=== PATIENT | female | born 1980 | race Caucasian/White ===

== ENCOUNTER 2019-11-21 20:10 | Emergency (ER) | payer OTHER ==
--- OUTSIDE RECORDS SUMMARY | 2019-11-21 20:12 | XMS REPORT | Summary of Care ---
:1980 Author Organization [facility] Address [address] [place] [address] Care Team Providers Name Role Phone Corwin Bang Primary Care Provider Reason for Visit Reason Comments New Evaluation L knee pain (Routine) Status Reason Specialty Diagnoses / Referred By Referred To Procedures Contact Contact Authorized Orthopedic Diagnoses Primary osteoarthritis of left knee [place], Surgery Procedures CONSULT/REFERRAL ORTHOPAEDIC SURGERY Leydi George, BANANA ROOM CUTTER [address] [facility] [address] [place] [address] Encounter Details Date Type Department Care Team Description 06/17/2019 Office Visit [facility] Paulie Manzo, Primary osteoarthritis Orthopaedic Surgery- MD of left knee (Primary [place] [address] [facility] Dx) [address] [facility], [address] [place] [address] [phone] Allergies Active Allergy Reactions Severity Noted Date Comments Moxifloxacin Hcl Nausea and/or High 07/09/2012 Vomiting, Rash Benadryl Allergy Nausea and/or High 07/09/2012 Decongestant Vomiting, Rash Sumatriptan Succinate Nausea and/or High 07/09/2012 Vomiting, Rash Butorphanol Tartrate Other - See comments 07/09/2012 Very sleepy, and does not act like herself documented as of this encounter (statuses as of 06/18/2019) Medications Medication Sig Dispensed Refills Start Date End Date Status ATENOLOL ORAL Take by mouth. 0 Active LISINOPRIL ORAL Take by mouth. 0 Active albuterol (PROAIR HFA) Inhale 2 Puffs 1 Inhaler 1 03/28/2018 Active 90 mcg/actuation every 6 (six) inhalerIndications: hours as needed Cough, Wheezes, Hx of for Wheezing or extrinsic asthma Shortness of Breath (cough). 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 documented as of this encounter Last Filed Vital Signs Vital Sign Reading Time Taken Comments Blood Pressure - - Pulse - - Temperature 36.3 C (97.4 F) 06/17/2019 3:22 PM CDT Respiratory Rate - - Oxygen Saturation - - Inhaled Oxygen Concentration - - Weight 95.7 kg (211 lb) 06/17/2019 3:22 PM CDT Height - - Body Mass Index 39.87 07/24/2012 9:35 AM CDT documented in this encounter Progress Paramjit Feng MD - 06/17/2019 3:20 PM CDT Orthopedic Clinic Knee Note 06/17/19 Chief Complaint: Encounter Diagnosis Name Primary? Primary osteoarthritis of left knee Yes HPI: Maria Del Carmen Rodriguez is a 39 year old female who presents with 5 year history of left knee pain presenting in the medial and lateral area of the knee. An effusion is present. Activities of daily living affected include: Getting up and down steps, getting in and out of a car, putting on shoes andsox , and rising from a chair. The patient also experiences night pain. Start up pain is present. Currently no walker or cane required. The patient is a community ambulator. The patient has had thefollowing treatments for this problem plateau ORIF, HWR, activity modifications, NSAIDs. Past Medical History: Diagnosis Date Anxiety Hypertension Migraines Tachycardia PCOS Past Surgical History: Procedure Laterality Date APPENDECTOMY ARTHROSCOPIC MENISCAL REPAIR 07/24/2012 Surgeon: Philip Lopes MD; Location: [facility] CHOLECYSTECTOMY KNEE ARTHROSCOPY 07/24/2012 Surgeon: Philip Lopes MD; Location: [facility] MENISCECTOMY 07/24/2012 Surgeon: Philip Lopes MD; Location: [facility] OTHER cyst removed right ovary TUBAL LIGATION Allergies Allergen Reactions Avelox [Moxifloxacin Hcl] Nausea and/or Vomiting and Rash Benadryl Allergy Decongestant Nausea and/or Vomiting and Rash Imitrex [Sumatriptan Succinate] Nausea and/or Vomiting and Rash Stadol [Butorphanol Tartrate] Other - See comments Very sleepy, and does not act like herself Patient's Medications START taking these medications No medications on file CONTINUE taking these medications which have NOT CHANGED ALBUTEROL (PROAIR HFA) 90 MCG/ACTUATION INHALER Inhale 2 Puffs every 6 (six ) hours as needed forWheezing or Shortness of Breath (cough). ATENOLOL ORAL Take by mouth. ESCITALOPRAM OXALATE 20 MG TABLET LISINOPRIL ORAL Take by mouth. MIRTAZAPINE 7.5 MG TABLET REXULTI 4 MG TAB START taking Modified Medications as Prescribed No medications on file STOP taking these medications No medications on file Social History Socioeconomic History Marital status: Single Spouse name: Not on file Number of children: Not on file Years of education: Not on file Highest education level: Not on file Occupational History Not on file Social Needs Financial resource strain: Not on file Food insecurity: Worry: Not on file Inability: Not on file Transportation needs: Medical: Not on file Non-medical: Not on file Tobacco Use Smoking status: Never Smoker Substance and Sexual Activity Alcohol use: No Drug use: No Sexual activity: Not on file Lifestyle Physical activity: Days per week: Not on file Minutes per session: Not on file Stress: Not on file Relationships Social connections: Talks on phone: Not on file Gets together: Not on file Attends advent service: Not on file Active member of club or organization: Not on file Attends meetings of clubs or organizations: Not on file Relationship status: Not on file Intimate partner violence: Fear of current or ex partner: Not on file Emotionally abused: Not on file Physically abused: Not on file Forced sexual activity: Not on file Other Topics Concern Not on file Social History Narrative Not on file No family history on file. Infection: None Transfusion: None REVIEW OF SYSTEMS: Constitutional: negative Eyes: negative Ears: negative Nose/Sinuses: negative Mouth/Throat: negative Cardiovascular: negative Respiratory: negative Gastrointestinal: negative Genitourinary: negative Musculoskeletal: See HPI Integumentary: negative Neuro: negative Psych: negative Endocrine: PCOS Hem/Lymph: negative PE 06/17/19 1522 Weight: 95.7 kg (211 lb) ,Body mass index is 39.87 kg/m. General: Well nourished, well developed, in no acute distress Gait: left side antalgia Skin: No rashes or wounds Left LE Hip: Stinchfield: negative, 5/ Knee: ROM: Flexion 5, Extension 85, Lag 5 Stability: [id number] Joint Line Tenderness: L>M Patella tracking/stability: crepitus Extensor Strength: 5 Pes insertion tenderness: negative Gerdy's Tubercle tenderness: negative Effusion: Mild Vascular: Dorsalis pedis: 2/4, Posterior Tibial 2/4, Hair present XRAY: Left knee 3v: remodeling of the tibial plateau with significant joint space narrowing and osteophyteformation. No visits with results within 1 Month(s) from this visit. Latest known visit with results is: Orders Only on 07/11/2012 Component Date Value MRI LOWJOINT WO CONTRAST 07/11/2012 Value:*.*.*.*.*.*.*.*.*.*.*.*.*.*FINAL*.*.*.*.*.*.*.*.*.*.*.*.* .*.* History: 32-year-old woman with left knee pain and concern for lateral meniscal tear versus lateral patellar/femoral chondral injury. MRI OF THE LEFT KNEE-3 Lizeth unit. Comparison to plain films dated 07-09-2012. The lateral meniscus has a discoid configuration. The free edge (central) shows a mildly displaced tear, best seen on the sagittal images. A small adjacent bone bruise involves the medial aspect of the tibial condyle anteriorly. The medial meniscus is intact. The collateral ligaments and the cruciate ligaments are intact. The patellar ligament and quadriceps tendon appear intact. No patellar chondromalacia. No significant joint effusion. Impression: Discoid lateral meniscus with a small tear along the free edge. HGB A1C (%) Date Value 09/28/2004 5.0 ALBUMIN (G/DL) Date Value 04/14/2005 2.1 (L) ASSESSMENT: left knee post-traumatic arthritis. H/o tibial plateau fracture. PLAN: - Discussed continued symptomatic management vs TKA. She has attempted multiple conservative optionswithout success and would like to proceed with surgery. -Plan for Left TKA -Non operative measures as well as operative intervention offerred and explained. At this time the patient desires to pursue surgical care. Indications , operative risks, potential outcomes and benefitsdiscussed and reviewed in detail. Operative risks discussed included but were not limited to infection, continued pain, increasing pain, no improvement, scarring, stiffness, loss of motion, need for lengthy rehabilitation in the postoperative phases, worsening of the condition, need for revision and/or further surgical care, fracture of bone, loosening of prosthesis or implants either in the short-term or long-term , compromise to life and/or limb, bleeding, blood clots, compartment syndrome issues, transfusion risks, allograft risks, potential injury to associated structures which may include nerve, vessel, muscle, tendon, ligament, and/or bone or cartilage which may result in loss of muscle strength, changes or losses in sensation, and/or limb dysfunction or deformity, less prevalent complications, unforeseen circumstances. Both written and verbal consent were obtained. All questions were answered and thoroughly reviewed. Pre-operative evaluation/clearance to be performed by primary care physician/medical physician , anesthesia team, prior to operative intervention for evaluation of medical preparedness to undergo anesthesia and operative stress. Instructions for this/ these evaluations were given to the patient and appropriate family/companions in attendance. - Activity as tolerated until surgery - Preop labs, CXR, EKG and bootcamp ordered - Follow up on DOSElectronically signed by Paramjit Leon MD at 2:37 PM CDTdocumented in this encounter Plan of Treatment Date Type Specialty Care Team Description 07/27/2019 Office Visit Orthopedic Surgery Eileen Goodman, BANANA ROOM CUTTER [address] [place] [address] [phone] Name Type Priority Associated Diagnoses Order Schedule XR CHEST 1 VW IMAGING Routine Primary osteoarthritis Expected: of left knee 06/17/2019, Expires: 06/17/2020 EKG-12 LEAD ROUTINE HEART STATION Routine Primary osteoarthritis Expected: of left knee 06/17/2019, Expires: 06/17/2020 URINALYSIS LAB Routine Primary osteoarthritis Expected: of left knee 06/17/2019, Expires: 06/17/2020 CBC WITH DIFF LAB Routine Primary osteoarthritis Expected: of left knee 06/17/2019, Expires: 06/17/2020 COMP. METABOLIC PANEL LAB Routine Primary osteoarthritis Expected: ([id number]) of left knee 06/17/2019, Expires: 06/17/2020 PROTHROMBIN TIME / INR LAB Routine Primary osteoarthritis Ordered: of left knee 06/17/2019 GLYCOSYLATED LAB Routine Primary osteoarthritis Ordered: HEMOGLOBIN (A1C) of left knee 06/17/2019 HEPATIC FUNCTION PANEL LAB Routine Primary osteoarthritis Ordered: ([id number]) of left knee 06/17/2019 (ALB,T.PRO,BILI T,BU/BC,ALT,AST,ALK PHOS) Health Maintenance Due Date Last Done Comments DTaP,Tdap,and Td Vaccines ( - 1997 Tdap) PAP SMEAR 09/28/2007 09/28/2004 MAMMOGRAM 2018 INFLUENZA VACCINE 07/25/2019 PNEUMOCOCCAL 0-64 YEARS COMBINED Aged Out No longer eligible based on SERIES patient's age to complete this topic documented as of this encounter Implants Implanted Type Area Bellperson Device Shelf Model / Identifier Expiration Serial / Lot Date Fast-Fix Ab, [employer] Curved Ultra #[id number] - [id number] FAST-FIX Left : [employer] 05/23/2015 [id number] / Implanted: Qty: 1 on 07/24/2012 by Philip Lopes MD at [facility] [place] [facility] Knee [id number] / [id number] Fast Fix 360 Curved Left: 05/23/2015 / Implanted: Qty: 1 on 07/24/2012 by Philip Lopes MD at [facility] Knee [id number] / [id number] documented as of this encounter Results Not on filedocumented in this encounter Visit Diagnoses Diagnosis Primary osteoarthritis of left knee - Primary Primary localized osteoarthrosis, lower leg documented in this encounter Insurance Payer Benefit Plan / Subscriber ID Effective Dates Phone Address Type Group [facility] xxxxxxxxx 2018-Present Medicaid COMM PLAN - PLUS MANAGED MEDICAID (Home) [id number], ([place]) [place] [address] documented as of this encounter
--- OUTSIDE RECORDS SUMMARY | 2019-11-21 20:13 | XMS REPORT | Summary of Care ---
:1980 Author Organization [facility] - [facility] Address [address] [place] [address] Care Team Providers Name Role Phone Merritt Corwin Primary Care Provider Reason for Visit Reason Comments Results Pre-Op Test Results Encounter Details Date Type Department Care Team Description 07/08/2019 Telephone [facility] Orthopaedic Paulie Manzo, Results (Pre -Op Test Surgery- [facility] Results) [facility] [address] [phone] Allergies Active Allergy Reactions Severity Noted Date Comments Moxifloxacin Hcl Nausea and/or High 07/09/2012 Vomiting, Rash Benadryl Allergy Nausea and/or High 07/09/2012 Decongestant Vomiting, Rash Sumatriptan Succinate Nausea and/or High 07/09/2012 Vomiting, Rash Butorphanol Tartrate Other - See comments 07/09/2012 Very sleepy, and does not act like herself documented as of this encounter (statuses as of 07/08/2019) Medications Medication Sig Dispensed Refills Start Date [...] as of this encounter (statuses as of 07/08/2019) Active Problems Problem Noted Date Hypertension 02/06/2018 Tachycardia 02/06/2018 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 documented as of this encounter Last Filed Vital Signs Not on filedocumented in this encounter Plan of Treatment Date Type Specialty Care Team Description 07/14/2019 Ancillary Visit Physical Therapy Maurice Noriega MD [address] [facility] [address] [place] [address] [phone] Preop, Bárbara Vl-Tka 07/27/2019 Office Visit Orthopedic Surgery Eileen Villanueva, SKYLAR [address] [place] [address] [phone] 07/27/2019 Hospital Encounter Surgery Paulie Manzo MD [address] [place] [address] [phone] 07/27/2019 Surgery Surgery Paulie Manzo TOTAL KNEE MD [facility] ARTHROPLASTY [address] [place] [address] [phone] 09/01/2019 Office Visit Orthopedic Surgery Paulie Manzo MD [address] [place] [address] [phone] Health Maintenance Due Date Last Done Comments DTaP,Tdap,and Td Vaccines (1 - 1997 Tdap) PAP SMEAR 09/28/2007 09/28/2004 MAMMOGRAM 2018 INFLUENZA VACCINE (#1) 2019 PNEUMOCOCCAL 0-64 YEARS COMBINED Aged Out No longer eligible based on SERIES patient's age to complete this topic documented as of this encounter Implants Implanted Type Area Drain Layer Device Shelf Model / Identifier Expiration Serial / Lot Date Fast-Fix Ab, [employer] Curved Ultra #[id number] - [id number] FAST-FIX Left : [employer] 05/23/2015 [id number] / Implanted: Qty: 1 on 07/24/2012 by Philip Lopes MD at [facility] [place] [facility] Knee [id number] / [id number] Fast Fix 360 Curved Left: 05/23/2015 / Implanted: Qty: 1 on 07/24/2012 by Philip Lopes MD at [facility] AT [facility] Knee [id number] / [id number] documented as of this encounter Results Not on filedocumented in this encounter Insurance Payer Benefit Plan / Subscriber ID Effective Dates Phone Address Type Group [facility] xxxxxxxxx 2018-Present Medicaid COMM PLAN - PLUS MANAGED MEDICAID documented as of this encounter
--- OUTSIDE RECORDS SUMMARY | 2019-11-21 20:13 | XMS REPORT | Summary of Care ---
:1980 Author Organization [facility] Address [address] [place] [address] Care Team Providers Name Role Phone Merritt Corwin Primary Care Provider Reason for Visit Reason Comments Notification question about crutches and knee brace Encounter Details Date Type Department Care Team Description 06/18/2019 Telephone [facility] Orthopaedic Paulie Manzo, Notification (question Surgery- Jenny Dai MD about crutches and knee [place] [address] [facility] brace ) [address] [facility] [address] [place] [phone] Allergies Active Allergy Reactions Severity Noted Date [...] 07/27/2019 Office Visit Orthopedic Surgery Eileen Goodman, INSURANCE LOSS ADJUSTER [address] [place] [address] [phone] Health Maintenance Due Date Last Done Comments DTaP,Tdap,and Td Vaccines ( - 1997 Tdap) PAP SMEAR 09/28/2007 09/28/2004 MAMMOGRAM 2018 INFLUENZA VACCINE 07/25/2019 PNEUMOCOCCAL 0-64 YEARS COMBINED Aged Out No longer eligible based on SERIES patient's age to complete this topic documented as of this encounter Implants Implanted Type Area Candy Dipper Device Shelf Model / Identifier Expiration Serial / Lot Date Fast-Fix Ab, [employer] Curved Ultra #[id number] - [id number] FAST-FIX Left : [employer] 05/23/2015 [id number] / Implanted: Qty: 1 on 07/24/2012 by Philip Lopes MD at [facility] Knee [id number] / [id number] Fast Fix 360 Curved Left: 05/23/2015 / Implanted: Qty: 1 on 07/24/2012 by Philip Lopes MD at [facility] Knee [id number] / [id number] documented as of this encounter Results Not on filedocumented in this encounter Insurance Payer Benefit Plan / Subscriber ID Effective Dates Phone Address Type Group [facility] xxxxxxxxx 2018-Present Medicaid COMM PLAN - PLUS MANAGED MEDICAID documented as of this encounter
--- OUTSIDE RECORDS SUMMARY | 2019-11-21 20:13 | XMS REPORT | Summary of Care ---
:1980 Author Organization [facility] Address [address] [place] [address] Care Team Providers Name Role Phone Merritt Corwin Primary Care Provider Reason for Visit Reason Comments Appointment sched surgery Encounter Details Date Type Department Care Team Description 06/18/2019 Telephone [facility] Orthopaedic Paulie Manzo, Appointment (sched Surgery- [facility] surgery ) [place] [address] [facility] [address] [place] [address] [address] [place] [phone] Allergies Active Allergy Reactions Severity Noted Date Comments Moxifloxacin Hcl Nausea and/or High 07/09/2012 Vomiting, Rash Benadryl Allergy Nausea and/or High 07/09/2012 Decongestant Vomiting, Rash Sumatriptan Succinate Nausea and/or High 07/09/2012 Vomiting, Rash Butorphanol Tartrate Other - See comments 07/09/2012 Very sleepy, and does not act like herself documented as of this encounter (statuses as of 06/22/2019) Medications Medication Sig Dispensed Refills Start Date [...] as of this encounter (statuses as of 06/22/2019) Active Problems Problem Noted Date Hypertension 02/06/2018 Tachycardia 02/06/2018 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 Tear of lateral cartilage or meniscus of knee, current 07/23/2012 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 documented as of this encounter (statuses as of 06/22/2019) Social History Tobacco Use Types Packs/Day Years [...] Description 07/27/2019 Office Visit Orthopedic Surgery Eileen Goodman FNP [address] [place] [address] [phone] 09/01/2019 Office Visit Orthopedic Surgery Paulie Manzo MD [address] [place] [address] [phone] Health Maintenance Due Date Last Done Comments DTaP,Tdap,and Td Vaccines (1 - 1997 Tdap) PAP SMEAR 09/28/2007 09/28/2004 MAMMOGRAM 2018 INFLUENZA VACCINE 07/25/2019 PNEUMOCOCCAL 0-64 YEARS COMBINED Aged Out No longer eligible based on SERIES patient's age to complete this topic documented as of this encounter Implants Implanted Type Area Stockroom Helper Device Shelf Model / Identifier Expiration Serial / Lot Date Fast-Fix Ab, [employer] Curved Ultra #[id number] - [id number] FAST-FIX Left : [employer] 05/23/2015 [id number] / Implanted: Qty: 1 on 07/24/2012 by Philip Lopes MD at [facility] Knee [id number] / [id number] Fast Fix 360 Curved Left: 05/23/2015 / Implanted: Qty: 1 on 07/24/2012 by Philip Lopes MD at [facility] Knee [id number] / [id number] documented as of this encounter Results Not on filedocumented in this encounter Insurance Payer Benefit Plan / Subscriber ID Effective Dates Phone Address Type Group [facility] xxxxxxxxx 2018-Present Medicaid COMM PLAN - PLUS MANAGED MEDICAID documented as of this encounter
--- OUTSIDE RECORDS SUMMARY | 2019-11-21 20:13 | XMS REPORT | Summary of Care ---
:1980 Author Organization [facility] - [facility] Address [address] [place] [address] Care Team Providers Name Role Phone Corwin Bang Primary Care Provider Reason for Visit Reason Comments New Evaluation L knee pain (Routine) Status Reason Specialty Diagnoses / Referred By Referred To Procedures Contact Contact Authorized Orthopedic Diagnoses Primary osteoarthritis of left knee [place], Surgery Procedures CONSULT/REFERRAL ORTHOPAEDIC SURGERY Leydi George, MANAGER NON PROFIT [address] [facility] [address] [place] [address] Encounter Details Date Type Department Care Team Description 06/17/2019 Office Visit [facility] Paulie Manzo, Primary osteoarthritis Orthopaedic Surgery- MD of left knee (Primary [place] 26[address] [facility] Dx) [address] [facility], [address] [place] [address] [phone] Allergies Active Allergy Reactions Severity Noted Date [...] REPAIR 07/24/2012 Surgeon: Philip Lopes MD; Location: [facility] CHOLECYSTECTOMY KNEE ARTHROSCOPY 07/24/2012 Surgeon: Philip Lopes MD; Location: [facility] OR [facility] MENISCECTOMY 07/24/2012 Surgeon: Philip Lopes MD; Location: [facility] OR [facility] OTHER cyst removed right ovary TUBAL LIGATION [...] file Gets together: Not on file Attends church service: Not on file Active member of [...] Flexion 5, Extension 85, Lag 5 Stability: [id number] Joint Line Tenderness: L>M Patella tracking/stability: crepitus [...] 07/27/2019 Office Visit Orthopedic Surgery Eileen Goodman, MANAGER NON PROFIT [address] [place] [address] [phone] Name Type Priority Associated Diagnoses Order Schedule [...] METABOLIC PANEL LAB Routine Primary osteoarthritis Expected: ([id number]) of left knee 06/17/2019, Expires: 06/17/2020 PROTHROMBIN TIME / INR LAB Routine Primary osteoarthritis Ordered: of left knee 06/17/2019 GLYCOSYLATED LAB Routine Primary osteoarthritis Ordered: HEMOGLOBIN (A1C) of left knee 06/17/2019 HEPATIC FUNCTION PANEL LAB Routine Primary osteoarthritis Ordered: ([id number]) of left knee 06/17/2019 (ALB,T.PRO,BILI T,BU/BC,ALT,AST,ALK PHOS) Health Maintenance Due Date Last Done Comments DTaP,Tdap,and Td Vaccines ( - 1997 Tdap) PAP SMEAR 09/28/2007 09/28/2004 MAMMOGRAM 2018 INFLUENZA VACCINE 07/25/2019 PNEUMOCOCCAL 0-64 YEARS COMBINED Aged Out No longer eligible based on SERIES patient's age to complete this topic documented as of this encounter Implants Implanted Type Area Rivet Sticker Device Shelf Model / Identifier Expiration Serial / Lot Date Fast-Fix Ab, [employer] Curved Ultra #[id number] - [id number] FAST-FIX Left : [employer] 05/23/2015 [id number] / Implanted: Qty: 1 on 07/24/2012 by Philip Lopes MD at [facility] [place] [facility] Knee [id number] / [id number] Fast Fix 360 Curved Left: 05/23/2015 / Implanted: Qty: 1 on 07/24/2012 by Philip Lopes MD at [facility] Knee [id number] / [id number] documented as of this encounter Results Not on filedocumented in this encounter Visit Diagnoses Diagnosis Primary osteoarthritis of left knee - Primary Primary localized osteoarthrosis, lower leg documented in this encounter Insurance Payer Benefit Plan / Subscriber ID Effective Dates Phone Address Type Group [facility] xxxxxxxxx 2018-Present Medicaid COMM PLAN - PLUS MANAGED MEDICAID (Home) [address], ([place]) [place] [address] documented as of this encounter
--- OUTSIDE RECORDS SUMMARY | 2019-11-21 20:13 | XMS REPORT | Summary of Care ---
:1980 Author Organization [address] [address] Care Team Providers Name Role Phone VidyaCorwin chavira Primary Care Provider Reason for Visit Reason Comments Pre-Visit Planning Schedule Pre-Op Total Joint Class Encounter Details Date Type Department Care Team Description 06/22/2019 Telephone [facility] Missy Gordon RN Pre-Visit Planning Orthopaedic Surgery- [address] [place] [address] (Schedule Pre-Op [facility] [address] Total Joint Class) [address] [place] [address] [phone] Allergies Active Allergy Reactions Severity Noted Date [...] Visit Orthopedic Surgery Eileen Goodman FNP [address] [place] [address] [phone] 09/01/2019 Office Visit Orthopedic Surgery Paulie Manzo MD [address] [place] [address] [phone] Health Maintenance Due Date Last Done Comments DTaP,Tdap,and Td Vaccines (1 - 1997 Tdap) PAP SMEAR 09/28/2007 09/28/2004 MAMMOGRAM 2018 INFLUENZA VACCINE 07/25/2019 PNEUMOCOCCAL 0-64 YEARS COMBINED Aged Out No longer eligible based on SERIES patient's age to complete this topic documented as of this encounter Implants Implanted Type Area Crane Man Device Shelf Model / Identifier Expiration Serial / Lot Date Fast-Fix Ab, [employer] Curved Ultra #[id number] - [id number] FAST-FIX Left : [employer] 05/23/2015 [id number] / Implanted: Qty: 1 on 07/24/2012 by Philip Lopes MD at [facility] Knee [id number] / [id number] Fast Fix 360 Curved Left: 05/23/2015 / Implanted: Qty: 1 on 07/24/2012 by Philip Lopes MD at [facility] Knee [id number] / [id number] documented as of this encounter Results Not on filedocumented in this encounter Insurance Payer Benefit Plan / Subscriber ID Effective Dates Phone Address Type Group [facility] STAR xxxxxxxxx 2018-Present Medicaid COMM PLAN - PLUS MANAGED MEDICAID documented as of this encounter
--- OUTSIDE RECORDS SUMMARY | 2019-11-21 20:13 | XMS REPORT | Summary of Care ---
:1980 Author Organization [facility] Address [address] [place] [address] Care Team Providers Name Role Phone Corwin Bang Primary Care Provider Encounter Details Date Type Department Care Team Description 07/12/2019 Letter (Out) [facility]opaedic Paulie Manzo MD Surgery- [facility] 2660 [facility] 2[address] [facility] [address] [place] [address] [place] [phone] Allergies Active Allergy Reactions Severity Noted Date Comments Moxifloxacin Hcl Nausea and/or High 07/09/2012 Vomiting, Rash Benadryl Allergy Nausea and/or High 07/09/2012 Decongestant Vomiting, Rash Sumatriptan Succinate Nausea and/or High 07/09/2012 Vomiting, Rash Butorphanol Tartrate Other - See comments 07/09/2012 Very sleepy, and does not act like herself documented as of this encounter (statuses as of 07/12/2019) Medications Medication Sig Dispensed Refills Start Date [...] as of this encounter (statuses as of 07/12/2019) Active Problems Problem Noted Date Hypertension 02/06/2018 Tachycardia 02/06/2018 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 Tear of lateral cartilage or meniscus of knee, current 07/23/2012 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 [place] [phone] 07/27/2019 Surgery Surgery Paulie Manzo, TOTAL KNEE MD ARTHROPLASTY [address] [place] [address] [phone] 09/01/2019 Office Visit Orthopedic Surgery Paulie Manzo MD [address] [place] [address] [phone] Health Maintenance Due Date Last Done Comments DTaP,Tdap,and Td Vaccines (1 - 1997 Tdap) PAP SMEAR 09/28/2007 09/28/2004 MAMMOGRAM 2018 INFLUENZA VACCINE (#1) 2019 PNEUMOCOCCAL 0-64 YEARS COMBINED Aged Out No longer eligible based on SERIES patient's age to complete this topic documented as of this encounter Implants Implanted Type Area Medical Billing Instructor Device Shelf Model / Identifier Expiration Serial / Lot Date Fast-Fix Ab, [employer] Curved Ultra #[id number] - [id number] FAST-FIX Left : [employer] 05/23/2015 [id number] / Implanted: Qty: 1 on 07/24/2012 by Philip Lopes MD at [facility] [place] [facility] Knee [id number] / [id number] Fast Fix 360 Curved Left: 05/23/2015 / Implanted: Qty: 1 on 07/24/2012 by Philip Lopes MD at [facility] Knee [id number] / [id number] documented as of this encounter Results Not on filedocumented in this encounter Insurance Payer Benefit Plan / Subscriber ID Effective Dates Phone Address Type Group [facility] ST[facility] xxxxxxxxx 2018-Present Medicaid COMM PLAN - PLUS MANAGED MEDICAID documented as of this encounter
--- OUTSIDE RECORDS SUMMARY | 2019-11-21 20:13 | XMS REPORT | Summary of Care ---
:1980 Author Organization [facility] - Health Address [address] [place] [address] Care Team Providers Name Role Phone Corwin Bang Primary Care Provider Encounter Details Date Type Department Care Team Description 07/09/2019 Orders Only [facility] Doctor Unassigned, No [address] [facility] Name [place], [place] [phone] [place] [address] Allergies Active Allergy Reactions Severity Noted Date Comments Moxifloxacin Hcl Nausea and/or High 07/09/2012 Vomiting, Rash Benadryl Allergy Nausea and/or High 07/09/2012 Decongestant Vomiting, Rash Sumatriptan Succinate Nausea and/or High 07/09/2012 Vomiting, Rash Butorphanol Tartrate Other - See comments 07/09/2012 Very sleepy, and does not act like herself documented as of this encounter (statuses as of 07/09/2019) Medications Medication Sig Dispensed Refills Start Date [...] as of this encounter (statuses as of 07/09/2019) Active Problems Problem Noted Date Hypertension 02/06/2018 Tachycardia 02/06/2018 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 07/27/2019 Surgery Surgery Paulie Manzo TOTAL KNEE MD [place] ARTHROPLASTY [address] [place] [address] [phone] 09/01/2019 Office Visit Orthopedic Surgery Paulie Manzo MD [address] [place] [address] [phone] Health Maintenance Due Date Last Done Comments DTaP,Tdap,and Td Vaccines (1 - 1997 Tdap) PAP SMEAR 09/28/2007 09/28/2004 MAMMOGRAM 2018 INFLUENZA VACCINE (#1) 2019 PNEUMOCOCCAL 0-64 YEARS COMBINED Aged Out No longer eligible based on SERIES patient's age to complete this topic documented as of this encounter Implants Implanted Type Area Tool Or Die Drawing Checker Device Shelf Model / Identifier Expiration Serial / Lot Date Fast-Fix Ab, [employer] Curved Ultra #[id number] - [id number] FAST-FIX Left : [employer] 05/23/2015 [id number] / Implanted: Qty: 1 on 07/24/2012 by Philip Lopes MD at [facility] Knee [id number] / [id number] Fast Fix 360 Curved Left: 05/23/2015 / Implanted: Qty: 1 on 07/24/2012 by Philip Lopes MD at [facility] Knee [id number] / [id number] documented as of this encounter Procedures Procedure Name Priority Date/Time Associated Diagnosis Comments EXTERNAL PROVIDER Routine 07/09/2019 12:01 AM CDT RECORDS documented in this encounter Results Not on filedocumented in this encounter Insurance Payer Benefit Plan / Subscriber ID Effective Dates Phone Address Type Group [facility] STAR xxxxxxxxx 2018-Present Medicaid COMM PLAN - PLUS MANAGED MEDICAID documented as of this encounter
--- OUTSIDE RECORDS SUMMARY | 2019-11-21 20:13 | XMS REPORT | Summary of Care ---
:1980 Author Organization [facility] - Health Address [address] [place] [address] Care Team Providers Name Role Phone Corwin Bang Primary Care Provider Encounter Details Date Type Department Care Team Description 06/17/2019 Orders Only [facility] Doctor Unassigned, No [address] [facility] Name [place] [address] [place] [address] Allergies Active Allergy Reactions Severity Noted Date [...] Visit Orthopedic Surgery Eileen Goodman FNP [address] [place] [address] [phone] 09/01/2019 Office Visit Orthopedic Surgery Paulie Manzo MD [address] [place] [address] [phone] Health Maintenance Due Date Last Done Comments DTaP,Tdap,and Td Vaccines ( - 1997 Tdap) PAP SMEAR 09/28/2007 09/28/2004 MAMMOGRAM 2018 INFLUENZA VACCINE 07/25/2019 PNEUMOCOCCAL 0-64 YEARS COMBINED Aged Out No longer eligible based on SERIES patient's age to complete this topic documented as of this encounter Implants Implanted Type Area Independent Distributor Device Shelf Model / Identifier Expiration Serial / Lot Date Fast-Fix Ab, [employer] Curved Ultra #[id number] - [id number] FAST-FIX Left : [employer] 05/23/2015 [id number] / Implanted: Qty: 1 on 07/24/2012 by Philip Lopes MD at [facility] [place] [facility] Knee [id number] / [id number] Fast Fix 360 Curved Left: 05/23/2015 / Implanted: Qty: 1 on 07/24/2012 by Philip Lopes MD at [facility] [place] [facility] Knee [id number] / [id number] documented as of this encounter Procedures Procedure Name Priority Date/Time Associated Diagnosis Comments DISCLOSURE AND CONSENT, Routine 06/17/2019 12:01 AM MEDICAL AND SURGICAL CDT PROCEDURES documented in this encounter Results Not on filedocumented in this encounter Insurance Payer Benefit Plan / Subscriber ID Effective Dates Phone Address Type Group [facility] xxxxxxxxx 2018-Present Medicaid COMM PLAN - PLUS MANAGED MEDICAID documented as of this encounter
--- OUTSIDE RECORDS SUMMARY | 2019-11-21 20:14 | XMS REPORT | Summary of Care ---
:1980 Author Organization [facility] Address [address] [place] [id number] Care Team Providers Name Role Phone Corwin Bang Primary Care Provider Reason for Visit Auth/Cert Status Reason Specialty Diagnoses / Procedures Referred By Contact Referred To Contact Surgery Diagnoses osteoarthritis left knee Vl Preop Procedures SD TOTAL KNEE ARTHROPLASTY TOTAL KNEE ARTHROPLASTY [address] [place] [id number] Encounter Details Date Type Department Care Team Description 07/27/2019 Anesthesia [facility] Derrek Rahman MD [address] [place] [id number] [place] [address] Allergies Active Allergy Reactions Severity Noted Date Comments Moxifloxacin Hcl Nausea and/or High 07/09/2012 Vomiting, Rash Benadryl Allergy Nausea and/or High 07/09/2012 Decongestant Vomiting, Rash Propoxyphene Nausea and/or 07/19/2019 N-Acetaminophen Vomiting, Rash Sumatriptan Succinate Nausea and/or High 07/09/2012 Vomiting, Rash Butorphanol Tartrate Other - See comments 07/09/2012 Very sleepy, and does not act like herself Benzonatate Rash 07/19/2019 Topiramate Other - See comments 07/19/2019 Severe headaches documented as of this encounter (statuses as of 07/27/2019) Medications Medication Sig Dispensed Refills Start Date End Date Status ATENOLOL ORAL Take by mouth. 0 Suspended LISINOPRIL ORAL Take by mouth. 0 Suspended albuterol (PROAIR Inhale 2 Puffs 1 Inhaler 1 03/28/2018 Suspended HFA) 90 every 6 (six) mcg/actuation hours as needed inhalerIndications: for Wheezing or Cough, Wheezes, Hx Shortness of of extrinsic asthma Breath (cough). REXULTI 4 mg Tab 0 05/12/2019 Suspended escitalopram oxalate 0 05/12/2019 Suspended 20 mg tablet mirtazapine 7.5 mg 0 05/12/2019 Suspended tablet budesonide-formotero Inhale 2 Puffs 2 0 Suspended l (SYMBICORT) (two) times 160-4.5 daily. mcg/actuation inhaler ibuprofen 800 mg Take 800 mg by 0 Suspended tablet mouth every 6 (six) hours as needed. tramadol HCl Take by mouth. 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 documented as of this encounter Last Filed Vital Signs Not on filedocumented in this encounter Plan of Treatment Date Type Specialty Care Team Description 08/25/2019 Office Visit Orthopedic Surgery Eileen Goodman FNP [address] [place], [place] [id number] 09/01/2019 Office Visit Orthopedic Surgery Paulie Manzo MD [address] [place], [place] [address] Name Type Priority Associated Diagnoses Date/Time Nerve Block ANESTHESIA PROCEDURE Routine 07/27/2019 9:29 AM CDT Intubation ANESTHESIA PROCEDURE Routine 07/27/2019 10:18 AM CDT Health Maintenance Due Date Last Done Comments DTaP,Tdap,and Td Vaccines ( - 1997 Tdap) PAP SMEAR 09/28/2007 09/28/2004 MAMMOGRAM 2018 INFLUENZA VACCINE (#1) 2019 PNEUMOCOCCAL 0-64 YEARS COMBINED Aged Out No longer eligible based on SERIES patient's age to complete this topic documented as of this encounter Implants Implanted Type Area Returns Processor Device Shelf Model / Identifier Expiration Serial / Date Lot Cement, Deanna Bone #[id number] - S0 CEMENT Left: Deanna 08/23/2021 [id number] / Implanted: Qty: 1 on 07/27/2019 by Paulie Manzo MD at [facility] Knee 0 / [id number] Fast-Fix Ab, [employer] Curved Ultra #[id number] - [id number] FAST-FIX AB Left: [employer]hew 05/23/2015 [id number] / Implanted: Qty: 1 on 07/24/2012 by Philip Lopes MD at [facility] AT [facility] [id number] / [id number] Patella, Deanna Triathlon Asymmetric X3 Patell #5551-G-299 - S0 PATELLA Left : Orange 04/28/2024 [id number] / Implanted: Qty: 1 on 07/27/2019 by Paulie Manzo MD at [facility] SPECIALTY [facility] AT [facility] Knee 0 / [id number] Stem, Deanna Tri Cemented [id number] #[id number] - S0 Stem Left: Deanna 11/04/2023 [id number]-[id number] / Implanted: Qty: 1 on 07/27/2019 by Paulie Manzo MD at [facility] AT [facility] Knee 0 / [id number] Fast Fix 360 Curved Left: 05/23/2015 / Implanted: Qty: 1 on 07/24/2012 by Philip Lopes MD at [facility] SPECIAL[facility] AT [facility] [id number] / [id number] Baseplate, Deanna Tri Ts Size 4 #[id number] - S0 Left: Orange 2023 [id number] / Implanted: Qty: 1 on 07/27/2019 by Paulie Manzo MD at [facility] AT [facility] Knee 0 / [id number] Cruciate Retaining Femoral Left: Orange 02/22/2024 [id number] / Implanted: Qty: 1 on 07/27/2019 by Paulie Manzo MD at [facility] AT [facility] Knee 0 / [id number] Tibial Bearing Insert-Cs Left: Orange 04/27/2024 [id number]-[id number] / Implanted: Qty: 1 on 07/27/2019 by Paulie Manzo MD at [facility] AT [facility] 0 / [id number] documented as of this encounter Procedures Procedure Name Priority Date/Time Associated Diagnosis Comments INTUBATION Routine 07/27/2019 10:18 AM CDT Procedure Note - Cassandra Willard LEATHER CRAFTSMAN - 07/27/2019 10:18 AM CDT Intubation Date/Time: 07/27/2019 9:40 AM Urgency: elective Airway not difficult General Information and Staff Patient location during procedure: OR Performed: resident/LEATHER CRAFTSMAN Indications and Patient Condition Indications for airway management: anesthesia and airway protection Spontaneous Ventilation: absent Sedation level: deep Preoxygenated: yes Patient position: sniffing MILS maintained throughout Mask difficulty assessment: 1 - vent by mask No planned trial extubation Final Airway Details Final airway type: endotracheal airway Successful airway: ETT Cuffed: yes Successful intubation technique: direct laryngoscopy Facilitating devices/methods: intubating stylet Endotracheal tube insertion site: oral Blade: Winters Blade size: #2 ETT size (mm): 7.0 Cormack-Lehane Classification: grade I - full view of glottis Placement verified by: chest auscultation, capnometry and palpation of cuff Measured from: lips ETT to lips (cm): 20 Number of attempts at approach: 1 Number of other approaches attempted: 0 Additional Comments Easy to mask, easy, atraumatic intubation, lips and teeth as preop, tube secured, all PPP. Poor dentition preop, risks discussed and accepted, unchanged after intubation. NERVE BLOCK Routine 07/27/2019 9:29 AM CDT Procedure Note - Ronny Dee MD - 07/27/2019 9:29 AM CDT Nerve Block Procedure: Other Peripheral Nerve Laterality: Left Surgical Anesthesia: no Start Time: 07/27/2019 8:35 AM End Time: 07/27/2019 8:50 AM Post Op Pain Management requested by surgeon per surgical: Progress Note Resident/LEATHER CRAFTSMAN: Thi Barbosa, MDPerformed by: resident/LEATHER CRAFTSMAN Preanesthetic timeout completed prior to procedure: patient identified,IV checked, site marked, risks and benefits discussed, surgical consent, monitors and equipment checked, pre-op evaluation, timeout performed Patient position: supine. Sterile Prep/Drape: Yes Monitoring: continuous pulse ox, blood pressure and ECG Injection Technique: single-shot Needle Type: Other Needle Gauge: 22 G Needle Length: 4.0 Number of Attempts: 2 Technique: Ultrasound guided, Negative aspiration and Intermittent aspiration during injection Sensory Effect: Adequate Events: Patient tolerated procedure well, Negative Aspiration, No symptoms of intraneural or IV injection and Local anesthetic solution visualized around nerve Medications Given: Regional: Bupiv 0.25% 60 mL EPI 1:200K Sedation: Midazolam 2 mg Fentanyl 75 mcg Additional Notes:Adductor canal block documented in this encounter Results Not on filedocumented in this encounter Administered Medications Medication Order MAR Action Action Date Dose Rate Site acetaminophen ADULT (OFIRMEV) Given 07/27/2019 10:18 AM CDT 1,000 mg injection Administer over 15 Minutes, ONCE INTRA PROCEDURE, Starting Fri07/27/19 at 1012, Until Fri07/27/19 at 1258, Routine, Intra-op bupivacaine (preserv free) (SENSORCAINE MPF) Given 07/27/2019 8:48 AM CDT 30 mL 0.25 % (2.5 mg/mL) injection ONCE INTRA PROCEDURE, Starting Fri07/27/19 at 0845, Until Fri07/27/19 at 1258, Routine, Intra-op Given 07/27/2019 8:45 AM CDT 30 mL ceFAZolin (ANCEF) injection Given 07/27/2019 11:48 AM CDT 1 g ONCE INTRA PROCEDURE, Starting Fri07/27/19 at 1017, Until Fri07/27/19 at 1258, MAL, Intra-op Given 07/27/2019 10:17 AM CDT 1 g dexamethasone (DECADRON PHOSPHATE) injection Given 07/27/2019 10:07 AM CDT 8 mg ONCE INTRA PROCEDURE, Starting Fri07/27/19 at 1007, Until Fri07/27/19 at 1258, Routine, Intra-op ePHEDrine 25 mg/5 mL (5 mg/mL) syringe Given 07/27/2019 10:29 AM CDT 5 mg ONCE INTRA PROCEDURE, Starting Fri07/27/19 at 0955, Until Fri07/27/19 at 1258, Routine, Intra-op Given 07/27/2019 10:20 AM CDT 5 mg Given 07/27/2019 9:55 AM CDT 5 mg FENTanyl PF (SUBLIMAZE (PF)) injection Given 07/27/2019 11:44 AM CDT 25 mcg ONCE INTRA PROCEDURE, Starting Fri07/27/19 at 0938, Until Fri07/27/19 at 1258, Routine, Intra-op Given 07/27/2019 10:58 AM CDT 25 mcg Given 07/27/2019 10:50 AM CDT 25 mcg HYDROmorphOne (DILAUDID) injection Given 07/27/2019 12:49 PM CDT 0.2 mg ONCE INTRA PROCEDURE, Starting Fri07/27/19 at 1158, Until Fri07/27/19 at 1258, Routine, Intra-op Given 07/27/2019 12:45 PM CDT 0.2 mg Given 07/27/2019 12:40 PM CDT 0.2 mg lactated ringers IV infusion New Bag 07/27/2019 11:55 AM CDT CONTINUOUS PRN, Starting Fri07/27/19 at 0933, Until Fri07/27/19 at 1258, Routine, Intra-op New Bag 07/27/2019 9:37 AM CDT New Bag 07/27/2019 9:33 AM CDT 100 mL/hr lidocaine 1% (XYLOCAINE) 100 mg/10 mL (1 %) Given 07/27/2019 9:38 AM CDT 10 mL injection ONCE INTRA PROCEDURE, Starting 07/27/19 at 0938, Until 07/27/19 at 1258, Routine, Intra-op midazolam (VERSED) injection Given 07/27/2019 9:36 AM CDT 1 mg ONCE INTRA PROCEDURE, Starting 07/27/19 at 0840, Until 07/27/19 at 1258, Routine, Intra-op Given 07/27/2019 9:30 AM CDT 1 mg Given 07/27/2019 8:40 AM CDT 2 mg ondansetron (ZOFRAN (PF)) injection Given 07/27/2019 11:33 AM CDT 4 mg ONCE INTRA PROCEDURE, Starting 07/27/19 at 1133, Until Tu07/27/19 at 1258, Routine, Intra-op propofol injection Given 07/27/2019 12:30 PM CDT 20 mg ONCE INTRA PROCEDURE, Starting 07/27/19 at 0938, Until Tu07/27/19 at 1258, Routine, Intra-op Given 07/27/2019 12:26 PM CDT 20 mg Given 07/27/2019 12:20 PM CDT 20 mg rocuronium (ZEMURON) injection Given 07/27/2019 9:41 AM CDT 50 mg ONCE INTRA PROCEDURE, Starting 07/27/19 at 0941, Until Tu07/27/19 at 1258, Routine, Intra-op sugammadex (BRIDION) injection Given 07/27/2019 12:30 PM CDT 190.6 mg ONCE INTRA PROCEDURE, Starting 07/27/19 at 1230, Until 07/27/19 at 1258, Routine, Intra-op tranexamic acid (CYKLOKAPRON) 1,000 mg New Bag 07/27/2019 11:45 AM CDT 1, 000 mg in NaCl 0.9% (NS) 20 mL piggyback CONTINUOUS PRN, Starting 07/27/19 at 1145, Until Tu07/27/19 at 1258, 20 mL, Intra-op New Bag 07/27/2019 10:15 AM CDT 1,000 mg vancomycin (VANCOCIN) injection Given 07/27/2019 9:52 AM CDT 1 g ONCE INTRA PROCEDURE, Starting Tue 3/19 at 0952, Until Fri07/27/19 at 1258, MAL, Intra-op documented in this encounter Insurance Payer Benefit Plan / Subscriber ID Effective Dates Phone Address Type Group [facility] xxxxxxxxx 2018-Present Medicaid COMM PLAN - PLUS MANAGED MEDICAID (Home) [id number], ([place]) [place] [address] documented as of this encounter
--- OUTSIDE RECORDS SUMMARY | 2019-11-21 20:14 | XMS REPORT | Summary of Care ---
:1980 Author Organization [facility] - Health Address [address] [place] [address] Care Team Providers Name Role Phone Corwin Bang Primary Care Provider Encounter Details Date Type Department Care Team Description 02/23/2019 Orders Only [facility] Doctor Unassigned, No [address] [facility] [place] [address] [address] [place] [id number] Allergies Active Allergy Reactions Severity Noted Date [...] Shortness of of extrinsic asthma Breath (cough). documented as of this encounter (statuses as [...] Visit Orthopedic Surgery Eileen Goodman FNP [address] [place] [address] [phone] 09/01/2019 Office Visit Orthopedic Surgery Paulie Manzo MD [address] [place] [address] [phone] Health Maintenance Due Date Last Done Comments DTaP,Tdap,and Td Vaccines (1 - 1997 Tdap) PAP SMEAR 09/28/2007 09/28/2004 MAMMOGRAM 2018 INFLUENZA VACCINE (#1) 2019 PNEUMOCOCCAL 0-64 YEARS COMBINED Aged Out No longer eligible based on SERIES patient's age to complete this topic documented as of this encounter Implants Implanted Type Area Job Training Specialist Device Shelf Model / Identifier Expiration Serial / Lot Date Fast-Fix Ab, [employer] Curved Ultra #[id number] - [id number] FAST-FIX Left : [employer]hew 05/23/2015 [id number] / Implanted: Qty: 1 on 07/24/2012 by Philip Lopes MD at [facility] Knee [id number] / [id number] Fast Fix 360 Curved Left: 05/23/2015 / Implanted: Qty: 1 on 07/24/2012 by Philip Lopes MD at [facility] SPECIALTY [facility] [place] [facility] Knee [id number] / [id number] documented as of this encounter Procedures Procedure Name Priority Date/Time Associated Diagnosis Comments EXTERNAL PROVIDER Routine 02/23/2019 12:01 AM CDT RECORDS documented in this encounter Results Not on filedocumented in this encounter Insurance Payer Benefit Plan / Subscriber ID Effective Dates Phone Address Type Group [facility] xxxxxxxxx 2018-Present Medicaid COMM PLAN - PLUS MANAGED MEDICAID documented as of this encounter
--- OUTSIDE RECORDS SUMMARY | 2019-11-21 20:14 | XMS REPORT | Summary of Care ---
:1980 Author Organization [facility] - Health Address [address] [place] [address] Care Team Providers Name Role Phone Corwin Bang Primary Care Provider Encounter Details Date Type Department Care Team Description 07/27/2019 Orders Only [facility] Doctor Unassigned, No 301 [facility] [place] [address] [address] [place] [id number] Allergies Active Allergy Reactions Severity Noted Date [...] mirtazapine 7.5 mg 0 05/12/2019 Active tablet budesonide-formoterol Inhale 2 Puffs 2 0 Active (SYMBICORT) 160-4.5 (two) times daily. mcg/actuation inhaler ibuprofen 800 mg Take 800 mg by 0 Active tablet mouth every 6 (six) hours as needed. tramadol HCl (TRAMADOL Take by mouth. 0 Active ORAL) documented as of this encounter (statuses as of 07/27/2019) Active Problems Problem Noted Date Obesity (BMI 30-39.9) 07/26/2019 Hypertension 02/06/2018 Tachycardia [...] Description 08/25/2019 Office Visit Orthopedic Surgery Eileen Goodman, [place] [address] [place] [address] [phone] 09/01/2019 Office Visit Orthopedic Surgery Paulie Manzo MD [address] [place], [place] [address] Health Maintenance Due Date Last Done Comments DTaP,Tdap,and Td Vaccines (1 - 1997 Tdap) PAP SMEAR 09/28/2007 09/28/2004 MAMMOGRAM 2018 INFLUENZA VACCINE (#1) 2019 PNEUMOCOCCAL 0-64 YEARS COMBINED Aged Out No longer eligible based on SERIES patient's age to complete this topic documented as of this encounter Implants Implanted Type Area Marble And Granite Polisher Device Shelf Model / Identifier Expiration Serial / Lot Date Fast-Fix Ab, [employer] Curved Ultra #[id number] - [id number] FAST-FIX Left : [employer]hew 05/23/2015 [id number] / Implanted: Qty: 1 on 07/24/2012 by Philip Lopes MD at [facility] SPECIALTY [facility] Knee [id number] / [id number] Fast Fix 360 Curved Left: 05/23/2015 / Implanted: Qty: 1 on 07/24/2012 by Philip Lopes MD at [facility] Knee [id number] / [id number] documented as of this encounter Procedures Procedure Name Priority Date/Time Associated Diagnosis Comments ASSIGNMENT OF BENEFITS Routine 07/27/2019 6:10 AM CDT documented in this encounter Results Not on filedocumented in this encounter Insurance Payer Benefit Plan / Subscriber ID Effective Dates Phone Address Type Group [facility] xxxxxxxxx 2018-Present Medicaid COMM PLAN - PLUS MANAGED MEDICAID documented as of this encounter
--- OUTSIDE RECORDS SUMMARY | 2019-11-21 20:14 | XMS REPORT | Summary of Care ---
:1980 Author Organization [facility] Address [address] [place] [address] Care Team Providers Name Role Phone Corwin Bang Primary Care Provider Reason for Referral (Routine) Status Reason Specialty Diagnoses / Referred By Referred To Procedures Contact Contact New Request Location Physical Diagnoses Status post total knee replacement, unspecified laterality Ciro Manzo Procedures CONSULT/REFERRAL PHYSICAL THERAPY Alyssa Chadwick MD [address] [place] [address] Other (Routine) Status Reason Specialty Diagnoses / Referred By Referred To Procedures Contact Contact New Request Orthopedic Diagnoses Primary osteoarthritis of left knee Status post total knee replacement, unspecified laterality Alyssa Manzo Michael Surgery Procedures Discharge Follow-up: Specialty Provider ALYSSA MANZO; Other - See Comment ( 6 weeks) MD Netta Chadwick MD [address] [place] [address] Phone: Fax: Radiology Services (STAT) Status Reason Specialty Diagnoses / Referred By Referred To Procedures Contact Contact New Request Diagnostic Diagnoses Primary osteoarthritis of left knee Alyssa Manzo Radiology Procedures X-ray knee less than 3 views left X-ray knee less than 3 views left MD Netta [address] [place] [address] Radiology Services (STAT) Status Reason Specialty Diagnoses / Referred By Referred To Procedures Contact Contact New Request Diagnostic Diagnoses Primary osteoarthritis of left knee Alyssa Manzo Radiology Procedures X-ray knee less than 3 views left X-ray knee less than 3 views left MD Netta [address] [place] [address] Reason for Visit Auth/Cert Status Reason Specialty Diagnoses / Procedures Referred By Contact Referred To Contact Surgery Diagnoses osteoarthritis left knee Vl Preop Procedures SD TOTAL KNEE ARTHROPLASTY TOTAL KNEE ARTHROPLASTY [address] [place] [phone] Encounter Details Date Type Department Care Team Description 07/27/2019 - Hospital Encounter [facility] Jenny ManzoAlyssa Obesity ( BMI 07/29/2019 [facility] MD Netta 30-39.9) Medicine/Surgery [address] [place] [phone] Allergies Active Allergy Reactions Severity Noted [...] as of this encounter (statuses as of 07/29/2019) Medications Medication Sig Dispensed Refills Start Date End Date Status ATENOLOL ORAL Take by mouth. 0 Active LISINOPRIL ORAL Take by mouth. 0 Active albuterol (PROAIR Inhale 2 Puffs 1 Inhaler 1 03/28/2018 Active HFA) 90 every 6 (six) mcg/actuation hours as needed inhalerIndications: for Wheezing or Cough, Wheezes, Hx Shortness of of extrinsic asthma Breath (cough). REXULTI 4 mg Tab 0 05/12/2019 Active escitalopram oxalate 0 05/12/2019 Active 20 mg tablet mirtazapine 7.5 mg 0 05/12/2019 Active tablet budesonide-formotero Inhale 2 Puffs 0 Active l (SYMBICORT) 2 (two) times 160-4.5 daily. mcg/actuation inhaler traMADol 50 mg Take 1 tablet 40 tablet 0 07/29/2019 Active tabletIndications: by mouth every Primary 6 (six) hours osteoarthritis of as needed for left knee, Status Pain (scale post total knee 4-6). replacement, unspecified laterality HYDROcodone-acetamin Take 1 tablet 40 tablet 0 07/29/2019 Active ophen (NORCO) 10-325 by mouth every mg 4 (four) hours tabletIndications: as needed for Primary Pain (scale osteoarthritis of 7-10). left knee, Status post total knee replacement, unspecified laterality aspirin 325 mg Take 1 tablet 56 tablet 0 07/29/2019 Active tabletIndications: by mouth 2 Primary (two) times osteoarthritis of daily. left knee, Status post total knee replacement, unspecified laterality ibuprofen 800 mg Take 800 mg by 0 Discontinued tablet mouth every 6 9 (six) hours as needed. tramadol HCl Take by mouth. 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 documented as of this encounter (statuses as of 07/29/2019) Social History Tobacco Use Types Packs/Day Years [...] Sign Reading Time Taken Comments Blood Pressure 125/68 07/29/2019 7:07 AM CDT Pulse 70 07/29/2019 7:25 AM CDT Temperature 36.6 C (97.8 F) 07/29/2019 7:07 AM CDT Respiratory Rate 18 07/29/2019 7:25 AM CDT Oxygen Saturation 95% 07/29/2019 7:25 AM CDT Inhaled Oxygen Concentration - - Weight 101 kg (222 lb 9.6 oz) 07/29/2019 3:49 AM CDT bed scale Height 154.9 cm (5' 1") 07/27/2019 7:25 AM CDT Body Mass Index 42.06 07/27/2019 7:25 AM CDT documented in this encounter Discharge Summaries Kelsie Oliva, PT - 07/29/2019 2:03 PM CDTPhysical Therapy Progress Note: Recommendations: -Primary Discharge Plan:Home with caregiver,needs OP PT prescription, states wants to go to [facility] in [facility] Equipment recommendations:no additional equipment needed, already owns RW PAIN: -Pain Description: constant -Pain Location: left leg -Pain rating before treatment: 6, After treatment: 6 -Pain Management: reports taking pain meds PRECAUTIONS: Weight Bearing Precaution:50% PWB LLE General Precautions:General and Fall,, IV(saline locked), B SCDs donned and running when not performing therapy Bracing/Cast present or required: N/A S: Patient agreeable to working with PT. States awaiting stair practice then is ready to go home. O: Patient met Up in chair. Patient seen for the following: Transfers: - -sit-stand: Modified independent using Rolling Walker -Stand to sit: Modified independent using Rolling Walker - Static/dynamic standing balance: Fair/ Fair- Gait: - Assisted patient with ambulation as follows: 40 feet using Rolling Walker and Modified independent - Patient presenting with Step-to gait pattern - Stairs: CGA up and down 3 steps using right side rail with Therapeutic exercise: - Patient with comprehensive HEP with detailed instructions (visual/verbal demonstration) on how tocorrectly perform all exercise reps and patient responsibility for outcome After session, patient Up in chair and call vee provided. A: Patient tolerated session fair. Patient continues to demonstrate forefoot intial contact with LLEdespite cueing, instructed on achilles stretching with sheet and attempting to take smaller step andfoot more weight toward heel, slight improvement however unable to reach full foot flat position. 1 - - supine-sit: Modified independent. MET - Sit to supine: Modified independent MET 2 - -sit-stand: Modified independent using Rolling Walker MET -Stand to sit: Modified independent using Rolling Walker MET 3 - Modified independent with ambulation, Feet: 150 using least assistive device. NOT MET 4 - SBA/Setup up/down 3 stairs using right side rail.NOT MET 5 - Demonstrate or verbalize understanding of home exercise program in order to continue with their rehab on their own. MET P: Discharge from acute PT services as patient is discharging from hospital today per MD. Total Timed Tx Codes in Minutes: 23 Min Total Treatment Time in Minutes: 23 Min Kelsie Fox PT, DPT License Number: [id number] [facility] Office: [phone] documented in this encounter Discharge Instructions AttachmentsThe following attachments cannot be sent through Care Everywhere.Aspirin, ASA oral tablets (Mauritian)Acetaminophen; Hydrocodone tablets or capsules (Mauritian)Tramadol tablets (Mauritian)Total Knee Replacement, Discharge Instructions for (Mauritian)documented in this encounter Progress Notes Virgen Martinez OT - 07/29/2019 2:58 PM CDTOCCUPATIONAL THERAPY NOTE: Discharge Recommendations: Primary Discharge Plan: Home with family to assist with needs Equipment Recommendations: Tub chair S: Patient declines functional mobility and ADL due to scheduled discharge and fatigue after workingwith PT "I just finished working with PT. I took 3 steps up." Patient's states he plans topurchase tub chair for home and add grab bar near toilet for support with toilet transfers. PAIN Pre-treatment: 0/10 pain at LLE. Post-treatment: 0/10 pain at LLE. O: Patient found reclining in bedside chair. Spouse present. Patient seen this date for the following: ADL Training Patient educated about the following: Fall prevention. Handout issued, No. Patient educated on equipment recommendations and compensatory techniques with LB dressing Patient left reclining in bedside chair with call vee in reach. Spouse present. A: Goals not met due to patient declining continued therapy at this time. Fatigue limiting factor. Patient and her verbalize understanding of safety/fall prevention techniques with ADL. Both patient and her spouse without further questions regarding ADL at this time. P: Discharge from OT. Virgen Juan, MS, OTR, CHT License #[id number] Total Timed Treatment Codes: 8 Min Total Treatment Time: 8 Min Martina Garcia LBSW - 07/29/2019 11:34 AM CDTCare Management Discharge Disposition Note (DCDN) 5-2-1 Interventions: Clear discharge plan 5-2-1 Providers: Cigarette Making Machine Catcher/Header Boss -2-1 Patient Capacity Improvements: Discharge Plan for ongoing care and services: Other Discharge location(s): Outpatient PT with [facility] Patient choice completed for referred services: Discussed with patient/patients family involved in decision making: Yes Patient or family caregiver understands, and agrees with discharge plan. Community resources/referrals made or provided to patient: Resources/Referrals: Transportation: Private Vehicle Nursing informed of discharge plan: Additional Information: JONAH arranged outpatient PT with [facility] [phone] at pt's request. CM/OJNAH Name & Contact number: MINI Parks Ph. [phone] The following information has been provided to the facility noted above: reason for the patient discharge or transfer; patients physical and psychosocial status; summary of care, treatment, servicesprovided to patient; and the patient progress toward goals. Martina Garcia LBSW - 07/29/2019 11:20 AM CDTSocial Work Note: 07/29/2019 11:20 AM JONAH contacted [facility] at patient's request for outpatient PT. [phone] (f). JONAH faxed clinicals. Waiting on RX from MD to fax as well. MINI Parks Social Work Care Management [facility] [phone] (office) [phone] (fax) Kelsie Dickson, PT - 07/29/2019 11:17 AM CDTPhysical Therapy Progress Note: Recommendations: -Primary Discharge Plan:Home with caregiver,needs OP PT prescription, states wants to go to [facility] in [facility] Equipment recommendations:no additional equipment needed, already owns RW PAIN: -Pain Description: constant -Pain Location: left leg -Pain rating before treatment: 7, After treatment: 8 -Pain Management: Pain Meds given this am, requesting additional medication at the end of session, Rn notified of patient request PRECAUTIONS: Weight Bearing Precaution:50% PWB LLE General Precautions:General and Fall,, IV(saline locked), Hemovac to suction (discontinued by resident during session),B SCDs donned and running when not performing therapy Bracing/Cast present or required: N/A S: Patient agreeable to working with PT. States did not sleep well overnight due to interruptions from staff. O: Patient met Semi reclined in bed. Patient seen for the following: Bed mobility: - Bridging: Modified independent - supine-sit: Modified independent Transfers: - -sit-stand: Modified independent using Rolling Walker -Stand to sit: Modified independent using Rolling Walker - Static/dynamic standing balance: Fair/Fair- - Verbal cueing provided for correct hand placement and correct use of AD Gait: - Assisted patient with ambulation as follows: 60 feet using Rolling Walker and SBA/Setup - Patient presenting with Step-to gait pattern -cued to flatten L foot during intitial contacts vs only on forefoot, able to improve however unable to reach full foot flat position Therapeutic exercise: Therapeutic exercise:instructed patient in the following: LLE X 10 reps, 5 sec hold isometricsankle pumps, quad sets, glut sets, adductor sets, heel slides and SLR(using sheet to assist), hip abduction/adduction, short arc quads(min assist from PT), LAQ, seated january L knee supine AAROM 15-52 degrees After session, patient Up in chair and call vee provided. Rn notified of patient status and participation with PT at the end of session. A: Patient tolerated session well. Patient progressing toward goals #3, #5. Patient met goals 1 and 2. Requires rest breaks between exercises due to pain and fatigue per patient report. Is able to independently perform hip abduct/ adduct this session which is an improvement. Continues to have left quad weakness and swelling post op. P: PT will educate and perform stair management training in preparation for discharge home. Total Timed Tx Codes in Minutes: 54 Min Total Treatment Time in Minutes: 54 Min Kelsie Fox PT, DPT License Number: [id number] [facility] Office: [phone] Kelsie hutchins PT - 07/28/2019 1:02 PM CDTPhysical Therapy Progress Note: Recommendations: -Primary Discharge Plan: Home with caregiver, needs OP PT prescription, states wants to go to a PT clinic in [facility] Equipment recommendations: no additional equipment needed, already owns RW PAIN: -Pain Description: constant and throbbing -Pain Location: left leg -Pain rating before treatment: 9, After treatment: 9 -Pain Management: Pain Meds given prior to session PRECAUTIONS: Weight Bearing Precaution: 50% PWB LLE General Precautions: General and Fall Dickinson catheter, IV (saline locked) , Hemovac to suction, B SCDs donned and running when not performing therapy Bracing/Cast present or required: N/A S: Patient agreeable to working with PT. Reports just got back in bed from having to use the bathroom, RN CGA with RW O: Patient met Semi reclined in bed. Patient seen for the following: Bed mobility: - able to reposition self in bed using bedrails Transfers: - NT due to patient declining due to pain and fatigue Gait: - NT due to patient declining due to pain and fatigue Therapeutic exercise: Therapeutic exercise: instructed patient in the following: LLE X 7 reps, 5 sec hold isometrics ankle pumps, quad sets, glut sets, adductor sets, heel slides (using sheet to assist), hip abduction/adduction (min assist from PT to offload heel), short arc quads (min assist from PT) L knee supine AAROM 17-51 degrees After session, patient Semi reclined in bed and call vee provided. Rn notified of patient status and participation with PT at the end of session. Patient provided with preferred teaching of verbal information on importance of mobility and OOBTC; encouraged patient to be up in chair for meals with Rn supervision/assist as needed and RW, patient acknowledges. Shows readiness to learn. Verbal instruction teaching provided. Individual is able to read and verbalizes understanding of teaching provided. A:. Patient tolerated session fair and progressing toward goals Slowly. Barrier to goals at this time is fatigue and pain. Patient continues to benefit from acute care PT services to address the following: Decline in bed mobility, Decline in gait, Decline in transfers, Difficulty with stairs, Decreased strength, Decreased endurance, Decreased balance, ROM deficits, Weight bearing restrictions and Pain. P: PT will progress ROM and standing endurance/gait training as able to prepare for discharge home. Total Timed Tx Codes in Minutes: 26 Min Total Treatment Time in Minutes: 26 Min Kelsie Fox PT, DPT License Number: [id number] [facility] Office: [phone] Martina Garcia LB - 07/28/2019 10:38 AM CDTCare Management Social Functional Assessment Patient Name: Maria Del Carmen Rodriguez Age: [age] year old Sex: female Patient's Previous Admission Date at [facility]: 04/13/2005 Current diagnosis and co-morbidities: osteoarthritis left knee Readmission Questions: Was patient discharged from any acute care hospital within the last 30 days: No Social Functional Assessment: Primary language spoken/preferred: Mauritian Mental Status: Alert & Oriented to Person,Place & Time Information given by: Self Patient's support system: Spouse Name and number of support system: Murtaza Colon [phone] Primary Calibration Engineer: Self MPOA: No Living Arrangement: Home Address of living arrangement : [address] [place] [address] Persons living in home: Self;Same as support system Barriers to returning home: None Baseline functional status- ambulation: Independent Functional status-baseline personal care: Independent Baseline functional status- driving: Dependent Baseline functional status- grocery shopping: Independent Functional status-baseline housekeeping: Independent Functional status-baseline meal prep: Independent Current functional status same as prior: Yes Do you have a PCP?: Yes Name of PCP: [facility] Agency: No Provider Services: No DME Company: No Equipment: Walker;Cane;Crutches Hemodialysis: No Community resources utilized: SSA/SSI/Medicaid Funding Resources: Medicaid HMO Prescription coverage plan: Medicaid unlimited slots Pharmacy where meds are filled: Other Other pharmacy: [facility] [employer] Anticipated services prior to disharge: Continue Medical Eval Expected mode of discharge transportation: Same as support system Additional Recommendations for DC: Pt is requesting PT at [facility] for PT. Pt will have 16/06 care at home. Additional info required for discharge planning: Pending medical evaluation; Pending P/T O/T recommendation Recommended discharge plan: Home SFA Complete: Social Functional Assessment complete: Yes Alcohol Use Screening (AUDIT-C) How often do you have a drink containing alcohol?: Monthly or less SCORE: 1 How many drinks containing alcohol do you have on a typical day when you are drinking?: 1 or 2 drinks How often do you have six or more drinks on one occasion?: Never Total Score (AUDIT-C): 1 Role of Care Management explained. MINI Parks Social Work Care Management [facility] [phone] (office) [phone] (fax) Kelsie Dickson PT - 07/27/2019 4:18 PM CDT07/27/2019 4:18 PM Physical Therapy Note Patient consult received, chart reviewed in anticipation of evaluation. Patient is unavailable at this time due to c/o high levels of pain, Rn in the room. PT explained components of evaluation and patient refuses at this time however is agreeable to "first thing in the am". PT to follow and will perform evaluation at a later date/time as scheduled allows. Kelsie Fox, PT, DPT License Number: [id number] [facility] Office: [phone] Total Timed Treatment Codes: 0 Total Treatment Time: 0 Ronny Hammer MD - 07/27/2019 9:30 AM CDTAcute Pain Services Pre/Post-op Block Request 07/27/2019, 9:31 AM After discussion with Dr. Manzo on 07/27/2019, a request has been made to evaluate for regional anesthesia for post-operative pain. Consent obtained after discussion of the risks/benefits/alternatives of block with all parties involved. The patient agrees to proceed with block. This note serves as documentation of that request. Please see EPIC for additional block details. Ronny Dee MD, 9:31 AM documented in this encounter Plan of Treatment Date Type Specialty Care Team Description 08/25/2019 Office Visit Orthopedic Surgery BeverlymarlenEileen suazo, SAMPLE BODY BUILDER [address] [place], [place] [address] 09/01/2019 Office Visit Orthopedic Surgery Alyssa Manzo MD [address] [place], [place] [address] Name Type Priority Associated Diagnoses Date/Time AFB CULTURE LAB STAT 07/27/2019 11:12 AM CDT TISSUE LAB STAT 07/27/2019 11:12 AM CDT CULTURE(AEROBIC/ANAEROBIC) FUNGUS (ROUTINE) CULTURE LAB STAT 07/27/2019 11:12 AM CDT Health Maintenance Due Date Last Done Comments DTaP,Tdap,and Td Vaccines (1 - 1997 Tdap) PAP SMEAR 09/28/2007 09/28/2004 MAMMOGRAM 2018 INFLUENZA VACCINE (#1) 2019 PNEUMOCOCCAL 0-64 YEARS COMBINED Aged Out No longer eligible based on SERIES patient's age to complete this topic documented as of this encounter Implants Implanted Type Area Hand Ironer Device Shelf Model / Identifier Expiration Serial / Date Lot Cement, Edanna Bone #6191-1-001 - S0 CEMENT Left: Deanna 08/23/2021 [id number] / Implanted: Qty: 1 on 07/27/2019 by Alyssa Manzo MD at [facility] Knee 0 / [id number] Fast-Fix Ab, [employer] Curved Ultra #[id number] - [id number] FAST-FIX AB Left: Norie[employer] Nephew 05/23/2015 [id number] / Implanted: Qty: 1 on 07/24/2012 by Philip Lopes MD at [facility] Knee [id number] / [id number] Patella, Lorimor Triathlon Asymmetric X3 Patell #[id number]-G-299 - S0 PATELLA Left : Deanna 04/28/2024 [id number] / Implanted: Qty: 1 on 07/27/2019 by Alyssa Manzo MD at [facility] Knee 0 / [id number] Stem, Lorimor Tri Cemented [id number] #[id number] - S0 Stem Left: Deanna 11/04/2023 [id number] / Implanted: Qty: 1 on 07/27/2019 by Alyssa Manzo MD at [facility] 0 / [id number] Fast Fix 360 Curved Left: 05/23/2015 / Implanted: Qty: 1 on 07/24/2012 by Philip Lopes MD at [facility] [id number] / [id number] Baseplate, Deanna Tri Ts Size 4 #[id number] - S0 Left: Deanna 2023 [id number] / Implanted: Qty: 1 on 07/27/2019 by Alyssa Manzo MD at [facility] Knee 0 / [id number] Cruciate Retaining Femoral Left: Lorimor 02/22/2024 [id number] / Implanted: Qty: 1 on 07/27/2019 by Alyssa Manzo MD at [facility] AT [facility] 0 / [id number] Tibial Bearing Insert-Cs Left: Deanna 04/27/2024 [id number] / Implanted: Qty: 1 on 07/27/2019 by Alyssa Manzo MD at [facility] Knee 0 / [id number] documented as of this encounter Procedures Procedure Name Priority Date/Time Associated Diagnosis Comments CBC WITH Routine 07/28/2019 6:28 Results for DIFFERENTIAL AM CDT this procedure are in the results section. CBC WITH DIFF Routine 07/28/2019 6:28 Results for AM CDT this procedure are in the results section. XR KNEE <3 VW LEFT STAT 07/27/2019 2:10 Primary Results for PM CDT osteoarthritis of this procedure left knee are in the results section. SURGICAL PATHOLOGY STAT 07/27/2019 10:46 Results for EXAM AM CDT this procedure are in the results section. TOTAL KNEE Level 5 07/27/2019 9:03 osteoarthritis left ARTHROPLASTY (greater than 5 AM CDT knee days) Special Needs Per email notes case is posted as an outpt and will be admitted as a 23 hour observation after surgery.Good morning, we received a call from Stephanie with [facility] stating case qualifies for Outpatient/ 23 hrs OBS & it can be approved. The request was submitted as Inpatient surgery. If you would like to keep it as Inpatient then it will go for medical review & they will need more information on why it will need to be Inpatient. Stephanie can be reached at . Please advise if surgery can be done as 23 hr Obs?We do not have a 23 hour observation as a selection. I spoke with Stephanie Rey and she states to post it as outpt and the Patient will be admitted after procedure as 23 hour observation. AD TYPE AND SCREEN Routine 07/27/2019 7:32 AM CDT documented in this encounter Results CBC WITH DIFFERENTIAL (07/28/2019 6:28 AM CDT) WBC 12.03 (H) 4.30 - 11.10 [facility] 10*3/L [facility] RBC 3.33 (L) 3.93 - 5.25 [facility] 10*6/L [facility] HGB 11.0 (L) 11.6 - 15.0 [facility] g/dL [facility] HCT 33.1 (L) 35.7 - 45.2 % [facility] MCV 99.4 (H) 80.6 - 95.5 fL [facility] MCH 33.0 (H) 25.9 - 32.8 pg [facility] MCHC 33.2 31.6 - 35.1 [facility] g/dL [facility] RDW-SD 45.5 39.0 - 49.9 fL [facility] R[facility]-CV 12.8 12.0 - 15.5 % [facility] PLT 263 166 - 358 [facility] 10*3/L [facility] MPV 10.2 9.5 - 12.9 fL [facility] NRBC/100 WBC 0.0 0.0 - 10.0 /100 [facility] WBCs [facility] NRBC x10^3 <0.01 10*3/L [facility] GRAN MAT (NEUT) % 74.8 % [facility] IMM GRAN % 0.20 % [facility] LYMPH % 13.8 % [facility] MONO % 10.9 % [facility] EOS % 0.1 % [facility] BASO % 0.2 % [facility] GRAN MAT x10^3(ANC) 9.00 (H) 1.88 - 7.09 [facility] 10*3/uL [facility] IMM GRAN x10^3 0.03 0.00 - 0.06 [facility] 10*3/uL [facility] LYMPH x10^3 1.66 1.32 - 3.29 [facility] 10*3/uL [facility] MONO x10^3 1.31 (H) 0.33 - 0.92 [facility] 10*3/uL [facility] EOS x10^3 <0.03 (L) 0.03 - 0.39 [facility] 10*3/uL [facility] BASO x10^3 <0.03 0.01 - 0.07 [facility] 10*3/uL [facility] Specimen Blood - ARM, RIGHT Performing Organization Address City/State/Zipcode Phone Number [facility] CLIA: [id number], [address] [place] [address] [facility] X-ray knee less than 3 views left (07/27/2019 2:10 PM CDT) Specimen Impressions Performed At PACS/VR/DOSE Total knee arthroplasty without acute hardware complications. Expected postsurgical changes. Lisa Larson MD., have reviewed this study and agree with the above report. Narrative Performed At * * * * * * * * ORIGINAL REPORT * * * * * * * * [facility]/VR/DOSE Exam: XR KNEE <3 VW LEFT HISTORY: L TKA Maintain knee immobilizer/brace/splint/cast COMPARISON: 06/11/2019 FINDINGS: Radiographs of the left knee demonstrate total knee arthroplasty with anatomic alignment of hardware. No acute hardware complication is identified. Posttraumatic remodeling of the proximal tibia is likely related to remote fracture/trauma. Surgical drain, moderate joint effusion and soft tissue gas are noted. Procedure Note [facility], Radiant Results Inft User - 07/27/2019 5:43 PM CDT * * * * * * * * ORIGINAL REPORT * * * * * * * * Exam: XR KNEE <3 VW LEFT HISTORY: L TKA Maintain knee immobilizer/brace/splint/cast COMPARISON: 06/11/2019 FINDINGS: Radiographs of the left knee demonstrate total knee arthroplasty with anatomic alignment of hardware. No acute hardware complication is identified. Posttraumatic remodeling of the proximal tibia is likely related to remote fracture/trauma. Surgical drain, moderate joint effusion and soft tissue gas are noted. IMPRESSION Total knee arthroplasty without acute hardware complications. Expected postsurgical changes. Lv Larson MD., have reviewed this study and agree with the above report. Performing Organization Address City/State/Zipcode Phone Number [facility]//[facility] SURGICAL PATHOLOGY EXAM (07/27/2019 10:46 AM CDT) Case Report Surgical Pathology Case: [id number] [facility] Authorizing Provider:Alyssa Manzo MD Collected: 07/27/2019 1046 SERVICES Ordering Location: [facility] Received: 07/27/2019 1055 Center Pathologist: Any Couch MD Intraop: Any Couch MD Specimens: A) - KNEE, LEFT, Left Knee frozen rule out infection B) - KNEE, LEFT, left knee Final Diagnosis [facility] Electronically A. KNEE, LEFT, ARTHROPLASTY: SERVICES signed by Khoa, - BENIGN FIBROADIPOSE TISSUE WITH FOCAL FAT NECROSIS Any Randall MD - NO ACUTE INFLAMMATION (0-1 NEUTROPHILS/HPF IN 10 HPF) on 2018 at 10:23 AM B. KNEE, LEFT, ARTHROPLASTY: - BENIGN FIBROADIPOSE TISSUE AND SCANT BENIGN SKELETAL MUSCLE - NO ACUTE INFLAMMATION (0-1 NEUTROPHILS/HPF IN 10 HPF) I have personally reviewed all specimens/slides and agree with all statements made by residents, fellows or pathologist assistants whose name(s) may appear on this report. Clinical Information osteoarthritis left [facility] knee SERVICES Gross Description Specimen A is received fresh for intraoperative consultation labeled with the patient s name, [facility] number left knee, left knee frozen rule out infection and consists of multiple gil-yellow, lobula [facility] vale, ragged fragments of soft tissue (5.7 x 4.5 x 1.5 cm in aggregate), which is representatively submitted for frozen section. The frozen section remnants are submitted in A1-A4 and additional represe SERVICES-[facility] ntative sections of the specimen is submitted in A5-A6 . [facility] PETE Shin ([facility]) Specimen B is received in formalin labelled with the patient s name, number left knee and consists of multiple gil-yellow, lobulated, ragged fragments of soft tissue (4.6 x 4 x 1.3 cm in aggr egate). The specimen is serially sectioned and representatively submitted in B1-B2. PETE Shni ([facility]) Intraoperative A1, KNEE, LEFT: [facility] Consultation - NO ACUTE INFLAMMATION (0 NEUTROPHILS/HPF IN 10 HPF) [facility] A2, KNEE, LEFT: - NO ACUTE INFLAMMATION (0 NEUTROPHILS/HPF IN 10 HPF) A3, KNEE, LEFT: - NO ACUTE INFLAMMATION (0 NEUTROPHILS/HPF IN 10 HPF) A4, KNEE, LEFT: - NO ACUTE INFLAMMATION (0 NEUTROPHILS/HPF IN 10 HPF) Results reported to Dr Manzo on 07/27/2019 at 11:20 AM. Confirmation of read- back of results and patient identification was performed. Any Couch MD 07/27/2019 11:28 AM Embedded Images [facility] SERVICES Specimen Tissue - KNEE, LEFT Tissue specimen (specimen) - KNEE, LEFT Performing Organization Address City/State/Zipcode Phone Number [facility] SERVICES CLIA: [id number], [address] [place], [place] [id number] [phone] [facility] CLIA: [id number], [address] [place] [address] SERVICES-[facility] Type and Screen - ONCE Routine (07/27/2019 7:32 AM CDT) ABO & RH O Negative LAB Comment: Performed at [facility] Laboratory Services - [facility] Blood Bank [address] [place] [address] Toll Free: [phone] CLIA No. [id number] IAT Negative LAB Comment: Performed at [facility] Laboratory Services - [facility] Blood [facility] [address] [place] [address] Toll Free: [phone] CLIA No. [id number] Specimen VENOUS Performing Organization Address City/State/Zipcode Phone Number [facility] documented in this encounter Visit Diagnoses Diagnosis Primary osteoarthritis of left knee - Primary Primary localized osteoarthrosis, lower leg Status post total knee replacement, unspecified laterality documented in this encounter Administered Medications Medication Order MAR Action Action Date Dose Rate Site ARIPiprazole (ABILIFY) tablet 5 mg Given 07/28/2019 9:22 AM CDT 5 mg 5 mg, Oral, DAILY, First dose on Fri07/28/19 at 0900, Until Discontinued aspirin E.C. (ECOTRIN) tablet 325 mg Given 07/29/2019 8:11 AM CDT 325 mg 325 mg, Oral, BID, First dose on Fri07/27/19 at 2000, Until Discontinued, Routine Given 07/28/2019 8:34 PM CDT 325 mg Given 07/28/2019 9:22 AM CDT 325 mg atenolol (TENORMIN) tablet 25 mg Given 07/29/2019 8:11 AM CDT 25 mg 25 mg, Oral, DAILY, First dose on Fri07/28/19 at 0900, Until Discontinued Given 07/28/2019 9:22 AM CDT 25 mg budesonide-formoterol (SYMBICORT) 160-4.5 Given 07/29/2019 7:24 AM CDT 2 Puffs mcg/actuation inhaler 2 Puff 2 Puff, Inhalation, BID, First dose on Fri07/27/19 at 2000, Until Discontinued, Routine Given 07/28/2019 7:37 PM CDT 2 Puffs Given 07/28/2019 8:21 AM CDT 2 Puffs docusate (COLACE) capsule 100 mg Given 07/29/2019 8:11 AM CDT 100 mg 100 mg, Oral, Q12H, First dose on Fri07/27/19 at 2000, Until Discontinued, Routine Given 07/28/2019 9:22 AM CDT 100 mg escitalopram oxalate (LEXAPRO) tablet 20 mg Given 07/29/2019 8:11 AM CDT 20 mg 20 mg, Oral, DAILY, First dose on Fri07/28/19 at 0900, Until Discontinued, Routine Given 07/28/2019 9:22 AM CDT 20 mg HYDROcodone-acetaminophen (NORCO) 10-325 Given 07/28/2019 9:22 AM CDT 1 tablet mg tablet 1 tablet 1 tablet, Oral, Q4HPRN, Starting Fri07/27/19 at 1032, Until Discontinued, Routine, Pain (scale 4-6) Given 07/28/2019 1:46 AM CDT 1 tablet Given 07/27/2019 5:40 PM CDT 1 tablet lisinopril (PRINIVIL,ZESTRIL) tablet 2.5 mg Given 07/29/2019 8:14 AM CDT 2.5 mg 2.5 mg, Oral, DAILY, First dose on Fri07/28/19 at 0900, Until Discontinued Given 07/28/2019 9:22 AM CDT 2.5 mg traMADol (ULTRAM) tablet 50 mg Given 07/29/2019 12:13 PM CDT 50 mg 50 mg, Oral, Q6H, First dose on Fri07/27/19 at 1200, Until Discontinued, Routine Given 07/29/2019 6:11 AM CDT 50 mg Given 07/28/2019 5:18 PM CDT 50 mg Medication Order MAR Action Action Date Dose Rate Site ceFAZolin (ANCEF) 1 g in NaCl 0.9% Given 07/28/2019 12:06 PM CDT 1 g (NS) 50 mL MINI-BAG 1 g, IV Piggyback, Q8H ABX, 3 doses, First dose on Fri07/27/19 at 1900, Last dose on Fri07/28/19 at 1100, 50 mL, Reason for Anti-Infective: Surgical Prophylaxis, Surgical Prophylaxis: Orthopaedic, Duration of therapy: within 24 hours of surgery Given 07/28/2019 3:46 AM CDT 1 g Given 07/27/2019 8:28 PM CDT 1 g FENTanyl PF (SUBLIMAZE (PF)) injection 25 Given 07/27/2019 1:57 PM CDT 25 mcg mcg 25 mcg, Slow IV Push, Q5MIN PRN, 4 doses, Starting Fri07/27/19 at 1257, Until Fri07/27/19 at 1545, Routine, Pain (scale 7-10), PACU Given 07/27/2019 1:10 PM CDT 25 mcg Given 07/27/2019 1:03 PM CDT 25 mcg lactated ringers IV infusion New Bag 07/27/2019 7:46 AM CDT 1,000 mL 20 mL /hr 1,000 mL at 20 mL/hr, 1,000 mL, IV Infusion, ONCE, 1 dose, Fri07/27/19 at 0645, Routine, DSU Pre-op lactated ringers IV infusion New Bag 07/28/2019 3:48 AM CDT 1,000 mL 75 mL /hr 1,000 mL at 75 mL/hr, 1,000 mL, IV Infusion, CONTINUOUS, Starting Fri07/27/19 at 1300, Until Fri07/28/19 at 1638, Routine, PACU New Bag 07/27/2019 3:14 PM CDT 1,000 mL 75 mL/hr ondansetron (ZOFRAN (PF)) injection 4 mg Given 07/27/2019 1:21 PM CDT 4 mg 4 mg, Slow IV Push, PRN, 1 dose, Starting Fri07/27/19 at 1257, Until Fri07/27/19 at 1321, Routine, Nausea and Vomiting (N/V), PACU vancomycin 1 g in NS 200 mL RTU IV Given 07/27/2019 6:45 AM CDT 1,000 mg Piggyback 1,000 mg 1,000 mg, IV Piggyback, ONCE, 1 dose, Fri07/27/19 at 0645, DSU Pre-op, Reason for Anti-Infective: Surgical Prophylaxis, Surgical Prophylaxis: Orthopaedic, Duration of therapy: within 24 hours of surgery documented in this encounter Insurance Payer Benefit Plan / Subscriber ID Effective Dates Phone Address Type Group [facility] xxxxxxxxx 2018-Present Medicaid COMM PLAN - PLUS MANAGED MEDICAID documented as of this encounter
--- OUTSIDE RECORDS SUMMARY | 2019-11-21 20:14 | XMS REPORT | Summary of Care ---
:1980 Author Organization [facility] Address [address] [place] [address] Care Team Providers Name Role Phone Corwin Bang Primary Care Provider Reason for Visit Reason Comments LAB WORK Encounter Details Date Type Department Care Team Description 07/24/2019 Roll Winder Visit [facility] Unknown, Attending Primary osteoarthritis PHLEBOTOMY/LAB Vls-Lab of left knee [address] [facility] [address] [place] [address] Allergies Active Allergy Reactions Severity Noted Date [...] as of this encounter (statuses as of 07/24/2019) Medications Medication Sig Dispensed Refills Start Date [...] as of this encounter (statuses as of 07/24/2019) Active Problems Problem Noted Date Hypertension 02/06/2018 Tachycardia 02/06/2018 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 Tear of lateral cartilage or meniscus of knee, current 07/23/2012 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 documented as of this encounter (statuses as of 07/24/2019) Social History Tobacco Use Types Packs/Day Years [...] Date Type Specialty Care Team Description 07/27/2019 Hospital Encounter Surgery Paulie Manzo MD [address] [place] [address] [phone] 07/27/2019 Anesthesia Event Surgery Derrek Rahman MD [address] [place] [phone] 07/27/2019 Surgery Surgery Paulie Manzo, TOTAL KNEE MD ARTHROPLASTY [address] [place] [address] [phone] 08/25/2019 Office Visit Orthopedic Surgery Eileen Goodman, SKYLAR [address] [place] [address] [phone] 09/01/2019 Office Visit Orthopedic Surgery Paulie Manzo MD [address] [place] [address] [phone] Health Maintenance Due Date Last Done Comments DTaP,Tdap,and Td Vaccines (1 - 1997 Tdap) PAP SMEAR 09/28/2007 09/28/2004 MAMMOGRAM 2018 INFLUENZA VACCINE (#1) 2019 PNEUMOCOCCAL 0-64 YEARS COMBINED Aged Out No longer eligible based on SERIES patient's age to complete this topic documented as of this encounter Implants Implanted Type Area Hydroelectric Operator Device Shelf Model / Identifier Expiration Serial / Lot Date Fast-Fix Ab, [employer] Curved Ultra #[id number] - [id number] FAST-FIX Left : [employer] 05/23/2015 [id number] / Implanted: Qty: 1 on 07/24/2012 by Philip Lopes MD at [facility] Knee [id number] / [id number] Fast Fix 360 Curved Left: 05/23/2015 / Implanted: Qty: 1 on 07/24/2012 by Philip Lopes MD at [facility] Knee [id number] / [id number] documented as of this encounter Results Not on filedocumented in this encounter Visit Diagnoses Diagnosis Primary osteoarthritis of left knee Primary localized osteoarthrosis, lower leg documented in this encounter Insurance Payer Benefit Plan / Subscriber ID Effective Dates Phone Address Type Group [facility] xxxxxxxxx 2018-Present Medicaid COMM PLAN - PLUS MANAGED MEDICAID (Home) [address], ([place]) [place] [address] documented as of this encounter
--- OUTSIDE RECORDS SUMMARY | 2019-11-21 20:15 | XMS REPORT | Continuity of Care Document ---
:1980 Author Organization [facility] Address [address] [place] [phone] Phone Unavailable Care Team Providers Name Role Phone OTHER, ENTER NAME IN NOTES Primary Care Physician Unavailable Insurance Providers Guarantor Maria Del Carmen Hicks Address [address] [place] [address] Email [email or web address] Policy Number [id number] Subscriber's Name Maria Del Carmen Rodriguez Relationship Self / Same As Patient Group Number NA Group Name NA Advance Directives Directive Response Recorded Date/Time Advance Directive on File No 08/12/19 2:56pm Chief Complaint and Reason for Visit Chief Complaint Dizziness Reason for Visit Orthostatic lightheadedness Asymptomatic bacteriuria Dehydration Problems Medical Problem Onset Date Status Allergic reaction to bee sting Unknown Acute Asymptomatic bacteriuria Unknown Acute Dehydration Unknown Acute Orthostatic lightheadedness Unknown Acute Past Problems Medical Problem Onset Date Status Acute viral syndrome Unknown Acute Chest pain Unknown Acute Cough Unknown Acute Headache Unknown Acute Lower extremity pain Unknown Acute Migraine Unknown Acute Migraine headache Unknown Acute Upper respiratory infection Unknown Acute Medications Current Home Medications Medication Dose Units Route Directions Days Qty Instructions Start Date Atenolol (Tenormin 1 Tab ORAL Twice A Day 30 Tablet 50 Mg*) 50 Mg Tab Lisinopril 1 Tab ORAL Daily 30 Tablet (Zestril *) 10 Mg Tab Pantoprazole 1 Tab ORAL Daily 30 Tablet Sodium * (Pantoprazole Sodium Ec 40 Mg *) 40 Mg Tab Past Home Medications Medication Directions Ordered Status Duloxetine * (Cymbalta 30 Mg *) 30 Mg Cap, Once Daily At Bedtime Discontinued 60 Mg Oral Rampart Carbonate (Rampart Carbonate 300 Twice A Day Discontinued Mg *) 300 Mg Cap, 1 Cap Oral Lurasidone * (Latuda 40 Mg*) 40 Mg Tab, 1 Once Daily At Bedtime Discontinued Tab Oral Zolpidem Tartrate (Ambien *) 10 Mg Tab, 10 At Bedtime As Needed Discontinued Mg Oral Social History Social History Problem Response Recorded Date/Time Onset Date Status Hx Alcohol Use No 05/09/2017 2:04pm Not Applicable Not Applicable Hx Physical Abuse No 08/12/2019 2:56pm Not Applicable Not Applicable Smoking Status Start Date Stop Date Never smoker Hospital Discharge Instructions No hospital discharge instruction information available. Plan of Care Discharge Date 08/12/19 5:54pm Instructions/Education Provided Asymptomatic Bacteriuria Hypotension Dehydration, Adult Forms Provided Portal Welcome Letter Prescriptions See Medication Section Referrals OTHER,ENTER NAME IN NOTES Functional Status No functional status information available. Allergies, Adverse Reactions, Alerts Allergen Type Severity Reaction Status Last Updated Benzonatate ([id number]) Allergy Unknown Active 12/09/16 Butorphanol ([id number]) Allergy Unknown Active 12/09/16 Diphenhydramine ([id number]) Allergy Unknown Active 12/09/16 Sumatriptan ([id number]) Allergy Unknown Active 12/09/16 Moxifloxacin ([id number]) Allergy Unknown Active 12/09/16 Immunizations No immunization information available. Vital Signs Acute Vital Signs Vital Response Date/Time Blood Pressure 123/80 mm Hg 08/12/2019 5:42pm Pulse Pulse Rate (adult) 88 beats per minute (60 - 100) 08/12/2019 5:42pm Respiratory Rate 18 breaths per minute (10 - 24) 08/12/2019 5:42pm Temperature Source Oral 08/12/2019 2:56pm Height 5 ft 1 in 08/12/2019 2:56pm Weight 210 lb 08/12/2019 2:56pm Body Mass Index 39.7 kg/m^2 08/12/2019 2:56pm Results Laboratory Results Test Name Result Units Flags Reference Collection Result Comments Date/Time Date/Time White Blood Count 7.4 K/ul 4.0-11.5 08/12/2019 08/12/2019 3:23pm 3:35pm Red Blood Count 3.82 M/ul 3.80-5.20 08/12/2019 08/12/2019 3:23pm 3:35pm Hemoglobin 12.2 g/dL 10.5-15.7 08/12/2019 08/12/2019 3:23pm 3:35pm Hematocrit 37.7 % 34.0-50.0 08/12/2019 08/12/2019 3:23pm 3:35pm Mean Corpuscular 98.7 fl 86-100 08/12/2019 08/12/2019 Volume 3:23pm 3:35pm Mean Corpuscular 31.9 pg 26.2-33.4 08/12/2019 08/12/2019 Hemoglobin 3:23pm 3:35pm Mean Corpuscular 32.4 g/dL 30-34 08/12/2019 08/12/2019 Hemoglobin Concent 3:23pm 3:35pm Red Cell 12.7 % 12.0-15.5 08/12/2019 08/12/2019 Distribution Width 3:23pm 3:35pm Platelet Count 445 K/uL 165-450 08/12/2019 08/12/2019 3:23pm 3:35pm Mean Platelet 9.5 fL 9.4-12.6 08/12/2019 08/12/2019 Volume 3:23pm 3:35pm Neutrophils (%) 61.4 % 44.4-80.1 08/12/2019 08/12/2019 (Auto) 3:23pm 3:35pm Immature 0.1 % 0.0-0.4 08/12/2019 08/12/2019 Granulocyte % 3:23pm 3:35pm (Auto) Lymphocytes (%) 23.0 % 10.0-50.0 08/12/2019 08/12/2019 (Auto) 3:23pm 3:35pm Monocytes (%) 11.4 % 3.6-12.0 08/12/2019 08/12/2019 (Auto) 3:23pm 3:35pm Eosinophils (%) 3.4 % 0.0-5.4 08/12/2019 08/12/2019 (Auto) 3:23pm 3:35pm Basophils (%) 0.7 % 0.1-1.2 08/12/2019 08/12/2019 (Auto) 3:23pm 3:35pm Neutrophils # 4.57 K/uL 1.56-6.13 08/12/2019 08/12/2019 (Auto) 3:23pm 3:35pm Absolute Immature 0.0 K/uL 0.0-0.03 08/12/2019 08/12/2019 Granulocyte (auto 3:23pm 3:35pm Lymphocytes # 1.7 K/uL 1.18-3.74 08/12/2019 08/12/2019 (Auto) 3:23pm 3:35pm Monocytes # (Auto) 0.85 K/uL 0.24-0.86 08/12/2019 08/12/2019 3:23pm 3:35pm Eosinophils # 0.25 K/uL 0.04-0.36 08/12/2019 08/12/2019 (Auto) 3:23pm 3:35pm Basophils # (Auto) 0.05 K/uL 0.01-0.08 08/12/2019 08/12/2019 3:23pm 3:35pm Nucleated Red 0 /100 0-0.2 08/12/2019 08/12/2019 Blood Cells % WBC 3:23pm 3:35pm Nucleated Red 0 K/uL 0 08/12/2019 08/12/2019 Blood Cells # 3:23pm 3:35pm Urine Color LIGHT 08/12/2019 08/12/2019 YELLOW 3:23pm 3:51pm Urine Appearance SL CLOUDY A CLEAR 08/12/2019 08/12/2019 3:23pm 3:51pm Urine Glucose (UA) NEGATIVE NEGATIVE 08/12/2019 08/12/2019 3:23pm 3:51pm Urine Bilirubin NEGATIVE NEGATIVE 08/12/2019 08/12/2019 3:23pm 3:51pm Urine Ketones NEGATIVE NEGATIVE 08/12/2019 08/12/2019 3:23pm 3:51pm Urine Specific 1.016 1.003-1.03 08/12/2019 08/12/2019 [place] 0 3:23pm 3:51pm Urine Blood NEGATIVE NEGATIVE 08/12/2019 08/12/2019 3:23pm 3:51pm Urine pH 8.000 5-9 08/12/2019 08/12/2019 3:23pm 3:51pm Urine Protein TRACE NEGATIVE 08/12/2019 08/12/2019 3:23pm 3:51pm Urine Urobilinogen 2.0-3.0 mg/dL H 0.2-1.0 08/12/2019 08/12/2019 3:23pm 3:51pm Urine Nitrate NEGATIVE NEGATIVE 08/12/2019 08/12/2019 3:23pm 3:51pm Urine Leukocyte NEGATIVE NEGATIVE 08/12/2019 08/12/2019 Esterase 3:23pm 3:51pm Urine RBC 15-19 /hpf H 0-5 08/12/2019 08/12/2019 3:23pm 3:51pm Urine WBC 1-5 /hpf 0-5 08/12/2019 08/12/2019 3:23pm 3:51pm Urine Epithelial 1-5 /hpf 0-5 08/12/2019 08/12/2019 Cells 3:23pm 3:51pm Urine Bacteria MODERATE /hpf H None 08/12/2019 08/12/2019 (2+) Detect 3:23pm 3:51pm Urine Casts 6-10 /lpf H None 08/12/2019 08/12/2019 Detect 3:23pm 3:51pm Urine Culture YES 08/12/2019 08/12/2019 Reflexed 3:23pm 3:51pm Random Glucose 130 mg/dL H 74-106 08/12/2019 08/12/2019 3:56pm 4:17pm Blood Urea 8 mg/dL 6-08/12/2019 08/12/2019 Nitrogen 3:56pm 4:17pm Serum Osmolality 283 280-300 08/12/2019 08/12/2019 3:56pm 4:17pm Creatinine 0.7 mg/dL 0.50-0.90 08/12/2019 08/12/2019 3:56pm 4:17pm Glomerular > 60.00 08/12/2019 08/12/2019 GFR RESULTS ARE REPORTED IN mL/min/1.73m2. Filtration Rate 3:56pm 4:17pm Calc Normal GFR: >60mL/min Moderately decreased GFR: 30-59 mL/min Severely decreased GFR: 15-29 mL/min Kidney Failure (or Dialysis): <15 mL/min The calculated eGFR is not valid for patients younger than 18 years or older than 75 years. BUN/Creatinine 11.4 L 12-20 08/12/2019 08/12/2019 Ratio 3:56pm 4:17pm Sodium Level 142 mmol/L 135-145 08/12/2019 08/12/2019 3:56pm 4:17pm Potassium Level 3.4 mmol/L L 3.5-5.2 08/12/2019 08/12/2019 3:56pm 4:17pm Chloride Level 105 mmol/L 98-108 08/12/2019 08/12/2019 3:56pm 4:17pm Carbon Dioxide 25 mmol/L 21-32 08/12/2019 08/12/2019 Level 3:56pm 4:17pm Anion Gap 15.4 mEq/L 12-20 08/12/2019 08/12/2019 3:56pm 4:17pm Calcium Level 9.4 mg/dL 8.6-10.0 08/12/2019 08/12/2019 3:56pm 4:17pm Magnesium Level 2.1 mg/dL 1.6-2.6 08/12/2019 08/12/2019 3:56pm 4:17pm Total Protein 7.6 g/dL 6.6-8.7 08/12/2019 08/12/2019 3:56pm 4:17pm Albumin 4.2 g/dL 3.5-5.2 08/12/2019 08/12/2019 3:56pm 4:17pm Globulin 3.4 gm/dL 08/12/2019 08/12/2019 3:56pm 4:17pm Albumin/Globulin 1.2 >1.0 08/12/2019 08/12/2019 Ratio 3:56pm 4:17pm Total Bilirubin 0.3 mg/dL 0.0-1.2 08/12/2019 08/12/2019 3:56pm 4:17pm Aspartate Amino 21 U/L 15-32 08/12/2019 08/12/2019 Transf (AST/SGOT) 3:56pm 4:17pm Alanine 20 U/L 0-33 08/12/2019 08/12/2019 Aminotransferase 3:56pm 4:17pm (ALT/SGPT) Total Alkaline 101 U/L 35-105 08/12/2019 08/12/2019 Phosphatase 3:56pm 4:17pm Urine HCG, NEGATIVE NEG 08/12/2019 08/12/2019 Qualitative 3:23pm 3:48pm If a negative result is obtained but is suspected, a new specimen should be collected after 48-72 hours and tested. If waiting 48 hrs is not medically advisable, the test result should be confirmed with at quantitative hCG assay. Troponin I < 0.30 ng/mL 0.0-0.5 08/12/2019 08/12/2019 Published clinical studies have shown elevations of cTnI in 3:56pm 4:26pm patients with myocardial injury, as seen in unstable angina pectoris, cardiac contusions, and heart transplants. Elevations have also been seen in patients with rhabdomyolysis and polymyositis. Elevated troponin levels point to myocardial injury, but are not necessarily indicative of an ischemic mechanism. The term CO should be used when there is evidence of cardiac damage, as detected by marker proteins in a clinical setting consistent with myocardial ischemia. If the clinical circumstance suggests that an ischemic mechanism is unlikely, other causes of cardiac injury should be considered. For diagnostic purposes, the results should always be assessed in conjunction with the patient's medical history, clinical examination and other findings. Procedures Procedure Status Date Provider(s) X-ray of chest, two views Completed 08/12/19 CATHY DANIEL MD Encounters Encounter Location Arrival/Admit Date Discharge/Depart Date Attending Provider Registered [place] 08/12/19 2:47pm [facility]ly [facility], [facility] CATHY Garcia MD Medical C[facility] Recent Diagnosis
--- OUTSIDE RECORDS SUMMARY | 2019-11-21 20:15 | XMS REPORT | Continuity of Care Document ---
:1980 Author Organization [facility] Address [address] [place] [address] Allergies, Adverse Reactions, Alerts Allergen Type Severity Reaction Last Updated Verified Status Benzonatate ([id number]) Allergy Unknown December 09, No Active 2017 Butorphanol ([id number]) Allergy Unknown December 09, No Active 2017 Diphenhydramine Allergy Unknown December 09, No Active ([id number]) 2017 Sumatriptan ([id number]) Allergy Unknown December 09, No Active 2017 Moxifloxacin ([id number]) Allergy Unknown December 09, No Active 2017 Medications Medication Status Dose Units Route Sig Qty Days Start End Instructions Date Date Atenolol Active 1 ORAL Twice A 30 Day Lisinopril Active 1 ORAL Daily 30 Pantoprazole Active 1 ORAL Daily 30 Sodium * Duloxetine * Discontinued 60 ORAL Once Bree Daily At , Bedtime 2017 [place] Discontinued 1 ORAL Twice A 60 Bree Carbonate Day 2017 Lurasidone * Discontinued 1 ORAL Once 30 Bree Daily At 20th, Bedtime 2017 Zolpidem Discontinued 10 ORAL At Bree Tartrate Bedtime , As 2018 Needed Problems Active Problems Medical Problem Onset Date Status Allergic reaction to bee sting Active Arthritis of left shoulder region Active Tendonitis of shoulder, left Active Inactive/Resolved Problems Medical Problem Onset Date Status Acute viral syndrome Resolved Asymptomatic bacteriuria Resolved Chest pain Resolved Cough Resolved Dehydration Resolved Headache Resolved Lower extremity pain Resolved Migraine Resolved Migraine headache Resolved Orthostatic lightheadedness Resolved Upper respiratory infection Resolved Procedures Procedure Date Performed Status EMERGENCY DEPT VISIT August 12, 2019 completed HYDRATION IV INFUSION INIT August 12, 2019 completed X-RAY EXAM CHEST 2 VIEWS August 12, 2019 completed COMPLETE CBC W/AUTO DIFF WBC August 12, 2019 completed ASSAY OF MAGNESIUM August 12, 2019 completed URINALYSIS AUTO W/SCOPE August 12, 2019 completed ROUTINE VENIPUNCTURE August 12, 2019 completed ASSAY OF TROPONIN QUANT August 12, 2019 completed URINE BACTERIA CULTURE August 12, 2019 completed URINE TEST August 12, 2019 completed ELECTROCARDIOGRAM TRACING August 12, 2019 completed COMPREHEN METABOLIC PANEL August 12, 2019 completed COMPREHEN METABOLIC PANEL August 12, 2019 completed X-ray of chest, two views August 12, 2019 completed Computed tomography angiography of chest for pulmonary September 04, 2019 completed embolism X-ray of left shoulder, three views September 04, 2019 completed Relevant Diagnostic Tests and/or Laboratory Data Laboratory Results Test Date/Time Result Interpretation Reference Result Comment Performing Range Site White Blood August 6.1 4.0-11.5 [facility] [address] [facility] Count 2018 1:06pm [facility] [address] Red Blood Count August 3.87 3.80-5.20 [facility] [address] [facility] 2018 1:06pm [place] [address] Hemoglobin August 12.5 10.5-15.7 [facility] [address] [facility] 2018 1:06pm [facility] [address] Hematocrit August 38.7 34.0-50.0 [facility] [address] [facility] 2018 1:06pm [place] [address] Mean August 100.0 86-100 [facility] [address] [facility] Corpuscular 2018 Volume 1:06pm [facility] [address] Mean August 32.3 26.2-33.4 [facility] [address] [facility] Corpuscular 2018 Hemoglobin 1:06pm [place] [address] Mean August 32.3 30-34 [facility] [address] [facility] Corpuscular 2018 Hemoglobin 1:06pm [facility] [address] Concent Red Cell August 12.8 12.0-15.5 [facility] [address] [facility] Distribution 2018 Width 1:06pm [place] [address] Platelet Count August 357 165-450 [facility] [address] [facility] 2018 1:06pm [place] [address] Mean Platelet August 9.5 9.4-12.6 [facility] [address] [facility] Volume 2018 1:06pm [place] [address] Neutrophils (%) August 57.6 44.4-80.1 [facility] [address] [facility] (Auto) 2018 1:06pm [place] [address] Immature August 0.2 0.0-0.4 [facility] [address] [facility] Granulocyte % 2018 (Auto) 1:06pm [place] [address] Lymphocytes (%) August 27.9 10.0-50.0 [facility] [address] [facility] (Auto) 2018 1:06pm [place] [address] Monocytes (%) August 11.0 3.6-12.0 [facility] [address] [facility] (Auto) 2018 1:06pm [place] [address] Eosinophils (%) August 2.3 0.0-5.4 [facility] [address] [facility] (Auto) 2018 1:06pm [place] [address] Basophils (%) October 1.0 0.1-1.2 [facility] [address] [facility] (Auto) 2018 1:06pm [place] [address] Neutrophils # October 3.51 1.56-6.13 [facility] [address] [facility] (Auto) 2018 1:06pm [facility] [address] Absolute October 0.0 0.0-0.03 [facility] [address] [facility] Immature 2018 Granulocyte 1:06pm [facility] [address] (auto Lymphocytes # October 1.7 1.18-3.74 [facility] [address] [facility] (Auto) 2018 1:06pm [place] [address] Monocytes # August 0.67 0.24-0.86 [facility] [address] [facility] (Auto) 2018 1:06pm [place] [address] Eosinophils # October 0.14 0.04-0.36 [facility] [address] [facility] (Auto) 2018 1:06pm [facility] [address] Basophils # August 0.06 0.01-0.08 [facility] [address] [facility] (Auto) 2018 1:06pm [facility] [address] Nucleated Red October 0 0-0.2 [facility] [address] [facility] Blood Cells % 2018 1:06pm [facility] [address] Nucleated Red October 0 0 [facility] [address] [facility] Blood Cells # 2018 1:06pm [facility] [address] Urine Color Zora LIGHT [facility] [address] [facility] 2018 YELLOW 3:23pm [facility] [address] Urine Zora SL CLOUDY CLEAR [facility] [address] [facility] Appearance 2018 3:23pm [facility] [address] Urine Glucose Zora NEGATIVE NEGATIVE [facility] [address] [facility] (UA) 2018 3:23pm [facility] [address] Urine Bilirubin Zora NEGATIVE NEGATIVE [facility], 104 2018 3:23pm [facility] [address] Urine Ketones Zora NEGATIVE NEGATIVE [facility], 104 2018 3:23pm [facility] [address] Urine Specific Zora 1.016 1.003-1.03 [facility], [address] [place] 2018 0 3:23pm [facility] [address] Urine Blood Zora NEGATIVE NEGATIVE [facility], 104 2018 3:23pm [facility] [address] Urine pH Zora 8.000 5-9 [facility], 104 2018 3:23pm [facility] [address] Urine Protein Zora TRACE NEGATIVE [facility], 104 2018 3:23pm [facility] [address] Urine Zora 2.0-3.0 0.2-1.0 [facility], 104 Urobilinogen 2018 3:23pm [facility] [address] Urine Nitrate Zora NEGATIVE NEGATIVE [facility], 104 2018 3:23pm [facility] [address] Urine Leukocyte Zora NEGATIVE NEGATIVE [facility], 104 Esterase 2018 3:23pm [facility] [address] Urine RBC July 15-19 0-5 [facility], 104 2018 3:23pm [facility] [address] Urine WBC July 1-5 0-5 [facility], 104 2018 3:23pm [facility] [address] Urine Zora 1-5 0-5 [facility], 104 2018 Cells 3:23[facility] [address] Urine Bacteria July MODERATE None [facility], 104 2018 (2+) Detect 3:23[facility] [address] Urine Casts July 6-10 None [facility], 104 2018 Detect 3:23[facility] [address] Urine Culture July YES [facility], 104 Reflexed 2018 3:23pm [facility] [address] Random Glucose August 120 74-106 [facility], 104 2018 1:06pm [facility] [address] Blood Urea August 10 6-20 [facility], 104 2018 1:06pm [place] [id number] Serum August 282 280-300 [facility], 104 Osmolality 2018 1:06pm [facility] [address] Creatinine October 0.7 0.50-0.90 [facility], [facility] 2018 1:06pm [facility] [address] Glomerular October > 60.00 GFR RESULTS ARE [facility], [facility] Filtration Rate 2018 REPORTED IN Calc 1:06pm mL/min/1.73m2.N [facility] [address] ormal GFR: >60mL/minModera tely decreased GFR: 30-59 mL/minSeverely decreased GFR: 15-29 mL/minKidney Failure (or Dialysis): <15 mL/minThe calculated eGFR is not valid for patients younger than 18 years or older than 75 years. BUN/Creatinine August 14.3 11-12 [facility], 104 Ratio 2018 1:06pm [facility] [address] Sodium Level August 141 135-145 [facility], 2018 1:06pm [facility] [address] Potassium Level August 3.6 3.5-5.2 [facility], [facility] 2018 1:06pm [facility] [address] Chloride Level August 103 98-108 [facility], 2018 1:06pm [facility] [address] Carbon Dioxide August 26 21-32 [facility], [facility] Level 2018 1:06pm [facility] [address] Anion Gap August 15.6 11-12 [facility], 2018 1:06pm [facility] [address] Calcium Level August 9.5 8.6-10.0 [facility], [facility] 2018 1:06pm [facility] [address] Magnesium Level July 2.1 1.6-2.6 [facility], [facility] 2018 3:56pm [facility] [address] Total Protein August 7.7 6.6-8.7 [facility], [facility] 2018 1:06pm [facility] [address] Albumin August 4.4 3.5-5.2 [facility], [facility] 2018 1:06pm [facility] [address] Globulin October 3.3 [facility], [facility] 2018 1:06pm [facility] [address] Albumin/Globuli October 1.3 >1.0 [facility], [facility] n Ratio 2018 1:06pm [facility] [address] Total Bilirubin August 0.4 0.0-1.2 [facility], 104 2018 1:06pm [place] [id number] Aspartate Amino August 42 15-32 [facility], 104 Transf 2018 (AST/SGOT) 1:06pm [place] [id number] Alanine August 50 0-33 [facility], 7TH Aminotransferas 2018 e (ALT/SGPT) 1:06pm [place] [id number] Total Alkaline August 101 35-105 [facility], Phosphatase 2018 1:06pm [place] [id number] Urine HCG, July NEGATIVE NEG If a negative [facility], [facility] Qualitative 2018 result is 3:23pm obtained but [place] [id number] is suspected, a new specimen should be collected after 48-72 hours and tested. If waiting 48 hrs is not medically advisable, the test result should be confirmed with at quantitative hCG assay. Troponin I July < 0.30 0.0-0.5 Published [facility], 2018 clinical 3:56pm studies have [place] [address] shown elevations of cTnI in patients with myocardial injury, as seen in unstable angina pectoris, cardiac contusions, and heart transplants. Elevations have also been seen in patients with rhabdomyolysis and polymyositis.El evated troponin levels point to myocardial injury, but are not necessarily indicative of an ischemic mechanism. The term DC should be used when there is evidence of cardiac damage, as detected by marker proteins in a clinical setting consistent with myocardial ischemia. If the clinical circumstance suggests that an ischemic mechanism is unlikely, other causes of cardiac injury should be considered.For diagnostic purposes, the results should always be assessed in conjunction with the patient's medical history, clinical examination and other findings. Diagnostic Imaging Reports Report Dictated Date/Time Dictated By Status August 12, 2019 4:57pm MICHELA VARGAS MD completed Patient: MARIA DEL CARMEN RODRIGUEZ MR#: [id number] : [address] CATHY DANIEL MD Pt Status: REG Pt Location: [facility] Date/Time: 08/12/19 1505 Primary Care Physician: LUCIE OTHER Technologist(s): CHERELLE ELENA Procedure(s): [id number] RAD/CHEST 2 VIEWS Signed EXAM: CHEST 2 VIEWS DATE: 08/12/2019 3:12 PM INDICATION: Cough, chills COMPARISON: Chest x-ray, 05/09/2017 FINDINGS: Lines and tubes: None Heart size normal. No focal pulmonary opacity, pleural effusion or pneumothorax. Upper abdomen unremarkable. Surgical clips are seen in the right upper quadrant. No acute bony abnormality. IMPRESSION: No evidence for acute disease. Signed by: Dr. Michela Vargas M.D. 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 F.A.A.C Measurements Intervals [place] Rate: 97 P: 34 PA: 137 QRS: 28 QRSD: 89 T: 7 QT: 361 QTc: 459 Interpretive Statements Sinus rhythm Probable left atrial enlargement Electronically Signed On 08-14-2019 20:58:25 CDT by Mami Dick M.D. F.A.A.C Transcribed By: [email or web address] SIGNED <electronically signed by MAMI DICK MD> 57 [phone] MAMI DICK MD Health Concerns No known health concerns documented Advance Directives Advance Directive Response Recorded Date/Time Advance Directive on File No September 04, 2019 12:04pm Chief Complaint and Reason for Visit Chief Complaint General Complaint Reason for Visit [id number] Encounters Encounter Location(s) Arrival/Admit Date Discharge/Depart Date Provider(s) Registered [place] September 04, 2019 Sahara SKELTON Emergency Room [facility] 12:00pm DO Ctr Departed [place] August 12, August 12, 2019 MARÍA, Emergency Room [facility] 2018 2:47pm 5:54pm CATHY Sheriff MD Assessments No Assessments Information Available Functional Status No Functional Status information available Goals No Goals Information Available Immunizations No Immunization Information Available Mental Status No Mental Status Information Available Medical Equipment No Medical Equipment Information available Insurance Providers Guarantor Maria Del Carmen Rodriguez Address [address] [facility] [address] Contact Info. Home Phone: Payer Policy Id Coverage Id Subscriber's Subscriber Id Effective Expiration Name Date Date Ora [id number] Maria Del Carmen Rodriguez [id number] [facility] Plan of Treatment MELOXICAM 7.5MG 1 TAB. DAILY FOLLOW UP WITH PCP IN 2 DAYS Future Tests Future scheduled test information is unavailable Pending Tests Pending diagnostic test information is unavailable Future Visits Future appointment information is unavailable Referrals to Other Providers Reason for Referral Start Provider Provider Contact Provider Address Referral Date Information OTHER, ENTER NAME IN NOTES Future Procedures Future procedure information is unavailable Future Medications Future medication information is unavailable Patient Instructions Shoulder Pain, Dcot-rd-Kbws Arthritis, Cqua-qu-Vvgk Tendinitis, Vqla-ga-Mvyn Social History Smoking Status Status Date of Observation Never smoked tobacco (finding) September 04, 2019 12:04pm Observation Status Observation Response Date of Response Hx Alcohol Use No May 09, 2017 2:04pm Hx Physical Abuse No September 04, 2019 12:04pm Assigned Sex Female Vital Signs Vital Reading Result Collection Date/Time
--- NOTE | 2019-11-21 21:41 | ER ---
Nurse's Notes [facility] Name: Maria Del Carmen Rodriguez Age: 39 yrs Sex: Female : 1980 Arrival Date: 11/21/2019 Time: 20:12 Bed 14 [facility] MD: Diagnosis: Acute bronchitis Presentation: 11/21 20:26 Presenting complaint: Patient states: she is having sore throat, SOB, cough, headache, bb runny nose for 2 days. Transition of care: patient was not received from another setting of care. Onset of symptoms was November 19, 2019. Risk Assessment: Do you want to hurt yourself or someone else? Patient reports no desire to harm self or others. Initial Sepsis Screen: Does the patient meet any 2 criteria? No. Patient's initial sepsis screen is negative. Does the patient have a suspected source of infection? No. Patient's initial sepsis screen is negative. Care prior to arrival: None. 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 - Social history:: Smoking status: Patient/guardian denies using tobacco. - Ebola Screening: : No symptoms or risks identified at this time. Screenin:33 Abuse screen: Denies threats or abuse. Nutritional screening: No deficits noted. ea Tuberculosis screening: No symptoms or risk factors identified. Fall Risk None identified. Assessment: 21:32 General: Appears in no apparent distress. Behavior is calm, cooperative, appropriate ea for age. Pain: Complains of pain in sore throat. Neuro: Level of Consciousness is awake, alert, obeys commands, Oriented to person, place, time, situation. Cardiovascular: Patient's skin is warm and dry. Respiratory: Airway is patent Respiratory effort is even, unlabored, Respiratory pattern is regular, symmetrical. EENT: Throat is reddened. Derm: Skin is pink, warm \T\ dry. 22:12 Reassessment: Patient and/or family updated on plan of care and expected duration. Pain ea level reassessed. Patient is alert, oriented x 3, equal unlabored respirations, skin warm/dry/pink. Discharge instruction given to patient, verbalized the understanding of instruction. Pt left ED ambulatory accompanied by family. Vital Signs: 20:29 BP 116 / 93; Pulse 107; Resp 16 S; Temp 98.2(O); Pulse Ox 97% on R/A; Weight 90.72 kg bb (R); Height 5 ft. 1 in. (154.94 cm) (R); Pain 10/10; 21:33 BP 118 / 80; Pulse 90; Resp 18; Temp 98.5; Pulse Ox 100% on R/A; ea 22:00 BP 116 / 76; Pulse 88; Resp 18; Pulse Ox 100% on R/A; ea 20:29 Body Mass Index 37.79 (90.72 kg, 154.94 cm) bb ED Course: 20:12 Patient arrived in ED. ds1 20:27 Triage completed. bb 20:28 [facility] snw 20:28 Ji Lynn MD is Attending Physician. snw 20:29 Arm band placed on Patient placed in an exam room, on a stretcher, on pulse oximetry. bb 21:28 Faina Vaz, COLBY is Primary Nurse. ea 21:33 Patient has correct armband on for positive identification. Placed in gown. Bed in low ea position. Call light in reach. Side rails up X 1. 22:13 No provider procedures requiring assistance completed. Patient did not have IV access ea during this emergency room visit. Administered Medications: 21:55 Drug: Zithromax 500 mg Route: PO; ea 22:14 Follow up: Response: No adverse reaction ea 21:56 Drug: Decadron 8 mg Route: PO; ea 22:14 Follow up: Response: No adverse reaction ea Outcome: 21:40 Discharge ordered by MD. thomas 22:13 Discharged to home ambulatory, with family. syed 22:13 Condition: stable 22:13 Discharge instructions given to patient, Instructed on discharge instructions, follow up and referral plans. medication usage, Demonstrated understanding of instructions, follow-up care, medications, Prescriptions given X 3. 22:15 Patient left the ED. ea Signatures: Deena Dominguez, MANAGER CREDIT RISK-C MANAGER CREDIT RISK-Csnw [place] ds1 Awilda Jain, RN RN bb Faina Vaz RN RN syed
--- NOTE | 2019-11-21 21:42 | EDPHYS ---
Physician Documentation [facility] Name: Maria Del Carmen Rodriguez Age: 39 yrs Sex: Female : 1980 Arrival Date: 11/21/2019 Time: 20:12 Bed 14 Private MD: YOAV Physician Ji Lynn HPI: 11/21 20:59 This 39 yrs old Female presents to ER via Ambulatory with complaints of Sore snw Throat, Shortness Of Breath. 20:59 The patient presents with sore throat. The patient describes throat pain as snw intermittent, scratchy, suffocating. Onset: The symptoms/episode began/occurred suddenly, 3 day(s) ago, and became persistent. Modifying factors: The symptoms are alleviated by nothing, the symptoms are aggravated by spasms in throat. Associated signs and symptoms: Pertinent positives: cough, flu-like symptoms, malaise, rhinorrhea, Sore throat. The patient has experienced a previous episode, last year. It is unknown whether or not the patient has recently seen a physician. 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 - Social history:: Smoking status: Patient/guardian denies using tobacco. - Ebola Screening: : No symptoms or risks identified at this time. ROS: 20:54 Eyes: Negative for injury, pain, redness, and discharge. snw 20:54 Neck: Negative for injury, pain, and swelling, Cardiovascular: Negative for chest pain, palpitations, and edema. 20:54 Abdomen/GI: Negative for abdominal pain, nausea, vomiting, diarrhea, and constipation, Back: Negative for injury and pain, : Negative for injury, bleeding, discharge, and swelling, MS/Extremity: Negative for injury and deformity, Skin: Negative for injury, rash, and discoloration, Neuro: Negative for headache, weakness, numbness, tingling, and seizure, Psych: Negative for depression, anxiety, suicide ideation, homicidal ideation, and hallucinations. 20:54 Constitutional: Positive for body aches, malaise, poor PO intake. 20:54 ENT: Positive for sore throat. 20:54 Respiratory: Positive for cough, with clear sputum, sometimes throat spasms and pt feels short of breath and chokes. Exam: 20:51 Constitutional: This is a well developed, well nourished patient who is awake, alert, snw and in no acute distress. Head/Face: Normocephalic, atraumatic. hirsuit Eyes: Pupils equal round and reactive to light, extra-ocular motions intact. Lids and lashes normal. Conjunctiva and sclera are non-icteric and not injected. Cornea within normal limits. Periorbital areas with no swelling, redness, or edema. 20:51 Neck: Trachea midline, no thyromegaly or masses palpated, and no cervical lymphadenopathy. Supple, full range of motion without nuchal rigidity, or vertebral point tenderness. No Meningismus. Chest/axilla: Normal chest wall appearance and motion. Nontender with no deformity. No lesions are appreciated. Cardiovascular: Regular rate and rhythm with a normal S1 and S2. No gallops, murmurs, or rubs. Normal PMI, no JVD. No pulse deficits. Respiratory: Lungs have equal breath sounds bilaterally, clear to auscultation and percussion. No rales, rhonchi or wheezes noted. No increased work of breathing, no retractions or nasal flaring. Abdomen/GI: Soft, non-tender, with normal bowel sounds. No distension or tympany. No guarding or rebound. No evidence of tenderness throughout. Back: No spinal tenderness. No costovertebral tenderness. Full range of motion. Skin: Warm, dry with normal turgor. Normal color with no rashes, no lesions, and no evidence of cellulitis. MS/ Extremity: Pulses equal, no cyanosis. Neurovascular intact. Full, normal range of motion. Neuro: Awake and alert, GCS 15, oriented to person, place, time, and situation. Cranial nerves II-XII grossly intact. Motor strength 5/5 in all extremities. Sensory grossly intact. Cerebellar exam normal. Normal gait. Psych: Awake, alert, with orientation to person, place and time. Behavior, mood, and affect are within normal limits. 20:51 ENT: TM's: fluid levels, Nose: is normal, Mouth: is normal, Posterior pharynx: erythema, that is mild, Voice: is normal. Vital Signs: 20:29 BP 116 / 93; Pulse 107; Resp 16 S; Temp 98.2(O); Pulse Ox 97% on R/A; Weight 90.72 kg bb (R); Height 5 ft. 1 in. (154.94 cm) (R); Pain 10/10; 21:33 BP 118 / 80; Pulse 90; Resp 18; Temp 98.5; Pulse Ox 100% on R/A; ea 22:00 BP 116 / 76; Pulse 88; Resp 18; Pulse Ox 100% on R/A; ea 20:29 Body Mass Index 37.79 (90.72 kg, 154.94 cm) bb MDM: 20:30 Patient medically screened. [facility] 21:42 Data reviewed: vital signs, nurses notes. Data interpreted: Pulse oximetry: on room air snw is 100 %. Interpretation: normal. Counseling: I had a detailed discussion with the patient and/or guardian regarding: the historical points, exam findings, and any diagnostic results supporting the discharge/admit diagnosis, lab results, the need for outpatient follow up, to return to the emergency department if symptoms worsen or persist or if there are any questions or concerns that arise at home. Special discussion: I have referred the patient to see his PCP for further evaluation of high blood pressure. Based on the history and exam findings, there is no indication for further emergent testing or inpatient evaluation. I discussed with the patient/guardian the need to see the primary care provider for further evaluation of the symptoms. 11/21 20:43 Order name: Flu; Complete Time: 21:16 snw 11/21 20:43 Order name: Strep; Complete Time: 21:41 snw 11/21 21:41 Order name: Throat Culture EDMS Administered Medications: 21:55 Drug: Zithromax 500 mg Route: PO; ea 22:14 Follow up: Response: No adverse reaction ea 21:56 Drug: Decadron 8 mg Route: PO; ea 22:14 Follow up: Response: No adverse reaction ea Disposition: 11/21/19 21:40 Discharged to Home. Impression: Acute bronchitis. - Condition is Stable. - Discharge Instructions: Acute Bronchitis, Adult, Fever, Adult, Cough, Adult, Rehydration, Adult. - Prescriptions for Zithromax Z- Mejia 250 mg Oral Tablet - take 1 tablet by ORAL route as directed for 5 days Day 1 - take two (2) tablets one time. Day 2, 3, 4 , 5 take one (1) tablet once daily.; 6 tablet. Prednisone 20 mg Oral Tablet - take 2 tablet by ORAL route once daily for 5 days; 10 tablet. Albuterol Sulfate 90 mcg/actuation - inhale 1-2 puff by INHALATION route every 4-6 hours; 1 Inhaler. - Work release form, Medication Reconciliation Form, Thank You Letter, Antibiotic Education, Prescription Opioid Use form. - Follow up: Emergency Department; When: As needed; Reason: Worsening of condition. Follow up: Private Physician; When: 2 - 3 days; Reason: Recheck today's complaints, Continuance of care, Re-evaluation by your physician. Addendum: 11/29/2019 07:21 Co-signature as Attending Physician, Ji Lynn MD I agree with the assessment and c nunez plan of care. Signatures: Dispatcher [employer] Ji Montague MD MD cha Therrien, Shelly, GEOLOGY ASSOCIATE-C GEOLOGY ASSOCIATE-Csnw Awilda Jain RN RN Faina Rose RN RN ea Corrections: (The following items were deleted from the chart) 11/21 22:15 21:40 11/21/2019 21:40 Discharged to Home. Impression: Acute bronchitis. Condition is ea Stable. Forms are Medication Reconciliation Form, Thank You Letter, Antibiotic Education, Prescription Opioid Use. Follow up: Emergency Department; When: As needed; Reason: Worsening of condition. Follow up: Private Physician; When: 2 - 3 days; Reason: Recheck today's complaints, Continuance of care, Re-evaluation by your physician. snw
[2019-11-21] MEDS ORDERED: dexAMETHasone 4 MG TAB ONE (21:55)
[2019-11-21] MEDS ORDERED: AZITHROMYCIN 250 MG TAB ONE (21:55)
[2019-11-21 23:21] VITALS: TEMP 98.5; O2SAT 100
[2019-11-21 23:22] VITALS: BP 116/76
== END 2019-11-21 22:15 | disposition home or self-care (01) ==
LOC: ER 20:10
DX: J20.9 Acute bronchitis, unspecified (principal); I10 Essential (primary) hypertension; J45.909 Unspecified asthma, uncomplicated; Z88.5 Allergy status to narcotic agent; Z88.8 Allergy status to other drugs, medicaments and biological substances
CPT/HCPCS: 87070; 87081; 87804 ×2; 99283; J8540

== ENCOUNTER 2020-05-12 17:57 | Emergency (ER) | payer OTHER ==
[2020-05-12 19:51] LABS: Urine Blood NEGATIVE (NEG); Urine Glucose NEGATIVE (NEG); Urine Protein NEGATIVE (NEG); Urine Specific Gravity 1.025 (1.005-1.030)
[2020-05-12 19:54] LABS: Absolute Lymphocytes (CBC) 1.4 K/uL (0.7-4.9); Basophils % 0.8 % (0-1.3); Hematocrit 39.4 % (36.0-45.0); Lymphocytes % 11.9 % (15.3-44.8); MPV 8.4 fL (7.6-11.3); RBC Red Blood Cell Count 4.02 M/uL (3.86-4.86)
[2020-05-12] MEDS ORDERED: NA CHLORIDE 0.9% 1,000 ML ONE (20:05)
[2020-05-12] MEDS ORDERED: MORPHINE 4 MG/ML SYR ONE (20:05)
[2020-05-12] MEDS ORDERED: ONDANSETRON 4 MG/2 ML VIAL ONE (20:05)
[2020-05-12 20:15] LABS: Albumin 3.8 g/dL (3.4-5.0); Bilirubin Direct 0.2 mg/dL (0-0.2); Bilirubin Total 0.6 mg/dL (0.2-1.0); Potassium 3.5 mmol/L (3.5-5.1)
--- NOTE | 2020-05-12 20:18 | RAD REPORT ---
EXAM DESCRIPTION: CTAbdomen Pelvis W Contrast - 05/12/2020 8:13 pm CLINICAL HISTORY: Abdominal pain. r/o bowel obstruction;Abd pain COMPARISON: Abdomen Pelvis W Contrast dated 05/22/2017 TECHNIQUE: Biphasic CT imaging of the abdomen and pelvis was performed with 100 ml non-ionic IV cont rast. All CT scans are performed using dose optimization technique as appropriate and may include automated exposure control or mA/KV adjustment according to patient size. FINDINGS: The lung bases are clear.Cholecystectomy clips. The liver, spleen, pancreas, adrenal glands and kidneys are within normal limits. No bowel obstruction, free air, free fluid or abscess. Appendectomy. No evidence of significant lym phadenopathy. No suspicious bony findings. IMPRESSION: No acute intra-abdominal or pelvic finding.
[2020-05-12 20:24] LABS: Urine Bacteria 20-50 /HPF (<20); Urine Culture Reflex Order REFLEXED; Urine Mucus 3+ /HPF (NONE SEEN); Urine RBC <5 /HPF (NONE SEEN)
--- NOTE | 2020-05-12 20:45 | ER ---
Nurse's Notes [facility] Name: Maria Del Carmen Rodriguez Age: 40 yrs Sex: Female : 1980 Arrival Date: 05/12/2020 Time: 18:02 Bed 17 Private MD: Diagnosis: Gastritis, unspecified, without bleeding;Vomiting Presentation: 05/12 18:08 Chief complaint: Patient states: Mid abdominal pain for 3 days. N/V and [place] began today. ll1 No fever. Coronavirus screen: Proceed with normal triage. Patient denies a cough. Patient denies shortness of breath or difficulty breathing. Patient denies measured and/or subjective temperature greater than 100.4F prior to today's visit. Patient denies travel on a cruise ship or to a country the [facility] currently lists as an affected area. Patient denies contact with known and/or suspected case of COVID-19. Ebola Screen: Patient denies travel to an Ebola-affected area in the 21 days before illness onset. Initial Sepsis Screen: Does the patient meet any 2 criteria? No. Patient's initial sepsis screen is negative. Risk Assessment: Do you want to hurt yourself or someone else? Patient reports no desire to harm self or others. Onset of symptoms was May 09, 2020. 18:08 Method Of Arrival: Ambulatory ll1 18:08 Acuity: JUS 3 ll1 Historical: - Allergies: 18:10 Avelox; ll1 18:10 darvocet; ll1 18:10 Imitrex; ll1 18:10 Stadol; ll1 18:10 Tessalon Perles; ll1 18:10 Trazodone; ll1 18:10 adult benadryl; ll1 - PMHx: 18:10 Tachycardia; Hypertension; Asthma; ll1 - PSHx: 18:10 Cholecystectomy; Tubal ligation; ovarian cyst; Appendectomy; L knee replacement; repair ll1 of tibia; - Immunization history:: Flu vaccine is not up to date. - Social history:: Smoking status: Patient denies any tobacco usage or history of. Patient uses alcohol, but reports only rare drinking. Patient/guardian denies using street drugs, tobacco products. Screenin:28 Abuse screen: Denies threats or abuse. Nutritional screening: No deficits noted. Tuberculosis screening: No symptoms or risk factors identified. Fall Risk None identified. Assessment: 19:15 General: Appears uncomfortable, Behavior is calm, cooperative. Pain: Complains of pain ah in right lower quadrant and left lower quadrant. Neuro: Level of Consciousness is awake, alert, Oriented to person, place, time, situation. Cardiovascular: Capillary refill < 3 seconds Patient's skin is warm and dry. Respiratory: Airway is patent is compromised Respiratory effort is even, unlabored. GI: Bowel sounds present X 4 quads. Reports nausea, vomiting. Derm: Skin is intact, is healthy with good turgor. 20:15 Reassessment: Patient and/or family updated on plan of care and expected duration. Pain ah level reassessed. awaiting on results. 21:15 Reassessment: MD talking with pt. Discharge instructions given and educated on ah prescriptions. pt voiced understanding. Vital Signs: 18:08 BP 117 / 70; Pulse 86; Resp 18; Temp 98.3; Pulse Ox 95% ; Pain 8/10; ll1 ED Course: 18:02 Patient arrived in ED. bp1 18:09 Triage completed. ll1 18:10 Arm band placed on. ll1 19:04 Yg Avendano MD is Attending Physician. tw4 19:10 Urine collected: clean catch specimen, clear, dmitriy colored. Patient maintains SpO2 jp3 saturation greater than 95% on room air. 19:25 Placed in gown. Bed in low position. Call light in reach. Side rails up X 1. Verbal jp3 reassurance given. Pulse ox on. NIBP on. 19:47 Initial lab(s) drawn, by me, sent to lab. Inserted saline lock: 20 gauge in right jp3 wrist, using aseptic technique. Blood collected. 19:52 Bree Zapata, RN is Primary Nurse. ah 20:14 CT Abd/Pelvis - IV Contrast Only In Process Unspecified. EDMS 21:21 No provider procedures requiring assistance completed. IV discontinued, intact, ah bleeding controlled, No redness/swelling at site. Pressure dressing applied. Administered Medications: 20:15 Drug: Zofran (Ondansetron) 4 mg Route: IVP; Site: right wrist; 21:09 Follow up: Response: No adverse reaction 20:15 Drug: NS 0.9% 1000 ml Route: IV; Rate: 1 bolus; Site: right wrist; ah 20:15 Drug: morphine 4 mg Route: IVP; Site: right wrist; 21:09 Follow up: Response: No adverse reaction 21:09 Drug: GI Cocktail without - (Maalox Suspension 30 ml, Lidocaine Liquid 2 % 15 ah ml) Route: PO; 21:30 Follow up: Response: No adverse reaction Point of Care Testing: Urine : 19:10 hCG Reading: Negative; Control Reading: Positive; jp3 Outcome: 20:45 Discharge ordered by . jonah 21:20 Discharged to home ambulatory. 21:20 Condition: stable 21:20 Discharge instructions given to patient, Instructed on discharge instructions, follow up and referral plans. Demonstrated understanding of instructions, follow-up care, medications, Prescriptions given X 2. 21:22 Patient left the ED. Signatures: Dispatcher [employer] Yg Orosco MD MD tw4 Shawn Mauricio jp3 Bree Zapata, RN Rocco Poe RN RN 1 [facility]
--- NOTE | 2020-05-12 20:45 | EDPHYS ---
Physician Documentation [facility] Name: Maria Del Carmen Rodriguez Age: 40 yrs Sex: Female : 1980 Arrival Date: 05/12/2020 Time: 18:02 Bed 17 Private MD: ED Physician Yg Avendano HPI: 05/12 20:41 This 40 yrs old Female presents to ER via Ambulatory with complaints of tw4 Abdominal Pain, Vomiting, Headache. 20:41 The patient presents to the emergency department with nausea, vomiting. Onset: The tw4 symptoms/episode began/occurred 3 day(s) ago. Possible causes: unknown. The symptoms are aggravated by nothing. The symptoms are alleviated by nothing. Associated signs and symptoms: Pertinent positives: abdominal pain. Severity of symptoms: At their worst the symptoms were moderate. The patient has not experienced similar symptoms in the past. Historical: - Allergies: 18:10 Avelox; ll1 18:10 darvocet; ll1 18:10 Imitrex; ll1 18:10 Stadol; ll1 18:10 Tessalon Perles; ll1 18:10 Trazodone; ll1 18:10 adult benadryl; ll1 - PMHx: 18:10 Tachycardia; Hypertension; Asthma; ll1 - PSHx: 18:10 Cholecystectomy; Tubal ligation; ovarian cyst; Appendectomy; L knee replacement; repair ll1 of tibia; - Immunization history:: Flu vaccine is not up to date. - Social history:: Smoking status: Patient denies any tobacco usage or history of. Patient uses alcohol, but reports only rare drinking. Patient/guardian denies using street drugs, tobacco products. ROS: 20:41 Constitutional: Negative for fever, chills, and weight loss, Eyes: Negative for injury, tw4 pain, redness, and discharge, Cardiovascular: Negative for chest pain, palpitations, and edema, Respiratory: Negative for shortness of breath, cough, wheezing, and pleuritic chest pain, Back: Negative for injury and pain, MS/Extremity: Negative for injury and deformity, Skin: Negative for injury, rash, and discoloration, Neuro: Negative for headache, weakness, numbness, tingling, and seizure. 20:41 Abdomen/GI: Positive for abdominal pain, nausea and vomiting, nausea, vomiting, and diarrhea, nausea, vomiting, abdominal cramps, Negative for anorexia, dysphagia, hematemesis, black/tarry stool, rectal pain, rectal bleeding. Exam: 20:41 Constitutional: This is a well developed, well nourished patient who is awake, alert, tw4 and in no acute distress. Head/Face: Normocephalic, atraumatic. Chest/axilla: Normal chest wall appearance and motion. Nontender with no deformity. No lesions are appreciated. Cardiovascular: Regular rate and rhythm with a normal S1 and S2. No gallops, murmurs, or rubs. Normal PMI, no JVD. No pulse deficits. Respiratory: Lungs have equal breath sounds bilaterally, clear to auscultation and percussion. No rales, rhonchi or wheezes noted. No increased work of breathing, no retractions or nasal flaring. 20:41 Back: No spinal tenderness. No costovertebral tenderness. Full range of motion. MS/ Extremity: Pulses equal, no cyanosis. Neurovascular intact. Full, normal range of motion. Neuro: Awake and alert, GCS 15, oriented to person, place, time, and situation. Cranial nerves II-XII grossly intact. Motor strength 5/5 in all extremities. Sensory grossly intact. Cerebellar exam normal. Normal gait. 20:41 Abdomen/GI: Inspection: abdomen appears normal, Bowel sounds: diminished, Palpation: moderate abdominal tenderness, in the epigastric area. Vital Signs: 18:08 BP 117 / 70; Pulse 86; Resp 18; Temp 98.3; Pulse Ox 95% ; Pain 8/10; ll1 MDM: 19:28 Patient medically screened. tw4 20:41 Differential diagnosis: Nonspecific abd pain, gastritis. Data reviewed: vital signs, tw4 nurses notes. Data reviewed: lab test result(s), CBC, electrolytes, hepatic panel, urinalysis, bacteruria, pyuria, radiologic studies, CT scan. Data interpreted: Pulse oximetry: Interpretation: normal. Test interpretation: by ED physician or midlevel provider: not applicable. Counseling: I had a detailed discussion with the patient and/or guardian regarding: the historical points, exam findings, and any diagnostic results supporting the discharge/admit diagnosis. Medication response: morphine markedly relieved the patient's pain. Symptoms have improved. Response to treatment: and as a result, I will discharge patient. Special discussion: Based on the patient's Hx, exam, and Dx evaluation, there is no indication for emergent surgery or inpatient Tx. It is understood by the patient/guardian that if the Sx's persist or worsen they need to return immediately for re-evaluation. I discussed with the patient/guardian in detail that at this point there is no indication for admission to the hospital. It is understood, however, that if the symptoms persist or worsen the patient needs to return immediately for re-evaluation. 05/12 19:20 Order name: Basic Metabolic Panel; Complete Time: 20:40 [facility] 05/12 20:41 Interpretation: Normal except: GFR 75. [facility] 05/12 19:20 Order name: CBC with Diff; Complete Time: 20:40 [facility] 05/12 20:40 Interpretation: Normal except: WBC 11.9; DAYO% 78.1; LYM% 11.9; NEUT A 9.3. [facility] 05/12 19:20 Order name: Hepatic Function; Complete Time: 20:40 [facility] 05/12 20:40 Interpretation: Normal except: GLOB 4.2; A/G 0.9. [facility] 05/12 19:20 Order name: Lipase; Complete Time: 20:40 [facility] 05/12 20:40 Interpretation: Within normal limits: LIP 73. [facility] 05/12 19:24 Order name: Urine Dipstick--Ancillary (enter results) [facility] 05/12 19:24 Order name: Urine --Ancillary (enter results); Complete Time: 20:40 [facility] 05/12 20:40 Interpretation: Within normal limits. [facility] 05/12 19:28 Order name: Urine Microscopic Only; Complete Time: 20:40 [facility] 05/12 20:40 Interpretation: Normal except: UBACT 20-50; SQEPI 5-10; MUCUS 3+; UWBC 5-10. [facility] 05/12 19:37 Order name: CT Abd/Pelvis - IV Contrast Only; Complete Time: 20:36 [facility] 05/12 20:36 Interpretation: No acute disease. [facility] 05/12 20:10 Order name: CREATININE WHOLE BLOOD [facility] 05/12 20:25 Order name: Urine Culture [facility] 05/12 19:20 Order name: IV Saline Lock; Complete Time: 19:47 [facility] 05/12 19:20 Order name: Labs collected and sent; Complete Time: 19:47 tw4 Administered Medications: 20:15 Drug: Zofran (Ondansetron) 4 mg Route: IVP; Site: right wrist; 21:09 Follow up: Response: No adverse reaction 20:15 Drug: NS 0.9% 1000 ml Route: IV; Rate: 1 bolus; Site: right wrist; 20:15 Drug: morphine 4 mg Route: IVP; Site: right wrist; 21:09 Follow up: Response: No adverse reaction 21:09 Drug: GI Cocktail without - (Maalox Suspension 30 ml, Lidocaine Liquid 2 % 15 ah ml) Route: PO; 21:30 Follow up: Response: No adverse reaction Point of Care Testing: Urine : 19:10 hCG Reading: Negative; Control Reading: Positive; jp3 Disposition: 05/12/20 20:45 Discharged to Home. Impression: Gastritis, unspecified, without bleeding, Vomiting. - Condition is Stable. - Discharge Instructions: Gastritis, Adult, Nausea and Vomiting, Adult, Eela-ad-Ikpe. - Prescriptions for Protonix 40 mg Oral Tablet - take 1 tablet by ORAL route once daily; 30 tablet. Zofran 4 mg Oral Tablet - take 1 tablet by ORAL route every 12 hours As needed; 6 tablet. - Medication Reconciliation Form, Thank You Letter, Antibiotic Education, Prescription Opioid Use form. - Follow up: Private Physician; When: Upon discharge from the Emergency Department; Reason: Recheck today's complaints, Continuance of care, Re-evaluation by your physician. - Problem is new. - Symptoms have improved. Signatures: Dispatcher [employer] Yg Orosco MD MD tw4 Bree Zapata, RN RN Rocco Jerez RN RN ll1 Corrections: (The following items were deleted from the chart) 21:22 20:45 05/12/2020 20:45 Discharged to Home. Impression: Gastritis, unspecified, without ah bleeding; Vomiting. Condition is Stable. Forms are Medication Reconciliation Form, Thank You Letter, Antibiotic Education, Prescription Opioid Use. Follow up: Private Physician; When: Upon discharge from the Emergency Department; Reason: Recheck today's complaints, Continuance of care, Re-evaluation by your physician. Problem is new. Symptoms have improved. tw4
[2020-05-12] MEDS ORDERED: LIDOCAINE VISCOUS 2% SOLN 15 ML UDC ONE (21:12)
[2020-05-12] MEDS ORDERED: MAGNE/ALUM HYDROXD 30 ML UCUP ONE (21:12)
[2020-05-12 21:35] VITALS: BP 117/70; TEMP 98.3; O2SAT 95
== END 2020-05-12 21:22 | disposition home or self-care (01) ==
LOC: ER 17:57
DX: K29.70 Gastritis, unspecified, without bleeding (principal); I10 Essential (primary) hypertension; Z88.5 Allergy status to narcotic agent; Z88.6 Allergy status to analgesic agent; Z88.8 Allergy status to other drugs, medicaments and biological substances
CPT/HCPCS: 87088; 85025; 87086; 80048; 36415; 81025; 82565; 80076; 83690; 74177; 96375; 96374; 99284; Q9967; J7030; J2405; 81003; 81015

== ENCOUNTER 2020-08-12 21:59 | Emergency (ER) | payer OTHER ==
[2020-08-12 22:38] LABS: Protime INR 0.99
[2020-08-12 22:58] LABS: ALT/SGPT 23 U/L (12-78); AST/SGOT 18 U/L (15-37); Albumin 3.9 g/dL (3.4-5.0); Alkaline Phosphatase 98 U/L (45-117); BUN Blood Urea Nitrogen 14 mg/dL (7-18); Bicarbonate 21 mmol/L (21-32); Bilirubin Direct 0.1 mg/dL (0-0.2); Bilirubin Total 0.4 mg/dL (0.2-1.0); Glucose Level 88 mg/dL (74-106); Magnesium 2.3 mg/dL (1.8-2.4); NT PRO-BNP 238 pg/mL (<125); Potassium 3.8 mmol/L (3.5-5.1); Protein, Total 8.2 g/dL (6.4-8.2); Sodium Level 138 mmol/L (136-145); Troponin (Emerg Dept Use Only) < 0.02 ng/mL (0.0-0.045)
[2020-08-12] MEDS ORDERED: NA CHLORIDE 0.9% 500 ML ONE (23:14)
[2020-08-12] MEDS ORDERED: KETOROLAC 30 MG/ML INJ ONE (23:14)
[2020-08-12 23:18] LABS: Absolute Lymphocytes (CBC) 2.4 K/uL (0.7-4.9); Basophils % 1.1 % (0-1.3); Hematocrit 34.9 % (36.0-45.0); Lymphocytes % 33.6 % (15.3-44.8); MPV 9.2 fL (7.6-11.3)
--- NOTE | 2020-08-13 01:46 | EDPHYS ---
Physician Documentation [facility] Name: Maria Del Carmen Rodriguez Age: 40 yrs Sex: Female : 1980 Arrival Date: 08/12/2020 Time: 22:08 Bed 3 Private MD: ED Physician Henry Sánchez HPI: 08/12 22:45 This 40 yrs old Female presents to ER via Wheelchair with complaints of Chest cp Pain. 22:45 The patient or guardian reports chest pain that is located primarily in the substernal cp area. 22:45 Onset: 4 hour(s) ago. The pain radiates to back. cp 22:45 Associated signs and symptoms: Pertinent positives: dizziness, lower extremity pain, cp lower extremity swelling, shortness of breath, Pertinent negatives: abdominal pain, cough, diaphoresis, syncope. 22:45 The chest pain is described as sharp. Duration: The patient or guardian reports a cp single episode, that is still ongoing, and unchanged. Severity of pain: in the emergency department the pain is unchanged. 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 - Social history:: Smoking status: Patient denies any tobacco usage or history of. ROS: 22:50 Constitutional: Negative for body aches, chills, fever, poor PO intake. cp 22:50 Eyes: Negative for injury, pain, redness, and discharge. cp 22:50 ENT: Negative for ear pain, sore throat, difficulty swallowing, difficulty handling secretions. 22:50 Cardiovascular: Positive for chest pain, Negative for edema, palpitations. 22:50 Respiratory: Positive for shortness of breath, Negative for cough, wheezing. 22:50 Abdomen/GI: Negative for abdominal pain, nausea, vomiting, and diarrhea. 22:50 Skin: Negative for cellulitis, rash. 22:50 Neuro: Negative for altered mental status, headache, syncope, weakness. 22:50 All other systems are negative. Exam: 22:30 ECG was reviewed by the Attending Physician. cp 22:55 Constitutional: The patient appears in no acute distress, alert, awake, cp non-diaphoretic, non-toxic, well developed, well nourished. 22:55 Head/Face: Normocephalic, atraumatic. cp 22:55 Eyes: Periorbital structures: appear normal, Conjunctiva: normal, no exudate, no injection, Sclera: no appreciated abnormality, Lids and lashes: appear normal, bilaterally. 22:55 ENT: External ear(s): are unremarkable, Nose: is normal, Posterior pharynx: Airway: no evidence of obstruction, patent. 22:55 Chest/axilla: Inspection: normal, Palpation: crepitus, is not appreciated, tenderness, that is mild, of the mid-sternal area, that partially reproduces the patient's complaints. 22:55 Cardiovascular: Rate: normal, Rhythm: regular, Heart sounds: murmur, not appreciated, Edema: is not appreciated, JVD: is not appreciated. 22:55 Respiratory: the patient does not display signs of respiratory distress, Respirations: normal, no use of accessory muscles, no retractions, labored breathing, is not present, Breath sounds: are clear throughout, no decreased breath sounds, no stridor, no wheezing. 22:55 Abdomen/GI: Inspection: abdomen appears normal, Bowel sounds: active, all quadrants, Palpation: abdomen is soft and non-tender, in all quadrants. 22:55 Back: pain, that is mild, ROM is normal. 22:55 Neuro: Orientation: to person, place \T\ time. Mentation: is normal, Motor: moves all fours, strength is normal, Sensation: is normal. Vital Signs: 22:14 BP 105 / 69; Pulse 70; Resp 16 S; Temp 97.9(TE); Pulse Ox 99% on R/A; Weight 98.43 kg ca1 (R); Height 5 ft. 1 in. (154.94 cm) (R); Pain 7/10; 23:06 Pulse 64; Resp 18; Pulse Ox 100% on R/A; mg2 08/13 00:23 Pulse 63; Resp 18; Pulse Ox 100% on R/A; mg2 01:32 Pulse 71; Resp 19; Pulse Ox 99% ; ea 01:47 BP 101 / 43; ea 01:51 BP 107 / 67; Pulse 74; Resp 18; Pulse Ox 97% on R/A; ea 08/12 22:14 Body Mass Index 41.00 (98.43 kg, 154.94 cm) ca1 MDM: 08/12 22:42 Patient medically screened. cp 23:00 Differential diagnosis: abnormal EKG, acute myocardial infarction, costochondritis, cp pleurisy, pneumonia, pneumothorax, pulmonary embolus. 08/13 01:44 Data reviewed: vital signs, nurses notes, lab test result(s), EKG, radiologic studies, cp CT scan, plain films, ultrasound. Test interpretation: by ED physician or midlevel provider: ECG, chest xray negative for infiltrates. Counseling: I had a detailed discussion with the patient and/or guardian regarding: the historical points, exam findings, and any diagnostic results supporting the discharge/admit diagnosis, lab results, radiology results, the need for outpatient follow up, a family practitioner, to return to the emergency department if symptoms worsen or persist or if there are any questions or concerns that arise at home. Response to treatment: the patient's symptoms have markedly improved after treatment, VSS. Pain improved with meds. Special discussion: Based on the patient's history, exam, and Dx evaluation, there is no indication for emergent intervention or inpatient Tx. It is understood by the patient/guardian that if the Sx's persist or worsen they need to return immediately for re-evaluation. 08/12 22:11 Order name: Basic Metabolic Panel; Complete Time: 23:30 08/12 22:11 Order name: CBC with Diff; Complete Time: 23:30 08/12 22:11 Order name: LFT's; Complete Time: 23:30 08/12 22:11 Order name: Magnesium; Complete Time: 23:30 08/12 22:11 Order name: NT PRO-BNP; Complete Time: 23:30 08/12 22:11 Order name: PT-INR; Complete Time: 23:30 08/12 22:11 Order name: Troponin (emerg Dept Use Only); Complete Time: 23:31 08/12 22:11 Order name: XRAY Chest (1 view) 08/12 22:11 Order name: EKG; Complete Time: 22:11 08/12 22:50 Order name: US Extremity Venous Unilateral Ltd cp 08/12 22:50 Order name: D-Dimer; Complete Time: 23:30 cp 08/12 23:31 Order name: CT Chest For PE Angio cp 08/12 22:11 Order name: Cardiac monitoring; Complete Time: 22:20 08/12 22:11 Order name: EKG - Nurse/Tech; Complete Time: 22:20 ea 08/12 22:11 Order name: IV Saline Lock; Complete Time: 22:21 08/12 22:11 Order name: Labs collected and sent; Complete Time: 22:21 08/12 22:11 Order name: O2 Per Protocol; Complete Time: 22:21 08/12 22:11 Order name: O2 Sat Monitoring; Complete Time: 22:21 ea EC/19 22:30 Rate is 66 beats/min. Rhythm is regular. VT interval is normal. QRS interval is normal. cp QT interval is normal. T waves are Inverted in lead aVR. Interpreted by me. Reviewed by me. Administered Medications: 23:05 Drug: NS 0.9% 500 ml Route: IV; Rate: bolus; Site: left upper arm; mg2 08/13 00:49 Follow up: Response: No adverse reaction; IV Status: Completed infusion; IV Intake: mg2 500ml 08/12 23:06 Drug: TORadol - Ketorolac 15 mg Route: IVP; Site: left upper arm; mg2 08/13 00:49 Follow up: Response: No adverse reaction; Pain is decreased mg2 Disposition: 05:09 Co-signature as Attending Physician, Henry Sánchez MD. [email or web address] Disposition: 08/13/20 01:45 Discharged to Home. Impression: Other chest pain. - Condition is Stable. - Discharge Instructions: Nonspecific Chest Pain, Aspirin and Your Heart. - Prescriptions for Prednisone 20 mg Oral Tablet - take 2 tablet by ORAL route once daily for 5 days; 10 tablet. - Medication Reconciliation Form, Thank You Letter, Antibiotic Education, Prescription Opioid Use form. - Follow up: Private Physician; When: 1 - 2 days; Reason: Recheck today's complaints. - Problem is new. - Symptoms have improved. Signatures: Dispatcher [employer] EDMS Ji Garcia PA PA Faina Vaz RN RN ea Gardose, Michele, RN RN mg2 Acob, Cheryl, RN RN ca1 Holmes, Maurice, MD MD [email or web address] Corrections: (The following items were deleted from the chart) 01:05 08/12 22:50 Urine Test ordered. [facility] 08/13 01:53 01:45 08/13/2020 01:45 Discharged to Home. Impression: Other chest pain. Condition is ea Stable. Forms are Medication Reconciliation Form, Thank You Letter, Antibiotic Education, Prescription Opioid Use. Follow up: Private Physician; When: 1 - 2 days; Reason: Recheck today's complaints. Problem is new. Symptoms have improved. 08/14 00:28 08/12 22:45 Associated signs and symptoms: Pertinent positives: lower extremity pain, cp lower extremity swelling, Pertinent negatives: abdominal pain, diaphoresis, dizziness, shortness of breath, syncope, cp
--- NOTE | 2020-08-13 01:46 | ER ---
Nurse's Notes [facility] Name: Maria Del Carmen Rodriguez Age: 40 yrs Sex: Female : 1980 Arrival Date: 08/12/2020 Time: 22:08 Bed 3 Private MD: Diagnosis: Other chest pain Presentation: 08/12 22:14 Chief complaint: Patient states: Mid-sternal chest pain <3.5 hrs ago. Dizziness and SOB ca1 with CP. Denies hx of CP. Denies injury to chest. Coronavirus screen: Client denies travel out of the [place] in the last 14 days. At this time, the client does not indicate any symptoms associated with coronavirus-19. Ebola Screen: Patient negative for fever greater than or equal to 101.5 degrees Fahrenheit, and additional compatible Ebola Virus Disease symptoms Patient denies exposure to infectious person. Patient denies travel to an Ebola-affected area in the 21 days before illness onset. No symptoms or risks identified at this time. Initial Sepsis Screen: Does the patient meet any 2 criteria? No. Patient's initial sepsis screen is negative. Does the patient have a suspected source of infection? No. Patient's initial sepsis screen is negative. Risk Assessment: Do you want to hurt yourself or someone else? Patient reports no desire to harm self or others. Onset of symptoms was August 12, 2020. 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 - Social history:: Smoking status: Patient denies any tobacco usage or history of. Screenin:47 Abuse screen: Denies threats or abuse. Nutritional screening: No deficits noted. ea Tuberculosis screening: No symptoms or risk factors identified. Fall Risk None identified. Assessment: 22:46 General: Appears in no apparent distress. Behavior is calm, cooperative, appropriate ea for age. Pain: Complains of pain in chest Pain does not radiate. Pain currently is 10 out of 10 on a pain scale. Pain began suddenly. Neuro: Level of Consciousness is awake, alert, obeys commands, Oriented to person, place, time. Cardiovascular: Patient's skin is warm and dry. Respiratory: Airway is patent Respiratory effort is even, unlabored, Respiratory pattern is regular, symmetrical. Derm: Skin is pink, warm \T\ dry. 23:17 Reassessment: Patient and/or family updated on plan of care and expected duration. Pain ea level reassessed. Patient is alert, oriented x 3, equal unlabored respirations, skin warm/dry/pink. 08/13 00:24 Reassessment: Patient appears in no apparent distress at this time. Patient and/or mg2 family updated on plan of care and expected duration. Pain level reassessed. Patient is alert, oriented x 3, equal unlabored respirations, skin warm/dry/pink. 01:05 Reassessment: Pt in CT. ea 01:32 Reassessment: Patient and/or family updated on plan of care and expected duration. Pain ea level reassessed. Patient is alert, oriented x 3, equal unlabored respirations, skin warm/dry/pink. 01:52 Reassessment: Patient and/or family updated on plan of care and expected duration. Pain ea level reassessed. Patient is alert, oriented x 3, equal unlabored respirations, skin warm/dry/pink. Discharge instruction given to patient, verbalized the understanding of instruction. Pt left ED ambulatory tolerating well. Vital Signs: 08/12 22:14 BP 105 / 69; Pulse 70; Resp 16 S; Temp 97.9(TE); Pulse Ox 99% on R/A; Weight 98.43 kg ca1 (R); Height 5 ft. 1 in. (154.94 cm) (R); Pain 7/10; 23:06 Pulse 64; Resp 18; Pulse Ox 100% on R/A; mg2 08/13 00:23 Pulse 63; Resp 18; Pulse Ox 100% on R/A; mg2 01:32 Pulse 71; Resp 19; Pulse Ox 99% ; ea 01:47 BP 101 / 43; ea 01:51 BP 107 / 67; Pulse 74; Resp 18; Pulse Ox 97% on R/A; ea 08/12 22:14 Body Mass Index 41.00 (98.43 kg, 154.94 cm) ca1 ED Course: 08/12 22:08 Patient arrived in ED. am2 22:12 Semaj Castillo, RN is Primary Nurse. mg2 22:16 Triage completed. ca1 22:17 Arm band placed on right wrist. EKG completed in triage. Results shown to MD. ca1 22:41 Ji Garcia PA is PHCP. cp 22:41 Henry Sánchez MD is Attending Physician. cp 22:47 Patient has correct armband on for positive identification. Placed in gown. Bed in low ea position. 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 Pulse ox on. NIBP on. 22:47 Patient maintains SpO2 saturation greater than 95% on room air. ea 23:03 XRAY Chest (1 view) In Process Unspecified. EDMS 23:06 No provider procedures requiring assistance completed. Inserted saline lock: 20 gauge mg2 in left upper arm, using aseptic technique. Blood collected. 23:41 US Extremity Venous Unilateral Ltd In Process Unspecified. EDMS 23:48 Ultrasound completed. Patient tolerated well. Notified SUGAR GRINDER/PA page. sg3 08/13 01:14 CT Chest For PE Angio In Process Unspecified. EDMS 01:52 IV discontinued, intact, bleeding controlled, No redness/swelling at site. Pressure ea dressing applied. Administered Medications: 08/12 23:05 Drug: NS 0.9% 500 ml Route: IV; Rate: bolus; Site: left upper arm; mg2 08/13 00:49 Follow up: Response: No adverse reaction; IV Status: Completed infusion; IV Intake: mg2 500ml 08/12 23:06 Drug: TORadol - Ketorolac 15 mg Route: IVP; Site: left upper arm; mg2 08/13 00:49 Follow up: Response: No adverse reaction; Pain is decreased mg2 Intake: 00:49 IV: 500ml; Total: 500ml. mg2 Outcome: 01:45 Discharge ordered by MD. cp 01:51 Condition: stable ea 01:51 Discharge instructions given to patient, Instructed on discharge instructions, follow up and referral plans. medication usage, Demonstrated understanding of instructions, follow-up care, medications, Prescriptions given X 1. 01:52 Discharged to home ambulatory. ea 01:53 Patient left the ED. ea Signatures: Dispatcher [employer] EDMS Ji Garcia PA PA cp Moreno, Amanda am2 Faina Vaz, RN RN Brenda Lane3 Semaj Castillo RN RN mg2 Stephanie Jimenez RN RN ca1 Corrections: (The following items were deleted from the chart) 01:48 01:47 BP 91 / 43; syed lynch
[2020-08-13 02:36] VITALS: TEMP 97.9
[2020-08-13 02:44] VITALS: BP 107/67; O2SAT 97
--- NOTE | 2020-08-13 08:17 | RAD REPORT ---
EXAM DESCRIPTION: US - Extremity Venous Uni Ltd - 08/12/2020 11:40 pm CLINICAL HISTORY: PAIN, left leg COMPARISON: None. TECHNIQUE: Real-time sonographic evaluation of the left lower extremity deep venous system was perfo rmed. FINDINGS: Normal compressibility, flow augmentation, phasic flow and spontaneous flow are identified in the left lower extremity common femoral, superficial femoral, popliteal and posterior tibial vein s. No intraluminal filling defects seen. IMPRESSION: No DVT in the left lower extremity.
--- NOTE | 2020-08-13 09:03 | RAD REPORT ---
EXAM DESCRIPTION: RAD - Chest Single View - 08/12/2020 11:03 pm CLINICAL HISTORY: CHEST PAIN COMPARISON: None TECHNIQUE: AP portable chest image was obtained 08/12/2020 11:03 pm . FINDINGS: Lungs are clear. Heart size is upper normal. No vascular engorgement. No measurable pleura l effusion and no pneumothorax. No acute bony abnormality seen. No acute aortic findings suspected. IMPRESSION: No acute cardiopulmonary process.
--- NOTE | 2020-08-13 11:02 | RAD REPORT ---
EXAM DESCRIPTION: CT - Chest For Pe Angio - 08/13/2020 4:53 am CLINICAL HISTORY: 40 years Female CHEST PAIN TECHNIQUE: Contiguous axial images obtained through the chest were obtained from the thoracic inlet to the level of the upper abdomen during the pulmonary arterial phase of intravenous contrast adminis tration. Coronal and sagittal reformatted and multiplanar MIP images provided. This CT exam was performed according to our departmental dose-optimization program, which includes on e or more of the following dose reduction techniques: automated exposure control, adjustment of the m A and/or kV according to patient size, and/or use of iterative reconstruction technique. COMPARISON: No prior exams provided for comparison. FINDINGS: There is no visualized pulmonary embolus. There are several images degraded by patient mot ion. The thoracic aorta is normal without aneurysm or dissection. Borderline cardiomegaly without pericard ial effusion. Mild atelectasis and air trapping. The central airways are patent. No focal airspace consolidation, p leural effusion, or pneumothorax. No lymphadenopathy in the chest. There are no visualized acute osseous or upper abdominal abnormalities. IMPRESSION: No pulmonary embolus. No acute cardiopulmonary findings. Electronically signed by: Crystal Coker MD 08/13/2020 1:27 AM CDT Due to temporary technical issues with the PACS/Fluency reporting system, reports are being signed by the in house radiologist without review as a courtesy to ensure prompt reporting. The interpreting r adiologist is fully responsible for the content of the report.
== END 2020-08-13 01:53 | disposition home or self-care (01) ==
LOC: ER 21:59
DX: R07.89 Other chest pain (principal); I10 Essential (primary) hypertension; Z88.5 Allergy status to narcotic agent; Z88.6 Allergy status to analgesic agent; Z88.8 Allergy status to other drugs, medicaments and biological substances
CPT/HCPCS: 96361; 93005; 85025; 80048; 36415; 83735; 85610; 85379; 80076; 84484; 83880; 71275; 71045; 93971; 96374; 99285; Q9967; J7040

== ENCOUNTER 2020-08-27 11:47 | Emergency (ER) | payer OTHER ==
[2020-08-27] MEDS ORDERED: ONDANSETRON 4 MG (ODT) TAB ONE (12:35)
[2020-08-27] MEDS ORDERED: MECLIZINE HCL 12.5 MG TAB ONE (12:35)
[2020-08-27 12:59] LABS: Absolute Lymphocytes (CBC) 1.7 K/uL (0.7-4.9); Basophils % 1.1 % (0-1.3); Hematocrit 34.9 % (36.0-45.0); Lymphocytes % 26.8 % (15.3-44.8); MPV 8.5 fL (7.6-11.3)
[2020-08-27 13:02] LABS: Protime INR 1.03
--- NOTE | 2020-08-27 13:16 | RAD REPORT ---
EXAM DESCRIPTION: RAD - Chest Single View - 08/27/2020 1:02 pm CLINICAL HISTORY: dizziness, chest pain Chest pain. COMPARISON: Chest Single View dated 08/12/2020 FINDINGS: Portable technique limits examination quality. The lungs are grossly clear. The heart is normal in size. No displaced fractures. IMPRESSION: No acute intrathoracic process suspected.
[2020-08-27 13:17] LABS: ALT/SGPT 21 U/L (12-78); AST/SGOT 14 U/L (15-37); Albumin 3.5 g/dL (3.4-5.0); Alkaline Phosphatase 86 U/L (45-117); BUN Blood Urea Nitrogen 18 mg/dL (7-18); Bicarbonate 24 mmol/L (21-32); Bilirubin Direct < 0.1 mg/dL (0-0.2); Bilirubin Total 0.3 mg/dL (0.2-1.0); Glucose Level 124 mg/dL (74-106); Magnesium 2.1 mg/dL (1.8-2.4); NT PRO-BNP 276 pg/mL (<125); Potassium 3.4 mmol/L (3.5-5.1); Protein, Total 7.2 g/dL (6.4-8.2); Sodium Level 137 mmol/L (136-145); Troponin (Emerg Dept Use Only) < 0.02 ng/mL (0.0-0.045)
--- NOTE | 2020-08-27 13:22 | RAD REPORT ---
EXAM DESCRIPTION: CT - Head Brain Wo Cont - 08/27/2020 1:17 pm CLINICAL HISTORY: DIZZINESS Headache, drowsiness, dizziness COMPARISON: No comparisons TECHNIQUE: All CT scans are performed using dose optimization technique as appropriate and may inclu de automated exposure control or mA/KV adjustment according to patient size. FINDINGS: No intracranial hemorrhage, hydrocephalus or extra-axial fluid collection.No areas of brai n edema or evidence of midline shift. The paranasal sinuses and mastoids are essentially clear. The calvarium is intact. IMPRESSION: No acute intracranial abnormality.
[2020-08-27] MEDS ORDERED: NA CHLORIDE 0.9% 1,000 ML ONE (14:09)
--- NOTE | 2020-08-27 14:32 | RAD REPORT ---
EXAM DESCRIPTION: CT - Chest For Pe Angio - 08/27/2020 2:14 pm CLINICAL HISTORY: Chest pain. weakness, elevated d-dimer COMPARISON: Chest For Pe Angio dated 08/13/2020 TECHNIQUE: CT angiogram of the pulmonary arteries was performed with MIP. All CT scans are performed using dose optimization technique as appropriate and may include automated exposure control or mA/KV adjustment according to patient size. FINDINGS: No evidence of pulmonary thromboembolism. No acute aortic finding demonstrated. No significant pulmonary infiltrate. No significant pericardial or pleural fluid. No concerning bony finding. IMPRESSION: No evidence of pulmonary thromboembolism.
[2020-08-27 14:59] LABS: Urine Blood TRACE (NEG); Urine Glucose NEGATIVE (NEG); Urine Protein NEGATIVE (NEG); Urine pH 5.5 (5.0-7.0)
--- NOTE | 2020-08-27 15:44 | ER ---
Nurse's Notes [facility] Name: Maria Del Carmen Rodriguez Age: 40 yrs Sex: Female : 1980 Arrival Date: 08/27/2020 Time: 11:49 Bed 15 Private MD: Bc Courtney Diagnosis: Vertigo;Urinary tract infection, site not specified Presentation: 08/27 12:03 Chief complaint: Patient states: "I took my medicine about 2 and a half hours ago and jd3 about 1 hour ago, I started to get dizzy and just feeling generalized weakness with nausea and stomach pain.". Coronavirus screen: At this time, the client does not indicate any symptoms associated with coronavirus-19. Ebola Screen: Patient negative for fever greater than or equal to 101.5 degrees Fahrenheit, and additional compatible Ebola Virus Disease symptoms. Initial Sepsis Screen: Does the patient meet any 2 criteria? No. Patient's initial sepsis screen is negative. Does the patient have a suspected source of infection? No. Patient's initial sepsis screen is negative. Risk Assessment: Do you want to hurt yourself or someone else? Patient reports no desire to harm self or others. Onset of symptoms was August 27, 2020. 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 - Social history:: Smoking status: Patient denies any tobacco usage or history of. Screenin:11 Abuse screen: Denies threats or abuse. Denies injuries from another. Nutritional ca1 screening: No deficits noted. Tuberculosis screening: No symptoms or risk factors identified. Fall Risk IV access (20 points). Assessment: 12:11 General: Appears in no apparent distress. comfortable, Behavior is calm, cooperative, ca1 appropriate for age. General: Reports fatigue for 0-12 hours. Pain: Complains of pain in abdomen. Neuro: Level of Consciousness is awake, alert, obeys commands, Oriented to person, place, time, situation. 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 Cardiovascular: Heart tones S1 S2 present Capillary refill < 3 seconds Patient's skin is warm and dry. Respiratory: Airway is patent Respiratory effort is even, unlabored, Respiratory pattern is regular, symmetrical, Breath sounds are clear bilaterally. GI: Abdomen is round non-distended, Bowel sounds present X 4 quads. Reports nausea. : No signs and/or symptoms were reported regarding the genitourinary system. EENT: No signs and/or symptoms were reported regarding the EENT system. Derm: Skin is intact, is healthy with good turgor, Skin is pink, warm \\T\\ dry. Musculoskeletal: Circulation, motion, and sensation intact. Capillary refill < 3 seconds. 13:00 Reassessment: Patient appears in no apparent distress at this time. Patient and/or ca1 family updated on plan of care and expected duration. Pain level reassessed. Patient is alert, oriented x 3, equal unlabored respirations, skin warm/dry/pink. 13:02 Reassessment: Pt in Radiology. ca1 14:00 Reassessment: Pt in CT at this time. ca1 15:18 Reassessment: Patient appears in no apparent distress at this time. Patient and/or ca1 family updated on plan of care and expected duration. Pain level reassessed. Patient is alert, oriented x 3, equal unlabored respirations, skin warm/dry/pink. 15:30 Reassessment: Pt and pt's significant other requesting to speak to CN. To bedside to aa5 speak to pt and significant other. Pt c/o about primary nurse being dismissive of her concerns and states that IV fluids were not administered. Pt states "I was here on a few days ago with my daughter and she was not like that so I don't know what is going on". Offered to start IV fluids at this time and pt states "I would rather just go home now". Also assured pt that her concerns about primary nurse will be addressed. Pt agrees to POC to d/c home now by me. . 15:50 Reassessment: Patient is alert, oriented x 3, equal unlabored respirations, skin aa5 warm/dry/pink. Vital Signs: 12:05 BP 108 / 61; Pulse 64; Resp 17 S; Temp 98.2(O); Pulse Ox 98% on R/A; Weight 95.25 kg jd3 (R); Height 5 ft. 1 in. (154.94 cm) (R); Pain 3/10; 13:00 BP 93 / 61; Pulse 63; Resp 20 S; Pulse Ox 96% on R/A; ca1 14:13 BP 96 / 52; Pulse 63; Resp 18; Pulse Ox 98% on R/A; mh5 15:18 BP 94 / 61; Pulse 61; Resp 16 S; Pulse Ox 100% on R/A; ca1 15:30 BP 108 / 67; Pulse 66; Resp 16 S; Pulse Ox 99% on R/A; aa5 12:05 Body Mass Index 39.68 (95.25 kg, 154.94 cm) j ED Course: 11:49 Patient arrived in ED. ag5 11:49 Bc Courtney MD is Private Physician. 5 11:50 Serge Mcmanus PA is PSYCHIATRICP. [facility] 11:50 Ji Lynn MD is Attending Physician. [facility] 12:02 Stephanie Jimenez, RN is Primary Nurse. ca1 12:05 Triage completed. jd3 12:06 Arm band placed on. jd3 12:11 Patient has correct armband on for positive identification. Bed in low position. Call ca1 light in reach. Side rails up X2. monitoring manager on. Pulse ox on. NIBP on. Warm blanket given. 12:32 No provider procedures requiring assistance completed. Inserted saline lock: 22 gauge ca1 in right wrist, using aseptic technique. 13:02 XRAY Chest (1 view) In Process Unspecified. EDMS 13:17 CT Head Brain wo Cont In Process Unspecified. EDMS 14:15 Chest For PE Angio CT In Process Unspecified. EDMS 14:47 Urine collected: clean catch specimen, cloudy. 5 15:43 Bc Courtney MD is Referral Physician. [facility] 15:50 IV discontinued, intact, bleeding controlled, No redness/swelling at site. Pressure aa5 dressing applied. Administered Medications: 12:21 Drug: Zofran (Ondansetron) 4 mg Route: PO; ca1 13:10 Follow up: Response: No adverse reaction; Nausea is decreased ca1 12:32 Drug: Meclizine 50 mg Route: PO; ca1 13:10 Follow up: Response: No adverse reaction ca1 13:40 Drug: NS 0.9% 1000 ml Route: IV; Rate: 1 bolus; Site: right wrist; ca1 Outcome: 15:44 Discharge ordered by MD. [facility] 15:50 Discharged to home via wheelchair, with significant other. aa5 15:50 Condition: stable 15:50 Discharge instructions given to patient, Instructed on discharge instructions, follow up and referral plans. medication usage, Demonstrated understanding of instructions, follow-up care, medications, Prescriptions given X 2. 15:53 Patient left the ED. ca1 Signatures: Dispatcher [employer] EDCA Serge Mcmanus PA PA jmm Calderon, Audri, RN RN [email or web address] Lyric Gamez [facility] Silas Edmond RN RN jStephanie Cosby RN RN ca1 Justin, Bindu ag5 Corrections: (The following items were deleted from the chart) 14:00 13:30 Reassessment: Patient appears in no apparent distress at this time. Patient ca1 and/or family updated on plan of care and expected duration. Pain level reassessed. Patient is alert, oriented x 3, equal unlabored respirations, skin warm/dry/pink. ca1 14:21 14:06 In radiology for Head Angio+CT.RAD.CHERELLE. EDCA EDMS
--- NOTE | 2020-08-27 15:44 | EDPHYS ---
Physician Documentation [facility] Name: Maria Del Carmen Rodriguez Age: 40 yrs Sex: Female : 1980 Arrival Date: 08/27/2020 Time: 11:49 Bed 15 Private MD: Bc Courtney ED Physician Ji Lynn HPI: 08/27 12:11 This 40 yrs old Female presents to ER via Wheelchair with complaints of jmm Weakness, Dizziness, Nausea. 12:11 The patient presents with a history of heart racing. jmm 12:11 The patient presents with sense of spinning. jmm 12:11 Onset: The symptoms/episode began/occurred acutely, this morning. Onset: The jmm symptoms/episode began/occurred at 11:00. Modifying factors: The symptoms are alleviated by holding head still, the symptoms are aggravated by. Associated signs and symptoms: Pertinent positives: weakness, nausea, palpitations. This is a 40 year old female with a history of hyptertension, asthma that presents to the ED with complaints of dizziness which developed acutely today approx 1 hour after taking her daily medications. Patient describes the dizziness as a sense of movement. Patient states yesterday she had an argument with her daughter and then developed palpitations. Patient denies shortness of breath. . 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 - Social history:: Smoking status: Patient denies any tobacco usage or history of. ROS: 12:11 Cardiovascular: Positive for palpitations. jmm 12:11 Respiratory: 12:11 Neuro: Positive for dizziness, weakness. 12:11 All other systems are negative. Exam: 12:11 Constitutional: This is a well developed, well nourished patient who is awake, alert, jmm and in no acute distress. Head/Face: atraumatic. Eyes: EOMI, no conjunctival erythema appreciated ENT: Moist Mucus Membranes Neck: Trachea midline, Supple Chest/axilla: Normal chest wall appearance and motion. 12:11 Abdomen/GI: Non distended, soft Back: Normal ROM Skin: General appearance color normal MS/ Extremity: Moves all extremities, no obvious deformities appreciated, no edema noted to the lower extremities Neuro: Awake and alert, normal gait Psych: Behavior is normal, Mood is normal, Patient is cooperative and pleasant 12:11 Cardiovascular: Rate: normal, Rhythm: regular, Pulses: no pulse deficits are appreciated. 12:11 Respiratory: the patient does not display signs of respiratory distress, Respirations: normal, Breath sounds: are clear throughout. 12:11 Neuro: Orientation: is normal, Mentation: is normal, Memory: is normal, Cerebellar function: normal finger to nose testing, heel to sage testing is normal, Motor: is normal. 12:11 Psych: Behavior/mood is pleasant, cooperative. 12:21 ECG was reviewed by the Attending Physician. [facility] Vital Signs: 12:05 BP 108 / 61; Pulse 64; Resp 17 S; Temp 98.2(O); Pulse Ox 98% on R/A; Weight 95.25 kg jd3 (R); Height 5 ft. 1 in. (154.94 cm) (R); Pain 3/10; 13:00 BP 93 / 61; Pulse 63; Resp 20 S; Pulse Ox 96% on R/A; ca1 14:13 BP 96 / 52; Pulse 63; Resp 18; Pulse Ox 98% on R/A; mh5 15:18 BP 94 / 61; Pulse 61; Resp 16 S; Pulse Ox 100% on R/A; ca1 15:30 BP 108 / 67; Pulse 66; Resp 16 S; Pulse Ox 99% on R/A; aa5 12:05 Body Mass Index 39.68 (95.25 kg, 154.94 cm) jd3 MDM: 12:11 Patient medically screened. silvio 15:38 Data reviewed: vital signs, nurses notes. Counseling: I had a detailed discussion with jmm the patient and/or guardian regarding: the historical points, exam findings, and any diagnostic results supporting the discharge/admit diagnosis, lab results, radiology results, the need for outpatient follow up, to return to the emergency department if symptoms worsen or persist or if there are any questions or concerns that arise at home. ED course: Patient states her symptoms have improved after meclizine. Patient has a history of vertigo. Patient is advised to follow up with pcp for reevaluation. Patient is otherwise given strict return precautions. Patient understood and agrees with the plan of care. . 08/27 12:19 Order name: Basic Metabolic Panel; Complete Time: 13:21 [facility] 08/27 12:19 Order name: CBC with Diff; Complete Time: 13:13 [facility] 08/27 12:19 Order name: LFT's; Complete Time: 13:21 [facility] 08/27 12:19 Order name: Magnesium; Complete Time: 13:21 [facility] 08/27 12:19 Order name: NT PRO-BNP; Complete Time: 13:21 [facility] 08/27 12:19 Order name: Troponin (emerg Dept Use Only); Complete Time: 13:21 [facility] 08/27 12:19 Order name: XRAY Chest (1 view); Complete Time: 13:21 [facility] 08/27 12:19 Order name: CT Head Brain wo Cont; Complete Time: 13:30 [facility] 08/27 12:22 Order name: D-Dimer; Complete Time: 13:13 [facility] 08/27 12:59 Order name: Protime (+INR); Complete Time: 13:13 [facility] 08/27 14:53 Order name: Urine Dipstick--Ancillary (enter results); Complete Time: 15:05 08/27 14:53 Order name: Urine --Ancillary (enter results); Complete Time: 15:05 08/27 12:19 Order name: EKG; Complete Time: 12:20 [facility] 08/27 12:19 Order name: Cardiac monitoring; Complete Time: 12:20 [facility] 08/27 12:19 Order name: EKG - Nurse/Tech; Complete Time: 12:20 [facility] 08/27 12:19 Order name: IV Saline Lock; Complete Time: 12:32 [facility] 08/27 12:19 Order name: Labs collected and sent; Complete Time: 14:53 [facility] 08/27 12:19 Order name: O2 Per Protocol; Complete Time: 12:20 [facility] 08/27 12:19 Order name: O2 Sat Monitoring; Complete Time: 12:20 [facility] 08/27 12:19 Order name: Urine Dipstick-Ancillary (obtain specimen); Complete Time: 14:41 jmm 08/27 13:22 Order name: Chest For PE Angio CT; Complete Time: 14:33 jmm EC:21 Rate is 63 beats/min. Rhythm is regular. QRS [place] is Normal. MT interval is normal. QRS jmm interval is normal. QT interval is normal. No Q waves. T waves are Normal. No ST changes noted. Reviewed by me. Administered Medications: 12:21 Drug: Zofran (Ondansetron) 4 mg Route: PO; ca1 13:10 Follow up: Response: No adverse reaction; Nausea is decreased ca1 12:32 Drug: Meclizine 50 mg Route: PO; ca1 13:10 Follow up: Response: No adverse reaction ca1 13:40 Drug: NS 0.9% 1000 ml Route: IV; Rate: 1 bolus; Site: right wrist; ca1 Disposition: 08/28 07:14 Co-signature as Attending Physician, Ji Lynn MD I agree with the assessment and silvio plan of care. Disposition: 08/27/20 15:44 Discharged to Home. Impression: Vertigo, Urinary tract infection, site not specified. - Condition is Stable. - Discharge Instructions: Benign Positional Vertigo, Urinary Tract Infection, Adult, Vertigo, Isreal Maneuver Self-Care. - Prescriptions for Cephalexin 500 mg Oral Capsule - take 1 capsule by ORAL route every 12 hours for 10 days; 20 capsule. Meclizine 25 mg Oral Tablet - take 1 tablet by ORAL route every 8 hours As needed; 30 tablet. - Medication Reconciliation Form, Thank You Letter, Antibiotic Education, Prescription Opioid Use form. - Follow up: Bc Courtney MD; When: 2 - 3 days; Reason: Recheck today's complaints, Continuance of care, Re-evaluation by your physician. Signatures: Dispatcher [employer] Ji Montague MD MD cha Mickail, Joel, PA PA jmm Davies, Jonathon, RN RN jd3 Stephanie Jimenez RN RN ca1 Corrections: (The following items were deleted from the chart) 10/04 12:58 12:20 PROTIME (+INR)+COAG.LAB.BRZ ordered. EDMS EDMS 14:21 13:22 Head Angio+CT.RAD.BRZ ordered. EDMS EDMS 15:53 15:44 08/27/2020 15:44 Discharged to Home. Impression: Vertigo; Urinary tract ca1 infection, site not specified. Condition is Stable. Forms are Medication Reconciliation Form, Thank You Letter, Antibiotic Education, Prescription Opioid Use. Follow up: Bc Courtney; When: 2 - 3 days; Reason: Recheck today's complaints, Continuance of care, Re-evaluation by your physician. jose
[2020-08-27 16:06] VITALS: TEMP 98.2
[2020-08-27 16:10] VITALS: BP 94/61; O2SAT 100
== END 2020-08-27 15:53 | disposition home or self-care (01) ==
LOC: ER 11:47
DX: N39.0 Urinary tract infection, site not specified (principal); I10 Essential (primary) hypertension; J45.909 Unspecified asthma, uncomplicated; Z88.5 Allergy status to narcotic agent; Z88.6 Allergy status to analgesic agent; Z88.8 Allergy status to other drugs, medicaments and biological substances
CPT/HCPCS: 93005; 85025; 80048; 36415; 83735; 81025; 85610; 85379; 80076; 81003; 84484; 83880; 70450; 71275; 71045; 99284; Q9967; J7030

== ENCOUNTER 2020-09-27 16:30 | Emergency (ER) | payer OTHER ==
[2020-09-27 17:31] LABS: Urine Bacteria <20 /HPF (<20); Urine Culture Reflex Order REFLEXED; Urine RBC <5 /HPF (NONE SEEN)
--- NOTE | 2020-09-27 17:54 | ER ---
Nurse's Notes [facility] Name: Maria Del Carmen Rodriguez Age: 40 yrs Sex: Female : 1980 Arrival Date: 09/27/2020 Time: 16:31 Bed 6 Private MD: Bc Courtney Diagnosis: Urinary tract infection, site not specified Presentation: 09/27 16:33 Chief complaint: Patient states: "I feel like i might have a bad UTI.". Coronavirus jd3 screen: At this time, the client does not indicate any symptoms associated with coronavirus-19. Ebola Screen: Patient negative for fever greater than or equal to 101.5 degrees Fahrenheit, and additional compatible Ebola Virus Disease symptoms. Initial Sepsis Screen: Does the patient meet any 2 criteria? No. Patient's initial sepsis screen is negative. Does the patient have a suspected source of infection? No. Patient's initial sepsis screen is negative. Risk Assessment: Do you want to hurt yourself or someone else? Patient reports no desire to harm self or others. Onset of symptoms was September 24, 2020. 16:33 Method Of Arrival: Ambulatory jd3 16:33 Acuity: JUS 4 jd3 MEDICAL PRACTITIONERS: 16:35 LMP N/A - Irregular menses jd3 Historical: - Allergies: 16:35 darvocet; jd3 16:35 adult benadryl; jd3 16:35 Avelox; jd3 16:35 Imitrex; jd3 16:35 Stadol; jd3 16:35 Tessalon Perles; jd3 16:35 Trazodone; jd3 - Home Meds: 16:35 atenolol 50 mg Oral tab 1 tab 2 times per day [Active]; lisinopril 10 mg Oral tab 1 tab jd3 once daily [Active]; - PMHx: 16:35 Asthma; Hypertension; Tachycardia; jd3 - PSHx: 16:35 Cholecystectomy; Tubal ligation; Appendectomy; repair of tibia; L knee replacement; jd3 ovarian cyst; - Immunization history:: Adult Immunizations up to date. - Social history:: Smoking status: Patient denies any tobacco usage or history of. Screenin:52 Abuse screen: Denies threats or abuse. Nutritional screening: No deficits noted. tw2 Tuberculosis screening: No symptoms or risk factors identified. Fall Risk None identified. Assessment: 16:55 General: Appears comfortable, Behavior is calm, cooperative. Pain: Denies pain. Neuro: aa5 Level of Consciousness is awake, alert, obeys commands, Oriented to person, place, time, situation. Cardiovascular: Patient's skin is warm and dry. Respiratory: Airway is patent Respiratory effort is even, unlabored, Respiratory pattern is regular, symmetrical. 16:55 GI: Abdomen is round non-distended, Abd is soft and non tender X 4 quads. : Reports aa5 pain in suprapubic area that is described as pressure and it's episodic. Reports urgency, Denies burning with urination. EENT: No signs and/or symptoms were reported regarding the EENT system. Derm: Skin is pink, warm \\T\\ dry. Musculoskeletal: Range of motion: intact in all extremities. 18:00 Reassessment: Patient is alert, oriented x 3, equal unlabored respirations, skin aa5 warm/dry/pink. Vital Signs: 16:35 BP 107 / 61; Pulse 75; Resp 16 S; Temp 97.2(TE); Pulse Ox 99% on R/A; Weight 90.72 kg jd3 (R); Height 5 ft. 1 in. (154.94 cm) (R); Pain 8/10; 17:40 BP 110 / 78; Pulse 80; Resp 18 S; Pulse Ox 99% on R/A; aa5 16:35 Body Mass Index 37.79 (90.72 kg, 154.94 cm) jd3 ED Course: 16:31 Patient arrived in ED. ag5 16:31 Bc Courtney MD is Private Physician. ag5 16:31 [facility] kb 16:31 Don Blum MD is Attending Physician. kb 16:34 Triage completed. jd3 16:36 Arm band placed on. jd3 16:42 Bed in low position. Call light in reach. Adult w/ patient. Pulse ox on. NIBP on. tw2 16:45 Kesha Barlow, COLBY is Primary Nurse. aa5 16:52 Urine Microscopic Only Sent. tw2 18:00 No provider procedures requiring assistance completed. Patient did not have IV access aa5 during this emergency room visit. Administered Medications: 18:00 Drug: Macrobid 100 mg Route: PO; aa5 18:00 Follow up: Response: Medication administered at discharge. aa5 Outcome: 17:54 Discharge ordered by . rey 18:00 Discharged to home ambulatory, with significant other. aa5 18:00 Condition: stable aa5 18:00 Discharge instructions given to patient, Instructed on discharge instructions, follow up and referral plans. medication usage, Demonstrated understanding of instructions, follow-up care, medications, Prescriptions given X 1. 18:06 Patient left the ED. aa5 Addendum: 10/02/2020 17:49 Addendum: Culture Results: Positive urine culture. No further action required. Bacteria i w sensitive to prescribed antibiotic. Signatures: Tiffanie Davis, SOLE SKIVER-C SOLE SKIVER-Ckb Astrid Farr, RN RN iw Kesha Barlow RN RN aa5 Jennifer Baca RN RN tw2 Silas Edmond RN RN jd3 Bindu Anderson 5 Corrections: (The following items were deleted from the chart) 09/27 16:37 16:35 Pulse 75bpm; Resp 16bpm; Spontaneous; Pulse Ox 99% RA; Temp 97.2F Temporal; 90.72 jd3 kg Reported; Height 5 ft. 1 in. Reported; BMI: 37.7; Pain 8/10; jd3
--- NOTE | 2020-09-27 17:54 | EDPHYS ---
Physician Documentation [facility] Name: Maria Del Carmen Rodriguez Age: 40 yrs Sex: Female : 1980 Arrival Date: 09/27/2020 Time: 16:31 Bed 6 Private MD: Bc Courtney ED Physician Don Blum HPI: 09/27 18:04 This 40 yrs old Female presents to ER via Ambulatory with complaints of kb Urinary Problem. 18:04 The patient presents with urinary symptoms, dysuria, frequency. Onset: The kb symptoms/episode began/occurred 3 day(s) ago. Modifying factors: The symptoms are alleviated by nothing, the symptoms are aggravated by urinating. Associated signs and symptoms: Pertinent positives: dysuria, urinary frequency. Severity of symptoms: At their worst the symptoms were moderate, in the emergency department the symptoms are unchanged. The patient has not experienced similar symptoms in the past. The patient has not recently seen a physician. 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 - Social history:: Smoking status: Patient denies any tobacco usage or history of. ROS: 18:02 Constitutional: Negative for fever, chills, and weight loss, Cardiovascular: Negative kb for chest pain, palpitations, and edema, Respiratory: Negative for shortness of breath, cough, wheezing, and pleuritic chest pain, Abdomen/GI: Negative for abdominal pain, nausea, vomiting, diarrhea, and constipation, Back: Negative for injury and pain, MS/Extremity: Negative for injury and deformity, Skin: Negative for injury, rash, and discoloration, Neuro: Negative for headache, weakness, numbness, tingling, and seizure. 18:02 : Positive for urinary symptoms, urinary frequency, small amounts, burning with urination. Exam: 18:02 Constitutional: This is a well developed, well nourished patient who is awake, alert, kb and in no acute distress. Head/Face: Normocephalic, atraumatic. Chest/axilla: Normal chest wall appearance and motion. Nontender with no deformity. No lesions are appreciated. Cardiovascular: Regular rate and rhythm with a normal S1 and S2. No gallops, murmurs, or rubs. Normal PMI, no JVD. No pulse deficits. Respiratory: Lungs have equal breath sounds bilaterally, clear to auscultation and percussion. No rales, rhonchi or wheezes noted. No increased work of breathing, no retractions or nasal flaring. Abdomen/GI: Soft, non-tender, with normal bowel sounds. No distension or tympany. No guarding or rebound. No evidence of tenderness throughout. Skin: Warm, dry with normal turgor. Normal color with no rashes, no lesions, and no evidence of cellulitis. MS/ Extremity: Pulses equal, no cyanosis. Neurovascular intact. Full, normal range of motion. Neuro: Awake and alert, GCS 15, oriented to person, place, time, and situation. Cranial nerves II-XII grossly intact. Motor strength 5/5 in all extremities. Sensory grossly intact. Cerebellar exam normal. Normal gait. Vital Signs: 16:35 BP 107 / 61; Pulse 75; Resp 16 S; Temp 97.2(TE); Pulse Ox 99% on R/A; Weight 90.72 kg jd3 (R); Height 5 ft. 1 in. (154.94 cm) (R); Pain 8/10; 17:40 BP 110 / 78; Pulse 80; Resp 18 S; Pulse Ox 99% on R/A; aa5 16:35 Body Mass Index 37.79 (90.72 kg, 154.94 cm) jd3 MDM: 16:42 Patient medically screened. kb 18:03 Data reviewed: vital signs, nurses notes. Data interpreted: Pulse oximetry: on room air kb is 99 %. Interpretation: normal. Counseling: I had a detailed discussion with the patient and/or guardian regarding: the historical points, exam findings, and any diagnostic results supporting the discharge/admit diagnosis, lab results, the need for outpatient follow up, a family practitioner, a urologist, to return to the emergency department if symptoms worsen or persist or if there are any questions or concerns that arise at home. 09/27 16:37 Order name: Urine Microscopic Only; Complete Time: 17:53 kb 09/27 17:12 Order name: Urine Dipstick--Ancillary (enter results) 09/27 16:37 Order name: Urine Test (obtain specimen); Complete Time: 16:50 kb 09/27 17:12 Order name: Urine --Ancillary (enter results) 09/27 17:32 Order name: Urine Culture [facility] 09/27 16:37 Order name: Urine Dipstick-Ancillary (obtain specimen); Complete Time: 16:50 kb Administered Medications: 18:00 Drug: Macrobid 100 mg Route: PO; aa5 18:00 Follow up: Response: Medication administered at discharge. aa5 Disposition: 18:16 Co-signature as Attending Physician, Don Blum MD. rn Disposition: 09/27/20 17:54 Discharged to Home. Impression: Urinary tract infection, site not specified. - Condition is Stable. - Discharge Instructions: Urinary Tract Infection, Adult, [id number]. - Prescriptions for Macrobid 100 mg Oral Capsule - take 1 capsule by ORAL route every 12 hours for 10 days; 20 capsule. - Medication Reconciliation Form, Thank You Letter, Antibiotic Education, Prescription Opioid Use form. - Follow up: Emergency Department; When: As needed; Reason: Worsening of condition. Follow up: Private Physician; When: 2 - 3 days; Reason: Recheck today's complaints, Continuance of care, Re-evaluation by your physician. Signatures: Dispatcher [employer] EDWA Tiffanie Davis, CHEMICAL ENGINEERING PROFESSOR-C CHEMICAL ENGINEERING PROFESSOR-Don Hampton MD MD rn Calderon, Audri RN RN aa5 Silas Edmond RN RN jd3 Corrections: (The following items were deleted from the chart) 18:06 17:54 09/27/2020 17:54 Discharged to Home. Impression: Urinary tract infection, site aa5 not specified. Condition is Stable. Forms are Medication Reconciliation Form, Thank You Letter, Antibiotic Education, Prescription Opioid Use. Follow up: Emergency Department; When: As needed; Reason: Worsening of condition. Follow up: Private Physician; When: 2 - 3 days; Reason: Recheck today's complaints, Continuance of care, Re-evaluation by your physician. kb
[2020-09-27] MEDS ORDERED: NITROFURAN MACRO 100 MG CAP PO ONE (18:12)
[2020-09-27 19:12] LABS: Urine Blood TRACE (NEG); Urine Glucose NEGATIVE (NEG); Urine Protein 1+ (NEG); Urine Specific Gravity >1.030 (1.005-1.030)
[2020-09-27 19:25] VITALS: BP 107/61; TEMP 97.2; O2SAT 99
== END 2020-09-27 18:06 | disposition home or self-care (01) ==
LOC: ER 16:30
DX: N39.0 Urinary tract infection, site not specified (principal); I10 Essential (primary) hypertension; Z88.5 Allergy status to narcotic agent; Z88.8 Allergy status to other drugs, medicaments and biological substances
CPT/HCPCS: 81003; 81015; 81025; 87077; 87086; 87088; 87186; 99284

== ENCOUNTER 2020-10-02 17:29 | Emergency (ER) | payer OTHER ==
[2020-10-02 18:58] LABS: Basophils % 0.9 % (0-1.3); Hematocrit 38.3 % (36.0-45.0); Lymphocytes % 23.3 % (15.3-44.8); MPV 8.6 fL (7.6-11.3); RBC Red Blood Cell Count 3.91 M/uL (3.86-4.86)
[2020-10-02] MEDS ORDERED: NA CHLORIDE 0.9% 500 ML ONE (19:02)
[2020-10-02 19:09] LABS: Protime INR 1.07
[2020-10-02 19:10] LABS: ALT/SGPT 18 U/L (12-78); AST/SGOT 12 U/L (15-37); Albumin 3.8 g/dL (3.4-5.0); Alkaline Phosphatase 85 U/L (45-117); BUN Blood Urea Nitrogen 14 mg/dL (7-18); Bicarbonate 26 mmol/L (21-32); Bilirubin Direct 0.1 mg/dL (0-0.2); Bilirubin Total 0.6 mg/dL (0.2-1.0); Glucose Level 88 mg/dL (74-106); Magnesium 2.3 mg/dL (1.8-2.4); Potassium 3.3 mmol/L (3.5-5.1); Protein, Total 7.9 g/dL (6.4-8.2); Sodium Level 140 mmol/L (136-145); Troponin (Emerg Dept Use Only) < 0.02 ng/mL (0.0-0.045)
[2020-10-02 19:32] LABS: Urine Blood 3+ (NEG); Urine Glucose NEGATIVE (NEG); Urine Protein 1+ (NEG); Urine Specific Gravity 1.025 (1.005-1.030)
--- NOTE | 2020-10-02 19:42 | RAD REPORT ---
EXAM DESCRIPTION: RAD - Chest Single View - 10/02/2020 6:57 pm CLINICAL HISTORY: PALPITATIONS COMPARISON: CT chest August 27, portable chest August 27 TECHNIQUE: AP portable chest image was obtained 10/02/2020 6:57 pm . FINDINGS: Lungs are clear. Heart and vasculature are normal. No measurable pleural effusion and no p neumothorax. No acute bony abnormality seen. No acute aortic findings suspected. IMPRESSION: No acute cardiopulmonary process. No significant change comparison.
[2020-10-02] MEDS ORDERED: POTASSIUM 25 MEQ EFFERV TAB ONE (20:21)
--- NOTE | 2020-10-02 21:05 | RAD REPORT ---
EXAM DESCRIPTION: CT - Head Brain Wo Cont - 10/02/2020 8:55 pm CLINICAL HISTORY: DIZZINESS COMPARISON: Head Brain Wo Cont dated 08/27/2020 TECHNIQUE: Axial 5 mm thick images of the head were obtained without IV contrast. All CT scans are performed using dose optimization technique as appropriate and may include automated exposure control or mA/KV adjustment according to patient size. FINDINGS: No intracranial hemorrhage, mass, edema or shift of mid-line structures. No acute infarcti on changes seen. No abnormal extra-axial fluid collections. Ventricles are normal. Mastoid air cells and visualized portions of the paranasal sinuses are clear. No acute bony findings. IMPRESSION: Negative non-contrast CT head examination. No significant change from comparison.
--- NOTE | 2020-10-02 21:23 | ER ---
Nurse's Notes [facility] Name: Maria Del Carmen Rodriguez Age: 40 yrs Sex: Female : 1980 Arrival Date: 10/02/2020 Time: 17:30 Bed 5 Private MD: Diagnosis: Palpitations;Dizziness and giddiness;Other chest pain Presentation: 10/02 17:38 Chief complaint: Patient states: Was in the shower, I felt dizzy and my heart felt ca1 pounding really fast. I felt like I almost fainted. I am having chest pains. It happened an hour or an hour and half ago. Coronavirus screen: Client denies travel out of the [place] in the last 14 days. At this time, the client does not indicate any symptoms associated with coronavirus-19. Ebola Screen: Patient negative for fever greater than or equal to 101.5 degrees Fahrenheit, and additional compatible Ebola Virus Disease symptoms Patient denies exposure to infectious person. Patient denies travel to an Ebola-affected area in the 21 days before illness onset. No symptoms or risks identified at this time. Initial Sepsis Screen: Does the patient meet any 2 criteria? No. Patient's initial sepsis screen is negative. Does the patient have a suspected source of infection? No. Patient's initial sepsis screen is negative. Risk Assessment: Do you want to hurt yourself or someone else? Patient reports no desire to harm self or others. Onset of symptoms was October 02, 2020. 17:38 Method Of Arrival: Wheelchair ca1 17:38 Acuity: JUS 2 ca1 Triage Assessment: 17:40 General: Appears distressed, uncomfortable, Behavior is cooperative, appropriate for bp age, anxious. Pain: Complains of pain in chest. EENT: No deficits noted. Neuro: Reports dizziness. Cardiovascular: Reports chest pain. Respiratory: No deficits noted. GI: No signs and/or symptoms were reported involving the gastrointestinal system. : No signs and/or symptoms were reported regarding the genitourinary system. Derm: No deficits noted. Musculoskeletal: No deficits noted. 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 - Social history:: Smoking status: Patient denies any tobacco usage or history of. Screenin:10 Abuse screen: Denies threats or abuse. Denies injuries from another. Nutritional mg2 screening: No deficits noted. Tuberculosis screening: No symptoms or risk factors identified. Fall Risk IV access (20 points). Assessment: 17:40 General: SEE TRIAGE NOTE. bp 19:10 Reassessment: Patient appears in no apparent distress at this time. Patient and/or mg2 family updated on plan of care and expected duration. Pain level reassessed. Patient is alert, oriented x 3, equal unlabored respirations, skin warm/dry/pink. patient complained of dizziness while standing up and supine. 19:39 Pain: Denies pain. Pain does not radiate. mg2 20:52 Reassessment: patient sent to CT scan via stretcher. mg2 21:29 Reassessment: Patient and/or family updated on plan of care and expected duration. Pain ea level reassessed. Patient is alert, oriented x 3, equal unlabored respirations, skin warm/dry/pink. Discharge instruction given to patient, verbalized the understanding of instruction. Pt left ED ambulatory tolerating well. Vital Signs: 17:38 BP 112 / 81; Pulse 73; Resp 16 S; Temp 97.5(TE); Pulse Ox 100% on R/A; Weight 100.24 kg ca1 (R); Height 5 ft. 1 in. (154.94 cm) (R); Pain 9/10; 18:30 BP 117 / 74; Pulse 86; Resp 18; Pulse Ox 100% ; bp 19:08 BP 117 / 74 Supine; Pulse 70; Resp 18; Pulse Ox 100% on R/A; mg2 19:09 BP 112 / 69 Sitting; Pulse 64; Resp 18; Pulse Ox 100% on R/A; mg2 19:10 BP 112 / 79 Standing; Pulse 66; Resp 18; Pulse Ox 100% on R/A; mg2 20:30 BP 110 / 71; Pulse 74; Resp 18; Pulse Ox 100% on R/A; mg2 21:15 BP 107 / 69; Pulse 70; Resp 18; Temp 97.8; Pulse Ox 98% ; ea 17:38 Body Mass Index 41.76 (100.24 kg, 154.94 cm) ca1 19:08 feels dizzy mg2 19:10 feels dizzy mg2 ED Course: 17:30 Patient arrived in ED. as 17:40 Triage completed. ca1 17:41 Arm band placed on right wrist. ca1 17:43 Maurice Parker, COLBY is Primary Nurse. bp 17:53 Ji Garcia PA is PHCP. cp 17:53 Placido Zarate MD is Attending Physician. cp 18:44 Initial lab(s) drawn, by me, sent to lab. Inserted saline lock: 22 gauge in right iw forearm, using aseptic technique. Blood collected. 18:56 XRAY Chest (1 view) In Process Unspecified. EDMS 19:10 Patient has correct armband on for positive identification. Bed in low position. Call bp light in reach. Side rails up X2. air and water tester on. Pulse ox on. NIBP on. 19:39 No provider procedures requiring assistance completed. Patient maintains SpO2 mg2 saturation greater than 95% on room air. 20:55 CT Head Brain wo Cont In Process Unspecified. EDMS 21:28 IV discontinued, intact, bleeding controlled, No redness/swelling at site. Pressure ea dressing applied. Administered Medications: 18:52 Drug: NS 0.9% 500 ml Route: IV; Rate: bolus; Site: right forearm; iw 20:01 Follow up: Response: No adverse reaction; IV Status: Completed infusion; IV Intake: mg2 500ml 20:12 Drug: Potassium Effervescent Tablet 50 mEq Route: PO; mg2 20:50 Follow up: Response: No adverse reaction ea Intake: 20:01 IV: 500ml; Total: 500ml. mg2 Outcome: 21:22 Discharge ordered by . cp 21:30 Discharged to home ambulatory, with family. ea 21:30 Condition: stable 21:30 Discharge instructions given to patient, family, Instructed on discharge instructions, follow up and referral plans. medication usage, Demonstrated understanding of instructions, follow-up care, medications, Prescriptions given X 1. 21:31 Patient left the ED. syed Signatures: Dispatcher [employer] Chiquita Moser Irene, RN RN Ji Suarez, Faina Powers cp, RN RN Maurice Cummings RN COLBY bp Semaj Castillo RN RN mg2 Stephanie Jimenez RN RN ca1 Corrections: (The following items were deleted from the chart) 20:52 19:39 Pain: Pain began mg2 mg2 21:31 21:31 BP 107 / 69; Pulse 70bpm; Resp 18bpm; Pulse Ox 98%; Temp 97.8F; ea syed
--- NOTE | 2020-10-02 21:23 | EDPHYS ---
Physician Documentation [facility] Name: Maria Del Carmen Rodriguez Age: 40 yrs Sex: Female : 1980 Arrival Date: 10/02/2020 Time: 17:30 Bed 5 Private MD: ED Physician Placido Zarate HPI: 10/02 18:05 This 40 yrs old Female presents to ER via Wheelchair with complaints of cp Dizziness, Palpitations, Chest Pain. 18:05 The patient presents with feeling faint, lightheadedness. Onset: The symptoms/episode cp began/occurred today. 18:05 Context: occurred at home, occurred while the patient was taking shower. just prior to cp the episode the patient experienced chest pain, lightheadedness, palpitations. 18:05 Associated signs and symptoms: Pertinent positives: near-syncope, Pertinent negatives: cp abdominal pain, confusion, focal weakness, numbness, vomiting. Severity of symptoms: in the emergency department the symptoms have improved moderately. Patient's baseline: Neuro: alert and fully oriented, Motor: no deficits, Ambulation: walks without assistance, Speech: normal. 18:05 Patient reports she has been wearing holter monitor for past week and has upcoming appt cp with garment inspector for interpretation. 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 - Social history:: Smoking status: Patient denies any tobacco usage or history of. ROS: 18:10 Constitutional: Negative for body aches, chills, fever, poor PO intake. cp 18:10 Eyes: Negative for injury, pain, redness, and discharge. cp 18:10 ENT: Negative for drainage from ear(s), ear pain, sore throat, difficulty swallowing, difficulty handling secretions. 18:10 Cardiovascular: Positive for chest pain, palpitations, Negative for edema. 18:10 Respiratory: Negative for cough, shortness of breath, wheezing. 18:10 Abdomen/GI: Negative for abdominal pain, nausea, vomiting, and diarrhea. 18:10 Neuro: Positive for dizziness, near syncope, weakness, Negative for altered mental status, headache, loss of consciousness, syncope. 18:10 All other systems are negative. Exam: 17:55 ECG was reviewed by the Attending Physician. cp 18:15 Constitutional: The patient appears in no acute distress, alert, awake, cp non-diaphoretic, non-toxic, well developed, well nourished. 18:15 Head/Face: Normocephalic, atraumatic. cp 18:15 Eyes: Periorbital structures: appear normal, Pupils: equal, round, and reactive to cp light and accomodation, Extraocular movements: intact throughout, Conjunctiva: normal, no exudate, no injection, Sclera: no appreciated abnormality, Lids and lashes: appear normal, bilaterally. 18:15 ENT: External ear(s): are unremarkable, Nose: is normal, Mouth: Lips: moist, Oral mucosa: moist, Posterior pharynx: Airway: no evidence of obstruction, patent. 18:15 Neck: ROM/movement: is normal, is supple, without pain, no range of motions limitations. 18:15 Chest/axilla: Inspection: normal, Palpation: is normal, no crepitus, no tenderness. 18:15 Cardiovascular: Rate: normal, Rhythm: regular, Edema: is not appreciated, JVD: is not appreciated. 18:15 Respiratory: the patient does not display signs of respiratory distress, Respirations: cp normal, no use of accessory muscles, no retractions, labored breathing, is not present, Breath sounds: are clear throughout, no decreased breath sounds, no stridor, no wheezing. 18:15 Abdomen/GI: Inspection: abdomen appears normal, Bowel sounds: active, all quadrants, Palpation: abdomen is soft and non-tender, in all quadrants, rebound tenderness, is not appreciated, voluntary guarding, is not appreciated, involuntary guarding, is not appreciated. 18:15 Back: pain, is absent, ROM is normal. 18:15 Neuro: Orientation: to person, place \T\ time. Mentation: is normal, Cerebellar function: is grossly normal, Motor: moves all fours, strength is normal, Sensation: is normal. Vital Signs: 17:38 BP 112 / 81; Pulse 73; Resp 16 S; Temp 97.5(TE); Pulse Ox 100% on R/A; Weight 100.24 kg ca1 (R); Height 5 ft. 1 in. (154.94 cm) (R); Pain 9/10; 18:30 BP 117 / 74; Pulse 86; Resp 18; Pulse Ox 100% ; bp 19:08 BP 117 / 74 Supine; Pulse 70; Resp 18; Pulse Ox 100% on R/A; mg2 19:09 BP 112 / 69 Sitting; Pulse 64; Resp 18; Pulse Ox 100% on R/A; mg2 19:10 BP 112 / 79 Standing; Pulse 66; Resp 18; Pulse Ox 100% on R/A; mg2 20:30 BP 110 / 71; Pulse 74; Resp 18; Pulse Ox 100% on R/A; mg2 21:15 BP 107 / 69; Pulse 70; Resp 18; Temp 97.8; Pulse Ox 98% ; ea 17:38 Body Mass Index 41.76 (100.24 kg, 154.94 cm) ca1 19:08 feels dizzy mg2 19:10 feels dizzy mg2 MDM: 17:59 Patient medically screened. cp 21:20 Data reviewed: vital signs, nurses notes, lab test result(s), EKG, radiologic studies, cp CT scan, plain films. 21:20 Differential diagnosis: cardiac arrhythmia, generalized weakness, hypovolemia, cp idiopathic dizziness. Test interpretation: by ED physician or midlevel provider: ECG. Counseling: I had a detailed discussion with the patient and/or guardian regarding: the historical points, exam findings, and any diagnostic results supporting the discharge/admit diagnosis, lab results, radiology results, the need for outpatient follow up, a garment inspector, to return to the emergency department if symptoms worsen or persist or if there are any questions or concerns that arise at home. Response to treatment: the patient's symptoms have markedly improved after treatment. 21:20 ED course: VSS. Patient reports symptoms improved. Will discharge to home for continued cp monitoring. 10/02 18:00 Order name: Basic Metabolic Panel; Complete Time: 19:58 cp 10/02 18:00 Order name: CBC with Diff; Complete Time: 19:58 cp 10/02 18:00 Order name: LFT's; Complete Time: 19:58 cp 10/02 18:00 Order name: Magnesium; Complete Time: 19:58 cp 10/02 18:00 Order name: PT-INR; Complete Time: 19:58 cp 10/02 18:00 Order name: Troponin (emerg Dept Use Only); Complete Time: 19:58 cp 10/02 18:00 Order name: XRAY Chest (1 view); Complete Time: 19:58 cp 10/02 18:00 Order name: D-Dimer; Complete Time: 19:58 cp 10/02 19:22 Order name: Urine Dipstick--Ancillary (enter results); Complete Time: 19:58 ds4 10/02 19:22 Order name: Urine --Ancillary (enter results); Complete Time: 19:58 ds4 10/02 20:16 Order name: CT Head Brain wo Cont; Complete Time: 21:09 cp 10/02 20:28 Order name: Glucose, Ancillary Testing; Complete Time: 21:09 EDMS 10/02 18:00 Order name: Orthostatics; Complete Time: 19:09 cp 10/02 18:00 Order name: Urine Dipstick-Ancillary (obtain specimen); Complete Time: 19:13 cp 10/02 18:00 Order name: Urine Test (obtain specimen); Complete Time: 19:13 cp 10/02 18:00 Order name: EKG; Complete Time: 18:01 cp 10/02 18:00 Order name: Cardiac monitoring; Complete Time: 19:09 cp 10/02 18:00 Order name: EKG - Nurse/Tech; Complete Time: 19:09 cp 10/02 18:00 Order name: IV Saline Lock; Complete Time: 18:52 cp 10/02 18:00 Order name: Labs collected and sent; Complete Time: 18:52 cp 10/02 18:00 Order name: O2 Per Protocol; Complete Time: 18:52 cp 10/02 18:00 Order name: O2 Sat Monitoring; Complete Time: 18:52 cp EC:55 Rate is 67 beats/min. Rhythm is regular. FL interval is normal. QRS interval is normal. cp QT interval is normal. T waves are Inverted in lead aVR. Interpreted by me. Reviewed by me. Administered Medications: 18:52 Drug: NS 0.9% 500 ml Route: IV; Rate: bolus; Site: right forearm; iw 20:01 Follow up: Response: No adverse reaction; IV Status: Completed infusion; IV Intake: mg2 500ml 20:12 Drug: Potassium Effervescent Tablet 50 mEq Route: PO; mg2 20:50 Follow up: Response: No adverse reaction ea Disposition: 10/03 06:52 Co-signature as Attending Physician, Placido Zarate MD I agree with the assessment and kdr plan of care. Disposition: 10/02/20 21:22 Discharged to Home. Impression: Palpitations, Dizziness and giddiness, Other chest pain. - Condition is Stable. - Discharge Instructions: Nonspecific Chest Pain, Dizziness, Palpitations, Aspirin and Your Heart, Hypokalemia. - Prescriptions for Meclizine 25 mg Oral Tablet - take 1 tablet by ORAL route every 8 hours As needed; 30 tablet. - Medication Reconciliation Form, Thank You Letter, Antibiotic Education, Prescription Opioid Use form. - Follow up: Private Physician; When: 1 - 2 days; Reason: Recheck today's complaints. - Problem is new. - Symptoms have improved. Signatures: Dispatcher [employer] EDMS Placido Zarate MD MD [facility] Astrid Farr RN RN iw Ji Garcia PA PA cp Faina Vaz RN RN ea [place], Michele, RN RN mg2 Stephanie Jimenez RN COLBY ca1 Corrections: (The following items were deleted from the chart) 10/02 21:31 21:22 10/02/2020 21:22 Discharged to Home. Impression: Palpitations; Dizziness and ea giddiness; Other chest pain. Condition is Stable. Forms are Medication Reconciliation Form, Thank You Letter, Antibiotic Education, Prescription Opioid Use. Follow up: Private Physician; When: 1 - 2 days; Reason: Recheck today's complaints. Problem is new. Symptoms have improved. cp
[2020-10-03 06:23] VITALS: BP 107/69; TEMP 97.8; O2SAT 98
--- NOTE | 2020-10-03 12:06 | EKG ---
Test Date: 2020-10-02 Test Time: 17:45:35 Painter Interior Finish: ABDIRIZAK MEASUREMENT RESULTS: Intervals: Rate: 67 MD: 136 QRSD: 82 QT: 420 QTc: 443 [place]: P: 46 MD: 136 QRS: 64 T: 33 INTERPRETIVE STATEMENTS: Normal sinus rhythm ST abnormality, possible digitalis effect Abnormal ECG Compared to ECG 08/27/2020 12:21:55 ST (T wave) deviation now present Electronically Signed On 10-03-20 12:03:17 DENTAL THERAPIST by Mikael May
== END 2020-10-02 21:31 | disposition home or self-care (01) ==
LOC: ER 17:29
DX: R07.89 Other chest pain (principal); R00.2 Palpitations; I10 Essential (primary) hypertension; J45.909 Unspecified asthma, uncomplicated; Z88.5 Allergy status to narcotic agent; Z88.6 Allergy status to analgesic agent; Z88.8 Allergy status to other drugs, medicaments and biological substances
CPT/HCPCS: 93005; 85025; 80048; 36415; 83735; 81025; 85610; 82947; 85379; 80076; 81003; 84484; 70450; 71045; 96360; 99285; J7040

== ENCOUNTER 2020-11-09 19:45 | Emergency (ER) | payer OTHER ==
[2020-11-09] MEDS ORDERED: ASPIRIN 81 MG CHEWABLE TABLET ONE (23:21)
[2020-11-09] MEDS ORDERED: ENOXAPARIN 100 MG/ML SYR SQ ONE (23:22)
[2020-11-09] MEDS ORDERED: NA CHLORIDE 0.9% 1,000 ML ONE (23:22)
[2020-11-09] MEDS ORDERED: FAMOTIDINE 20 MG/2 ML VIAL IV ONE (23:22)
[2020-11-10 00:45] LABS: ALT/SGPT 16 U/L (12-78); AST/SGOT 8 U/L (15-37); Albumin 3.5 g/dL (3.4-5.0); Alkaline Phosphatase 98 U/L (45-117); BUN Blood Urea Nitrogen 14 mg/dL (7-18); Bicarbonate 28 mmol/L (21-32); Bilirubin Direct < 0.1 mg/dL (0-0.2); Bilirubin Total 0.3 mg/dL (0.2-1.0); Glucose Level 101 mg/dL (74-106); Lipase 134 U/L (73-393); Magnesium 2.5 mg/dL (1.8-2.4); NT PRO-BNP 81 pg/mL (<125); Potassium 3.7 mmol/L (3.5-5.1); Protein, Total 7.4 g/dL (6.4-8.2); Sodium Level 141 mmol/L (136-145)
[2020-11-10 00:46] LABS: Absolute Lymphocytes (CBC) 2.9 K/uL (0.7-4.9); Basophils % 1.2 % (0-1.3); Hematocrit 37.3 % (36.0-45.0); Lymphocytes % 39.2 % (15.3-44.8); MPV 8.9 fL (7.6-11.3)
[2020-11-10 00:48] LABS: Protime INR 0.96
--- NOTE | 2020-11-10 02:32 | ER ---
Nurse's Notes [facility] Name: Maria Del Carmen Rodriguez Age: 40 yrs Sex: Female : 1980 Arrival Date: 11/09/2020 Time: 19:51 Bed 8 Private MD: Diagnosis: Dyspnea;Chest pain on breathing Presentation: 11/09 20:12 Chief complaint: Patient states: "I had a telemedicine visit with my doctor yesterday aj1 morning because I've been dealing with a cough and chest pain. He diagnosed me bronchitis, and sinusitis but today my chest is hurting worse" Reports that the pain is worse when she takes a deep breath. Coronavirus screen: Client denies travel out of the [place] in the last 14 days. Client presents with at least one sign or symptom that may indicate coronavirus-19. Standard/surgical mask placed on the client. Ebola Screen: Patient denies travel to an Ebola-affected area in the 21 days before illness onset. Initial Sepsis Screen: Does the patient meet any 2 criteria?. Initial Sepsis Screen: Does the patient meet any 2 criteria? No. Patient's initial sepsis screen is negative. Does the patient have a suspected source of infection? Yes: Productive cough/pneumonia. Risk Assessment: Do you want to hurt yourself or someone else? Patient reports no desire to harm self or others. Onset of symptoms was October 2020. 20:12 Method Of Arrival: Ambulatory aj1 20:12 Acuity: JUS 3 aj1 22:29 Note Patient states that her pain has gotten a little worse. EKG performed and shown to aj1 Dr. Lynn. Triage Assessment: 20:15 General: Appears in no apparent distress. comfortable, Behavior is calm, cooperative, aj1 appropriate for age. Pain: Complains of pain in chest. EENT: Reports nasal congestion nasal discharge. Neuro: Level of Consciousness is awake, alert, obeys commands. Cardiovascular: Patient's skin is warm and dry. Respiratory: Reports shortness of breath on exertion cough that is dry, hacking, persistent Airway is patent Respiratory effort is even, unlabored, Respiratory pattern is regular, symmetrical, Onset: The symptoms/episode began/occurred 2 days ago, the patient has mild shortness of breath. 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 - Social history:: Smoking status: Patient denies any tobacco usage or history of. - Family history:: not pertinent. Screenin:27 Abuse screen: Denies threats or abuse. Nutritional screening: No deficits noted. ea Tuberculosis screening: No symptoms or risk factors identified. Fall Risk IV access (20 points). Assessment: 22:39 Reassessment: pt complaining of chestpain, a EKG has been done, request to sg see patient, pt has been moved to ER bed 8. 23:50 General: Appears in no apparent distress. Behavior is appropriate for age. Pain: ea Complains of pain in chest. Neuro: Level of Consciousness is awake, alert, obeys commands, Oriented to person, place, time, situation. Cardiovascular: Patient's skin is warm and dry. Respiratory: Airway is patent Respiratory effort is even, unlabored, Respiratory pattern is regular, symmetrical. Respiratory: Breath sounds are clear bilaterally. Derm: Skin is pink, warm \\T\\ dry. 11/10 01:00 Reassessment: Patient and/or family updated on plan of care and expected duration. Pain ea level reassessed. Patient is alert, oriented x 3, equal unlabored respirations, skin warm/dry/pink. 03:03 Reassessment: Patient and/or family updated on plan of care and expected duration. Pain ea level reassessed. Patient is alert, oriented x 3, equal unlabored respirations, skin warm/dry/pink. Discharge instruction given to patient, verbalized the understanding of instruction. Pt left ED ambulatory tolerating well. Pt accompanied by significant other. Vital Signs: 11/09 20:12 BP 127 / 60; Pulse 72; Resp 18; Temp 98.2; Pulse Ox 100% on R/A; Weight 99.79 kg (R); aj1 Height 5 ft. 1 in. (154.94 cm) (R); Pain 7/10; 22:29 BP 114 / 66; Pulse 66; Resp 16; Pulse Ox 99% on R/A; aj1 11/10 01:38 BP 110 / 45; Pulse 86; Resp 18; Pulse Ox 98% ; ea 02:45 BP 112 / 68; Pulse 80; Resp 18; Temp 98.0; Pulse Ox 99% ; ea 11/09 20:12 Body Mass Index 41.57 (99.79 kg, 154.94 cm) aj1 ED Course: 11/09 19:51 Patient arrived in ED. am2 20:14 Triage completed. aj1 20:15 Arm band placed on Patient placed in waiting room, Patient notified of wait time. aj1 22:40 Ji Lynn MD is Attending Physician. silvio 23:03 Faina Vaz RN is Primary Nurse. ea 23:28 Patient has correct armband on for positive identification. Bed in low position. Call ea light in reach. Side rails up X2. 23:30 Inserted saline lock: 20 gauge in right forearm, using aseptic technique. Blood rv collected. 11/10 02:31 Mikael May MD is Referral Physician. silvio 03:01 No provider procedures requiring assistance completed. IV discontinued, intact, ea bleeding controlled, No redness/swelling at site. Pressure dressing applied. Administered Medications: 11/09 23:34 Drug: Pepcid 20 mg Route: IVP; Site: right antecubital; ea 11/10 01:38 Follow up: Response: No adverse reaction ea 11/09 23:34 Drug: NS 0.9% 1000 ml Route: IV; Rate: 1 bolus; Site: right forearm; ea 11/10 01:30 Follow up: Response: No adverse reaction; IV Status: Completed infusion; IV Intake: ea 1000ml 11/09 23:35 Drug: Aspirin Chewable Tablet 324 mg Route: PO; ea 11/10 01:39 Follow up: Response: No adverse reaction ea 02:32 Drug: Lovenox 100 mg Route: Sub-Q; Site: right lower abdomen; ea 03:05 Follow up: Response: No adverse reaction ea Intake: 01:30 IV: 1000ml; Total: 1000ml. ea Outcome: 02:31 Discharge ordered by . silvio 03:02 Discharged to home ambulatory, with family. syed 03:02 Condition: stable 03:02 Discharge instructions given to patient. 03:23 Patient left the ED. rv Addendum: 11/13/2020 16:12 Addendum: COVID-19 Result: Negative result given to RN to notify pt. Notified pt of i w negative COVID 19 swab results. Pt advised that even with a negative test result they should remain in isolation until symptom free for 3 days without medication. Pt also advised to return to the ED for worsening symptoms. Signatures: Stephanie Calvillo RN RN [email or web address] Daniel Oakley RN Ji Hutton MD MD cha Williams, Irene RN Pili Holloway Elena RN Ceferino Knapp ea, RN RN rv
--- NOTE | 2020-11-10 02:32 | EDPHYS ---
Physician Documentation [facility] Name: Maria Del Carmen Rodriguez Age: 40 yrs Sex: Female : 1980 Arrival Date: 11/09/2020 Time: 19:51 Bed 8 Private MD: YOAV Physician Ji Lynn HPI: 11/09 22:57 This 40 yrs old Female presents to ER via Ambulatory with complaints of silvio Shortness Of Breath. 22:57 The patient has shortness of breath at rest, with light activity. Onset: The silvio symptoms/episode began/occurred 1 day(s) ago. Duration: The symptoms are continuous, and are steadily getting worse. The patient's shortness of breath is aggravated by coughing, light activity. Associated signs and symptoms: Pertinent positives: non-productive cough. Severity of symptoms: At their worst the symptoms were mild moderate yesterday. The patient has not experienced similar symptoms in the past. 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 - Social history:: Smoking status: Patient denies any tobacco usage or history of. - Family history:: not pertinent. ROS: 22:57 Constitutional: Negative for fever, chills, and weight loss, Eyes: Negative for injury, silvio pain, redness, and discharge, ENT: Negative for injury, pain, and discharge, Neck: Negative for injury, pain, and swelling, Abdomen/GI: Negative for abdominal pain, nausea, vomiting, diarrhea, and constipation, Back: Negative for injury and pain, : Negative for injury, bleeding, discharge, and swelling, MS/Extremity: Negative for injury and deformity, Skin: Negative for injury, rash, and discoloration, Neuro: Negative for headache, weakness, numbness, tingling, and seizure, Psych: Negative for depression, anxiety, suicide ideation, homicidal ideation, and hallucinations, Allergy/Immunology: Negative for hives, rash, and allergies, Endocrine: Negative for neck swelling, polydipsia, polyuria, polyphagia, and marked weight changes, Hematologic/Lymphatic: Negative for swollen nodes, abnormal bleeding, and unusual bruising. 22:57 Cardiovascular: Positive for chest pain. 22:57 Respiratory: Positive for cough, shortness of breath, at rest. 22:57 MS/extremity: Negative for decreased range of motion, pain, swelling, tenderness. Exam: 22:57 Constitutional: This is a well developed, well nourished patient who is awake, alert, silvio and in no acute distress. Head/Face: Normocephalic, atraumatic. Eyes: Pupils equal round and reactive to light, extra-ocular motions intact. Lids and lashes normal. Conjunctiva and sclera are non-icteric and not injected. Cornea within normal limits. Periorbital areas with no swelling, redness, or edema. ENT: Nares patent. No nasal discharge, no septal abnormalities noted. Tympanic membranes are normal and external auditory canals are clear. Oropharynx with no redness, swelling, or masses, exudates, or evidence of obstruction, uvula midline. Mucous membranes moist. Neck: Trachea midline, no thyromegaly or masses palpated, and no cervical lymphadenopathy. Supple, full range of motion without nuchal rigidity, or vertebral point tenderness. No Meningismus. Chest/axilla: Normal chest wall appearance and motion. Nontender with no deformity. No lesions are appreciated. Cardiovascular: Regular rate and rhythm with a normal S1 and S2. No gallops, murmurs, or rubs. Normal PMI, no JVD. No pulse deficits. Respiratory: Lungs have equal breath sounds bilaterally, clear to auscultation and percussion. No rales, rhonchi or wheezes noted. No increased work of breathing, no retractions or nasal flaring. Abdomen/GI: Soft, non-tender, with normal bowel sounds. No distension or tympany. No guarding or rebound. No evidence of tenderness throughout. Back: No spinal tenderness. No costovertebral tenderness. Full range of motion. Skin: Warm, dry with normal turgor. Normal color with no rashes, no lesions, and no evidence of cellulitis. MS/ Extremity: Pulses equal, no cyanosis. Neurovascular intact. Full, normal range of motion. Neuro: Awake and alert, GCS 15, oriented to person, place, time, and situation. Cranial nerves II-XII grossly intact. Motor strength 5/5 in all extremities. Sensory grossly intact. Cerebellar exam normal. Normal gait. Psych: Awake, alert, with orientation to person, place and time. Behavior, mood, and affect are within normal limits. 22:57 Musculoskeletal/extremity: DVT Exam: No signs of deep vein thrombosis. no pain, no swelling, no tenderness, negative Homans' sign noted on exam, no appreciated bluish discoloration, no erythema, no increased warmth. 11/10 00:43 ECG was reviewed by the Attending Physician. [facility] Vital Signs: 11/09 20:12 BP 127 / 60; Pulse 72; Resp 18; Temp 98.2; Pulse Ox 100% on R/A; Weight 99.79 kg (R); 1 Height 5 ft. 1 in. (154.94 cm) (R); Pain 7/10; 22:29 BP 114 / 66; Pulse 66; Resp 16; Pulse Ox 99% on R/A; aj1 11/10 01:38 BP 110 / 45; Pulse 86; Resp 18; Pulse Ox 98% ; ea 02:45 BP 112 / 68; Pulse 80; Resp 18; Temp 98.0; Pulse Ox 99% ; ea 11/09 20:12 Body Mass Index 41.57 (99.79 kg, 154.94 cm) [facility] MDM: 11/09 22:40 Patient medically screened. silvio 23:07 Differential diagnosis: Anxiety Reaction asthma, CHF exacerbation, Myocardial silvio Infarction pulmonary edema, Pulmonary Embolism reactive airway disease, Unstable Angina. Antibiotic administration: Not indicated. The patient's Wells Deep Vein Thrombosis Score was calculated as follows: Total Score: 0-2 Pts- Low Risk. The patient's pulmonary embolism risk score was calculated as follows: Total Score: 0-2 points. This patient was found to be at low risk for a pulmonary embolism by using the Well's assessment criteria. Immunization status:. Data reviewed: vital signs, nurses notes, lab test result(s), EKG, radiologic studies, CT scan, plain films. Data interpreted: personnel monitor: rate is 66 beats/min, rhythm is regular, Pulse oximetry: on room air is 99 %. Test interpretation: by ED physician or midlevel provider: ECG, plain radiologic studies. 11/09 22:57 Order name: Basic Metabolic Panel [facility] 11/09 22:57 Order name: CBC with Diff [facility] 11/09 22:57 Order name: LFT's [facility] 11/09 22:57 Order name: Magnesium [facility] 11/09 22:57 Order name: NT PRO-BNP [facility] 11/09 22:57 Order name: Troponin (emerg Dept Use Only) [facility] 11/09 22:57 Order name: COVID-19 [facility] 11/09 22:57 Order name: Lipase [facility] 11/10 00:46 Order name: Basic Metabolic Panel; Complete Time: 00:56 EDMS 11/10 00:46 Order name: Liver (Hepatic) Function; Complete Time: 00:56 EDMS 11/10 00:46 Order name: NT PRO-BNP; Complete Time: 00:56 EDMS 11/10 00:46 Order name: Magnesium; Complete Time: 00:56 EDMS 11/09 22:57 Order name: XRAY Chest (1 view) [facility] 11/09 22:57 Order name: EKG; Complete Time: 12:16 [facility] 11/09 22:57 Order name: Cardiac monitoring; Complete Time: 23:34 [facility] 11/09 22:57 Order name: EKG - Nurse/Tech; Complete Time: 23:34 [facility] 11/09 22:57 Order name: IV Saline Lock; Complete Time: 23:03 [facility] 11/09 22:57 Order name: Labs collected and sent; Complete Time: 23:35 [facility] 11/09 22:57 Order name: CT Chest For PE Angio [facility] 11/10 00:46 Order name: Lipase; Complete Time: 00:56 EDMS 11/10 00:46 Order name: CBC with Automated Diff; Complete Time: 00:56 EDMS 11/10 00:48 Order name: Protime (+INR); Complete Time: 00:56 EDMS 11/10 02:45 Order name: Urine --Ancillary (enter results) tt3 11/10 02:45 Order name: Urine Dipstick--Ancillary (enter results) tt3 11/09 22:57 Order name: O2 Per Protocol; Complete Time: 23:34 [facility] 11/09 22:57 Order name: O2 Sat Monitoring; Complete Time: 23:35 [facility] 11/09 22:57 Order name: Urine Dipstick-Ancillary (obtain specimen); Complete Time: 02:52 [facility] 11/09 22:57 Order name: Urine Test (obtain specimen); Complete Time: 02:52 [facility] EC/18 00:43 Rate is 66 beats/min. Rhythm is regular. QRS [place] is Normal. [place] interval is normal. QRS silvio interval is normal. QT interval is normal. No Q waves. T waves are Normal. No ST changes noted. Clinical impression: Abnormal EKG without significant change and No evidence of ischemia. Interpreted by me. Reviewed by me. Administered Medications: 11/09 23:34 Drug: Pepcid 20 mg Route: IVP; Site: right antecubital; ea 11/10 01:38 Follow up: Response: No adverse reaction 11/09 23:34 Drug: NS 0.9% 1000 ml Route: IV; Rate: 1 bolus; Site: right forearm; ea 11/10 01:30 Follow up: Response: No adverse reaction; IV Status: Completed infusion; IV Intake: ea 1000ml 11/09 23:35 Drug: Aspirin Chewable Tablet 324 mg Route: PO; ea 11/10 01:39 Follow up: Response: No adverse reaction 02:32 Drug: Lovenox 100 mg Route: Sub-Q; Site: right lower abdomen; ea 03:05 Follow up: Response: No adverse reaction ea Disposition: 11/10/20 02:31 Discharged to Home. Impression: Dyspnea, Chest pain on breathing. - Condition is Stable. - Discharge Instructions: Nonspecific Chest Pain, Chest Wall Pain, Shortness of Breath, Shortness of Breath, [id number], Chest Wall Pain, [id number]-[id number], Nonspecific Chest Pain, [id number], Aspirin and Your Heart. - Prescriptions for Ibuprofen 600 mg Oral Tablet - take 1 tablet by ORAL route every 8 hours As needed take with food; 21 tablet. - Medication Reconciliation Form, Thank You Letter, Antibiotic Education, Prescription Opioid Use form. - Follow up: Private Physician; When: 2 - 3 days; Reason: Recheck today's complaints, Continuance of care, Re-evaluation by your physician. Follow up: Mikael May; When: 2 - 3 days; Reason: Recheck today's complaints, Continuance of care, Re-evaluation by your physician. - Problem is new. - Symptoms have improved. Signatures: Dispatcher [employer] EDStephanie Mascorro RN RN aj1 Ji Lynn MD MD cha Antunez, Elena RN RN Ceferino Membreno RN RN rv Corrections: (The following items were deleted from the chart) 03:23 02:31 11/10/2020 02:31 Discharged to Home. Impression: Dyspnea; Chest pain on rv breathing. Condition is Stable. Discharge Instructions: Nonspecific Chest Pain, Chest Wall Pain, Shortness of Breath, Shortness of Breath, [id number]-[id number], Chest Wall Pain, Ggiw-[id number], Nonspecific Chest Pain, Cvzx-[id number]-[id number], Aspirin and Your Heart. Prescriptions for Ibuprofen 600 mg Oral Tablet - take 1 tablet by ORAL route every 8 hours As needed take with food; 21 tablet. and Forms are Medication Reconciliation Form, Thank You Letter, Antibiotic Education, Prescription Opioid Use. Follow up: Private Physician; When: 2 - 3 days; Reason: Recheck today's complaints, Continuance of care, Re-evaluation by your physician. Follow up: Mikael May; When: 2 - 3 days; Reason: Recheck today's complaints, Continuance of care, Re-evaluation by your physician. Problem is new. Symptoms have improved. silvio
--- NOTE | 2020-11-10 08:46 | RAD REPORT ---
EXAM DESCRIPTION: RAD - Chest Single View - 11/10/2020 7:30 am CLINICAL HISTORY: CHEST PAIN COMPARISON: October 02 TECHNIQUE: AP portable chest image was obtained 11/10/2020 7:30 am . FINDINGS: Lung volumes are low accentuating interstitial pattern. When adjusting for the more shallo w inspiration and increased amount of overlying soft tissue, lung parenchyma not clearly different fr om comparison. Heart and vasculature are normal. No measurable pleural effusion and no pneumothorax. No acute bony abnormality seen. No acute aortic findings suspected. IMPRESSION: No acute cardiopulmonary process. No significant change from comparison study.
[2020-11-10 12:20] LABS: Urine Blood NEGATIVE (NEG); Urine Glucose NEGATIVE (NEG); Urine Protein NEGATIVE (NEG); Urine Specific Gravity 1.015 (1.005-1.030)
--- NOTE | 2020-11-11 14:01 | EKG ---
Test Date: 2020-11-09 Test Time: 22:33:28 [employer] Processing Plant Operator: SANDRITA MEASUREMENT RESULTS: Intervals: Rate: 66 SC: 128 QRSD: 84 QT: 420 QTc: 440 [place]: P: 39 SC: 128 QRS: 49 T: 38 INTERPRETIVE STATEMENTS: Normal sinus rhythm Normal ECG Compared to ECG 10/02/2020 17:45:35 ST (T wave) deviation no longer present Electronically Signed On 11-11-20 13:58:46 [employer] SALESPERSON by Mikael May
--- NOTE | 2020-11-12 16:34 | RAD REPORT ---
EXAM DESCRIPTION: CT - Chest For Pe Angio - 11/10/2020 6:40 am CLINICAL HISTORY: CHEST PAIN, DYSPNEA TECHNIQUE: Contiguous axial images obtained through the chest during angiographic phase following th e uneventful administration of IV contrast. Sagittal and coronal reformatted images were provided. [place] P reformatted images were provided. This exam was performed according to our departmental dose-optimization program, which includes autom ated exposure control, adjustment of the mA and/or kV according to patient size and/or use of iterati ve reconstruction technique. COMPARISON: 08/27/2020 FINDINGS: Diagnostic quality: There is good opacification of the pulmonary arterial tree. Motion art ifact degrades image quality and limits evaluation of segmental and subsegmental vessels. Lungs: No focal consolidation. Airways are patent. Pleura: No effusion. No pneumothorax. Heart and pericardium: The heart is normal in size. No pericardial effusion. Mediastinum and becca: No pathologically enlarged lymph nodes. Lower neck and chest wall: Unremarkable Vessels: No pulmonary arterial filling defects. No thoracic aortic aneurysm. Upper abdomen: The liver is enlarged. Prior cholecystectomy. Bones: Mild multilevel spondylosis. No acute fracture. IMPRESSION: 1. Motion artifact degrades image quality and limits evaluation of segmental and subse gmental vessels. No central pulmonary embolic disease. 2. No focal infiltrate. 3. Other findings as above. Electronically signed by: Keara Mitchell MD 11/10/2020 2:22 AM MANAGER PROGRAMMING Due to temporary technical issues with the PACS/Fluency reporting system, reports are being signed by the in house radiologists without review as a courtesy to insure prompt reporting. The interpreting radiologist is fully responsible for the content of the report.
[2020-11-13 10:46] VITALS: BP 112/68; TEMP 98; O2SAT 99
== END 2020-11-10 03:23 | disposition home or self-care (01) ==
LOC: ER 19:45
DX: R07.1 Chest pain on breathing (principal); Z20.828 Contact with and (suspected) exposure to other viral communicable diseases; I10 Essential (primary) hypertension; J45.909 Unspecified asthma, uncomplicated; Z88.5 Allergy status to narcotic agent; Z88.6 Allergy status to analgesic agent; Z88.8 Allergy status to other drugs, medicaments and biological substances
CPT/HCPCS: 96361; 93005; 85025; 80048; 36415; 83735; 81025; 85610; 80076; 81003; 84484; 83690; 83880; 71275; 71045; 96372; 96374; 99284; U0002; Q9967; J1650; J7030

== ENCOUNTER 2020-11-16 14:35 | Emergency (ER) | payer OTHER ==
--- NOTE | 2020-11-16 18:33 | RAD REPORT ---
EXAM DESCRIPTION: RAD - Knee Left 3 View - 11/16/2020 6:19 pm CLINICAL HISTORY: PAIN COMPARISON: No comparisons FINDINGS: Left total knee arthroplasty is noted. No evidence of hardware loosening or infection. No fracture seen. Small joint effusion evident.
--- NOTE | 2020-11-16 18:33 | RAD REPORT ---
EXAM DESCRIPTION: RAD - Femur Left - 11/16/2020 6:20 pm CLINICAL HISTORY: PAIN COMPARISON: No comparisons FINDINGS: Left total knee arthroplasty is noted. No hardware loosening or infection is seen. Small j oint effusion is present. No acute fracture evident.
--- NOTE | 2020-11-16 18:34 | RAD REPORT ---
EXAM DESCRIPTION: RAD - Tib Fib Left - 11/16/2020 6:20 pm CLINICAL HISTORY: PAIN COMPARISON: No comparisons FINDINGS: Left total knee arthroplasty is present. No evidence of hardware loosening or infection. N o acute fracture or dislocation seen.
--- NOTE | 2020-11-16 18:54 | ER ---
Nurse's Notes [facility] Name: Maria Del Carmen Rodriguez Age: 40 yrs Sex: Female : 1980 Arrival Date: 11/16/2020 Time: 14:36 Bed 17 Private MD: Diagnosis: Fall due to bumping against object;Pain in left knee;Internal derangement of knee-left, hx of knee replacement Presentation: 11/16 15:06 Chief complaint: Patient states: Slipped on greae 1 hour [employer]. Left knee buckled under ll1 her. Knee replacement last year same knee. Coronavirus screen: Client denies travel out of the [place] in the last 14 days. At this time, the client does not indicate any symptoms associated with coronavirus-19. Ebola Screen: Patient denies travel to an Ebola-affected area in the 21 days before illness onset. Initial Sepsis Screen: Does the patient meet any 2 criteria? No. Patient's initial sepsis screen is negative. Does the patient have a suspected source of infection? Yes: Bone or joint infection. Risk Assessment: Do you want to hurt yourself or someone else? Patient reports no desire to harm self or others. Onset of symptoms was November 16, 2020. 15:06 Method Of Arrival: Wheelchair ll1 15:06 Acuity: JUS 3 ll1 Triage Assessment: 15:06 General: Appears uncomfortable, Behavior is calm, cooperative, appropriate for age. ll1 Pain: Complains of pain in L knee Quality of pain is described as aching, Aggravated by increased activity. Neuro: No deficits noted. Cardiovascular: No deficits noted. Respiratory: No deficits noted. Musculoskeletal: Circulation, motion, and sensation intact. Capillary refill < 3 seconds, Reports pain in L knee. Injury Description: Bruise. Historical: - Allergies: 15:08 adult benadryl; ll1 15:08 Avelox; ll1 15:08 darvocet; ll1 15:08 Hydrocodone-Acetaminophen; ll1 15:08 Imitrex; ll1 15:08 Stadol; ll1 15:08 Tessalon Perles; ll1 15:08 Trazodone; ll1 - PMHx: 15:08 Asthma; Hypertension; Tachycardia; Migraines; ll1 - PSHx: 15:08 KNEE REPLACEMENT; TIBIA FX REPAIR; Appendectomy; Cholecystectomy; Tubal ligation; ll1 - Immunization history:: Flu vaccine is not up to date. - Social history:: Smoking status: Patient denies any tobacco usage or history of. Screenin:31 Abuse screen: Denies threats or abuse. Denies injuries from another. Nutritional ph screening: No deficits noted. Tuberculosis screening: No symptoms or risk factors identified. Fall Risk None identified. Assessment: 18:00 General: Appears in no apparent distress. uncomfortable, well groomed, Behavior is ph calm, cooperative, appropriate for age. Pain: Complains of pain in left knee. Neuro: Level of Consciousness is awake, alert, obeys commands, Oriented to person, place, time, situation. Cardiovascular: Capillary refill < 3 seconds in bilateral fingers Patient's skin is warm and dry. Respiratory: Airway is patent Respiratory effort is even, unlabored. Derm: Skin is intact, is healthy with good turgor, Skin is pink, warm \T\ dry. Vital Signs: 15:06 BP 111 / 66; Pulse 77; Resp 17; Temp 98.4(O); Pulse Ox 98% ; Weight 102.06 kg; Height 5 ll1 ft. 1 in. (154.94 cm); Pain 10/10; 19:33 BP 118 / 78; Pulse 71; Resp 18; Temp 98.0; Pulse Ox 99% on R/A; ph 15:06 Body Mass Index 42.51 (102.06 kg, 154.94 cm) ll1 ED Course: 14:36 Patient arrived in ED. as 15:07 Triage completed. ll1 15:09 Arm band placed on. ll1 17:39 Ji Lynn MD is Attending Physician. silvio 18:00 Patient has correct armband on for positive identification. Bed in low position. Call ph light in reach. Side rails up X 1. Pulse ox on. NIBP on. 18:11 Yuki Amador RN is Primary Nurse. ph 18:20 Knee Left 3 View XRAY In Process Unspecified. EDMS 18:20 Femur Left XRAY In Process Unspecified. EDMS 18:20 Tib Fib Left XRAY In Process Unspecified. EDMS 18:54 Daniel Varner MD is Referral Physician. silvio 19:32 No provider procedures requiring assistance completed. Patient did not have IV access ph during this emergency room visit. Knee immobilizer applied on left knee. Administered Medications: 19:00 Drug: traMADol 50 mg Route: PO; ph 19:34 Follow up: Response: No adverse reaction; Medication administered at discharge. ph Outcome: 18:54 Discharge ordered by . [facility] 19:33 Discharged to home via wheelchair, with crutches, with significant other. ph 19:33 Condition: good 19:33 Discharge instructions given to patient, Instructed on discharge instructions, follow up and referral plans. medication usage, Demonstrated understanding of instructions, follow-up care, medications, Prescriptions given X 2. 19:34 Patient left the ED. ph Signatures: Dispatcher [employer] EDMS Ji Lynn MD MD cha Martinez, Amelia as Hall, Patricia, RN RN Rocco Whelan RN RN ll1
--- NOTE | 2020-11-16 18:54 | EDPHYS ---
Physician Documentation [facility] Name: Maria Del Carmen Rodriguez Age: 40 yrs Sex: Female : 1980 Arrival Date: 11/16/2020 Time: 14:36 Bed 17 Private MD: ED Physician Ji Lynn HPI: 11/16 17:47 This 40 yrs old Female presents to ER via Wheelchair with complaints of Fall silvio Injury. 17:47 Details of fall: The patient fell from an upright position, while standing. Onset: The silvio symptoms/episode began/occurred this morning. Associated injuries: The patient sustained left knee, decreased range of motion. Severity of symptoms: At their worst the symptoms were moderate, in the emergency department the symptoms are unchanged. The patient has not experienced similar symptoms in the past. Historical: - Allergies: 15:08 adult benadryl; ll1 15:08 Avelox; ll1 15:08 darvocet; ll1 15:08 Hydrocodone-Acetaminophen; ll1 15:08 Imitrex; ll1 15:08 Stadol; ll1 15:08 Tessalon Perles; ll1 15:08 Trazodone; ll1 - PMHx: 15:08 Asthma; Hypertension; Tachycardia; Migraines; ll1 - PSHx: 15:08 KNEE REPLACEMENT; TIBIA FX REPAIR; Appendectomy; Cholecystectomy; Tubal ligation; ll1 - Immunization history:: Flu vaccine is not up to date. - Social history:: Smoking status: Patient denies any tobacco usage or history of. ROS: 17:48 Constitutional: Negative for fever, chills, and weight loss, Eyes: Negative for injury, silvio pain, redness, and discharge, ENT: Negative for injury, pain, and discharge, Neck: Negative for injury, pain, and swelling, Cardiovascular: Negative for chest pain, palpitations, and edema, Respiratory: Negative for shortness of breath, cough, wheezing, and pleuritic chest pain, Abdomen/GI: Negative for abdominal pain, nausea, vomiting, diarrhea, and constipation, Back: Negative for injury and pain, : Negative for injury, bleeding, discharge, and swelling, Skin: Negative for injury, rash, and discoloration, Neuro: Negative for headache, weakness, numbness, tingling, and seizure, Psych: Negative for depression, anxiety, suicide ideation, homicidal ideation, and hallucinations, Allergy/Immunology: Negative for hives, rash, and allergies, Endocrine: Negative for neck swelling, polydipsia, polyuria, polyphagia, and marked weight changes, Hematologic/Lymphatic: Negative for swollen nodes, abnormal bleeding, and unusual bruising. 17:48 MS/extremity: Positive for decreased range of motion, pain, swelling, tenderness, of the left knee. Exam: 17:48 Constitutional: This is a well developed, well nourished patient who is awake, alert, silvio and in no acute distress. Head/Face: Normocephalic, atraumatic. Eyes: Pupils equal round and reactive to light, extra-ocular motions intact. Lids and lashes normal. Conjunctiva and sclera are non-icteric and not injected. Cornea within normal limits. Periorbital areas with no swelling, redness, or edema. ENT: Nares patent. No nasal discharge, no septal abnormalities noted. Tympanic membranes are normal and external auditory canals are clear. Oropharynx with no redness, swelling, or masses, exudates, or evidence of obstruction, uvula midline. Mucous membranes moist. Neck: Trachea midline, no thyromegaly or masses palpated, and no cervical lymphadenopathy. Supple, full range of motion without nuchal rigidity, or vertebral point tenderness. No Meningismus. Chest/axilla: Normal chest wall appearance and motion. Nontender with no deformity. No lesions are appreciated. Cardiovascular: Regular rate and rhythm with a normal S1 and S2. No gallops, murmurs, or rubs. Normal PMI, no JVD. No pulse deficits. Respiratory: Lungs have equal breath sounds bilaterally, clear to auscultation and percussion. No rales, rhonchi or wheezes noted. No increased work of breathing, no retractions or nasal flaring. Abdomen/GI: Soft, non-tender, with normal bowel sounds. No distension or tympany. No guarding or rebound. No evidence of tenderness throughout. Back: No spinal tenderness. No costovertebral tenderness. Full range of motion. Neuro: Awake and alert, GCS 15, oriented to person, place, time, and situation. Cranial nerves II-XII grossly intact. Motor strength 5/5 in all extremities. Sensory grossly intact. Cerebellar exam normal. Normal gait. Psych: Awake, alert, with orientation to person, place and time. Behavior, mood, and affect are within normal limits. 17:48 Musculoskeletal/extremity: ROM: limited active range of motion, limited passive range of motion, Circulation is intact in all extremities. Sensation intact. Compartment Syndrome exam of affected extremity: is normal. DVT Exam: negative Homans' sign noted on exam, no appreciated bluish discoloration, no erythema, no increased warmth, pain, swelling, tenderness. Vital Signs: 15:06 BP 111 / 66; Pulse 77; Resp 17; Temp 98.4(O); Pulse Ox 98% ; Weight 102.06 kg; Height 5 ll1 ft. 1 in. (154.94 cm); Pain 10/10; 19:33 BP 118 / 78; Pulse 71; Resp 18; Temp 98.0; Pulse Ox 99% on R/A; ph 15:06 Body Mass Index 42.51 (102.06 kg, 154.94 cm) ll1 MDM: 17:39 Patient medically screened. [facility] 17:50 Differential diagnosis: closed fracture, contusion. Differential diagnosis: contusion, silvio fracture, sprain, strain. Data reviewed: vital signs, nurses notes, radiologic studies. Data interpreted: awake overnight monitor: rate is 77 beats/min, rhythm is regular, Pulse oximetry: on room air is 98 %. Test interpretation: by ED physician or midlevel provider: plain radiologic studies. Counseling: I had a detailed discussion with the patient and/or guardian regarding: the historical points, exam findings, and any diagnostic results supporting the discharge/admit diagnosis, lab results, radiology results, the need for outpatient follow up, for definitive care, a orthopedic surgeon. 11/16 17:47 Order name: Knee Left 3 View XRAY [facility] 11/16 17:47 Order name: Femur Left XRAY [facility] 11/16 17:47 Order name: Tib Fib Left XRAY [facility] 11/16 17:54 Order name: Knee Immobilizer; Complete Time: 19:34 [facility] 11/16 17:54 Order name: Ice pack; Complete Time: 19:34 [facility] 11/16 17:54 Order name: Crutches; Complete Time: 19:34 [facility] Administered Medications: 19:00 Drug: traMADol 50 mg Route: PO; ph 19:34 Follow up: Response: No adverse reaction; Medication administered at discharge. ph Disposition: 11/16/20 18:54 Discharged to Home. Impression: Fall due to bumping against object, Pain in left knee, Internal derangement of knee - left, hx of knee replacement. - Condition is Stable. - Discharge Instructions: Joint Pain, How to Use a Knee Brace, Musculoskeletal Pain, Knee Pain, Cryotherapy, Izrj-nb-[id number], Fall Prevention in the Home, Fzjl-rx-Xrle, Cryotherapy, Knee Pain, Wocm-ti-Logf, Joint Pain, Qmnc-gs-Nopj. - Prescriptions for Ibuprofen 600 mg Oral Tablet - take 1 tablet by ORAL route every 8 hours As needed take with food; 21 tablet. Tramadol 50 mg Oral Tablet - take 2 tablet by ORAL route every 8 hours as needed; 24 tablet. - Medication Reconciliation Form, Thank You Letter, Antibiotic Education, Prescription Opioid Use form. - Follow up: Private Physician; When: 2 - 3 days; Reason: Recheck today's complaints, Continuance of care, Re-evaluation by your physician. Follow up: Daniel Varner; When: 2 - 3 days; Reason: Recheck today's complaints, Re-evaluation by your physician. - Problem is new. - Symptoms have improved. Signatures: Dispatcher [employer] EDMS Ji Lynn MD MD cha Hall, Patricia, RN RN Rocco Whelan RN RN ll1 Corrections: (The following items were deleted from the chart) 19:34 18:54 11/16/2020 18:54 Discharged to Home. Impression: Fall due to bumping against ph object; Pain in left knee; Internal derangement of knee - left, hx of knee replacement. Condition is Stable. Discharge Instructions: Joint Pain, How to Use a Knee Brace, Musculoskeletal Pain, Knee Pain, Cryotherapy, Xisl-tv-[id number], Fall Prevention in the Home, Ltpe-ov-Awea, Cryotherapy, Knee Pain, Rmpp-vg-Cqrn, Joint Pain, Tgth-dn-Xqer. Prescriptions for Ibuprofen 600 mg Oral Tablet - take 1 tablet by ORAL route every 8 hours As needed take with food; 21 tablet, Tramadol 50 mg Oral Tablet - take 2 tablet by ORAL route every 8 hours as needed; 24 tablet. and Forms are Medication Reconciliation Form, Thank You Letter, Antibiotic Education, Prescription Opioid Use. Follow up: Private Physician; When: 2 - 3 days; Reason: Recheck today's complaints, Continuance of care, Re-evaluation by your physician. Follow up: Daniel Varner; When: 2 - 3 days; Reason: Recheck today's complaints, Re-evaluation by your physician. Problem is new. Symptoms have improved. silvio
[2020-11-16] MEDS ORDERED: TRAMADOL HCL 50 MG TAB ONE ×2 (19:15→19:16)
[2020-11-16 19:42] VITALS: BP 118/78; TEMP 98; O2SAT 99
== END 2020-11-16 19:34 | disposition home or self-care (01) ==
LOC: ER 14:35
DX: M23.92 Unspecified internal derangement of left knee (principal); Z96.652 Presence of left artificial knee joint; W01.10XA Fall on same level from slipping, tripping and stumbling with subsequent striking against unspecified object, initial encounter; Y93.01 Activity, walking, marching and hiking; Y92.9 Unspecified place or not applicable; I10 Essential (primary) hypertension; Z88.5 Allergy status to narcotic agent; Z88.6 Allergy status to analgesic agent; Z88.8 Allergy status to other drugs, medicaments and biological substances; Z91.048 Other nonmedicinal substance allergy status
CPT/HCPCS: 99284

== ENCOUNTER 2021-09-12 00:43 | Emergency (ER) | payer OTHER ==
[2021-09-12 01:59] LABS: Urine Blood Negative (Negative); Urine Glucose Negative (Negative); Urine Protein Negative (Negative); Urine Specific Gravity 1.025 (1.005-1.030)
[2021-09-12 02:47] LABS: Absolute Lymphocytes (CBC) 3.2 K/uL (0.7-4.9); Basophils % 0.6 % (0-1.3); Hematocrit 36.2 % (36.0-45.0); Lymphocytes % 31.5 % (15.3-44.8); RBC Red Blood Cell Count 3.68 M/uL (3.86-4.86)
[2021-09-12 03:01] LABS: ALT/SGPT 31 U/L (12-78); AST/SGOT 13 U/L (15-37); Albumin 3.6 g/dL (3.4-5.0); Alkaline Phosphatase 131 U/L (45-117); BUN Blood Urea Nitrogen 17 mg/dL (7-18); Bicarbonate 26 mmol/L (21-32); Bilirubin Direct < 0.1 mg/dL (0-0.2); Bilirubin Total 0.2 mg/dL (0.2-1.0); Glucose Level 115 mg/dL (74-106); Lipase 143 U/L (73-393); Protein, Total 7.6 g/dL (6.4-8.2); Sodium Level 140 mmol/L (136-145)
[2021-09-12] MEDS ORDERED: ONDANSETRON 4 MG/2 ML VIAL ONE (03:06)
[2021-09-12] MEDS ORDERED: MORPHINE 4 MG/ML SYR ONE ×2 (03:06→06:07)
[2021-09-12] MEDS ORDERED: NA CHLORIDE 0.9% 1,000 ML ONE (03:06)
[2021-09-12 06:02] LABS: Urine Specific Gravity/Preg 1.025 (1.005-1.030)
--- NOTE | 2021-09-12 06:09 | EDPHYS ---
Physician Documentation [facility] Name: Maria Del Carmen Rodriguez Age: 41 yrs Sex: Female : 1980 Arrival Date: 09/12/2021 Time: 00:53 Bed 16 Private MD: ED Physician Henry Sánchez HPI: 09/12 02:20 This 41 yrs old Female presents to ER via Ambulatory with complaints of mh7 Abdominal Pain. 02:20 The patient presents with abdominal pain right lower quadrant. Onset: The mh7 symptoms/episode began/occurred last night, at 20:15. The symptoms radiate to the right flank. Associated signs and symptoms: Pertinent negatives: nausea, vomiting, and diarrhea, anorexia, blood in stools, chest pain, constipation, dysuria, fever, headache, hematuria, palpitations, shortness of breath, vaginal discharge, vomiting blood. The symptoms are described as intermittent, vague, waxing/waning. Modifying factors: The symptoms are alleviated by nothing, the symptoms are aggravated by nothing. Severity of pain: At its worst the pain was moderate last night, in the emergency department the pain has improved moderately. GRAPPLER: 01:09 LMP 09/04/2021 sj1 Historical: - Allergies: 01:00 adult benadryl; sj1 01:00 Avelox; sj1 01:00 darvocet; sj1 01:00 Hydrocodone-Acetaminophen; sj1 01:00 Imitrex; sj1 01:00 Stadol; sj1 01:00 Tessalon Perles; sj1 01:00 Trazodone; sj1 - Home Meds: 01:00 Wellbutrin Oral daily [Active]; Zoloft Oral once daily [Active]; Abilify oral once sj1 daily [Active]; gabapentin 100 mg oral cap 1 cap 3 times per day [Active]; metoprolol tartrate 25 mg Oral tab 2 times per day [Active]; 05:59 atenolol 50 mg Oral tab 1 tab 2 times per day [Active]; ProAir HFA inhalation [Active]; bs2 Symbicort inhalation [Active]; - PMHx: 05:59 Asthma; Hypertension; Migraines; Tachycardia; bs2 - PSHx: 01:00 Appendectomy; TUBAL LIGATION; GALLBLADDER; sj1 - Immunization history:: Client reports receiving the 2nd dose of the Covid vaccine. - Social history:: Smoking status: Patient denies any tobacco usage or history of. Patient uses alcohol, occasionally. Patient/guardian denies using street drugs. ROS: 02:20 Constitutional: Negative for fever, chills, and weight loss, Eyes: Negative for injury, mh7 pain, redness, and discharge, ENT: Negative for injury, pain, and discharge, Neck: Negative for injury, pain, and swelling, Cardiovascular: Negative for chest pain, palpitations, and edema, Respiratory: Negative for shortness of breath, cough, wheezing, and pleuritic chest pain, : Negative for injury, bleeding, discharge, and swelling, MS/Extremity: Negative for injury and deformity, Skin: Negative for injury, rash, and discoloration, Neuro: Negative for headache, weakness, numbness, tingling, and seizure, Psych: Negative for depression, anxiety, suicide ideation, homicidal ideation, and hallucinations, Allergy/Immunology: Negative for hives, rash, and allergies, Endocrine: Negative for neck swelling, polydipsia, polyuria, polyphagia, and marked weight changes, Hematologic/Lymphatic: Negative for swollen nodes, abnormal bleeding, and unusual bruising. Exam: 02:20 Constitutional: This is a well developed, well nourished patient who is awake, alert, mh7 and in no acute distress. Head/Face: Normocephalic, atraumatic. Eyes: Pupils equal round and reactive to light, extra-ocular motions intact. Lids and lashes normal. Conjunctiva and sclera are non-icteric and not injected. Cornea within normal limits. Periorbital areas with no swelling, redness, or edema. Neck: Trachea midline, no thyromegaly or masses palpated, and no cervical lymphadenopathy. Supple, full range of motion without nuchal rigidity, or vertebral point tenderness. No Meningismus. Chest/axilla: Normal chest wall appearance and motion. Nontender with no deformity. No lesions are appreciated. Cardiovascular: Regular rate and rhythm with a normal S1 and S2. No gallops, murmurs, or rubs. Normal PMI, no JVD. No pulse deficits. Respiratory: Lungs have equal breath sounds bilaterally, clear to auscultation and percussion. No rales, rhonchi or wheezes noted. No increased work of breathing, no retractions or nasal flaring. 02:20 Skin: Warm, dry with normal turgor. Normal color with no rashes, no lesions, and no evidence of cellulitis. MS/ Extremity: Pulses equal, no cyanosis. Neurovascular intact. Full, normal range of motion. Neuro: Awake and alert, GCS 15, oriented to person, place, time, and situation. Cranial nerves II-XII grossly intact. Motor strength 5/5 in all extremities. Sensory grossly intact. Cerebellar exam normal. Normal gait. 02:20 Abdomen/GI: Inspection: abdomen appears normal, obese Bowel sounds: normal, in all quadrants, Palpation: moderate abdominal tenderness, in the right lower quadrant, mass, is not appreciated, rebound tenderness, is not appreciated, voluntary guarding, is not appreciated, involuntary guarding, is not appreciated, no appreciated organomegaly, Rectal exam: the exam is deferred, because of patient request, Indicators: McBurney's point is not tender, Fuentes's sign is negative, Rovsing's sign is negative, Obturator sign is negative, Psoas sign is negative, Liver: no appreciated palpable abnormalities, Hernia: not appreciated. 02:20 Back: normal spinal alignment noted, CVA tenderness, that is mild, is noted on the right, vertebral tenderness, is not appreciated, muscle spasm, is not present. Vital Signs: 00:56 BP 121 / 65; Pulse 79; Resp 16 S; Temp 98.3; Pulse Ox 99% on R/A; Weight 102.06 kg (R); sj1 Height 5 ft. 2 in. (157.48 cm) (R); Pain 9/10; 03:00 BP 120 / 77; Pulse 77; Resp 16; Pulse Ox 97% ; bs2 05:48 BP 111 / 68; Pulse 78; Resp 16; Temp 98.6; Pulse Ox 98% on R/A; Pain 10/10; kc4 00:56 Body Mass Index 41.15 (102.06 kg, 157.48 cm) sj1 MDM: 06:06 Differential diagnosis: bowel obstruction, Endometriosis, non-specific abd pain, mh7 Pyelonephritis, Ureterolithiasis, urinary tract infection. Data reviewed: vital signs, nurses notes, lab test result(s), CBC, electrolytes, urinalysis, UPT: negative radiologic studies, CT scan. Data interpreted: Pulse oximetry: on room air is 98 %. Interpretation: normal. Counseling: I had a detailed discussion with the patient and/or guardian regarding: the historical points, exam findings, and any diagnostic results supporting the discharge/admit diagnosis, lab results, radiology results, the need for outpatient follow up, to return to the emergency department if symptoms worsen or persist or if there are any questions or concerns that arise at home. Response to treatment: the patient's symptoms have resolved after treatment, the patient's blood pressure is in an acceptable range, mental status has returned to baseline, the patient no longer shows bradycardia, the patient is not short of breath, the patient is not tachycardic, the patient's pain is gone, the patient's temperature has normalized. 06:08 Patient medically screened. [facility] 09/12 01:48 Order name: Basic Metabolic Panel; Complete Time: 04:16 [facility] 09/12 01:48 Order name: CBC with Diff; Complete Time: 04:16 [facility] 09/12 01:48 Order name: Hepatic Function; Complete Time: 04:16 [facility] 09/12 01:48 Order name: Lipase; Complete Time: 04:16 [facility] 09/12 01:59 Order name: Urine Dipstick-Ancillary; Complete Time: 02:26 [facility] 09/12 02:42 Order name: Urine --Ancillary (enter results) [facility] 09/12 01:48 Order name: IV Saline Lock; Complete Time: 01:55 [facility] 09/12 01:48 Order name: Labs collected and sent; Complete Time: 01:55 [facility] 09/12 02:37 Order name: CT Abd/Pelvis - IV Contrast Only [facility] 09/12 02:43 Order name: Urine --Ancillary [facility] 09/12 01:48 Order name: Urine Dipstick-Ancillary (obtain specimen); Complete Time: 02:00 [facility] 09/12 02:34 Order name: Urine Test (obtain specimen); Complete Time: 02:41 [facility] Administered Medications: 02:49 Drug: morphine 4 mg Route: IVP; Site: right hand; df1 03:09 Follow up: Response: No adverse reaction df1 02:50 Drug: NS 0.9% 1000 ml Route: IV; Rate: 1000 ml; Site: right hand; df1 02:50 Drug: Zofran (Ondansetron) 4 mg Route: IVP; Site: right hand; df1 03:08 Follow up: Response: No adverse reaction df1 05:42 Drug: morphine 4 mg Route: IVP; Site: right forearm; kc4 Disposition Summary: 09/12/21 06:08 Discharge Ordered Location: Home [facility] Problem: new [facility] Symptoms: have improved [facility] Condition: Stable [facility] Diagnosis - Lower abdominal pain, unspecified [facility] Followup: [facility] - With: Private Physician - When: 1 - 2 days - Reason: Worsening of condition, Recheck today's complaints, Continuance of care, Re-evaluation by your physician Discharge Instructions: - Discharge Summary Sheet [facility] - Abdominal Pain, Adult, [id number] [facility] Forms: - Medication Reconciliation Form [facility] - Thank You Letter [facility] - Antibiotic Education [facility] - Prescription Opioid Use [facility] Prescriptions: - dicyclomine 20 mg Oral Tablet - take 1 tablet by ORAL route 4 times per day As needed; 20 tablet; Refills: 0, [facility] Product Selection Permitted Signatures: Dispatcher [employer] Henry Hunt MD MD 7 Milagro Noriega, RN RN bs2 Maria Esther Mccurdy kc4 Cherrie Martinez df1 Chandni Calvillo, RN RN sj1
--- NOTE | 2021-09-12 06:09 | ER ---
Nurse's Notes [facility] Name: Maria Del Carmen Rodriguez Age: 41 yrs Sex: Female : 1980 Arrival Date: 09/12/2021 Time: 00:53 Bed 16 Private MD: Diagnosis: Lower abdominal pain, unspecified Presentation: 09/12 00:56 Chief complaint: Patient states: SUDDEN RLQ PAIN AT 2015, DENIES NAUSEA, VOMITING, AND sj1 DIARRHEA. TOOK NORCO AT 2330. HX OF OVARIAN CYST ON RT SIDE. Coronavirus screen: Vaccine status: Patient reports receiving the 2nd dose of the covid vaccine. Ebola Screen: No symptoms or risks identified at this time. Initial Sepsis Screen: Does the patient meet any 2 criteria? No. Patient's initial sepsis screen is negative. Does the patient have a suspected source of infection? No. Patient's initial sepsis screen is negative. Risk Assessment: Do you want to hurt yourself or someone else? Patient reports no desire to harm self or others. Onset of symptoms was September 11, 2021. 00:56 Method Of Arrival: Ambulatory [facility] 00:56 Acuity: JUS 3 sj1 Triage Assessment: 01:07 General: Appears in no apparent distress. Behavior is calm, cooperative, appropriate sj for age. Pain: Complains of pain in RLQ Pain radiates to back Pain currently is 9 out of 10 on a pain scale. Quality of pain is described as crampy, Pain began suddenly. EENT: No deficits noted. Neuro: No deficits noted. Cardiovascular: No deficits noted. Respiratory: No deficits noted. : No signs and/or symptoms were reported regarding the genitourinary system. Derm: No deficits noted. Musculoskeletal: No deficits noted. 01:08 GI: Reports lower abdominal pain. sj1 [employer]: 01:09 LMP 09/04/2021 1 Historical: - Allergies: 01:00 adult benadryl; sj1 01:00 Avelox; sj1 01:00 darvocet; sj1 01:00 Hydrocodone-Acetaminophen; sj1 01:00 Imitrex; sj1 01:00 Stadol; sj1 01:00 Tessalon Perles; sj1 01:00 Trazodone; sj1 - Home Meds: 01:00 Wellbutrin Oral daily [Active]; Zoloft Oral once daily [Active]; Abilify oral once sj1 daily [Active]; gabapentin 100 mg oral cap 1 cap 3 times per day [Active]; metoprolol tartrate 25 mg Oral tab 2 times per day [Active]; 05:59 atenolol 50 mg Oral tab 1 tab 2 times per day [Active]; ProAir HFA inhalation [Active]; bs2 Symbicort inhalation [Active]; - PMHx: 05:59 Asthma; Hypertension; Migraines; Tachycardia; bs2 - PSHx: 01:00 Appendectomy; TUBAL LIGATION; GALLBLADDER; sj1 - Immunization history:: Client reports receiving the 2nd dose of the Covid vaccine. - Social history:: Smoking status: Patient denies any tobacco usage or history of. Patient uses alcohol, occasionally. Patient/guardian denies using street drugs. Screenin:07 Abuse screen: Denies threats or abuse. Denies injuries from another. Nutritional sj1 screening: No deficits noted. Tuberculosis screening: No symptoms or risk factors identified. Fall Risk None identified. Assessment: 02:15 General: Appears in no apparent distress. uncomfortable, obese, well groomed, well bs2 developed, well nourished, Behavior is calm, cooperative, appropriate for age. Pain: Complains of pain in right lower quadrant Pain currently is 7 out of 10 on a pain scale. Neuro: No deficits noted. Cardiovascular: No deficits noted. Respiratory: No deficits noted. GI: Abdomen is round non-distended, obese, Bowel sounds present X 4 quads. Abd is soft X 4 quads Abd is non tender in right upper quadrant, left upper quadrant and left lower quadrant Abdomen is tender to palpation in right lower quadrant Reports lower abdominal pain, nausea. : No signs and/or symptoms were reported regarding the genitourinary system. EENT: No signs and/or symptoms were reported regarding the EENT system. Derm: No signs and/or symptoms reported regarding the dermatologic system. Musculoskeletal: No signs and/or symptoms reported regarding the musculoskeletal system. Vital Signs: 00:56 BP 121 / 65; Pulse 79; Resp 16 S; Temp 98.3; Pulse Ox 99% on R/A; Weight 102.06 kg (R); sj1 Height 5 ft. 2 in. (157.48 cm) (R); Pain 9/10; 03:00 BP 120 / 77; Pulse 77; Resp 16; Pulse Ox 97% ; bs2 05:48 BP 111 / 68; Pulse 78; Resp 16; Temp 98.6; Pulse Ox 98% on R/A; Pain 10/10; kc4 00:56 Body Mass Index 41.15 (102.06 kg, 157.48 cm) 1 ED Course: 00:53 Patient arrived in ED. sj1 01:00 Triage completed. sj1 01:07 Patient has correct armband on for positive identification. sj1 01:08 Arm band placed on. sj1 01:55 Basic Metabolic Panel Sent. kc4 01:55 CBC with Diff Sent. kc4 01:55 Hepatic Function Sent. kc4 01:55 Lipase Sent. kc4 01:55 Inserted saline lock: 20 gauge in right hand, using aseptic technique. kc4 02:00 Pulse ox on. NIBP on. bs2 02:00 Door closed. Lights dimmed. Warm blanket given. bs2 02:25 Henry Sánchez MD is Attending Physician. mh7 02:49 Urine --Ancillary (enter results) Sent. df1 03:08 Cherrie aMrtinez is Primary Nurse. df1 04:18 CT Abd/Pelvis - IV Contrast Only In Process Unspecified. EDMS 06:02 No provider procedures requiring assistance completed. bs2 Administered Medications: 02:49 Drug: morphine 4 mg Route: IVP; Site: right hand; df1 03:09 Follow up: Response: No adverse reaction df1 02:50 Drug: NS 0.9% 1000 ml Route: IV; Rate: 1000 ml; Site: right hand; df1 02:50 Drug: Zofran (Ondansetron) 4 mg Route: IVP; Site: right hand; df1 03:08 Follow up: Response: No adverse reaction df1 05:42 Drug: morphine 4 mg Route: IVP; Site: right forearm; kc4 Outcome: 06:08 Discharge ordered by . 7 07:02 Patient left the ED. Signatures: Dispatcher [employer] EDMS Lin Mathew RN RN ss Henry Sánchez MD MD 7 Milagro Noriega RN RN bs2 Maria Esther Mccurdy kc4 Cherrie Martinez df1 Rajinder, Sade, RN RN sj1
[2021-09-12 07:27] VITALS: BP 111/68; TEMP 98.6; O2SAT 98
--- NOTE | 2021-09-12 18:06 | RAD REPORT ---
EXAM DESCRIPTION: CT - Abdomen Pelvis W Contrast - 09/12/2021 6:49 am CLINICAL HISTORY: The patient is 41 years old and is Female; ABD PAIN TECHNIQUE: Axial computed tomography images of the abdomen and pelvis with intravenous contrast. S agittal and coronal reformatted images were created and reviewed. This CT exam was performed using one or more of the following dose reduction techniques: automated exposure control, adjustment of t he mA and/or kV according to patient size, and/or use of iterative reconstruction technique. COMPARISON: CT abdomen and pelvis with contrast May 12, 2020. FINDINGS: Lung bases: Unremarkable. No mass. No consolidation. ABDOMEN: Liver: Unremarkable. No mass. Gallbladder and bile ducts: Gallbladder is surgically absent. No ductal dilation. Pancreas: Unremarkable. No mass. No ductal dilation. Spleen: Unremarkable. No splenomegaly. Adrenals: Unremarkable. No mass. Kidneys and ureters: Unremarkable. No solid mass. No hydronephrosis. Stomach and bowel: Unremarkable. No obstruction. No mucosal thickening. PELVIS: Appendix: No findings to suggest acute appendicitis. Bladder: Unremarkable. No mass. Reproductive: Unremarkable as visualized. ABDOMEN and PELVIS: Intraperitoneal space: Unremarkable. No free air. No significant fluid collection. Bones/joints: No acute fracture. No dislocation. Soft tissues: Unremarkable. Vasculature: Unremarkable. No abdominal aortic aneurysm. Lymph nodes: Unremarkable. No enlarged lymph nodes. IMPRESSION: No acute findings in the abdomen or pelvis. Electronically signed by: Paulie Zarco MD 09/12/2021 4:55 AM CDT Due to temporary technical issues with the PACS/Fluency reporting system, reports are being signed by the in house radiologists without review as a courtesy to insure prompt reporting. The interpreting radiologist is fully responsible for the content of the report.
== END 2021-09-12 07:02 | disposition home or self-care (01) ==
LOC: ER 00:43
DX: R10.31 Right lower quadrant pain (principal); I10 Essential (primary) hypertension; Z88.5 Allergy status to narcotic agent; Z88.6 Allergy status to analgesic agent; Z88.8 Allergy status to other drugs, medicaments and biological substances
CPT/HCPCS: 85025; 80048; 36415; 81025; 80076; 81003; 83690; 74177; Q9967; J7030; J2405

== ENCOUNTER 2021-10-22 22:07 | Emergency (ER) | payer OTHER ==
[2021-10-22 23:20] LABS: SARS-COV-2 RT PCR NEGATIVE (NEGATIVE)
--- NOTE | 2021-10-22 23:25 | ER ---
Nurse's Notes [facility] Name: Maria Del Carmen Rodriguez Age: 41 yrs Sex: Female : 1980 Arrival Date: 10/22/2021 Time: 22:13 Bed DIS2 Private MD: Diagnosis: Acute upper respiratory infection, unspecified Presentation: 10/22 22:15 Chief complaint: Patient states: I am having flu like symptoms, pt reports temperature ld1 of 101. Body aches, chills, \\T\\ cough. Coronavirus screen: Client presents with at least one sign or symptom that may indicate coronavirus-19. Standard/surgical mask placed on the client. Ebola Screen: No symptoms or risks identified at this time. Initial Sepsis Screen: Does the patient meet any 2 criteria? No. Patient's initial sepsis screen is negative. Does the patient have a suspected source of infection? No. Patient's initial sepsis screen is negative. Risk Assessment: Do you want to hurt yourself or someone else? Patient reports no desire to harm self or others. Onset of symptoms was October 22, 2021. 22:15 Method Of Arrival: Ambulatory ld1 22:15 Acuity: JUS 4 ld1 Triage Assessment: 22:20 General: Appears in no apparent distress. comfortable, Behavior is calm, cooperative, ld1 appropriate for age. Pain: Denies pain. EENT: No signs and/or symptoms were reported regarding the EENT system. Neuro: Level of Consciousness is awake, alert, obeys commands, Oriented to person, place, time, situation, Appropriate for age. Cardiovascular: Capillary refill < 3 seconds Patient's skin is warm and dry. Respiratory: Airway is patent Respiratory effort is even, unlabored, Respiratory pattern is regular, symmetrical. GI: Abdomen is round non-distended. : No signs and/or symptoms were reported regarding the genitourinary system. Derm: No signs and/or symptoms reported regarding the dermatologic system. Musculoskeletal: No signs and/or symptoms reported regarding the musculoskeletal system. 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/2021 ld1 Historical: - Allergies: 22:20 adult benadryl; ld1 22:20 Avelox; ld1 22:20 darvocet; ld1 22:20 Hydrocodone-Acetaminophen; ld1 22:20 Imitrex; ld1 22:20 Stadol; ld1 22:20 Tessalon Perles; ld1 22:20 Trazodone; ld1 - Home Meds: 22:20 Abilify Oral once daily [Active]; atenolol 50 mg Oral tab 1 tab 2 times per day ld1 [Active]; gabapentin 100 mg Oral tab 1 cap 3 times per day [Active]; metoprolol tartrate 25 mg Oral tab 2 times per day [Active]; ProAir HFA inhalation [Active]; Symbicort inhalation [Active]; Wellbutrin Oral daily [Active]; Zoloft Oral once daily [Active]; Hyoscyamine Sulfate SL [Active]; amitriptyline Oral [Active]; - PMHx: 22:20 Hypertension; Asthma; Migraines; Tachycardia; IBS; Insomnia; ld1 - PSHx: 22:20 Appendectomy; GALLBLADDER; tubal ligation; Left leg surgery; ld1 - Immunization history:: Adult Immunizations up to date, Client reports receiving the 2nd dose of the Covid vaccine. - Social history:: Smoking status: Patient denies any tobacco usage or history of. Patient/guardian denies using alcohol, street drugs. Screenin:09 Abuse screen: Denies threats or abuse. Denies injuries from another. Nutritional sm5 screening: No deficits noted. Tuberculosis screening: No symptoms or risk factors identified. Fall Risk No fall in past 12 months (0 pts). No secondary diagnosis (0 pts). No IV (0 pts). Ambulatory Aid- None/Bed Rest/Nurse Assist (0 pts). Gait- Normal/Bed Rest/Wheelchair (0 pts) Mental Status- Oriented to own ability (0 pts). Total Spear Fall Scale indicates No Risk (0-24 pts). Assessment: 23:08 General: Appears in no apparent distress. Behavior is calm, cooperative, appropriate sm5 for age. Neuro: Level of Consciousness is awake, alert, Oriented to person, place, time, situation. Cardiovascular: No deficits noted. Respiratory: Reports cough that is Airway is patent Trachea midline Respiratory effort is even, unlabored. Vital Signs: 22:15 BP 120 / 71; Pulse 94; Resp 20; Temp 99.1(TE); Pulse Ox 98% on R/A; Weight 102.06 kg; ld1 Height 5 ft. 2 in. (157.48 cm); Pain 0/10; 23:23 BP 99 / 51; Pulse 89; Resp 19; Temp 99.6(O); Pulse Ox 91% on R/A; sm5 22:15 Body Mass Index 41.15 (102.06 kg, 157.48 cm) ld1 ED Course: 22:13 Patient arrived in ED. 22:17 [facility] kb 22:17 Don Blum MD is Attending Physician. kb 22:20 Triage completed. ld1 22:20 Arm band placed on right wrist. ld1 22:25 COVID-19/FLU A+B (Document "Date of Onset" if Symptomatic) Sent. ld1 22:43 Brenda Marvin, RN is Primary Nurse. sm5 22:55 Chest Pa And Lat (2 Views) XRAY In Process Unspecified. EDMS 23:10 Patient has correct armband on for positive identification. sm5 23:10 No provider procedures requiring assistance completed. sm5 23:33 Patient did not have IV access during this emergency room visit. sm5 Administered Medications: No medications were administered Outcome: 23:24 Discharge ordered by MD. kb 23:32 Discharged to home ambulatory, with family. sm5 23:32 Condition: good 23:32 Discharge instructions given to patient, family, Instructed on discharge instructions, Demonstrated understanding of instructions, medications, Prescriptions given X 1. 23:33 Patient left the ED. sm5 Signatures: Dispatcher [employer] EDNJ Tiffanie Davis FNP-C FNP-Ckb Dibbern, Lauren, RN RN [facility] Gretchen Cuevas Brenda Marvin, COLBY RN 5
--- NOTE | 2021-10-22 23:25 | EDPHYS ---
Physician Documentation [facility] Name: Maria Del Carmen Rodriguez Age: 41 yrs Sex: Female : 1980 Arrival Date: 10/22/2021 Time: 22:13 Bed DIS2 Private MD: ED Physician Don Blum HPI: 10/22 22:41 This 41 yrs old Unknown Female presents to ER via Ambulatory with complaints of Fever, kb Cough, Body Aches. 22:42 The patient or guardian reports cough, that is intermittent, described as moderate, flu kb symptoms, low-grade fever, myalgias. Onset: The symptoms/episode began/occurred today. Severity of symptoms: At their worst the symptoms were moderate, in the emergency department the symptoms are unchanged. Modifying factors: The symptoms are alleviated by nothing, the symptoms are aggravated by nothing. Associated signs and symptoms: Pertinent positives: fever, Pertinent negatives: chest pain, diarrhea, ear ache, nausea, rhinorrhea, sore throat, vomiting. The patient has not experienced similar symptoms in the past. The patient has not recently seen a physician. Pt reports her family has been sick and she has been taking care of everyone. Today she developed cough, fever, chills, and bodyaches. 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/2021 ld1 Historical: - Allergies: 22:20 adult benadryl; ld1 22:20 Avelox; ld1 22:20 darvocet; ld1 22:20 Hydrocodone-Acetaminophen; ld1 22:20 Imitrex; ld1 22:20 Stadol; ld1 22:20 Tessalon Perles; ld1 22:20 Trazodone; ld1 - Home Meds: 22:20 Abilify Oral once daily [Active]; atenolol 50 mg Oral tab 1 tab 2 times per day ld1 [Active]; gabapentin 100 mg Oral tab 1 cap 3 times per day [Active]; metoprolol tartrate 25 mg Oral tab 2 times per day [Active]; ProAir HFA inhalation [Active]; Symbicort inhalation [Active]; Wellbutrin Oral daily [Active]; Zoloft Oral once daily [Active]; Hyoscyamine Sulfate SL [Active]; amitriptyline Oral [Active]; - PMHx: 22:20 Hypertension; Asthma; Migraines; Tachycardia; IBS; Insomnia; ld1 - PSHx: 22:20 Appendectomy; GALLBLADDER; tubal ligation; Left leg surgery; ld1 - Immunization history:: Adult Immunizations up to date, Client reports receiving the 2nd dose of the Covid vaccine. - Social history:: Smoking status: Patient denies any tobacco usage or history of. Patient/guardian denies using alcohol, street drugs. ROS: 22:42 Abdomen/GI: Negative for abdominal pain, nausea, vomiting, diarrhea, and constipation. kb 22:42 Constitutional: Positive for body aches, chills, fatigue, fever, malaise. 22:42 Respiratory: Positive for cough, Negative for dyspnea on exertion, hemoptysis, orthopnea, pleurisy, shortness of breath, sputum production, wheezing. 22:42 All other systems are negative. Exam: 22:42 Constitutional: This is a well developed, well nourished patient who is awake, alert, kb and in no acute distress. Head/Face: Normocephalic, atraumatic. ENT: Moist Mucous membranes Cardiovascular: Regular rate and rhythm with a normal S1 and S2. No gallops, murmurs, or rubs. No pulse deficits. Respiratory: Respirations even and unlabored. No increased work of breathing, no retractions or nasal flaring. Skin: Warm, dry with normal turgor. Normal color. MS/ Extremity: Pulses equal, no cyanosis. Neurovascular intact. Full, normal range of motion. Neuro: Awake and alert, GCS 15, oriented to person, place, time, and situation. Moves all extremities. Normal gait. Psych: Awake, alert, with orientation to person, place and time. Behavior, mood, and affect are within normal limits. Vital Signs: 22:15 BP 120 / 71; Pulse 94; Resp 20; Temp 99.1(TE); Pulse Ox 98% on R/A; Weight 102.06 kg; ld1 Height 5 ft. 2 in. (157.48 cm); Pain 0/10; 23:23 BP 99 / 51; Pulse 89; Resp 19; Temp 99.6(O); Pulse Ox 91% on R/A; sm5 22:15 Body Mass Index 41.15 (102.06 kg, 157.48 cm) ld1 MDM: 22:17 Patient medically screened. kb 22:42 Data reviewed: vital signs, nurses notes. Data interpreted: Pulse oximetry: on room air kb is 98 %. Interpretation: normal. 23:24 Counseling: I had a detailed discussion with the patient and/or guardian regarding: the kb historical points, exam findings, and any diagnostic results supporting the discharge/admit diagnosis, lab results, radiology results, the need for outpatient follow up, a family practitioner, to return to the emergency department if symptoms worsen or persist or if there are any questions or concerns that arise at home. 10/22 22:18 Order name: COVID-19/FLU A+B (Document "Date of Onset" if Symptomatic); Complete Time: kb 23:20 10/22 22:20 Order name: Chest Pa And Lat (2 Views) XRAY kb Administered Medications: No medications were administered Disposition: 10/23 00:18 Co-signature as Attending Physician, Don Blum MD I agree with the assessment and rn plan of care. Attestation: The patient's history, exam findings, diagnostics, and a summary of any interventions or procedures was reviewed in detail with Tiffanie PARK. Disposition Summary: 10/22/21 23:24 Discharge Ordered Location: Home kb Condition: Stable kb Diagnosis - Acute upper respiratory infection, unspecified kb Followup: kb - With: Emergency Department - When: As needed - Reason: Worsening of condition Followup: kb - With: Private Physician - When: 2 - 3 days - Reason: Recheck today's complaints, Continuance of care, Re-evaluation by your physician Discharge Instructions: - Discharge Summary Sheet kb - Upper Respiratory Infection, Adult, [id number] kb Forms: - Medication Reconciliation Form kb - Thank You Letter kb - Antibiotic Education kb - Prescription Opioid Use kb Prescriptions: - Zithromax 500 mg Oral Tablet - take 1 tablet by ORAL route once daily for 5 days; 5 tablet; Refills: 0, kb Product Selection Permitted Signatures: Dispatcher [employer] Tiffanie Castro FNP-C FNP-Don Hampton MD MD rn Dibbern, Lauren, RN RN ld1
[2021-10-22 23:42] VITALS: BP 99/51; TEMP 99.6; O2SAT 91
--- NOTE | 2021-10-23 08:52 | RAD REPORT ---
EXAM DESCRIPTION: RAD - Chest Pa And Lat (2 Views) - 10/22/2021 10:55 pm CLINICAL HISTORY: Congestion;Cough Chest pain. COMPARISON: Chest Single View dated 11/10/2020; Chest Single View dated 10/02/2020; Chest Single View dated 08/27/2020; Chest Single View dated 08/12/2020 FINDINGS: The lungs are clear. The heart is normal in size. No displaced fractures. IMPRESSION: No acute or concerning finding suspected.
== END 2021-10-22 23:33 | disposition home or self-care (01) ==
LOC: ER 22:07
DX: J06.9 Acute upper respiratory infection, unspecified (principal); I10 Essential (primary) hypertension; J45.909 Unspecified asthma, uncomplicated; Z20.822 Contact with and (suspected) exposure to COVID-19; Z88.8 Allergy status to other drugs, medicaments and biological substances
CPT/HCPCS: 0240U; 71046; 99283

== ENCOUNTER 2021-12-06 15:14 | Observation (INO) | payer OTHER ==
--- NOTE | 2021-12-06 18:10 | RAD REPORT ---
EXAM DESCRIPTION: RAD - Chest Single View - 12/06/2021 5:52 pm CLINICAL HISTORY: CHEST PAIN COMPARISON: Chest Pa And Lat (2 Views) dated 10/22/2021; Chest Single View dated 11/10/2020; Chest S tacos View dated 10/02/2020; Chest Single View dated 08/27/2020 FINDINGS: Lines: None. Lungs: No evidence of edema or pneumonia. Pleural: No significant pleural effusions or pneumothorax. Cardiac: Mild cardiomegaly. Bones: No acute fractures. Other: IMPRESSION: No acute cardiopulmonary disease.
[2021-12-06] MEDS ORDERED: FENTANYL CITR 100 MCG/2 ML ONE (18:14)
[2021-12-06] MEDS ORDERED: ASPIRIN 81 MG CHEWABLE TABLET ONE (18:16)
[2021-12-06 18:21] LABS: Absolute Lymphocytes (CBC) 2.1 K/uL (0.7-4.9); Hematocrit 37.7 % (36.0-45.0); Lymphocytes % 27.9 % (15.3-44.8); MPV 7.6 fL (7.6-11.3); RBC Red Blood Cell Count 3.89 M/uL (3.86-4.86)
[2021-12-06 18:22] LABS: Protime INR 0.91
[2021-12-06 19:39] LABS: SARS-COV-2 RT PCR NEGATIVE (NEGATIVE)
[2021-12-06 20:32] LABS: ALT/SGPT 25 U/L (12-78); AST/SGOT 15 U/L (15-37); Albumin 3.1 g/dL (3.4-5.0); Alkaline Phosphatase 100 U/L (45-117); BUN Blood Urea Nitrogen 16 mg/dL (7-18); Bicarbonate 25 mmol/L (21-32); Bilirubin Direct < 0.1 mg/dL (0-0.2); Bilirubin Total 0.2 mg/dL (0.2-1.0); Glucose Level 113 mg/dL (74-106); Magnesium 2.1 mg/dL (1.8-2.4); NT PRO-BNP 165 pg/mL (<125); Potassium 3.8 mmol/L (3.5-5.1); Protein, Total 7.1 g/dL (6.4-8.2); Sodium Level 139 mmol/L (136-145)
[2021-12-06 21:29] LABS: Urine Blood Negative (Negative); Urine Glucose Negative (Negative); Urine Protein Negative (Negative); Urine pH 7.5 (5.0-7.0)
--- NOTE | 2021-12-07 00:09 | EDPHYS ---
Physician Documentation [facility] Name: Maria Del Carmen Rodriguez Age: 41 yrs Sex: Female : 1980 Arrival Date: 12/06/2021 Time: 15:17 Bed 15 Private MD: ED Physician Glen Bishop HPI: 12/06 17:45 This 41 yrs old Unknown Female presents to ER via Ambulatory with complaints of Chest cp Pain. 17:45 The patient or guardian reports chest pain that is located primarily in the substernal cp area. 17:45 Onset: 1 week(s) ago. The pain radiates to cp 17:45 The chest pain is described as a pressure. Duration: The patient or guardian reports cp multiple episodes, that wax and wane. Severity of pain: in the emergency department the pain is unchanged despite home interventions. 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 method [facility] Historical: - Allergies: 16:06 adult benadryl; 5 16:06 Avelox; jh5 16:06 darvocet; jh5 16:06 Hydrocodone-Acetaminophen; jh5 16:06 Imitrex; jh5 16:06 Stadol; jh5 16:06 Tessalon Perles; jh5 16:06 Trazodone; 5 - Home Meds: 16:06 Amitriptyline Oral [Active]; Abilify Oral once daily [Active]; atenolol 50 mg Oral tab 5 1 tab 2 times per day [Active]; gabapentin 100 mg Oral tab 1 cap 3 times per day [Active]; Hyoscyamine Sulfate SL [Active]; metoprolol tartrate 25 mg Oral tab 2 times per day [Active]; Zoloft Oral once daily [Active]; Wellbutrin Oral daily [Active]; Symbicort inhalation [Active]; ProAir HFA inhalation [Active]; - PMHx: 16:06 Asthma; Hypertension; insomnia; ibs; Migraines; Tachycardia; jh5 - PSHx: 16:06 Appendectomy; GALLBLADDER; left leg surgery; tubal ligation; 5 - Immunization history:: Adult Immunizations up to date. - Social history:: Smoking status: Patient denies any tobacco usage or history of. ROS: 17:50 Cardiovascular: Positive for chest pain, Negative for edema, palpitations. cp 17:50 Eyes: Negative for injury, pain, redness, and discharge. cp 17:50 Constitutional: Negative for body aches, fever, poor PO intake. 17:50 Neck: Negative for pain with movement, pain at rest, stiffness. 17:50 Respiratory: Negative for cough, shortness of breath, wheezing. 17:50 Abdomen/GI: Negative for abdominal pain, vomiting, diarrhea, constipation. 17:50 Back: Positive for radiated pain. cp 17:50 Neuro: Negative for altered mental status, headache, numbness, syncope, weakness. 17:50 All other systems are negative. cp Exam: 16:00 ECG was reviewed by the Attending Physician. cp 17:55 Constitutional: The patient appears in no acute distress, alert, awake, cp non-diaphoretic, non-toxic, well developed, well nourished, obese. 17:55 Head/Face: Normocephalic, atraumatic. cp 17:55 Eyes: Periorbital structures: appear normal, Conjunctiva: normal, no exudate, no injection, Sclera: no appreciated abnormality, Lids and lashes: appear normal, bilaterally. 17:55 ENT: External ear(s): are unremarkable, Nose: is normal, Mouth: Lips: moist, Oral mucosa: moist, Posterior pharynx: Airway: no evidence of obstruction, patent. 17:55 Neck: ROM/movement: is normal, is supple, without pain, no range of motions limitations, no nuchal rigidity. 17:55 Chest/axilla: Inspection: normal. 17:55 Cardiovascular: Rate: normal, Rhythm: regular, Pulses: Pulses are 2+ in right radial artery and left radial artery. Edema: is not appreciated, JVD: is not appreciated. 17:55 Respiratory: the patient does not display signs of respiratory distress, Respirations: normal, no use of accessory muscles, no retractions, labored breathing, is not present, Breath sounds: are clear throughout, no decreased breath sounds, no stridor, no wheezing. 17:55 Abdomen/GI: Inspection: abdomen appears normal, Bowel sounds: active, all quadrants, Palpation: abdomen is soft and non-tender, in all quadrants. 17:55 Back: pain, that is mild, of the mid upper back, ROM is normal, vertebral tenderness, is not appreciated. 17:55 Skin: cellulitis, is not appreciated, no rash present. 17:55 Neuro: Orientation: to person, place \\T\\ time. Mentation: is normal, Motor: moves all fours, strength is normal, Sensation: is normal. 20:49 ECG was reviewed by the Attending Physician. Vital Signs: 16:05 BP 105 / 69; Pulse 83; Resp 18; Temp 97.1; Pulse Ox 97% ; Weight 99.79 kg; Height 5 ft. 5 2 in. (157.48 cm); Pain 9/10; 19:37 BP 103 / 61; Pulse 97; Resp 16; Temp 98.3; Pulse Ox 97% 0 lpm ; sv1 20:00 BP 103 / 61; Pulse 87; Resp 16; Temp 98.3; Pulse Ox 97% 0 lpm ; sv1 22:00 BP 122 / 100; Pulse 75; Resp 16; Pulse Ox 97% 0 lpm ; sv1 12/07 00:01 BP 149 / 80; Pulse 75; Resp 16; Pulse Ox 99% 0 lpm ; sv1 02:00 BP 126 / 81; Pulse 55; Resp 16; Pulse Ox 96% ; sv1 04:27 BP 111 / 69; Pulse 84; Resp 16; Temp 98.4; Pulse Ox 98% 0 lpm ; sv1 12/06 16:05 Body Mass Index 40.24 (99.79 kg, 157.48 cm) [facility] MDM: 12/06 17:28 Patient medically screened. cp 21:00 Differential diagnosis: abnormal EKG, acute myocardial infarction, pancreatitis, cp pericarditis, pleurisy, pneumonia, pneumothorax, pulmonary embolus, stable angina, thoracic aortic disection, unstable angina. 12/07 00:05 The patient was given aspirin in the Emergency Department. cp 00:05 Data reviewed: vital signs, nurses notes, lab test result(s), EKG, radiologic studies, cp CT scan, plain films. Test interpretation: by ED physician or midlevel provider: ECG, plain radiologic studies. Counseling: I had a detailed discussion with the patient and/or guardian regarding: the historical points, exam findings, and any diagnostic results supporting the discharge/admit diagnosis, lab results, radiology results, will admit for observation due to continued chest pain. Physician consultation: Merrick FREEMAN was called at 02:12, was contacted at 02:12, regarding admission, to the telemetry unit. patient's condition. 12/06 17:36 Order name: Basic Metabolic Panel; Complete Time: 20:47 12/06 20:47 Interpretation: Normal except: GLUC 113; GFR 74. 12/06 17:36 Order name: CBC with Diff; Complete Time: 20:28 12/06 20:28 Interpretation: Normal except: EOSINOPHIL % 4.8. 12/06 17:36 Order name: LFT's; Complete Time: 20:47 12/06 17:36 Order name: Magnesium; Complete Time: 20:47 12/06 17:36 Order name: NT PRO-BNP; Complete Time: 20:47 12/06 17:36 Order name: PT-INR; Complete Time: 20:28 12/06 17:36 Order name: Troponin HS; Complete Time: 20:47 12/07 00:03 Interpretation: Troponin HS 5.50; Reviewed. 12/06 17:36 Order name: COVID-19/FLU A+B (Document "Date of Onset" if Symptomatic); Complete Time: cp 20:12/06 20:47 Order name: D-Dimer; Complete Time: 22:11 12/06 20:49 Order name: LAB Add On 12/06 21:28 Order name: Urine Dipstick-Ancillary; Complete Time: 22:11 [facility] 12/07 00:12 Order name: Troponin High Sensitivity; Complete Time: 02:20 12/07 02:21 Interpretation: Reviewed. 12/07 02:47 Order name: T4 Free [facility] 12/07 02:47 Order name: Thyroid Stimulating Hormone [facility] 12/06 17:36 Order name: XRAY Chest (1 view); Complete Time: 20:28 12/06 20:28 Interpretation: Report review. 12/06 17:36 Order name: EKG; Complete Time: 17:37 12/06 17:36 Order name: Cardiac monitoring 12/06 22:12 Order name: CT Aorta for Dissection 12/07 02:46 Order name: Heart Healthy; Complete Time: 06:31 EDMT 12/07 02:46 Order name: EKG Electrocardiogram; Complete Time: 06:31 [facility] 12/07 02:47 Order name: Lipid Profile [facility] 12/07 02:47 Order name: Lipid Profile [facility] 12/07 02:47 Order name: Troponin High Sensitivity [facility] 12/06 17:36 Order name: EKG - Nurse/Tech; Complete Time: 18:09 cp 12/06 17:36 Order name: IV Saline Lock; Complete Time: 18:09 cp 12/06 17:36 Order name: Labs collected and sent; Complete Time: 18:09 cp 12/06 17:36 Order name: O2 Per Protocol; Complete Time: 18: cp 12/06 17:36 Order name: O2 Sat Monitoring; Complete Time: 18:09 cp 12/06 17:36 Order name: Blood Pressure Recheck: bilateral upper extremity; Complete Time: 18:10 cp 12/06 17:36 Order name: Urine Dipstick-Ancillary (obtain specimen); Complete Time: 22:32 cp 12/06 17:36 Order name: Urine Test (obtain specimen); Complete Time: 22:32 cp EC/13 16:00 Rate is 82 beats/min. Rhythm is regular. NM interval is normal. QRS interval is normal. cp QT interval is normal. T waves are Inverted in leads III, aVR. Interpreted by me. Reviewed by me. 20:49 Rate is 83 beats/min. Rhythm is regular. NM interval is normal. QRS interval is normal. cp QT interval is normal. T waves are Inverted in lead aVR. Interpreted by me. Reviewed by me. Administered Medications: 18:15 Drug: Aspirin Chewable Tablet 324 mg Route: PO; cb5 18:15 Drug: fentaNYL (PF) 25 mcg Route: IVP; Site: left hand; cb5 20:05 Follow up: Response: No adverse reaction; Pain is decreased sv1 12/07 01:52 Follow up: Response: No adverse reaction sv1 00:05 CANCELLED (Physician Discretion): NS 0.9% 500 ml IV at bolus once cp 00:05 CANCELLED (Physician Discretion): NS 0.9% 500 ml IV at 125 ml/hr continuous cp 01:06 Drug: Ketorolac 15 mg Route: IVP; Site: left hand; sv1 01:06 Follow up: Response: No adverse reaction sv1 01:51 Follow up: Response: No adverse reaction; Pain is decreased sv1 01:06 Drug: morphine 2 mg Route: IVP; Site: left hand; sv1 01:06 Follow up: Response: No adverse reaction; RASS: Alert and Calm (0) sv1 01:51 Follow up: Response: No adverse reaction; Pain is decreased sv1 01:27 Not Given (Other Intervention Used): fentaNYL (PF) 25 mcg IVP once; RASS on ADMIN: sv1 Combtv4, Very Agttd3, Agttd2, Rstlss1, AlertClm0, Drwsy-1, Lt Sdtn-2, Mod Sdtn-3, Dp Sdtn-4, UnArsble-5 Point of Care Testing: Urine : 12/06 21:32 hCG Reading: Negative; Control Reading: Negative; sv1 Disposition Summary: 12/07/21 00:09 Hospitalization Ordered Hospitalization Status: Observation cp Provider: Sung Heller cp Condition: Stable cp Problem: new cp Symptoms: have improved cp Bed/Room Type: Standard cp Location: Telemetry/MedSurg (observation)(12/07/21 08:34) eb Room Assignment: 219(12/07/21 08:34) eb Diagnosis - Chest pain, unspecified cp Forms: - Medication Reconciliation Form cp - SBAR form cp Signatures: Dispatcher [employer] EDMS Lily Barron RN RN mw Ji Garcia PA PA cp Guillermina Callahan Jessica RN RN jh5 Daniel Escobar RN RN sv1 Avis Stewart, RN RN cb5 Corrections: (The following items were deleted from the chart) 12/07 00:05 00:04 NS 0.9% 500 ml IV at bolus once ordered. cp cp 00:05 00:04 NS 0.9% 500 ml IV at 125 ml/hr continuous ordered. cp cp 00:32 00:09 Telemetry/MedSurg (observation) cp mw 00:32 00:09 cp mw 08:34 00:32 [facility] ER HOLD mw eb 08:34 00:32 ERHOLD- mw eb
--- NOTE | 2021-12-07 00:09 | ER ---
Nurse's Notes [facility] Name: Maria Del Carmen Rodriguez Age: 41 yrs Sex: Female : 1980 Arrival Date: 12/06/2021 Time: 15:17 Bed 15 Private MD: Diagnosis: Chest pain, unspecified Presentation: 12/06 16:05 Chief complaint: Patient states: CHEST PAIN X1 WEEK PROGRESSIVELY GETTING WORSE. [facility] Coronavirus screen: Vaccine status: Patient reports receiving the 2nd dose of the covid vaccine. Client denies travel out of the [place] in the last 14 days. Ebola Screen: Patient negative for fever greater than or equal to 101.5 degrees Fahrenheit, and additional compatible Ebola Virus Disease symptoms Patient denies exposure to infectious person. Patient denies travel to an Ebola-affected area in the 21 days before illness onset. Initial Sepsis Screen: Does the patient meet any 2 criteria? No. Patient's initial sepsis screen is negative. Does the patient have a suspected source of infection? No. Patient's initial sepsis screen is negative. Risk Assessment: Do you want to hurt yourself or someone else? Patient reports no desire to harm self or others. Onset of symptoms was November 28, 2021. 16:05 Method Of Arrival: Ambulatory [facility] 16:05 Acuity: JUS 3 [facility] Triage Assessment: 16:06 General: Appears uncomfortable, obese, Behavior is calm, cooperative, appropriate for [facility] age. Pain: Complains of pain in chest. Cardiovascular: Reports chest pain, fatigue. 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 [facility] Historical: - Allergies: 16:06 adult benadryl; 5 16:06 Avelox; 5 16:06 darvocet; 5 16:06 Hydrocodone-Acetaminophen; [facility] 16:06 Imitrex; [facility] 16:06 Stadol; [facility] 16:06 Tessalon Perles; [facility] 16:06 Trazodone; [facility] - Home Meds: 16:06 Amitriptyline Oral [Active]; Abilify Oral once daily [Active]; atenolol 50 mg Oral tab [facility] 1 tab 2 times per day [Active]; gabapentin 100 mg Oral tab 1 cap 3 times per day [Active]; Hyoscyamine Sulfate SL [Active]; metoprolol tartrate 25 mg Oral tab 2 times per day [Active]; Zoloft Oral once daily [Active]; Wellbutrin Oral daily [Active]; Symbicort inhalation [Active]; ProAir HFA inhalation [Active]; - PMHx: 16:06 Asthma; Hypertension; insomnia; ibs; Migraines; Tachycardia; jh5 - PSHx: 16:06 Appendectomy; GALLBLADDER; left leg surgery; tubal ligation; 5 - Immunization history:: Adult Immunizations up to date. - Social history:: Smoking status: Patient denies any tobacco usage or history of. Screenin:25 Abuse screen: Denies threats or abuse. Denies injuries from another. Nutritional cb5 screening: No deficits noted. Tuberculosis screening: No symptoms or risk factors identified. Fall Risk None identified. Assessment: 17:23 General: Appears in no apparent distress. comfortable, obese, well nourished, Behavior cb5 is calm, cooperative, appropriate for age. Pain: Complains of pain in chest and back Pain radiates to back Pain currently is 5 out of 10 on a pain scale. Quality of pain is described as aching, tender, Pain began suddenly. Neuro: No deficits noted. Cardiovascular: No deficits noted. Respiratory: No deficits noted. GI: Patient currently denies. : Denies. : No deficits noted. EENT: No deficits noted. Derm: No deficits noted. Musculoskeletal: No deficits noted. 21:32 Reassessment: Urine test is negative. Urine dip completed. . 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 Currently sv1 sleeping.. Vital Signs: 12/06 16:05 BP 105 / 69; Pulse 83; Resp 18; Temp 97.1; Pulse Ox 97% ; Weight 99.79 kg; Height 5 ft. jh5 2 in. (157.48 cm); Pain 9/10; 19:37 BP 103 / 61; Pulse 97; Resp 16; Temp 98.3; Pulse Ox 97% 0 lpm ; sv1 20:00 BP 103 / 61; Pulse 87; Resp 16; Temp 98.3; Pulse Ox 97% 0 lpm ; sv1 22:00 BP 122 / 100; Pulse 75; Resp 16; Pulse Ox 97% 0 lpm ; sv1 12/07 00:01 BP 149 / 80; Pulse 75; Resp 16; Pulse Ox 99% 0 lpm ; sv1 02:00 BP 126 / 81; Pulse 55; Resp 16; Pulse Ox 96% ; sv1 04:27 BP 111 / 69; Pulse 84; Resp 16; Temp 98.4; Pulse Ox 98% 0 lpm ; sv1 12/06 16:05 Body Mass Index 40.24 (99.79 kg, 157.48 cm) [facility] ED Course: 12/06 15:17 Patient arrived in ED. am2 16:06 Triage completed. jh5 16:06 Arm band placed on right wrist. 5 17:19 Avis Stewart, COLBY is Primary Nurse. cb5 17:25 Ji Garcia PA is PHCP. cp 17:25 Glen Bishop MD is Attending Physician. cp 17:25 No provider procedures requiring assistance completed. cb5 17:26 Patient has correct armband on for positive identification. Allergy band placed. Bed in [facility] low position. Call light in reach. Side rails up X 1. shot peening operator on. 17:26 Patient maintains SpO2 saturation greater than 95% on room air. cb5 17:52 XRAY Chest (1 view) In Process Unspecified. EDMS 18:09 Basic Metabolic Panel Sent. cb5 18:09 CBC with Diff Sent. cb5 18:09 LFT's Sent. cb5 18:09 Magnesium Sent. cb5 18:09 NT PRO-BNP Sent. cb5 18:09 PT-INR Sent. cb5 18:10 Troponin HS Sent. cb5 18:10 COVID-19/FLU A+B (Document "Date of Onset" if Symptomatic) Sent. cb5 19:05 Report given to Mariela Hardwick cb5 21:31 Urine collected: clean catch specimen, clear. sv1 23:51 CT Aorta for Dissection In Process Unspecified. EDMS 12/07 00:08 Sung Heller is Hospitalizing Provider. cp 01:20 Troponin High Sensitivity Sent. sv1 07:00 Patient admitted, IV remains in place. intact, No redness/swelling at site. jl7 Administered Medications: 12/06 18:15 Drug: Aspirin Chewable Tablet 324 mg Route: PO; cb5 18:15 Drug: fentaNYL (PF) 25 mcg Route: IVP; Site: left hand; cb5 20:05 Follow up: Response: No adverse reaction; Pain is decreased sv1 12/07 01:52 Follow up: Response: No adverse reaction sv1 00:05 CANCELLED (Physician Discretion): NS 0.9% 500 ml IV at bolus once cp 00:05 CANCELLED (Physician Discretion): NS 0.9% 500 ml IV at 125 ml/hr continuous cp 01:06 Drug: Ketorolac 15 mg Route: IVP; Site: left hand; sv1 01:06 Follow up: Response: No adverse reaction sv1 01:51 Follow up: Response: No adverse reaction; Pain is decreased sv1 01:06 Drug: morphine 2 mg Route: IVP; Site: left hand; sv1 01:06 Follow up: Response: No adverse reaction; RASS: Alert and Calm (0) sv1 01:51 Follow up: Response: No adverse reaction; Pain is decreased sv1 01:27 Not Given (Other Intervention Used): fentaNYL (PF) 25 mcg IVP once; RASS on ADMIN: sv1 Combtv4, Very Agttd3, Agttd2, Rstlss1, AlertClm0, Drwsy-1, Lt Sdtn-2, Mod Sdtn-3, Dp Sdtn-4, UnArsble-5 Point of Care Testing: Urine : 12/06 21:32 hCG Reading: Negative; Control Reading: Negative; sv1 Outcome: 12/07 00:09 Decision to Hospitalize by Provider. cp 07:00 Admitted to ER Hold. Please see [facility] for further documentation. jl7 07:00 Condition: stable 07:00 Discharge instructions given to patient, Instructed on the need for admit, Demonstrated understanding of instructions. 10:08 Patient left the ED. jl7 Signatures: Dispatcher [employer] EDMS Ji Garcia PA PA cp Leal, Jahala RN RN jl7 Pili Mae Jessica RN RN jh5 Daniel Escobar RN RN sv1 Avis Stewart, RN RN cb5
[2021-12-07] MEDS ORDERED: KETOROLAC 30 MG/ML INJ ONE (01:01)
[2021-12-07] MEDS ORDERED: MORPHINE 2 MG/ML SYR ONE (01:01)
[2021-12-07] MEDS ORDERED: ONDANSETRON 4 MG/2 ML VIAL IV PRN (02:45)
[2021-12-07] MEDS ORDERED: NITROGLYCERIN 0.4 MG/TAB SL PRN (02:45)
[2021-12-07] MEDS ORDERED: MORPHINE 2 MG/ML SYR IV PRN (02:45)
[2021-12-07] MEDS ORDERED: ACETAMINOPHEN 500 MG TAB PO PRN (02:45)
--- NOTE | 2021-12-07 03:28 | P.HP ---
Certification for Inpatient Patient admitted to: Observation With expected LOS: <2 Midnights Patient will require the following post-hospital care: None Practitioner: I am a practitioner with admitting privileges, knowledge of patient current condition, hospital course, and medical plan of care. Services: Services provided to patient in accordance with Admission requirements found in Title 42 Section 412.3 of the Code of Federal Regulations Patient History Date of Service: 12/07/21 Reason for admission: chest pain History of Present Illness: Ms. Rodriguez is a 41 yo F with HTN, IBS, migraines, asthma who presents with a week of intermittent 10/10 chest pain that she describes as a squeezing or pressure. She says the pain radiates to her back and shoulder. Three days ago the pain became constant. Pain is worse with sitting up. She reports nausea, SOB, palpitations, blurry vision. She had a heart catherization in 2017 with no interventions at that time. 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 Allergies butorphanol [From Stadol] Allergy (Unverified 05/22/17 14:05) Unknown moxifloxacin [From Avelox] Allergy (Unverified 05/22/17 14:05) Unknown sumatriptan [From Imitrex] Allergy (Unverified 05/22/17 14:05) Unknown adult benadry Allergy (Uncoded 05/22/17 14:05) Unknown da Allergy (Uncoded 05/22/17 14:05) Unknown Tessalon P Allergy (Uncoded 05/22/17 14:05) Unknown - Past Medical/Surgical History -: asthma -: HTN -: insomnia -: IBS -: migraine -: appy -: maría -: leg surgery -: tubal ligation - Family History Family History: Reviewed- Non-Contributory - Social History Smoking Status: Unknown if ever smoked Place of Residence: Home Review of Systems 10-point ROS is otherwise unremarkable General: Unremarkable Eyes: Unremarkable ENT: Unremarkable Respiratory: Shortness of Breath Cardiovascular: Chest Pain, Palpitations, Light Headedness Gastrointestinal: Nausea Genitourinary: Unremarkable Musculoskeletal: Shoulder Pain, Back Pain Integumentary: Unremarkable Neurological: Unremarkable Lymphatics: Unremarkable Physical Examination - Physical Exam General: Alert, In no apparent distress, Obese HEENT: Atraumatic, PERRLA, Mucous membr. moist/pink, EOMI, Sclerae nonicteric Neck: Supple, 2+ carotid pulse no bruit, No LAD, Without JVD or thyroid abnormality Respiratory: Clear to auscultation bilaterally, Normal air movement Cardiovascular: Regular rate/rhythm, Normal S1 S2 Gastrointestinal: Normal bowel sounds, No tenderness Musculoskeletal: No tenderness Integumentary: No rashes Neurological: Normal gait, Normal speech, Normal strength at 5/5 x4 extr, Normal tone, Normal affect Lymphatics: No axilla or inguinal lymphadenopathy - Studies Laboratory Data (last 24 hrs) 12/06/21 19:50: Sodium 139, Potassium 3.8, BUN 16, Creatinine 0.84, Glucose 113 H, Magnesium 2.1, Total Bilirubin 0.2, AST 15, ALT 25, Alkaline Phosphatase 100 12/06/21 18:05: PT 10.5, INR 0.91 12/06/21 18:05: WBC 7.60, Hgb 12.6, Hct 37.7, Plt Count 289 Assessment and Plan - Problems (Diagnosis) (1) Chest pain Current Visit: Yes Status: Acute Qualifiers: Chest pain type: unspecified Qualified Code(s): R07.9 - Chest pain, unspecified (2) HTN (hypertension) Current Visit: Yes Status: Chronic Qualifiers: Hypertension type: primary hypertension Qualified Code(s): I10 - Essential (primary) hypertension (3) Asthma Current Visit: Yes Status: Chronic Qualifiers: Asthma severity: unspecified severity Asthma persistence: unspecified Asthma complication type: uncomplicated Qualified Code(s): J45.909 - Unspecified asthma, uncomplicated (4) Insomnia Current Visit: Yes Status: Chronic Qualifiers: Insomnia type: unspecified Qualified Code(s): G47.00 - Insomnia, unspecified (5) IBS (irritable bowel syndrome) Current Visit: Yes Status: Chronic Qualifiers: Irritable bowel syndrome type: unspecified Qualified Code(s): K58.9 - Irritable bowel syndrome without diarrhea (6) Migraine Current Visit: Yes Status: Chronic Qualifiers: Migraine type: unspecified Status migrainosus presence: without status migrainosus Intractability: not intractable Qualified Code(s): G43.909 - Migraine, unspecified, not intractable, without status migrainosus - Plan trend troponins, repeat EKG daily ASA, metoprolol, atorrvastatin lipid and thyroid panel pending prn morphine and nitoglycerin for pain reconcile and continue home medications DVT ppx Discharge Plan: Home Plan to discharge in: 24 Hours - Advance Directives Does patient have a Living Will: No Does patient have a Durable POA for Healthcare: No - Code Status/Comfort Care Code Status Assessed: Yes (full code ) Critical Care: No Time Spent Managing Pts Care (In Minutes): 70
[2021-12-07] MEDS ORDERED: METOPROLOL TAR 25 MG TAB PO SCH (06:00)
[2021-12-07 07:57] LABS: Thyroid Stimulating Hormone 6.33 uIU/mL (0.360-3.740)
[2021-12-07] MEDS ORDERED: ASPIRIN EC 81 MG TAB PO SCH (09:00)
[2021-12-07] MEDS ORDERED: ENOXAPARIN 40 MG/0.4 ML SQ SCH (09:00)
--- NOTE | 2021-12-07 09:24 | P.DS ---
Admission Date: 12/07/21 Discharge Date: 12/07/21 Disposition: ROUTINE DISCHARGE Discharge Condition: FAIR Reason for Admission: chest pain - Problems (1) Chest pain Status: Acute Qualifiers: Chest pain type: unspecified Qualified Code(s): R07.9 - Chest pain, unspecified (2) Asthma Status: Chronic Qualifiers: Asthma severity: unspecified severity Asthma persistence: unspecified Asthma complication type: uncomplicated Qualified Code(s): J45.909 - Unspecified asthma, uncomplicated (3) HTN (hypertension) Status: Chronic Qualifiers: Hypertension type: primary hypertension Qualified Code(s): I10 - Essential (primary) hypertension (4) Obesity Status: Acute Brief History of Present Illness: Ms. Rodriguez is a 41 yo F with HTN, IBS, migraines, asthma who presents with a week of intermittent 10/10 chest pain that she describes as a squeezing or pressure. She says the pain radiates to her back and shoulder. Three days ago the pain became constant. Pain is worse with sitting up. She reports nausea, SOB, palpitations. She had a heart catherization in 2017 with no interventions at that time. EKG showed no ischemic changes. Initial troponin negative. Patient placed in observation for ACS rule out. Hospital Course: Troponin trended negative. Patient had tenderness to palpation of the anterior chest wall. Her chest pain likely musculoskeletal. ACS ruled out. Vitals are stable. Patient deemed stable for discharge. He is informed to follow-up with cardiology-Dr. Murdock/Dr. May for arrangements for outpatient stress test. General: Alert, In no apparent distress, Oriented x3 HEENT: Mucous membr. moist/pink Neck: JVD not distended Respiratory: Clear to auscultation bilaterally, Normal air movement Cardiovascular: No edema, Regular rate/rhythm, Normal S1 S2 Gastrointestinal: Soft and benign, Non-distended Musculoskeletal: No swelling, Other (Chest wall is tender to palpation.) Integumentary: No rashes Neurological: Normal strength at 5/5 x4 extr Laboratory Data at Discharge: WBC 7.60 K/uL (4.3-10.9) 12/06/21 18:05 Hgb 12.6 g/dL (12.0-15.0) 12/06/21 18:05 Hct 37.7 % (36.0-45.0) 12/06/21 18:05 Plt Count 289 K/uL (152-406) 12/06/21 18:05 PT 10.5 SECONDS (9.5-12.5) 12/06/21 18:05 INR 0.91 12/06/21 18:05 Sodium 139 mmol/L (136-145) 12/06/21 19:50 Potassium 3.8 mmol/L (3.5-5.1) 12/06/21 19:50 BUN 16 mg/dL (7-18) 12/06/21 19:50 Creatinine 0.84 mg/dL (0.55-1.3) 12/06/21 19:50 Glucose 113 mg/dL (74-106) H 12/06/21 19:50 Magnesium 2.1 mg/dL (1.8-2.4) 12/06/21 19:50 Total Bilirubin 0.2 mg/dL (0.2-1.0) 12/06/21 19:50 AST 15 U/L (15-37) 12/06/21 19:50 ALT 25 U/L (12-78) 12/06/21 19:50 Alkaline Phosphatase 100 U/L (45-117) 12/06/21 19:50 Home Medications: Aspirin [Aspirin EC 81 MG] 81 mg PO DAILY #30 tablet. 12/07/21 Atorvastatin Calcium [Lipitor] 40 mg PO BEDTIME #30 tab 12/07/21 New Medications: Aspirin [Aspirin EC 81 MG] 81 mg PO DAILY #30 tablet. Atorvastatin Calcium [Lipitor] 40 mg PO BEDTIME #30 tab Diet: AHA Activity: Ad flaco Followup: Mikael May MD [ACTIVE - CAN ADMIT] - (Please call [phone] for arrangement for Stress test.) Bc Courtney MD [Primary Care Provider] - 1 Week
[2021-12-07 10:29] LABS: Troponin High Sensitivity 5.9 pg/mL (<58.9)
[2021-12-07 10:59] VITALS: BP 111/69; TEMP 98.4; O2SAT 98
--- NOTE | 2021-12-07 13:31 | RAD REPORT ---
EXAM DESCRIPTION: CT - Angio Aorta For Dissection - 12/07/2021 6:22 am CLINICAL HISTORY: CHEST PAIN COMPARISON: None Available TECHNIQUE: Multiple helical axial tomographic images were obtained of the chest, abdomen, and pelvis following administration of intravenous contrast per angiographic protocol. MIP reformatted images w ere obtained. This exam was performed according to our departmental dose-optimization program, which includes autom ated exposure control, adjustment of the mA and/or kV according to patient size and/or use of iterati ve reconstruction technique. FINDINGS: Chest: Thyroid gland: unremarkable. Axilla: unremarkable. Pulmonary arteries: Central pulmonary arteries appear patent. Aorta: No evidence of aortic dissection or aneurysm. Mediastinum: Unremarkable. No adenopathy. Heart: Heart is normal in size. Lungs/airways: No consolidation. Airways are patent. There is a mild mosaic attenuation in both lungs . Pleural spaces: No significant pleural effusion. No pneumothorax. Osseous: Unremarkable. Soft tissues: Unremarkable. Abdomen and pelvis: Liver: Homogenous attenuation is noted. Gallbladder/biliary: Cholecystectomy changes are present. There is mild prominence of the common bile duct which is nonspecific in the setting of prior cholecystectomy Pancreas: Unremarkable. No evidence of ductal enlargement. Spleen: Appears unremarkable. No splenomegaly. Adrenals: Unremarkable. Kidneys and ureters: No evidence of hydronephrosis. Normal enhancement. Bladder: Unremarkable. Pelvic organs: Unremarkable. Bowel: A few colonic diverticula are present. No evidence of bowel obstruction. No bowel wall thick ening. Appendix is not well-seen. Vasculature: Unremarkable. No evidence of aortic aneurysm or dissection. Two left renal arteries are noted. Peritoneum: No free air. No significant free fluid. Lymph nodes: Unremarkable. Soft tissues: Unremarkable. Bones: Unremarkable. IMPRESSION: 1. No evidence of an acute process within the chest, abdomen, or pelvis. 2. Mild mosaic attenuation in both lungs which can be seen with small airways disease. 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 The interpreting radiologist is fully responsible for the content of the report.
[2021-12-07] MEDS ORDERED: ATORVASTATIN 40 MG TAB PO SCH (21:00)
== END 2021-12-07 10:08 | disposition home or self-care (01) ==
LOC: ER 15:14 → ERHOLD 12-07 06:11
PROVIDERS: ADMIT Internal Medicine; ATTEND Internal Medicine
DX: R07.9 Chest pain, unspecified (principal); J45.909 Unspecified asthma, uncomplicated; I10 Essential (primary) hypertension; G47.00 Insomnia, unspecified; G43.909 Migraine, unspecified, not intractable, without status migrainosus; K58.9 Irritable bowel syndrome, unspecified; E66.9 Obesity, unspecified; Z68.41 Body mass index [BMI] 40.0-44.9, adult; Z20.822 Contact with and (suspected) exposure to COVID-19; Z88.3 Allergy status to other anti-infective agents; Z88.6 Allergy status to analgesic agent; Z88.8 Allergy status to other drugs, medicaments and biological substances; Z90.49 Acquired absence of other specified parts of digestive tract
CPT/HCPCS: 93005 ×2; 85025; 80048; 36415 ×2; 83735; 85610; 80061; 85379; 80076; 84443; 81003; 84484 ×3; 84439; 83880; 0240U; 71275; 74175; 71045; 96375; 96374; 99285; Q9967; J3010; J2270; J2405; G0378

== ENCOUNTER 2022-01-29 20:55 | Emergency (ER) | payer OTHER ==
[2022-01-29] MEDS ORDERED: ONDANSETRON 4 MG/2 ML VIAL ONE (21:58)
[2022-01-29] MEDS ORDERED: MORPHINE 4 MG/ML SYR ONE (21:59)
[2022-01-29 22:29] LABS: Absolute Lymphocytes (CBC) 2.4 K/uL (0.7-4.9); Hematocrit 36.7 % (36.0-45.0); Lymphocytes % 31.5 % (15.3-44.8); MPV 7.9 fL (7.6-11.3); RBC Red Blood Cell Count 3.81 M/uL (3.86-4.86)
[2022-01-29 22:37] LABS: Potassium 4.1 mmol/L (3.5-5.1)
[2022-01-29 23:10] LABS: Urine Appearance Cloudy (Clear); Urine Bilirubin Negative (Negative); Urine Blood 1+ (Negative); Urine Color Yellow (Yellow); Urine Glucose Negative (Negative); Urine Protein 1+ (Negative); Urine Specific Gravity >=1.030 (1.005-1.030); Urine Urobilinogen 0.2 mg/dL (0.2-1.0); Urine pH 6.5 (5.0-7.0)
[2022-01-29 23:33] LABS: Urine Microscopic Reflex ORDER UMIC
[2022-01-29 23:36] LABS: Urine Urothelial Cells <5 /HPF (NONE SEEN); Urine Volume 0.5 mL
[2022-01-29 23:37] LABS: Urine Bacteria <20 /HPF (<20); Urine RBC <5 /HPF (NONE SEEN)
--- NOTE | 2022-01-30 00:03 | ER ---
Nurse's Notes [facility] Name: Maria Del Carmen Rodriguez Age: 41 yrs Sex: Female : 1980 Arrival Date: 01/29/2022 Time: 20:58 Bed 16 Private MD: Diagnosis: Low back pain;Unspecified symptoms and signs involving the musculoskeletal system Presentation: 01/29 21:07 Chief complaint: Patient states: she is having low back pain described as "tolerable al4 pain" since Friday evening and "extreme pain" since yesterday. patient reports trouble walking due to pain. Coronavirus screen: Vaccine status: Patient reports receiving the 2nd dose of the covid vaccine. moderna. Ebola Screen: No symptoms or risks identified at this time. Initial Sepsis Screen: Does the patient meet any 2 criteria? No. Patient's initial sepsis screen is negative. Does the patient have a suspected source of infection? No. Patient's initial sepsis screen is negative. Risk Assessment: Do you want to hurt yourself or someone else? Patient reports no desire to harm self or others. Onset of symptoms was January 28, 2022. 21:07 Method Of Arrival: Wheelchair al4 21:07 Acuity: JUS 3 al4 Triage Assessment: 21:12 General: Appears in no apparent distress. uncomfortable, Behavior is calm, cooperative, al4 patient states pain started after lifting a 16 pound child . Pain: Complains of pain in back Pain currently is 10 out of 10 on a pain scale. Neuro: Level of Consciousness is awake, alert, obeys commands, Oriented to person, place, time, situation. Cardiovascular: Capillary refill < 3 seconds Patient's skin is warm and dry. Respiratory: Airway is patent Respiratory effort is unlabored, Respiratory pattern is regular. : Reports urinary frequency. 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: 21:12 LMP 01/20/2022 al4 Historical: - Allergies: 21:12 adult benadryl; al4 21:12 Avelox; al4 21:12 Benadryl; al4 21:12 darvocet; al4 21:12 Darvocet-N 100; al4 21:12 Hydrocodone-Acetaminophen; al4 21:12 Imitrex; al4 21:12 Stadol; al4 21:12 Sumatriptan Succinate; al4 21:12 Tessalon Perles; al4 21:12 Trazodone; al4 - PMHx: 21:12 Asthma; Bipolar disorder; Hypertension; ibs; insomnia; Migraines; Sleep Apnea; al4 Tachycardia; - PSHx: 21:12 Appendectomy; GALLBLADDER; left leg surgery; tubal ligation; al4 - Immunization history:: Adult Immunizations up to date, Client reports receiving the 2nd dose of the Covid vaccine, Flu vaccine is up to date. - Social history:: Smoking status: Patient/guardian denies using tobacco. Screenin:55 Abuse screen: Denies threats or abuse. Nutritional screening: No deficits noted. ss7 Tuberculosis screening: No symptoms or risk factors identified. Fall Risk IV access (20 points). Assessment: 21:25 General: Appears in no apparent distress. uncomfortable, Behavior is calm, cooperative, ss7 appropriate for age. Pain: Complains of pain in back. Neuro: Level of Consciousness is awake, alert, obeys commands, Oriented to person, place, time, situation. Cardiovascular: Heart tones S1 S2. Respiratory: Breath sounds are clear bilaterally. GI: No deficits noted. : Urine is cloudy. EENT: No deficits noted. Derm: No deficits noted. Musculoskeletal: Reports pain in back. 21:32 Reassessment: Patient ambulated to restroom to void. assisted patient. tk1 22:21 Reassessment: 2 failed urine dipsticks. Ua sent to lab with urinalysis ordered. . ss7 23:09 Reassessment: 3 attempts to call lab at 1108 with no answer in regards to ua results ss7 due to two failed attempts from dipstick. called inside lab and directed back to outside lab. Will continue to try. SS. Vital Signs: 21:07 BP 121 / 71; Pulse 92; Resp 20 S; Temp 98.2(T); Pulse Ox 99% on R/A; Weight 106.59 kg al4 (R); Height 5 ft. 2 in. (157.48 cm) (R); Pain 10/10; 21:55 BP 94 / 54; Pulse 86; Resp 18; Pulse Ox 96% on R/A; ss7 23:08 BP 114 / 70; Pulse 84; Resp 18; Pulse Ox 100% on R/A; ss7 23:16 BP 98 / 66; Pulse 84; Resp 18; Pulse Ox 100% on R/A; ss7 01/30 00:06 BP 90 / 69; Pulse 88; Resp 18; Pulse Ox 100% on R/A; ss7 01/29 21:07 Body Mass Index 42.98 (106.59 kg, 157.48 cm) al4 ED Course: 01/29 20:58 Patient arrived in ED. kc5 21:09 Placido Zarate MD is Attending Physician. kdr 21:12 Triage completed. al4 21:12 Arm band placed on left wrist. al4 21:32 Inserted saline lock: 22 gauge in left upper arm, using aseptic technique. Blood tk1 collected. 21:52 Fidelina Noriega, RN is Primary Nurse. ss7 21:55 Patient has correct armband on for positive identification. Bed in low position. Call ss7 light in reach. Side rails up X2. 21:55 No provider procedures requiring assistance completed. ss7 22:17 CT Lumbar Spine Wo Con In Process Unspecified. EDMS 22:17 CBC with Diff Sent. ss7 22:17 Chem 7 Sent. ss7 22:21 Urinalysis Sent. 7 01/30 00:00 Report given to COLBY Beauchamp. ss7 00:01 Bc Courtney MD is Referral Physician. kdr 00:06 IV discontinued, intact. ss7 Administered Medications: 01/29 22:10 Drug: morphine 4 mg Route: IVP; Site: left upper arm; ss7 01/30 00:09 Follow up: Response: Pain is decreased ss7 01/29 22:10 Drug: Zofran (Ondansetron) 4 mg Route: IVP; Site: left upper arm; ss7 01/30 00:09 Follow up: Response: Pain is decreased ss7 Outcome: 00:02 Discharge ordered by . kdr 00:06 Discharged to home ambulatory, with family. ss7 00:06 Condition: good 00:06 Discharge instructions given to patient, Instructed on discharge instructions, follow up and referral plans. Demonstrated understanding of instructions, follow-up care. 00:09 Patient left the ED. ss7 Signatures: Dispatcher [employer] EDMS Placido Zarate MD MD kdr Adriana Sims kc5 Ady Concepcion al4 Quynh Morel tk1 Fidelina Noriega RN RN ss7 Corrections: (The following items were deleted from the chart) 01/29 21:13 21:12 PMHx: Diabetes - NIDDM; al4 al4 21:07 Chief complaint: Patient states: "tolerable pain" since Sridhar evening and al4 "extreme pain" since yesterday. patient reports trouble walking due to pain al4 21:07 Chief complaint: Patient states: patient states she is having low back pain al4 described as "tolerable pain" since Sridhar evening and "extreme pain" since yesterday. patient reports trouble walking due to pain al4 : 21:12 General: Appears in no apparent distress. uncomfortable, Behavior is calm, al4 cooperative, al4 : 21:12 General: Appears in no apparent distress. uncomfortable, Behavior is calm, al4 cooperative, patient states pain started after lifting a 16 pound child . al4 21: 21:07 Chief complaint: Patient states: patient states she is having low back pain al4 described as "tolerable pain" since Sridhar evening and "extreme pain" since yesterday. patient reports trouble walking due to pain al4 23:33 22:21 Urinalysis drawn and sent. ss7 EDMS 23:33 22:53 Urinalysis drawn and sent. ss7 EDMS
--- NOTE | 2022-01-30 00:03 | EDPHYS ---
Physician Documentation [facility] Name: Maria Del Carmen Rodriguez Age: 41 yrs Sex: Female : 1980 Arrival Date: 01/29/2022 Time: 20:58 Bed 16 Private MD: ED Physician Placido Zarate HPI: 01/30 00:15 This 41 yrs old Unknown Female presents to ER via Wheelchair with complaints of Low kdr Back Pain. 00:15 The patient presents with pain that is acute, with no known mechanism of injury. The kdr symptoms are located in the low back. The pain does not radiate. The problem was sustained Sitting watching Netflix when she began to have pain in her low back. She denies any injury or any similar pain in the past. Onset: The symptoms/episode began/occurred suddenly, 3 day(s) ago. Modifying factors: The patient symptoms are alleviated by remaining still, Semireclining position, the patient symptoms are aggravated by any movement. Associated signs and symptoms: The patient has no apparent associated signs or symptoms. Severity of symptoms: At their worst the symptoms were moderate, severe, incapacitating, in the emergency department the symptoms are unchanged. The patient has not experienced similar symptoms in the past. The patient has not recently seen a physician. 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 21:12 LMP 01/20/2022 al4 Historical: - Allergies: 21:12 adult benadryl; al4 21:12 Avelox; al4 21:12 Benadryl; al4 21:12 darvocet; al4 21:12 Darvocet-N 100; al4 21:12 Hydrocodone-Acetaminophen; al4 21:12 Imitrex; al4 21:12 Stadol; al4 21:12 Sumatriptan Succinate; al4 21:12 Tessalon Perles; al4 21:12 Trazodone; al4 - PMHx: 21:12 Asthma; Bipolar disorder; Hypertension; ibs; insomnia; Migraines; Sleep Apnea; al4 Tachycardia; - PSHx: 21:12 Appendectomy; GALLBLADDER; left leg surgery; tubal ligation; al4 - Immunization history:: Adult Immunizations up to date, Client reports receiving the 2nd dose of the Covid vaccine, Flu vaccine is up to date. - Social history:: Smoking status: Patient/guardian denies using tobacco. ROS: 01/30 00:15 Constitutional: Negative for fever, chills, and weight loss, Eyes: Negative for injury, kdr pain, redness, and discharge, ENT: Negative for injury, pain, and discharge, Neck: Negative for injury, pain, and swelling, Cardiovascular: Negative for chest pain, palpitations, and edema, Respiratory: Negative for shortness of breath, cough, wheezing, and pleuritic chest pain, Abdomen/GI: Negative for abdominal pain, nausea, vomiting, diarrhea, and constipation, : Negative for injury, bleeding, discharge, and swelling, MS/Extremity: Negative for injury and deformity, Skin: Negative for injury, rash, and discoloration, Neuro: Negative for headache, weakness, numbness, tingling, and seizure activity. Psych: Negative for depression, anxiety, suicide ideation, homicidal ideation, and hallucinations, Allergy/Immunology: Negative for hives, rash, and allergies, Endocrine: Negative for neck swelling, polydipsia, polyuria, polyphagia, and marked weight changes, Hematologic/Lymphatic: Negative for swollen nodes, abnormal bleeding, and unusual bruising. Back: Positive for injury or acute deformity, Negative for injury or acute deformity, decreased range of motion. Exam: 00:15 Constitutional: This is a well developed, well nourished patient who is awake, alert, kdr and in moderate distress. Head/Face: Normocephalic, atraumatic. Eyes: Pupils equal round and reactive to light, extra-ocular motions intact. Lids and lashes normal. Conjunctiva and sclera are non-icteric and not injected. Cornea within normal limits. Periorbital areas with no swelling, redness, or edema. Neck: Trachea midline, no thyromegaly or masses palpated, and no cervical lymphadenopathy. Supple, full range of motion without nuchal rigidity, or vertebral point tenderness. No Meningismus. Chest/axilla: Normal chest wall appearance and motion. Nontender with no deformity. No lesions are appreciated. Cardiovascular: Regular rate and rhythm with a normal S1 and S2. No gallops, murmurs, or rubs. Normal PMI, no JVD. No pulse deficits. Respiratory: Lungs have equal breath sounds bilaterally, clear to auscultation and percussion. No rales, rhonchi or wheezes noted. No increased work of breathing, no retractions or nasal flaring. Abdomen/GI: Soft, non-tender, with normal bowel sounds. No distension or tympany. No guarding or rebound. No evidence of tenderness throughout. Back: No spinal tenderness. No costovertebral tenderness. Full range of motion. Skin: Warm, dry with normal turgor. Normal color with no rashes, no lesions, and no evidence of cellulitis. MS/ Extremity: Pulses equal, no cyanosis. Neurovascular intact. Full, normal range of motion. Neuro: Awake and alert, GCS 15, oriented to person, place, time, and situation. Cranial nerves II-XII grossly intact. Motor strength 5/5 in all extremities. Sensory grossly intact. Cerebellar exam normal. Normal gait. Psych: Awake, alert, with orientation to person, place and time. Behavior, mood, and affect are within normal limits. 00:15 Back: pain, that is mild, ROM is painful, normal spinal alignment noted, CVA tenderness, is absent, vertebral tenderness, is not appreciated. Vital Signs: 01/29 21:07 BP 121 / 71; Pulse 92; Resp 20 S; Temp 98.2(T); Pulse Ox 99% on R/A; Weight 106.59 kg al4 (R); Height 5 ft. 2 in. (157.48 cm) (R); Pain 10/10; 21:55 BP 94 / 54; Pulse 86; Resp 18; Pulse Ox 96% on R/A; ss7 23:08 BP 114 / 70; Pulse 84; Resp 18; Pulse Ox 100% on R/A; 7 23:16 BP 98 / 66; Pulse 84; Resp 18; Pulse Ox 100% on R/A; 7 03 00:06 BP 90 / 69; Pulse 88; Resp 18; Pulse Ox 100% on R/A; [facility] 03 21:07 Body Mass Index 42.98 (106.59 kg, 157.48 cm) al4 MDM: 00:02 Patient medically screened. kdr 01/29 21:43 Order name: CBC with Diff; Complete Time: 23:54 kdr 01/29 21:43 Order name: Chem 7; Complete Time: 23:54 kdr 01/29 22:16 Order name: Urinalysis 7 01/29 23:10 Order name: Urinalysis; Complete Time: 23:54 EDMS 01/29 23:33 Order name: Urine Microscopic Only; Complete Time: 23:54 EDPR 01/29 21:42 Order name: CT Lumbar Spine Wo Con kdr 01/29 23:38 Order name: Urine Culture EDMS Administered Medications: 01/29 22:10 Drug: morphine 4 mg Route: IVP; Site: left upper arm; ss7 01/30 00:09 Follow up: Response: Pain is decreased ss7 01/29 22:10 Drug: Zofran (Ondansetron) 4 mg Route: IVP; Site: left upper arm; ss7 01/30 00:09 Follow up: Response: Pain is decreased ss7 Disposition Summary: 01/30/22 00:02 Discharge Ordered Location: Home kdr Problem: new kdr Symptoms: have improved kdr Condition: Stable kdr Diagnosis - Low back pain kdr - Unspecified symptoms and signs involving the musculoskeletal system kdr Followup: kdr - With: Private Physician - When: 2 - 3 days - Reason: If symptoms return, Further diagnostic work-up, Recheck today's complaints, Continuance of care, Re-evaluation by your physician Followup: kdr - With: Bc Courtney MD - When: 1 - 2 days - Reason: If symptoms return, Further diagnostic work-up, Recheck today's complaints, Continuance of care, Re-evaluation by your physician Discharge Instructions: - Discharge Summary Sheet kdr - Acute Back Pain, Adult kdr - Musculoskeletal Pain kdr - Back Exercises, [id number] kdr Forms: - Medication Reconciliation Form kdr - Thank You Letter kdr - Antibiotic Education kdr - Prescription Opioid Use kdr Prescriptions: - Ibuprofen 800 mg Oral Tablet - take 1 tablet by ORAL route every 8 hours As needed take with food; 30 tablet; kdr Refills: 0, Product Selection Permitted - Cyclobenzaprine 10 mg Oral Tablet - take 1 tablet by ORAL route every 8 hours As needed; 30 tablet; Refills: 0, kdr Product Selection Permitted - Tramadol 50 mg Oral Tablet - take 1 tablet by ORAL route every 8 hours As needed as needed; 12 tablet; kdr Refills: 0, Product Selection Permitted - Medrol (Mejia) 4 mg Oral Tablets, Dose Pack - take 1 tablet by ORAL route as directed - follow package instructions; 1 kdr packet; Refills: 0, Product Selection Permitted - Bactrim DS 800-160 mg Oral Tablet - take 1 tablet by ORAL route every 12 hours for 5 days; 10 tablet; Refills: 0, kdr Product Selection Permitted Signatures: Dispatcher [employer] EDPlacido Randolph MD MD kdr Ledbetter, Alexis al4 Fidelina Noriega RN RN ss7 Corrections: (The following items were deleted from the chart) 01/29 21:13 21:12 PMHx: Diabetes - NIDDM; 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 radha sawant7 23:33 22:16 Urinalysis ordered. EDPR EDMS
[2022-01-30 01:13] VITALS: TEMP 98.2
[2022-01-30 01:15] VITALS: O2SAT 100
[2022-01-30 01:17] VITALS: BP 90/69
--- NOTE | 2022-01-30 10:43 | RAD REPORT ---
EXAM DESCRIPTION: CTSpine Lumbar Wo Con01/30/2022 6:37 am CLINICAL HISTORY: LOWER BACK PAIN. COMPARISON: None. TECHNIQUE: CT of the lumbar spine was performed without IV contrast. Axial, coronal, and sagittal re constructions were created and sent to PACS. This exam was performed according to our departmental dose-optimization program, which includes autom ated exposure control, adjustment of the mA and/or kV according to patient size and/or use of iterati ve reconstruction technique. FINDINGS: Bones: No acute osseous abnormality identified. Vertebral body height and alignment is anya ntained. Minimal bilateral sacroiliac osteoarthrosis. T12-L1: No significant central canal or neuroforaminal stenosis identified. L1-L2: No significant central canal or neuroforaminal stenosis identified. L2-L3: Mild circumferential disc bulge. No significant central canal or neuroforaminal stenosis ident ified. L3-L4: Mild circumferential disc bulge. No significant central canal or neuroforaminal stenosis ident ified. L4-L5: Moderate circumferential disc bulge, resulting in borderline central canal narrowing to 0.8 cm AP. Mild bilateral neuroforaminal narrowing due to disc material. L5-S1: Mild circumferential disc bulge. No significant central canal or neuroforaminal stenosis ident ified. Paraspinal soft tissues: Unremarkable. IMPRESSION: 1. No acute osseous abnormality of the lumbar spine. 2. Mild multilevel degenerative disc disease, most prominent at L4-L5 where there is borderline qian tral canal narrowing and mild neuroforaminal narrowing. 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 The interpreting r adiologist is fully responsible for the content of the report.
== END 2022-01-30 00:09 | disposition home or self-care (01) ==
LOC: ER 20:55
DX: M54.50 Low back pain, unspecified (principal); R29.91 Unspecified symptoms and signs involving the musculoskeletal system; I10 Essential (primary) hypertension; Z88.5 Allergy status to narcotic agent; Z88.6 Allergy status to analgesic agent; Z88.8 Allergy status to other drugs, medicaments and biological substances
CPT/HCPCS: 87088; 85025; 87086; 80048; 36415; 72131; 96375; 96374; 99284; J2405; 81003; 81015

== ENCOUNTER 2022-02-07 19:10 | Emergency (ER) | payer OTHER ==
[2022-02-07] MEDS ORDERED: IBUPROFEN 400 MG TAB ONE (19:53)
[2022-02-07] MEDS ORDERED: ALBUTEROL 2.5 MG/3 ML NEB SOL ONE (19:53)
[2022-02-07] MEDS ORDERED: NA CHLORIDE 0.9% 1,000 ML ONE (20:27)
[2022-02-07 20:34] LABS: Hematocrit 39.3 % (36.0-45.0); MPV 7.5 fL (7.6-11.3); Protime INR 1.01; RBC Red Blood Cell Count 3.99 M/uL (3.86-4.86)
--- NOTE | 2022-02-07 20:34 | RAD REPORT ---
EXAM DESCRIPTION: RAD - Chest Pa And Lat (2 Views) - 02/07/2022 8:07 pm CLINICAL HISTORY: COUGH COMPARISON: Single-view chest 12/06/2021 TECHNIQUE: Frontal and lateral views of the chest were obtained. FINDINGS: The lungs are clear. Interstitial pattern not clearly different from comparison. Heart si ze is normal and central vasculature is within normal limits. No pleural effusion or pneumothorax se en. No acute bony finding noted. No aortic abnormality. IMPRESSION: No acute cardiopulmonary process.
[2022-02-07 20:39] LABS: SARS-COV-2 RT PCR NEGATIVE (NEGATIVE)
[2022-02-07 20:56] LABS: Magnesium 2.2 mg/dL (1.8-2.4); Potassium 3.7 mmol/L (3.5-5.1); T3 Free 1.97 pg/mL (2.18-3.98); Thyroid Stimulating Hormone 2.64 uIU/mL (0.360-3.740); Troponin High Sensitivity 3.4 pg/mL (<58.9)
--- NOTE | 2022-02-07 21:42 | RAD REPORT ---
EXAM DESCRIPTION: CT - Chest For Pe Angio - 02/07/2022 9:33 pm CLINICAL HISTORY: CHEST PAIN COMPARISON: Chest For Pe Angio dated 11/10/2020; Chest Pa And Lat (2 Views) dated 02/07/2022 TECHNIQUE: Dynamically enhanced 3 mm thick images of the chest were obtained during administration o f approximately 150mL Isovue 370 IV contrast. Coronal and oblique MIP reconstruction images were gene rated and reviewed. Exam utilizes a protocol to evaluate the pulmonary arterial tree. All CT scans are performed using dose optimization technique as appropriate and may include automated exposure control or mA/KV adjustment according to patient size. FINDINGS: No pulmonary emboli are identified. The aorta as imaged shows no acute or suspicious finding. No pericardial thickening or effusion. Trace amounts of atelectasis seen in the lower lung mattson. No focal consolidation identified. Bronch ial wall thickening is seen in the central bronchial tree and bilateral lower lobe bronchi. No endobr onchial lesions seen. No pleural effusion or pleural thickening. No mediastinal or hilar suspicious masses. No chest wall masses or abnormal axillary lymphadenopathy. IMPRESSION: No pulmonary emboli identified. Bilateral bronchial wall thickening seen typical for bronchitis or viral infiltrate. No peripheral ma ss or consolidation to suspect bacterial pneumonia.
--- NOTE | 2022-02-07 22:20 | EDPHYS ---
Physician Documentation [facility] [place] Name: Maria Del Carmen Rodriguez Age: 41 yrs Sex: Female : 1980 Arrival Date: 02/07/2022 Time: 19:13 Bed 4 Private MD: ED Physician Placido Zarate HPI: 02/07 20:00 This 41 yrs old Unknown Female presents to ER via Wheelchair with complaints of Cough, cp Chest Pain, Palpitations. 20:00 The patient or guardian reports cough, that is intermittent, with no sputum. Onset: The cp symptoms/episode began/occurred last night. Severity of symptoms: in the emergency department the symptoms are unchanged, despite home interventions. Associated signs and symptoms: Pertinent positives: chest pain, fever, sore throat, palpitations. LIBRARIAN HEAD: 19:31 LMP N/A - Tubal Ligation vc1 Historical: - Allergies: 19:31 adult benadryl; vc1 19:31 Avelox; vc1 19:31 Benadryl; vc1 19:31 darvocet; vc1 19:31 Darvocet-N 100; vc1 19:31 Hydrocodone-Acetaminophen; vc1 19:31 Imitrex; vc1 19:31 Stadol; vc1 19:31 Sumatriptan Succinate; vc1 19:31 Tessalon Perles; vc1 19:31 Trazodone; vc1 - PMHx: 19:31 Asthma; Bipolar disorder; Hypertension; ibs; insomnia; Migraines; Sleep Apnea; vc1 Tachycardia; - Immunization history:: Adult Immunizations up to date, Client reports receiving the 2nd dose of the Covid vaccine, Flu vaccine is up to date. - Social history:: Smoking status: Patient denies any tobacco usage or history of. ROS: 20:05 Constitutional: Positive for body aches, Negative for fever, poor PO intake. cp 20:05 Eyes: Negative for injury, pain, redness, and discharge. cp 20:05 ENT: Positive for sore throat, Negative for drainage from ear(s), ear pain, difficulty swallowing, difficulty handling secretions. 20:05 Cardiovascular: Positive for chest pain, palpitations, Negative for edema. 20:05 Respiratory: Positive for cough, "sounds productive". 20:05 Abdomen/GI: Negative for abdominal pain, nausea, vomiting, and diarrhea. 20:05 Neuro: Negative for altered mental status, headache, syncope, weakness. 20:05 All other systems are negative. Exam: 18:57 ECG was reviewed by the Attending Physician. cp 19:33 ECG was reviewed by the Attending Physician. cp 20:10 Constitutional: The patient appears in no acute distress, alert, awake, cp non-diaphoretic, non-toxic, well developed, well nourished, obese. 20:10 Head/Face: Normocephalic, atraumatic. cp 20:10 Eyes: Periorbital structures: appear normal, Conjunctiva: normal, no exudate, no injection, Sclera: no appreciated abnormality, Lids and lashes: appear normal, bilaterally. 20:10 ENT: External ear(s): are unremarkable, Ear canal(s): are normal, clear, TM's: are normal, no evidence of bulging, no erythema, Nose: is normal, Mouth: Lips: moist, Oral mucosa: moist, Posterior pharynx: Airway: no evidence of obstruction, patent, Tonsils: no enlargement, no exudate, swelling, is not appreciated, erythema, that is moderate, exudate, is not appreciated. 20:10 Neck: ROM/movement: is normal, is supple, without pain, no range of motions limitations, Lymph nodes: no appreciated lymphadenopathy. 20:10 Chest/axilla: Inspection: normal. 20:10 Cardiovascular: Rate: tachycardic, Rhythm: regular, Edema: is not appreciated, JVD: is not appreciated. 20:10 Respiratory: the patient does not display signs of respiratory distress, Respirations: normal, Breath sounds: bronchial sounds, that are mild, are heard diffusely, decreased breath sounds, are not appreciated, stridor, is not appreciated, wheezing: is not appreciated. 20:10 Abdomen/GI: Inspection: abdomen appears normal, Palpation: abdomen is soft and non-tender, in all quadrants. 20:10 Skin: no rash present. 20:10 Neuro: Orientation: to person, place \\T\\ time. Mentation: is normal, Motor: moves all fours, strength is normal, Sensation: is normal. Vital Signs: 19:28 BP 123 / 74; Pulse 88; Resp 20; Temp 98.2; Pulse Ox 92% ; Weight 107.95 kg; Height 5 vc1 ft. 2 in. (157.48 cm); Pain 4/10; 19:53 BP 118 / 92; Pulse 71; Resp 18; Pulse Ox 94% on R/A; st1 19:28 Body Mass Index 43.53 (107.95 kg, 157.48 cm) vc1 MDM: 19:44 Patient medically screened. cp 22:18 Data reviewed: vital signs, nurses notes, lab test result(s), EKG, radiologic studies, cp CT scan, plain films. 22:18 Differential Diagnosis: Bronchitis Influenza Viral Syndrome Pneumonia. Test cp interpretation: by ED physician or midlevel provider: ECG, plain radiologic studies. Counseling: I had a detailed discussion with the patient and/or guardian regarding: the historical points, exam findings, and any diagnostic results supporting the discharge/admit diagnosis, lab results, radiology results, the need for outpatient follow up, a hospital education coordinator, a family practitioner, to return to the emergency department if symptoms worsen or persist or if there are any questions or concerns that arise at home. Special discussion: Based on the patient's history, exam, and Dx evaluation, there is no indication for emergent intervention or inpatient Tx. It is understood by the patient/guardian that if the Sx's persist or worsen they need to return immediately for re-evaluation. 02/07 19:46 Order name: COVID-19/FLU A+B (Document "Date of Onset" if Symptomatic); Complete Time: cp 20:51 02/07 19:46 Order name: Strep; Complete Time: 20:51 cp 02/07 20:01 Order name: Basic Metabolic Panel cp 02/07 20:01 Order name: CBC with Diff cp 02/07 20:01 Order name: D-Dimer cp 02/07 20:01 Order name: Magnesium; Complete Time: 21:54 cp 02/07 20:01 Order name: NT PRO-BNP; Complete Time: 21:54 cp 02/07 21:54 Interpretation: NT PRO-BNP 142; Reviewed. cp 02/07 20:01 Order name: PT-INR; Complete Time: 20:51 cp 02/07 20:01 Order name: Troponin HS; Complete Time: 21:54 cp 02/07 20:01 Order name: TSH; Complete Time: 21:54 cp 02/07 20:01 Order name: T3 Free; Complete Time: 21:54 cp 02/07 20:02 Order name: Basic Metabolic Panel; Complete Time: 21:54 EDMS 02/07 21:55 Interpretation: Normal except: GLUC 144; GFR 59. cp 02/07 20:02 Order name: CBC with Automated Diff; Complete Time: 20:51 EDMS 02/07 21:56 Interpretation: Normal except: WBC 11.90; MPV 7.5; DAYO% 83.9; LYM% 8.0; NEUT A 10.0. cp 02/07 20:02 Order name: D-Dimer; Complete Time: 20:51 EDMS 02/07 21:56 Interpretation: Reviewed. cp 02/07 19:46 Order name: EKG; Complete Time: 19:47 cp 02/07 19:46 Order name: EKG - Nurse/Tech; Complete Time: 19:51 cp 02/07 19:46 Order name: XRAY Chest Pa And Lat (2 Views); Complete Time: 20:51 cp 02/07 20:01 Order name: Cardiac monitoring; Complete Time: 20:25 cp 02/07 20:01 Order name: IV Saline Lock; Complete Time: 20:25 cp 02/07 20:01 Order name: Labs collected and sent; Complete Time: 20:25 cp 02/07 20:01 Order name: O2 Per Protocol; Complete Time: 20:06 cp 02/07 20:01 Order name: O2 Sat Monitoring; Complete Time: 20:06 cp 02/07 20:33 Order name: EKG; Complete Time: 20:33 st1 02/07 20:33 Order name: Throat Culture EDUT 02/07 20:52 Order name: CT Chest For PE Angio; Complete Time: 21:54 cp EC:57 Rate is 157 beats/min. Rhythm is regular. QRS interval is normal. QT interval is cp normal. Interpreted by me. Reviewed by me. 19:33 Rate is 111 beats/min. Rhythm is regular. RI interval is normal. QRS interval is cp normal. QT interval is normal. T waves are Inverted in lead aVR. Interpreted by me. Reviewed by me. Administered Medications: 19:56 Drug: Albuterol - atroVENT (ipratropium) (3:1) (2.5 mg - 0.5 mg) 3 ml Route: Nebulizer; kd3 19:56 Drug: Ibuprofen 800 mg Route: PO; kd3 20:25 Drug: NS 0.9% 1000 ml Route: IV; Rate: 125 ml/hr; Site: right forearm; st1 22:39 Drug: SOLU-Medrol (methylPrednisoLONE) 125 mg Route: IVP; Site: right forearm; st1 Disposition: 02/08 07:38 Co-signature as Attending Physician, Placido Zarate MD I agree with the assessment and kdr plan of care. Disposition Summary: 02/07/22 22:19 Discharge Ordered Location: Home cp Problem: new cp Symptoms: have improved cp Condition: Stable cp Diagnosis - Palpitations cp - Acute bronchitis, unspecified cp Followup: cp - With: Private Physician - When: 2 - 3 days - Reason: Recheck today's complaints Discharge Instructions: - Discharge Summary Sheet cp - Acute Bronchitis, Adult cp - Palpitations cp - Aspirin and Your Heart cp Forms: - Medication Reconciliation Form cp - Thank You Letter cp - Antibiotic Education cp - Prescription Opioid Use cp Prescriptions: - albuterol sulfate 90 mcg/actuation Inhalation HFA aerosol inhaler - inhale 1 puff by INHALATION route every 4-6 hours; 1 Inhaler; Refills: 0, cp Product Selection Permitted - Zithromax Z-Mejia 250 mg Oral Tablet - take 1 tablet by ORAL route as directed for 5 days Day 1 - take two (2) tablets cp one time. Day 2, 3, 4 , 5 take one (1) tablet once daily.; 6 tablet; Refills: 0, Product Selection Permitted - Prednisone 20 mg Oral Tablet - take 2 tablets by ORAL route once daily for 5 days; 10 tablet; Refills: 0, cp Product Selection Permitted Signatures: Dispatcher [employer] [facility] Placido Zarate MD MD kdr Ji Garcia PA PA cp Prudence Julian RN RN kd3 Balbina Izquierdo RN RN st1 Trini Bourgeois RN RN vc1 Corrections: (The following items were deleted from the chart) 02/07 20:06 20:02 Chest Single View+RAD.RAD.BRZ ordered. [facility] EDMS 21:56 20:51 Normal except: WBC 11.90; MPV 7.5; DAYO% 83.9; LYM% 8.0. cp cp
--- NOTE | 2022-02-07 22:20 | ER ---
Nurse's Notes [facility] Name: Maria Del Carmen Rodriguez Age: 41 yrs Sex: Female : 1980 Arrival Date: 02/07/2022 Time: 19:13 Bed 4 Private MD: Diagnosis: Palpitations;Acute bronchitis, unspecified Presentation: 02/07 19:28 Chief complaint: Patient states: "I started last night with a sore, dry throat, then I vc1 started coughing. Now my chest is hurting and I'm dizzy". Coronavirus screen: Vaccine status: Patient reports receiving the 2nd dose of the covid vaccine. plus booster, Moderna cough unrelated to allergies, fatigue, headache, nausea, shortness of breath, Client presents with at least one sign or symptom that may indicate coronavirus-19. Standard/surgical mask placed on the client. Provider contacted for isolation considerations. Ebola Screen: No symptoms or risks identified at this time. Initial Sepsis Screen: Does the patient meet any 2 criteria? No. Patient's initial sepsis screen is negative. Does the patient have a suspected source of infection? No. Patient's initial sepsis screen is negative. Risk Assessment: Do you want to hurt yourself or someone else? Patient reports no desire to harm self or others. Onset of symptoms was February 06, 2022. 19:28 Method Of Arrival: Wheelchair vc1 19:28 Acuity: JUS 3 vc1 Triage Assessment: 19:31 General: Appears in no apparent distress. uncomfortable, ill, Behavior is calm, vc1 cooperative, appropriate for age. Pain: Complains of pain in head and chest Pain currently is 4 out of 10 on a pain scale. Aggravated by coughing Also complains of nausea. Cardiovascular: Reports chest pain, nausea. Respiratory: Reports shortness of breath at rest cough that is productive, Airway is patent Respiratory effort is even, unlabored, Respiratory pattern is regular, symmetrical, Sputum is yellow. 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 - Social history:: Smoking status: Patient denies any tobacco usage or history of. Screenin:44 Abuse screen: Denies threats or abuse. Nutritional screening: No deficits noted. st1 Tuberculosis screening: No symptoms or risk factors identified. Fall Risk None identified. No fall in past 12 months (0 pts). No secondary diagnosis (0 pts). No IV (0 pts). Ambulatory Aid- None/Bed Rest/Nurse Assist (0 pts). Gait- Normal/Bed Rest/Wheelchair (0 pts) Mental Status- Oriented to own ability (0 pts). Total Spear Fall Scale indicates No Risk (0-24 pts). Assessment: 19:43 Reassessment: Patient is alert, oriented x 3, equal unlabored respirations, skin st1 warm/dry/pink. please see triage note. 22:00 Pain: Pain began. kd3 22:55 Pain: st1 Vital Signs: 19:28 BP 123 / 74; Pulse 88; Resp 20; Temp 98.2; Pulse Ox 92% ; Weight 107.95 kg; Height 5 vc1 ft. 2 in. (157.48 cm); Pain 4/10; 19:53 BP 118 / 92; Pulse 71; Resp 18; Pulse Ox 94% on R/A; st1 19:28 Body Mass Index 43.53 (107.95 kg, 157.48 cm) vc1 ED Course: 19:13 Patient arrived in ED. wm 19:31 Triage completed. vc1 19:31 Arm band placed on right wrist. vc1 19:40 Ji Garcia PA is PHCP. cp 19:40 Placido Zarate MD is Attending Physician. cp 19:43 Balbina Izquierdo RN is Primary Nurse. st1 19:44 Patient has correct armband on for positive identification. Bed in low position. Call st1 light in reach. Side rails up X 1. Pulse ox on. NIBP on. 19:44 Patient maintains SpO2 saturation greater than 95% on room air. st1 19:51 Strep Sent[address] st1 19:51 COVID-19/FLU A+B (Document "Date of Onset" if Symptomatic) Sent. st1 19:57 EKG done. al4 20:06 XRAY Chest Pa And Lat (2 Views) In Process Unspecified. EDMS 20:24 CBC with Automated Diff Sent. st1 20:24 D-Dimer Sent. st1 20:25 Basic Metabolic Panel Sent. st1 20:25 T3 Free Sent. st1 20:25 TSH Sent. st1 20:25 Basic Metabolic Panel Sent. st1 20:25 CBC with Diff Sent. st1 20:25 D-Dimer Sent. st1 20:25 Inserted saline lock: 20 gauge in right forearm, using aseptic technique. st1 21:31 CT Chest For PE Angio In Process Unspecified. EDMS 22:54 No provider procedures requiring assistance completed. IV discontinued, intact, st1 bleeding controlled, No redness/swelling at site. Pressure dressing applied. Administered Medications: 19:56 Drug: Albuterol - atroVENT (ipratropium) (3:1) (2.5 mg - 0.5 mg) 3 ml Route: Nebulizer; kd3 19:56 Drug: Ibuprofen 800 mg Route: PO; kd3 20:25 Drug: NS 0.9% 1000 ml Route: IV; Rate: 125 ml/hr; Site: right forearm; st1 22:39 Drug: SOLU-Medrol (methylPrednisoLONE) 125 mg Route: IVP; Site: right forearm; st1 Outcome: 22:19 Discharge ordered by . cp 22:54 Discharged to home ambulatory, with family. st1 22:54 Condition: good 22:54 Discharge instructions given to patient, Instructed on discharge instructions, follow up and referral plans. no drinking with medication, medication usage, Demonstrated understanding of instructions, follow-up care, medications, Prescriptions given X 3. 22:55 Patient left the ED. st1 Signatures: Dispatcher [employer] EDMS Ji Garcia PA PA cp Marsh, Wendy wm Doucette, Kyli, RN RN kd3 Ady Concepcion al4 Tingle, Balbina, RN RN st1 Calcote, Trini, RN RN vc1
[2022-02-07] MEDS ORDERED: METHYLPREDNISOLONE 125 MG INJ ONE (22:41)
[2022-02-08 01:40] VITALS: TEMP 98.2
[2022-02-08 01:41] VITALS: BP 118/92; O2SAT 94
--- NOTE | 2022-02-11 08:29 | EKG ---
Test Date: 2022-02-07 Test Time: 18:51:56 Mathematics Department Chair: CHARLEEN MEASUREMENT RESULTS: Intervals: Rate: 157 ID: QRSD: [id number] QT: 292 QTc: 472 [place]: P: ID: QRS: [id number] T: 240 INTERPRETIVE STATEMENTS: Supraventricular tachycardia with premature supraventricular complexes and with occasional premature ventricular complexes ST & T wave abnormality, consider inferior ischemia Abnormal ECG Compared to ECG 12/07/2021 06:26:36 Atrial premature complex(es) now present Ventricular premature complex(es) now present ST (T wave) deviation now present Possible ischemia now present Sinus rhythm no longer present Electronically Signed On 02-11-22 08:23:20 CDT by Mikael May
--- NOTE | 2022-02-11 08:29 | EKG ---
Test Date: 2022-02-07 Test Time: 19:28:20 Network Infrastructure Architect: CHARLEEN MEASUREMENT RESULTS: Intervals: Rate: 111 [place]: 152 QRSD: 86 QT: 344 QTc: 467 [place]: P: 61 [place]: 152 QRS: 63 T: 42 INTERPRETIVE STATEMENTS: Sinus tachycardia Otherwise normal ECG Compared to ECG 12/07/2021 06:26:36 Sinus rhythm no longer present Electronically Signed On 02-11-22 08:23:03 CDT by Mikael May
== END 2022-02-07 22:55 | disposition home or self-care (01) ==
LOC: ER 19:10
DX: J20.9 Acute bronchitis, unspecified (principal); R00.2 Palpitations; R07.9 Chest pain, unspecified; I10 Essential (primary) hypertension; Z88.5 Allergy status to narcotic agent; Z88.8 Allergy status to other drugs, medicaments and biological substances; Z20.822 Contact with and (suspected) exposure to COVID-19
CPT/HCPCS: 93005 ×2; 87070; 85025; 80048; 36415; 83735; 85610; 85379; 87081; 84443; 84484; 84481; 83880; 0240U; 71275; 71046; 94640; 96374; 99285; Q9967; J7030; J2930

== ENCOUNTER 2022-02-11 06:33 | Emergency (ER) | payer OTHER ==
[2022-02-11] MEDS ORDERED: NA CHLORIDE 0.9% 500 ML ONE (07:07)
[2022-02-11] MEDS ORDERED: METHYLPREDNISOLONE 125 MG INJ ONE (07:07)
[2022-02-11 07:27] LABS: Absolute Lymphocytes (CBC) 3.2 K/uL (0.7-4.9); Hematocrit 37.6 % (36.0-45.0); Lymphocytes % 26.4 % (15.3-44.8); MPV 7.2 fL (7.6-11.3); RBC Red Blood Cell Count 3.87 M/uL (3.86-4.86)
[2022-02-11] MEDS ORDERED: LEVALBUTEROL 1.25 MG/3 ML NEB ONE (07:45)
[2022-02-11 07:49] LABS: Albumin 3.3 g/dL (3.4-5.0); Bilirubin Total 0.2 mg/dL (0.2-1.0); Potassium 3.6 mmol/L (3.5-5.1); Protein, Total 7.5 g/dL (6.4-8.2)
--- NOTE | 2022-02-11 08:18 | RAD REPORT ---
EXAM DESCRIPTION: Mary Fletcher (2 Views)02/11/2022 7:22 am CLINICAL HISTORY: Cough COMPARISON: February 07 1022 FINDINGS: The lungs appear clear of acute infiltrate. The heart is normal size IMPRESSION: No acute abnormalities displayed
[2022-02-11] MEDS ORDERED: Magnesium Sulfate 2gm IVPB 2 G/50 ML BAG IV ONE (09:24)
--- NOTE | 2022-02-11 10:34 | EDPHYS ---
Physician Documentation [facility] Name: Maria Del Carmen Rodriguez Age: 41 yrs Sex: Female : 1980 Arrival Date: 02/11/2022 Time: 06:39 Bed 4 Private MD: Bc Courtney ED Physician Rah Flores HPI: 02/11 06:50 This 41 yrs old Unknown Female presents to ER via Wheelchair with complaints of Chest jmm Congestion, Cough, Back Pain. 06:50 The patient or guardian reports cough. Onset: The symptoms/episode began/occurred jmm gradually, 1 week(s) ago. Modifying factors: The symptoms are alleviated by nothing. the symptoms are aggravated by nothing. Associated signs and symptoms: Pertinent negatives: fever. This is a 41-year-old female with a history of asthma, bipolar, hypertension, migraines who presents emerged part with complaints of cough, shortness of breath, productive cough. Symptoms initially began approximately a week ago. Patient was seen in the ED and prescribed azithromycin and prednisone. Patient states she continues to have pain in particular back sided pain on cough. Patient states she is producing a yellow phlegm.. 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 01/20/2022 as6 Historical: - Allergies: 06:53 adult benadryl; as6 06:53 Avelox; as6 06:53 Benadryl; as6 06:53 darvocet; as6 06:53 Darvocet-N 100; as6 06:53 Hydrocodone-Acetaminophen; as6 06:53 Imitrex; as6 06:53 Stadol; as6 06:53 Sumatriptan Succinate; as6 06:53 Tessalon Perles; as6 06:53 Trazodone; as6 - Home Meds: 06:53 Abilify Oral once daily [Active]; Amitriptyline Oral [Active]; atenolol 50 mg Oral tab as6 1 tab 2 times per day [Active]; gabapentin 100 mg Oral tab 1 cap 3 times per day [Active]; metoprolol tartrate 25 mg Oral tab 2 times per day [Active]; Hyoscyamine Sulfate SL [Active]; ProAir HFA inhalation [Active]; Symbicort inhalation [Active]; Wellbutrin Oral daily [Active]; Zoloft Oral once daily [Active]; - PMHx: 06:53 Asthma; Bipolar disorder; Hypertension; ibs; insomnia; Migraines; Sleep Apnea; as6 Tachycardia; - PSHx: 06:53 Appendectomy; GALLBLADDER; left leg surgery; tubal ligation; as6 - Immunization history:: Client reports receiving the 2nd dose of the Covid vaccine, moderna. - Social history:: Smoking status: Patient denies any tobacco usage or history of. ROS: 06:50 Constitutional: Positive for body aches, chills. jmm 06:50 Respiratory: Positive for cough. 06:50 Back: Positive for pain with movement. 06:50 All other systems are negative. Exam: 06:50 Constitutional: This is a well developed, well nourished patient who is awake, alert, jmm and in no acute distress. Head/Face: atraumatic. Eyes: EOMI, no conjunctival erythema appreciated ENT: Moist Mucus Membranes Neck: Trachea midline, Supple Chest/axilla: Normal chest wall appearance and motion. Cardiovascular: Regular rate and rhythm. No edema appreciated Respiratory: Normal respirations, no respiratory distress appreciated Abdomen/GI: Non distended, soft Back: Normal ROM Skin: General appearance color normal MS/ Extremity: Moves all extremities, no obvious deformities appreciated, no edema noted to the lower extremities Neuro: Awake and alert Psych: Behavior is normal, Mood is normal, Patient is cooperative and pleasant Vital Signs: 06:51 BP 103 / 71; Pulse 71; Resp 18 S; Temp 98.1(O); Pulse Ox 98% on R/A; Weight 107.95 kg as6 (R); Height 5 ft. 2 in. (157.48 cm) (R); Pain 8/10; 10:05 BP 118 / 88; Pulse 75; Resp 20; Pulse Ox 94% on R/A; nunez 06:51 Body Mass Index 43.53 (107.95 kg, 157.48 cm) as6 MDM: 06:50 Patient medically screened. [facility] 10:32 Data reviewed: vital signs, nurses notes. Counseling: I had a detailed discussion with jose the patient and/or guardian regarding: the historical points, exam findings, and any diagnostic results supporting the discharge/admit diagnosis, lab results, radiology results, the need for outpatient follow up, to return to the emergency department if symptoms worsen or persist or if there are any questions or concerns that arise at home. ED course: Patient is alert and nontoxic in appearance in the ED. Decreased wheezing noted on auscultation. Patient advised follow-up PCP and otherwise given strict return precautions. Patient understood agrees plan of care.. 02/11 06:51 Order name: CBC with Diff; Complete Time: 07:38 [facility] 02/11 06:51 Order name: CMP; Complete Time: 07:55 [facility] 02/11 06:53 Order name: Chest Pa And Lat (2 Views) XRAY; Complete Time: 08:22 [facility] 02/11 06:51 Order name: Saline Lock; Complete Time: 07:17 [facility] Administered Medications: 07:16 Drug: NS 0.9% 500 ml Route: IV; Rate: 500 ml; Site: right hand; nunez 07:17 Drug: SOLU-Medrol (methylPrednisoLONE) 125 mg Route: IVP; Site: right hand; nunez 07:17 Follow up: Response: No adverse reaction nunez 07:44 Drug: Xopenex (levalbuterol) (3) 1.25 mg Route: Inhalation; nunez 09:45 Not Given (medication not availablee): Magnesium Sulfate 1 grams IVPB once over 1 hrs nunez 09:45 Drug: Magnesium Sulfate 2 grams Route: IVPB; Infused Over: 2 hrs; Site: right nunez antecubital; Disposition Summary: 02/11/22 10:34 Discharge Ordered Location: Home [facility] Condition: Stable [facility] Diagnosis - Unspecified asthma with (acute) exacerbation [facility] Followup: [facility] - With: Bc Courtney MD - When: 2 - 3 days - Reason: Recheck today's complaints, Continuance of care, Re-evaluation by your physician Discharge Instructions: - Discharge Summary Sheet [facility] - Asthma, Adult [facility] Forms: - Medication Reconciliation Form [facility] - Thank You Letter [facility] - Antibiotic Education [facility] - Prescription Opioid Use [facility] Prescriptions: - Prednisone 20 mg Oral Tablet - take 3 tablets by ORAL route once daily for 5 days Please take 3 tabs by mouth jmm daily for 3 days, then take 2 tabs by mouth daily for 3 days, then take 1 tab by mouth daily for 3 days, then take one half tab by mouth daily for 3 days; 20 tablet; Refills: 0, Product Selection Permitted Addendum: 02/16/2022 06:35 Co-signature as Attending Physician, Rah Flores DO I agree with the assessment and m s3 plan of care. Signatures: Dispatcher [employer] Serge Tellez PA PA jmm Sims, Marcus, DO DO ms3 Zen Maynard RN RN as6 Renetta Troncoso RN RN nunez Corrections: (The following items were deleted from the chart) 02/11 06:55 06:53 Allergies: Demerol; as6 as6
--- NOTE | 2022-02-11 10:34 | ER ---
Nurse's Notes [facility] Name: Maria Del Carmen Rodriguez Age: 41 yrs Sex: Female : 1980 Arrival Date: 02/11/2022 Time: 06:39 Bed 4 Private MD: Bc Courtney Diagnosis: Unspecified asthma with (acute) exacerbation Presentation: 02/11 06:51 Chief complaint: Patient states: "I was here a few nights ago and was diagnosis with as6 bronchitis and it just isn't getting better". Coronavirus screen: Client presents with at least one sign or symptom that may indicate coronavirus-19. Standard/surgical mask placed on the client. Provider contacted for isolation considerations. Ebola Screen: No symptoms or risks identified at this time. Initial Sepsis Screen: Does the patient meet any 2 criteria? No. Patient's initial sepsis screen is negative. Does the patient have a suspected source of infection? No. Patient's initial sepsis screen is negative. Risk Assessment: Do you want to hurt yourself or someone else? Patient reports no desire to harm self or others. Onset of symptoms was February 03, 2022. 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:56 LMP 01/20/2022 as6 Historical: - Allergies: 06:53 adult benadryl; as6 06:53 Avelox; as6 06:53 Benadryl; as6 06:53 darvocet; as6 06:53 Darvocet-N 100; as6 06:53 Hydrocodone-Acetaminophen; as6 06:53 Imitrex; as6 06:53 Stadol; as6 06:53 Sumatriptan Succinate; as6 06:53 Tessalon Perles; as6 06:53 Trazodone; as6 - Home Meds: 06:53 Abilify Oral once daily [Active]; Amitriptyline Oral [Active]; atenolol 50 mg Oral tab as6 1 tab 2 times per day [Active]; gabapentin 100 mg Oral tab 1 cap 3 times per day [Active]; metoprolol tartrate 25 mg Oral tab 2 times per day [Active]; Hyoscyamine Sulfate SL [Active]; ProAir HFA inhalation [Active]; Symbicort inhalation [Active]; Wellbutrin Oral daily [Active]; Zoloft Oral once daily [Active]; - PMHx: 06:53 Asthma; Bipolar disorder; Hypertension; ibs; insomnia; Migraines; Sleep Apnea; as6 Tachycardia; - PSHx: 06:53 Appendectomy; GALLBLADDER; left leg surgery; tubal ligation; as6 - Immunization history:: Client reports receiving the 2nd dose of the Covid vaccine, moderna. - Social history:: Smoking status: Patient denies any tobacco usage or history of. Screenin:57 Abuse screen: Denies threats or abuse. Denies injuries from another. Nutritional as6 screening: No deficits noted. Tuberculosis screening: No symptoms or risk factors identified. Fall Risk None identified. Assessment: 06:55 General: Appears in no apparent distress. uncomfortable, Behavior is calm, cooperative. as6 Pain: Complains of pain in chest Pain radiates to back Quality of pain is described as sharp. Neuro: Level of Consciousness is awake, alert, obeys commands, Oriented to person, place, time, situation, Reports dizziness, headache. Cardiovascular: Capillary refill < 3 seconds Patient's skin is warm and dry. Respiratory: Reports shortness of breath cough that is productive, hacking, persistent. GI: Reports nausea. Derm: Skin is intact, is healthy with good turgor. Vital Signs: 06:51 BP 103 / 71; Pulse 71; Resp 18 S; Temp 98.1(O); Pulse Ox 98% on R/A; Weight 107.95 kg as6 (R); Height 5 ft. 2 in. (157.48 cm) (R); Pain 8/10; 10:05 BP 118 / 88; Pulse 75; Resp 20; Pulse Ox 94% on R/A; nunez 06:51 Body Mass Index 43.53 (107.95 kg, 157.48 cm) as6 ED Course: 06:39 Patient arrived in ED. es 06:39 Bc Courtney MD is Private Physician. es 06:43 Zen Maynard, COLBY is Primary Nurse. as6 06:44 Serge Mcmanus PA is PHCP. [facility] 06:44 Rah Flores DO is Attending Physician. [facility] 06:53 Triage completed. as6 06:55 Arm band placed on. as6 07:17 Patient has correct armband on for positive identification. Bed in low position. nunez 07:17 CMP Sent. nunez 07:17 CBC with Diff Sent. nunez 07:17 No provider procedures requiring assistance completed. Inserted saline lock: 20 gauge nunez in right hand, using aseptic technique. 07:22 Chest Pa And Lat (2 Views) XRAY In Process Unspecified. EDMS 08:36 Primary Nurse role handed off by Zen Maynard RN 10:33 Bc Courtney MD is Referral Physician. [facility] 10:49 IV discontinued, intact, Pressure dressing applied. nunez Administered Medications: 07:16 Drug: NS 0.9% 500 ml Route: IV; Rate: 500 ml; Site: right hand; nunez 07:17 Drug: SOLU-Medrol (methylPrednisoLONE) 125 mg Route: IVP; Site: right hand; nunez 07:17 Follow up: Response: No adverse reaction nunez 07:44 Drug: Xopenex (levalbuterol) (3) 1.25 mg Route: Inhalation; nunez 09:45 Not Given (medication not availablee): Magnesium Sulfate 1 grams IVPB once over 1 hrs nunez 09:45 Drug: Magnesium Sulfate 2 grams Route: IVPB; Infused Over: 2 hrs; Site: right nunez antecubital; Outcome: 10:34 Discharge ordered by . [facility] 10:43 Discharged to home ambulatory. nunez 10:43 Condition: good 10:43 Discharge instructions given to patient, Prescriptions given X 1. 10:49 Patient left the ED. nunez Signatures: Dispatcher [employer] EDMS Anna Arzola Joel, PA PA jmm Salyer, Edna es Slawson, Ashby, RN RN as6 Renetta Troncoso RN RN nunez Corrections: (The following items were deleted from the chart) 06:55 06:53 Allergies: Demerol; as6 as6
[2022-02-11 10:55] VITALS: TEMP 98.1
[2022-02-11 10:57] VITALS: BP 118/88; O2SAT 94
== END 2022-02-11 10:49 | disposition home or self-care (01) ==
LOC: ER 06:33
DX: J45.901 Unspecified asthma with (acute) exacerbation (principal); I10 Essential (primary) hypertension; F31.9 Bipolar disorder, unspecified; Z88.5 Allergy status to narcotic agent; Z88.6 Allergy status to analgesic agent; Z88.8 Allergy status to other drugs, medicaments and biological substances
CPT/HCPCS: 85025; 36415; 80053; 71046; 99284; J3475; J7040; J2930

== ENCOUNTER 2022-02-27 22:40 | Emergency (ER) | payer OTHER ==
[2022-02-28] MEDS ORDERED: MORPHINE 4 MG/ML SYR ONE (00:22)
[2022-02-28] MEDS ORDERED: DIAZEPAM 5 MG TABLET ONE (00:22)
[2022-02-28] MEDS ORDERED: KETOROLAC 30 MG/ML INJ ONE (00:23)
[2022-02-28] MEDS ORDERED: ONDANSETRON 4 MG/2 ML VIAL ONE (00:23)
[2022-02-28] MEDS ORDERED: NA CHLORIDE 0.9% 1,000 ML ONE (00:23)
[2022-02-28] MEDS ORDERED: dexAMETHasone 10 MG/ML VIAL ONE (00:23)
[2022-02-28 01:49] LABS: Absolute Lymphocytes (CBC) 1.3 K/uL (0.7-4.9); Hematocrit 35.2 % (36.0-45.0); Lymphocytes % 13.8 % (15.3-44.8); MPV 7.7 fL (7.6-11.3); RBC Red Blood Cell Count 3.64 M/uL (3.86-4.86)
--- NOTE | 2022-02-28 02:09 | EDPHYS ---
Physician Documentation [facility] Name: Maria Del Carmen Rodriguez Age: 41 yrs Sex: Female : 1980 Arrival Date: 02/27/2022 Time: 22:43 Bed 8 Private MD: Ji Gomez HPI: 02/28 01:41 This 41 yrs old Unknown Female presents to ER via Wheelchair with complaints of Low silvio Back Pain, Numbness. 01:41 The patient presents with pain that is acute, with no known mechanism of injury. The silvio symptoms are located in the low back. The pain does not radiate. The problem was sustained from unknown cause. Onset: The symptoms/episode began/occurred 1 week(s) ago. Modifying factors: The patient symptoms are alleviated by nothing, the patient symptoms are aggravated by bending, lifting, standing. Associated signs and symptoms: Pertinent positives: numbness. Severity of symptoms: At their worst the symptoms were mild. 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:54 LMP 02/27/2022 ld1 Historical: - Allergies: 22:54 adult benadryl; ld1 22:54 Avelox; ld1 22:54 Benadryl; ld1 22:54 darvocet; ld1 22:54 Darvocet-N 100; ld1 22:54 Hydrocodone-Acetaminophen; ld1 22:54 Imitrex; ld1 22:54 Stadol; ld1 22:54 Sumatriptan Succinate; ld1 22:54 Tessalon Perles; ld1 22:54 Trazodone; ld1 - PMHx: 22:54 Asthma; Bipolar disorder; Hypertension; insomnia; ibs; Migraines; Sleep Apnea; ld1 Tachycardia; - PSHx: 22:54 Appendectomy; left leg surgery; GALLBLADDER; tubal ligation; ld1 - Immunization history:: Adult Immunizations up to date, Client reports receiving the 2nd dose of the Covid vaccine. - Social history:: Smoking status: Patient denies any tobacco usage or history of. Patient uses alcohol, occasionally. - Family history:: not pertinent. ROS: 02/28 01:41 Constitutional: Negative for fever, chills, and weight loss, Eyes: Negative for injury, silvio pain, redness, and discharge, ENT: Negative for injury, pain, and discharge, Neck: Negative for injury, pain, and swelling, Cardiovascular: Negative for chest pain, palpitations, and edema, Respiratory: Negative for shortness of breath, cough, wheezing, and pleuritic chest pain, Abdomen/GI: Negative for abdominal pain, nausea, vomiting, diarrhea, and constipation, Back: Negative for injury and pain, : Negative for injury, bleeding, discharge, and swelling, MS/Extremity: Negative for injury and deformity, Skin: Negative for injury, rash, and discoloration, Neuro: Negative for headache, weakness, numbness, tingling, and seizure, Psych: Negative for depression, anxiety, suicide ideation, homicidal ideation, and hallucinations, Allergy/Immunology: Negative for hives, rash, and allergies, Endocrine: Negative for neck swelling, polydipsia, polyuria, polyphagia, and marked weight changes, Hematologic/Lymphatic: Negative for swollen nodes, abnormal bleeding, and unusual bruising. Exam: 01:41 Constitutional: This is a well developed, well nourished patient who is awake, alert, silvio and in no acute distress. Head/Face: Normocephalic, atraumatic. Eyes: Pupils equal round and reactive to light, extra-ocular motions intact. Lids and lashes normal. Conjunctiva and sclera are non-icteric and not injected. Cornea within normal limits. Periorbital areas with no swelling, redness, or edema. ENT: Nares patent. No nasal discharge, no septal abnormalities noted. Tympanic membranes are normal and external auditory canals are clear. Oropharynx with no redness, swelling, or masses, exudates, or evidence of obstruction, uvula midline. Mucous membranes moist. Neck: Trachea midline, no thyromegaly or masses palpated, and no cervical lymphadenopathy. Supple, full range of motion without nuchal rigidity, or vertebral point tenderness. No Meningismus. Chest/axilla: Normal chest wall appearance and motion. Nontender with no deformity. No lesions are appreciated. Cardiovascular: Regular rate and rhythm with a normal S1 and S2. No gallops, murmurs, or rubs. Normal PMI, no JVD. No pulse deficits. Respiratory: Lungs have equal breath sounds bilaterally, clear to auscultation and percussion. No rales, rhonchi or wheezes noted. No increased work of breathing, no retractions or nasal flaring. Abdomen/GI: Soft, non-tender, with normal bowel sounds. No distension or tympany. No guarding or rebound. No evidence of tenderness throughout. Back: No spinal tenderness. No costovertebral tenderness. Full range of motion. Skin: Warm, dry with normal turgor. Normal color with no rashes, no lesions, and no evidence of cellulitis. MS/ Extremity: Pulses equal, no cyanosis. Neurovascular intact. Full, normal range of motion. Neuro: Awake and alert, GCS 15, oriented to person, place, time, and situation. Cranial nerves II-XII grossly intact. Motor strength 5/5 in all extremities. Sensory grossly intact. Cerebellar exam normal. Normal gait. Vital Signs: 02/27 22:52 BP 165 / 89; Pulse 86; Resp 18; Temp 98.1(TE); Pulse Ox 98% on R/A; Weight 107.95 kg; ld1 Height 5 ft. 2 in. (157.48 cm); Pain 10/10; 02/28 02:45 BP 118 / 77; Pulse 71; Resp 18; Pulse Ox 98% on R/A; Pain 3/10; lp1 02/27 22:52 Body Mass Index 43.53 (107.95 kg, 157.48 cm) ld1 MDM: 02/27 23:59 Patient medically screened. [facility] 02/28 01:41 Differential diagnosis: arthritis, strain, sciatica, Herniated disc. Data reviewed: [facility] vital signs, nurses notes, lab test result(s), EKG. Data interpreted: school bus monitor: rate is 86 beats/min, rhythm is regular, Pulse oximetry: on room air. Test interpretation: by ED physician or midlevel provider: ECG, plain radiologic studies. Counseling: I had a detailed discussion with the patient and/or guardian regarding: the historical points, exam findings, and any diagnostic results supporting the discharge/admit diagnosis, lab results, radiology results, the need for outpatient follow up, for definitive care, 02/27 23:59 Order name: CBC with Diff; Complete Time: 01:56 [facility] 02/27 23:59 Order name: Comprehensive Metabolic Panel [facility] 02/27 23:59 Order name: CT Lumbar Spine Wo Con [facility] Administered Medications: 01:25 Drug: NS 0.9% 1000 ml Route: IV; Rate: 1 bolus; Site: right hand; lp1 02:58 Follow up: IV Status: Completed infusion; IV Intake: 1000ml lp1 01:25 Drug: Ketorolac 30 mg Route: IVP; Site: right hand; lp1 02:57 Follow up: Response: No adverse reaction; Pain is decreased lp1 01:25 Drug: Decadron - Dexamethasone 10 mg Route: IVP; Site: right hand; lp1 02:57 Follow up: Response: No adverse reaction lp1 01:25 Drug: Valium (diazepam) 5 mg Route: PO; lp1 02:57 Follow up: Response: No adverse reaction lp1 01:25 Drug: morphine 4 mg Route: IVP; Site: right hand; lp1 02:57 Follow up: Response: Pain is decreased lp1 :25 Drug: Zofran (Ondansetron) 4 mg Route: IVP; Site: right hand; lp1 02:57 Follow up: Response: No adverse reaction lp1 Disposition Summary: 02/28/22 02:08 Discharge Ordered Location: Home silvio Problem: new silvio Symptoms: have improved silvio Condition: Stable silvio Diagnosis - Low back pain silvio - Sciatica silvio Followup: silvio - With: Private Physician - When: 2 - 3 days - Reason: Recheck today's complaints, Continuance of care, Re-evaluation by your physician Followup: silvio - With: - When: 2 - 3 days - Reason: Recheck today's complaints, Continuance of care, Re-evaluation by your physician Discharge Instructions: - Discharge Summary Sheet silvio - Acute Back Pain, Adult silvio - Musculoskeletal Pain silvio - Chronic Back Pain, [id number] silvio - Sciatica silvio - Sciatica, [id number] [facility] Forms: - Medication Reconciliation Form silvio - Thank You Letter silvio - Antibiotic Education silvio - Prescription Opioid Use [facility] Prescriptions: - dexamethasone 2 mg Oral tablet - take 1 tablet by ORAL route 3 times per day; 12 tablet; Refills: 0, Product silvio Selection Permitted - Cyclobenzaprine 5 mg Oral Tablet - take 1 tablet by ORAL route 3 times per day As needed; 15 tablet; Refills: 0, silvio Product Selection Permitted - Tylenol-Codeine #3 300 mg-30 mg Oral - take 2 tablet by ORAL route every 6 hours; 20 tablet; Refills: 0, Product silvio Selection Permitted - Motrin IB 200 mg Oral Tablet - take 2 tablet by ORAL route every 6 hours As needed as needed with food; 30 silvio tablet; Refills: 0, Product Selection Permitted Signatures: Dispatcher [employer] Ji Montague MD MD cha Pena, Laura, RN RN lp1 Conchis Rodas RN RN ld1
--- NOTE | 2022-02-28 02:09 | ER ---
Nurse's Notes [facility] Name: Maria Del Carmen Rodriguez Age: 41 yrs Sex: Female : 1980 Arrival Date: 02/27/2022 Time: 22:43 Bed 8 Private MD: Diagnosis: Low back pain;Sciatica Presentation: 02/27 22:52 Chief complaint: Patient states: I was here last month and received Flexeril and ld1 ibuprofen for my chronic back pain. I took three ibuprofen today and it didn't touch the pain. Coronavirus screen: At this time, the client does not indicate any symptoms associated with coronavirus-19. Ebola Screen: No symptoms or risks identified at this time. Initial Sepsis Screen: Does the patient meet any 2 criteria? No. Patient's initial sepsis screen is negative. Does the patient have a suspected source of infection? No. Patient's initial sepsis screen is negative. Risk Assessment: Do you want to hurt yourself or someone else? Patient reports no desire to harm self or others. Onset of symptoms was February 27, 2022. 22:52 Method Of Arrival: Wheelchair ld1 22:52 Acuity: JUS 4 ld1 Triage Assessment: 22:54 General: Appears in no apparent distress. comfortable, Behavior is calm, cooperative, ld1 appropriate for age. Pain: Complains of pain in back Pain does not radiate. Pain currently is 10 out of 10 on a pain scale. EENT: No signs and/or symptoms were reported regarding the EENT system. Neuro: Level of Consciousness is awake, alert, obeys commands, Oriented to person, place, time, situation. Respiratory: Airway is patent Respiratory effort is even, unlabored. Musculoskeletal: Reports pain in back. 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 02/27/2022 ld1 Historical: - Allergies: 22:54 adult benadryl; ld1 22:54 Avelox; ld1 22:54 Benadryl; ld1 22:54 darvocet; ld1 22:54 Darvocet-N 100; ld1 22:54 Hydrocodone-Acetaminophen; ld1 22:54 Imitrex; ld1 22:54 Stadol; ld1 22:54 Sumatriptan Succinate; ld1 22:54 Tessalon Perles; ld1 22:54 Trazodone; ld1 - PMHx: 22:54 Asthma; Bipolar disorder; Hypertension; insomnia; ibs; Migraines; Sleep Apnea; ld1 Tachycardia; - PSHx: 22:54 Appendectomy; left leg surgery; GALLBLADDER; tubal ligation; ld1 - Immunization history:: Adult Immunizations up to date, Client reports receiving the 2nd dose of the Covid vaccine. - Social history:: Smoking status: Patient denies any tobacco usage or history of. Patient uses alcohol, occasionally. - Family history:: not pertinent. Screenin/07 01:36 Abuse screen: Denies threats or abuse. Denies injuries from another. Nutritional lp1 screening: No deficits noted. Tuberculosis screening: No symptoms or risk factors identified. Fall Risk None identified. Assessment: 01:30 General: Appears in no apparent distress. uncomfortable, Behavior is appropriate for lp1 age. Pain: Complains of pain in lumbar area Pain currently is 7 out of 10 on a pain scale. Quality of pain is described as sharp, Is chronic. Neuro: Level of Consciousness is awake, alert, obeys commands, Oriented to person, place, time, situation, Intact reports intermitted paresthesias to bilateral lower legs. Cardiovascular: Patient's skin is warm and dry. Respiratory: Respiratory effort is even, unlabored. GI: No signs and/or symptoms were reported involving the gastrointestinal system. : No signs and/or symptoms were reported regarding the genitourinary system. EENT: No signs and/or symptoms were reported regarding the EENT system. Derm: Skin is pink, warm \T\ dry. Musculoskeletal: Circulation, motion, and sensation intact. 02:20 Reassessment: Patient is alert, oriented x 3, equal unlabored respirations, skin lp1 warm/dry/pink. Patient states symptoms have improved. 02:50 Reassessment: Assisted patient via wheelchair to car with family member at discharge; lp1 demonstrates understanding for follow up and prescription usage. Vital Signs: 02/27 22:52 BP 165 / 89; Pulse 86; Resp 18; Temp 98.1(TE); Pulse Ox 98% on R/A; Weight 107.95 kg; ld1 Height 5 ft. 2 in. (157.48 cm); Pain 10/; 02/28 02:45 BP 118 / 77; Pulse 71; Resp 18; Pulse Ox 98% on R/A; Pain 3/10; lp1 02/27 22:52 Body Mass Index 43.53 (107.95 kg, 157.48 cm) ld1 ED Course: 02/27 22:43 Patient arrived in ED. ja2 22:54 Triage completed. ld1 22:54 Arm band placed on right wrist. ld1 23:56 Ji Lynn MD is Attending Physician. [facility] 02/28 00:07 Chasity Junior, RN is Primary Nurse. lp1 00:59 CT Lumbar Spine Wo Con In Process Unspecified. EDMS 01:36 Inserted saline lock: 22 gauge in right hand, using aseptic technique. Blood collected. lp1 02:08 Willian Fischer MD is Referral Physician. silvio 02:58 Patient has correct armband on for positive identification. lp1 02:58 No provider procedures requiring assistance completed. IV discontinued, No lp1 redness/swelling at site. Pressure dressing applied. Administered Medications: 01:25 Drug: NS 0.9% 1000 ml Route: IV; Rate: 1 bolus; Site: right hand; lp1 02:58 Follow up: IV Status: Completed infusion; IV Intake: 1000ml lp1 01:25 Drug: Ketorolac 30 mg Route: IVP; Site: right hand; lp1 02:57 Follow up: Response: No adverse reaction; Pain is decreased lp1 01:25 Drug: Decadron - Dexamethasone 10 mg Route: IVP; Site: right hand; lp1 02:57 Follow up: Response: No adverse reaction lp1 01:25 Drug: Valium (diazepam) 5 mg Route: PO; lp1 02:57 Follow up: Response: No adverse reaction lp1 01:25 Drug: morphine 4 mg Route: IVP; Site: right hand; lp1 02:57 Follow up: Response: Pain is decreased lp1 01:25 Drug: Zofran (Ondansetron) 4 mg Route: IVP; Site: right hand; lp1 02:57 Follow up: Response: No adverse reaction lp1 Intake: 02:58 IV: 1000ml; Total: 1000ml. lp1 Outcome: 02:08 Discharge ordered by . silvio 02:58 Discharged to home via wheelchair, with significant other. lp1 02:58 Condition: good 02:58 Discharge instructions given to patient, Instructed on discharge instructions, follow up and referral plans. medication usage, Demonstrated understanding of instructions, follow-up care, medications, Prescriptions given X 4. 02:59 Patient left the ED. lp1 Signatures: Dispatcher [employer] EDJi Silveira MD MD cha Pena, Laura, RN RN lp1 Conchis Rodas RN RN ld1 Leydi Pruitt
[2022-02-28 03:35] LABS: Albumin 3.4 g/dL (3.4-5.0); Bilirubin Total 0.3 mg/dL (0.2-1.0); Potassium 4.1 mmol/L (3.5-5.1); Protein, Total 7.2 g/dL (6.4-8.2)
--- NOTE | 2022-02-28 09:36 | RAD REPORT ---
EXAM DESCRIPTION: CT - Spine Lumbar Wo Con - 02/28/2022 6:41 am CLINICAL HISTORY: LOWER BACK PAIN TECHNIQUE: Axial computed tomography images of the lumbar spine without intravenous contrast. Sagi ttal and coronal reformatted images were created and reviewed. This CT exam was performed using one or more of the following dose reduction techniques: automated exposure control, adjustment of the mA and/or kV according to patient size, and/or use of iterative reconstruction technique. COMPARISON: CT Lumbar Spine dated 01/29/2022 FINDINGS: Vertebrae: There are 5 nonrib-bearing lumbar-type vertebral bodies. Grade 1 retrolisthes is of L5 on S1. No acute fracture. No subluxation. Discs/spinal canal/neural foramina: Minimal multilevel broad-based bulges. Mild broad-based bulge a t L4-L5 with left greater than right lateral components encroaching upon the left lateral recess and foramen. The central thecal sac is mildly narrowed at this level. Soft tissues: Unremarkable. IMPRESSION: Mild degenerative changes at L4-L5. Electronically signed by: Keaar Mitchell MD 02/28/2022 1:19 AM CDT Due to temporary technical issues with the PACS/Fluency reporting system, reports are being signed by the in house radiologists without review as a courtesy to insure prompt reporting. The interpreting radiologist is fully responsible for the content of the report.
[2022-02-28 11:32] VITALS: BP 165/89; TEMP 98.1; O2SAT 98
== END 2022-02-28 02:59 | disposition home or self-care (01) ==
LOC: ER 22:40
DX: M54.30 Sciatica, unspecified side (principal); I10 Essential (primary) hypertension; F31.9 Bipolar disorder, unspecified; Z88.5 Allergy status to narcotic agent; Z88.6 Allergy status to analgesic agent; Z88.8 Allergy status to other drugs, medicaments and biological substances
CPT/HCPCS: 96361; 85025; 36415; 80053; 72131; 96375; 96374; 99284; J1100; J7030; J2405

== ENCOUNTER 2022-03-25 18:39 | Emergency (ER) | payer OTHER ==
[2022-03-25 20:03] LABS: Absolute Lymphocytes (CBC) 1.9 K/uL (0.7-4.9); Hematocrit 37.4 % (36.0-45.0); Lymphocytes % 31.2 % (15.3-44.8); MPV 7.1 fL (7.6-11.3); RBC Red Blood Cell Count 3.84 M/uL (3.86-4.86)
[2022-03-25] MEDS ORDERED: ONDANSETRON 4 MG/2 ML VIAL ONE ×2 (20:07→22:41)
[2022-03-25] MEDS ORDERED: KETOROLAC 30 MG/ML INJ ONE (20:07)
[2022-03-25] MEDS ORDERED: HYDROMORPHONE HCL 0.5 MG/0.5 ML INJ ONE (20:07)
[2022-03-25 20:18] LABS: Albumin 3.3 g/dL (3.4-5.0); Bilirubin Total 0.2 mg/dL (0.2-1.0); Potassium 3.3 mmol/L (3.5-5.1)
--- NOTE | 2022-03-25 20:34 | RAD REPORT ---
EXAM DESCRIPTION: CT - Head Brain Wo Cont - 03/25/2022 8:07 pm CLINICAL HISTORY: headache COMPARISON: Head Brain Wo Cont dated 10/02/2020 TECHNIQUE: Axial 5 mm thick images of the head were obtained without IV contrast. All CT scans are performed using dose optimization technique as appropriate and may include automated exposure control or mA/KV adjustment according to patient size. FINDINGS: No intracranial hemorrhage, mass, edema or shift of mid-line structures. No acute infarcti on changes seen. No abnormal extra-axial fluid collections. Ventricles are normal. Mastoid air cells and visualized portions of the paranasal sinuses are clear. No acute bony findings. No significant change from comparison IMPRESSION: Negative non-contrast CT head examination.
--- NOTE | 2022-03-25 21:44 | ER ---
Nurse's Notes [facility] Name: Maria Del Carmen Rodriguez Age: 41 yrs Sex: Female : 1980 Arrival Date: 03/25/2022 Time: 18:41 Bed 6 Private MD: Bc Courtney Diagnosis: Migraine without aura, not intractable;Hypokalemia;UTI/ Urinary tract infection, site not specified Presentation: 03/25 19:15 Chief complaint: Patient states: migraine since Friday of last week. reports taking al4 multiple different OTC medicines with no relief. Coronavirus screen: Vaccine status: Patient reports receiving the 2nd dose of the covid vaccine. Ebola Screen: No symptoms or risks identified at this time. Initial Sepsis Screen: Does the patient meet any 2 criteria? No. Patient's initial sepsis screen is negative. Does the patient have a suspected source of infection? No. Patient's initial sepsis screen is negative. Risk Assessment: Do you want to hurt yourself or someone else? Patient reports no desire to harm self or others. Onset of symptoms was March 20, 2022. 19:15 Method Of Arrival: Ambulatory al4 19:15 Acuity: JUS 3 al4 Triage Assessment: 19:17 General: Appears in no apparent distress. uncomfortable, Behavior is calm, cooperative. al4 Pain: Complains of pain in head Pain currently is 10 out of 10 on a pain scale. Neuro: Level of Consciousness is awake, alert, obeys commands, Oriented to person, place, time, situation. Cardiovascular: Patient's skin is warm and dry. Respiratory: Airway is patent Respiratory effort is unlabored, Respiratory pattern is regular. GI: Reports nausea. 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/26/2022 al4 Historical: - Allergies: 19:17 adult benadryl; al4 19:17 Avelox; al4 19:17 Benadryl; al4 19:17 darvocet; al4 19:17 Darvocet-N 100; al4 19:17 Hydrocodone-Acetaminophen; al4 19:17 Imitrex; al4 19:17 Stadol; al4 19:17 Sumatriptan Succinate; al4 19:17 Tessalon Perles; al4 19:17 Trazodone; al4 - PMHx: 19:17 Asthma; Bipolar disorder; Hypertension; ibs; insomnia; Migraines; Tachycardia; Sleep al4 Apnea; - PSHx: 19:17 Appendectomy; GALLBLADDER; left leg surgery; tubal ligation; al4 - Immunization history:: Adult Immunizations up to date, Client reports receiving the 2nd dose of the Covid vaccine. - Social history:: Smoking status: Patient denies any tobacco usage or history of. - Family history:: not pertinent. Screenin:57 Abuse screen: Denies threats or abuse. Denies injuries from another. Nutritional kd3 screening: No deficits noted. Tuberculosis screening: No symptoms or risk factors identified. Fall Risk IV access (20 points). Assessment: 19:56 General: Appears uncomfortable, Behavior is calm, cooperative. Pain: Complains of pain kd3 in left base of the skull and left occipital area and left temporal area and left side of the back of head and left frontal area and forehead and top of head. Neuro: Level of Consciousness is awake, alert, obeys commands, Oriented to person, place, time, situation. Cardiovascular: Patient's skin is warm and dry. Respiratory: Airway is patent Trachea midline Respiratory effort is even, unlabored, Respiratory pattern is regular. 23:08 Reassessment: Patient states feeling better. General: Appears in no apparent distress. kd3 distressed, Behavior is calm, cooperative. Vital Signs: 19:15 BP 118 / 97; Pulse 92; Resp 20; Temp 98.6; Pulse Ox 97% on R/A; Weight 108.86 kg; al4 Height 5 ft. 2 in. (157.48 cm); Pain 10/10; 19:56 BP 104 / 60; Pulse 83; Resp 17; Pulse Ox 99% on R/A; kd3 23:08 BP 103 / 71; Pulse 86; Resp 17; Pulse Ox 95% on R/A; kd3 19:15 Body Mass Index 43.90 (108.86 kg, 157.48 cm) al4 [place] Coma Score: 19:51 Eye Response: spontaneous(4). Verbal Response: oriented(5). Motor Response: obeys silvio commands(6). Total: 15. NIH Stroke Scale Scores: 19:48 NIHSS Score: 0 silvio ED Course: 18:41 Patient arrived in ED. ds1 18:42 Bc Courtney MD is Private Physician. ds1 19:17 Triage completed. al4 19:17 Arm band placed on right wrist. al4 19:29 Serge Mcmanus PA is PHCP. jmm 19:29 Don Blum MD is Attending Physician. jmm 19:30 Ji Lynn MD is Attending Physician. silvio 19:32 Zen Maynard, RN is Primary Nurse. as6 19:55 CBC with Diff Sent. kd3 19:55 Comprehensive Metabolic Panel Sent. kd3 19:57 Patient has correct armband on for positive identification. kd3 19:57 Inserted saline lock: 22 gauge in right forearm, using aseptic technique. Blood kd3 collected. 20:09 Head Brain Wo Cont In Process Unspecified. EDMS 21:43 Bc Courtney MD is Referral Physician. silvio 21:43 Juvencio Ceron MD is Referral Physician. silvio 23:08 No provider procedures requiring assistance completed. IV discontinued, intact, kd3 bleeding controlled, No redness/swelling at site. Pressure dressing applied. Administered Medications: 20:13 Drug: NS 0.9% 1000 ml Route: IV; Rate: 1 bolus; Site: right forearm; kd3 23:10 Follow up: Response: No adverse reaction; IV Status: Completed infusion kd3 20:13 Drug: Ketorolac 30 mg Route: IVP; Site: right forearm; kd3 23:10 Follow up: Response: No adverse reaction kd3 20:13 Drug: Zofran (Ondansetron) 4 mg Route: IVP; Site: right forearm; kd3 23:10 Follow up: Response: No adverse reaction kd3 20:13 Drug: Dilaudid (HYDROmorphone) 1 mg Route: IVP; Site: right femoral; kd3 23:09 Follow up: Response: No adverse reaction; Pain is decreased kd3 22:42 Drug: Potassium Effervescent Tablet 25 mEq Route: PO; as6 23:09 Follow up: Response: No adverse reaction kd3 22:42 Drug: Zofran (Ondansetron) 4 mg Route: IVP; Site: right forearm; as6 23:09 Follow up: Response: No adverse reaction kd3 22:54 Drug: Rocephin (cefTRIAXone) 1 grams Route: IV; Rate: calculated rate; Site: left kd3 forearm; 23:09 Follow up: Response: No adverse reaction; IV Status: Completed infusion kd3 23:07 Drug: Bactrim (trimethoprim-sulfamethoxazole) (160 mg-800 mg (DS) 1 tablet Route: PO; kd3 23:09 Follow up: Response: No adverse reaction kd3 Outcome: 21:43 Discharge ordered by . silvio 23:08 Discharged to home ambulatory. kd3 23:08 Condition: stable 23:08 Discharge instructions given to patient, Instructed on discharge instructions, follow up and referral plans. Demonstrated understanding of instructions, Prescriptions given X 4. 23:10 Patient left the ED. kd3 NIH Stroke Scale - NIH Stroke Score Date: 03/25/2022 Time: 19:48 Total Score = 0 1a. Level of Consciousness (LOC) - 0(Alert) 1b. Level of Consciousness (LOC) (Month \T\ Age) - 0(Both) 1c. LOC Commands (Open \T\ Closes Eyes/Hand Trucker) - 0(Both) 2. Best Gaze (Lateral Gaze Paresis) - 0(Normal) 3. Visual Field Loss - 0(No visual loss) 4. Facial Palsy - 0(Normal) 5a. Left Arm: Motor (10-second hold) - 0(No drift) 5b. Right Arm: Motor (10-second hold) - 0(No drift) 6a. Left Leg: Motor (5-second hold - always test supine) - 0(No drift) 6b. Right Leg: Motor (5-second hold - always test supine) - 0(No drift) 7. Limb Ataxia (finger/nose \T\ heel/sage - test with eyes open) - 0(Absent) 8. Sensory Loss (pinprick arms/legs/face) - 0(Normal) 9. Best Language: Aphasia (description/naming/reading) - 0(No aphasia) 10. Dysarthria (speech clarity - read or repeat words) - 0(Normal) 11. Extinction and Inattention (visual/tactile/auditory/spatial/personal) - 0(No abnormality) Initials: silvio Signatures: Dispatcher [employer] EDJi Silveira MD MD cha Mickail, Joel, PA PA jmm [place], Demi ds1 Zen Maynard RN RN as6 Prudence Julian RN RN kd3 Ady Concepcion4
--- NOTE | 2022-03-25 21:44 | EDPHYS ---
Physician Documentation [facility] Name: Maria Del Carmen Rodriguez Age: 41 yrs Sex: Female : 1980 Arrival Date: 03/25/2022 Time: 18:41 Bed 6 Private MD: Bc Courtney ED Physician Ji Lynn HPI: 03/25 19:48 This 41 yrs old Unknown Female presents to ER via Ambulatory with complaints of silvio Migraine. 19:48 The patient complains of pain to the top of head, forehead, left frontal area, left silvio side of the back of head, left temporal area, left occipital area and left base of the skull. The patient describes the headache as a pressure. Onset: The symptoms/episode began/occurred 3 day(s) ago. Associated signs and symptoms: Pertinent positives: nausea, vomiting. Severity of symptoms: At its worst the pain was moderate, in the emergency department the pain is unchanged. Headache History: The patient has had previous headaches and this one is different than previous episodes, and this one is more severe than previous episodes. The symptoms are alleviated by nothing. the symptoms are aggravated by movement, noise. The patient has experienced similar episodes in the past, multiple times, but today's symptoms are worse. 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:17 LMP 02/26/2022 al4 Historical: - Allergies: 19:17 adult benadryl; al4 19:17 Avelox; al4 19:17 Benadryl; al4 19:17 darvocet; al4 19:17 Darvocet-N 100; al4 19:17 Hydrocodone-Acetaminophen; al4 19:17 Imitrex; al4 19:17 Stadol; al4 19:17 Sumatriptan Succinate; al4 19:17 Tessalon Perles; al4 19:17 Trazodone; al4 - PMHx: 19:17 Asthma; Bipolar disorder; Hypertension; ibs; insomnia; Migraines; Tachycardia; Sleep al4 Apnea; - PSHx: 19:17 Appendectomy; GALLBLADDER; left leg surgery; tubal ligation; al4 - Immunization history:: Adult Immunizations up to date, Client reports receiving the 2nd dose of the Covid vaccine. - Social history:: Smoking status: Patient denies any tobacco usage or history of. - Family history:: not pertinent. ROS: 19:48 Constitutional: Negative for fever, chills, and weight loss, Eyes: Negative for injury, silvio pain, redness, and discharge, ENT: Negative for injury, pain, and discharge, Neck: Negative for injury, pain, and swelling, Cardiovascular: Negative for chest pain, palpitations, and edema, Respiratory: Negative for shortness of breath, cough, wheezing, and pleuritic chest pain, Abdomen/GI: Negative for abdominal pain, nausea, vomiting, diarrhea, and constipation, Back: Negative for injury and pain, : Negative for injury, bleeding, discharge, and swelling, MS/Extremity: Negative for injury and deformity, Skin: Negative for injury, rash, and discoloration, Psych: Negative for depression, anxiety, suicide ideation, homicidal ideation, and hallucinations, Allergy/Immunology: Negative for hives, rash, and allergies, Endocrine: Negative for neck swelling, polydipsia, polyuria, polyphagia, and marked weight changes, Hematologic/Lymphatic: Negative for swollen nodes, abnormal bleeding, and unusual bruising. 19:48 Neuro: Positive for headache. Exam: 19:48 Constitutional: This is a well developed, well nourished patient who is awake, alert, silvio and in no acute distress. Head/Face: Normocephalic, atraumatic. Eyes: Pupils equal round and reactive to light, extra-ocular motions intact. Lids and lashes normal. Conjunctiva and sclera are non-icteric and not injected. Cornea within normal limits. Periorbital areas with no swelling, redness, or edema. ENT: Nares patent. No nasal discharge, no septal abnormalities noted. Tympanic membranes are normal and external auditory canals are clear. Oropharynx with no redness, swelling, or masses, exudates, or evidence of obstruction, uvula midline. Mucous membranes moist. Neck: Trachea midline, no thyromegaly or masses palpated, and no cervical lymphadenopathy. Supple, full range of motion without nuchal rigidity, or vertebral point tenderness. No Meningismus. Chest/axilla: Normal chest wall appearance and motion. Nontender with no deformity. No lesions are appreciated. Cardiovascular: Regular rate and rhythm with a normal S1 and S2. No gallops, murmurs, or rubs. Normal PMI, no JVD. No pulse deficits. Respiratory: Lungs have equal breath sounds bilaterally, clear to auscultation and percussion. No rales, rhonchi or wheezes noted. No increased work of breathing, no retractions or nasal flaring. Abdomen/GI: Soft, non-tender, with normal bowel sounds. No distension or tympany. No guarding or rebound. No evidence of tenderness throughout. Back: No spinal tenderness. No costovertebral tenderness. Full range of motion. Skin: Warm, dry with normal turgor. Normal color with no rashes, no lesions, and no evidence of cellulitis. MS/ Extremity: Pulses equal, no cyanosis. Neurovascular intact. Full, normal range of motion. Neuro: Awake and alert, GCS 15, oriented to person, place, time, and situation. Cranial nerves II-XII grossly intact. Motor strength 5/5 in all extremities. Sensory grossly intact. Cerebellar exam normal. Normal gait. Psych: Awake, alert, with orientation to person, place and time. Behavior, mood, and affect are within normal limits. 19:48 Neuro: Orientation: is normal, appropriate for stated age, no acute changes, Mentation: is normal, appropriate for stated age, no acute changes, Memory: is normal, appropriate for stated age, no acute changes, Cranial nerves: grossly normal, is grossly normal based on the patient's age, no acute changes, Cerebellar function: is grossly normal, is grossly normal based on the patient's age, no acute changes, Motor: is normal, is grossly normal based on the patient's age, no acute changes, Sensation: is normal, appropriate no acute changes, Gait: is steady, appropriate for age, Babinski testing is normal, seizure activity, is not displayed by the patient. Vital Signs: 19:15 BP 118 / 97; Pulse 92; Resp 20; Temp 98.6; Pulse Ox 97% on R/A; Weight 108.86 kg; al4 Height 5 ft. 2 in. (157.48 cm); Pain 10/10; 19:56 BP 104 / 60; Pulse 83; Resp 17; Pulse Ox 99% on R/A; kd3 23:08 BP 103 / 71; Pulse 86; Resp 17; Pulse Ox 95% on R/A; kd3 19:15 Body Mass Index 43.90 (108.86 kg, 157.48 cm) al4 NIH Stroke Scale Scores: 19:48 NIHSS Score: 0 [facility] Dee Coma Score: 19:51 Eye Response: spontaneous(4). Verbal Response: oriented(5). Motor Response: obeys [facility] commands(6). Total: 15. MDM: 19:30 Patient medically screened. [facility] 19:51 Differential diagnosis: migraine, neoplasm, tension headache, trigeminal neuralgia, silvio vasomotor headache. Data reviewed: vital signs, nurses notes, lab test result(s), radiologic studies, CT scan. Data interpreted: vehicle monitor technician: rate is 92 beats/min, rhythm is regular, Pulse oximetry: on room air is 97 %. Counseling: I had a detailed discussion with the patient and/or guardian regarding: the historical points, exam findings, and any diagnostic results supporting the discharge/admit diagnosis, lab results, radiology results, the need for outpatient follow up, for definitive care, a family practitioner, a neurologist. 03/25 19:47 Order name: CBC with Diff; Complete Time: 21:43 [facility] 03/25 19:47 Order name: Comprehensive Metabolic Panel; Complete Time: 21:43 [facility] 03/25 19:50 Order name: Head Brain Wo Cont; Complete Time: 21:43 [facility] 03/25 22:46 Order name: Urine Dipstick-Ancillary [facility] 03/25 22:48 Order name: Urine Culture as6 03/25 22:53 Order name: Urine --Ancillary (enter results) [facility] 03/25 19:47 Order name: Oxygen; Complete Time: 20:14 [facility] 03/25 19:47 Order name: Urine Dipstick-Ancillary (obtain specimen); Complete Time: 22:46 [facility] 03/25 19:47 Order name: Urine Test (obtain specimen); Complete Time: 22:46 [facility] 03/25 21:53 Order name: Misc. Order: get ua; Complete Time: 22:46 [facility] Administered Medications: 20:13 Drug: NS 0.9% 1000 ml Route: IV; Rate: 1 bolus; Site: right forearm; kd3 23:10 Follow up: Response: No adverse reaction; IV Status: Completed infusion kd3 20:13 Drug: Ketorolac 30 mg Route: IVP; Site: right forearm; kd3 23:10 Follow up: Response: No adverse reaction kd3 20:13 Drug: Zofran (Ondansetron) 4 mg Route: IVP; Site: right forearm; kd3 23:10 Follow up: Response: No adverse reaction kd3 20:13 Drug: Dilaudid (HYDROmorphone) 1 mg Route: IVP; Site: right femoral; kd3 23:09 Follow up: Response: No adverse reaction; Pain is decreased kd3 22:42 Drug: Potassium Effervescent Tablet 25 mEq Route: PO; as6 23:09 Follow up: Response: No adverse reaction kd3 22:42 Drug: Zofran (Ondansetron) 4 mg Route: IVP; Site: right forearm; as6 23:09 Follow up: Response: No adverse reaction kd3 22:54 Drug: Rocephin (cefTRIAXone) 1 grams Route: IV; Rate: calculated rate; Site: left kd3 forearm; 23:09 Follow up: Response: No adverse reaction; IV Status: Completed infusion kd3 23:07 Drug: Bactrim (trimethoprim-sulfamethoxazole) (160 mg-800 mg (DS) 1 tablet Route: PO; kd3 23:09 Follow up: Response: No adverse reaction kd3 Disposition Summary: 03/25/22 21:43 Discharge Ordered Location: Home silvio Problem: new silvio Symptoms: have improved silvio Condition: Stable silvio Diagnosis - Migraine without aura, not intractable silvio - Hypokalemia silvio - UTI/ Urinary tract infection, site not specified silvio Followup: silvio - With: - When: 2 - 3 days - Reason: Recheck today's complaints, Continuance of care, Re-evaluation by your physician Followup: silvio - With: - When: 2 - 3 days - Reason: Recheck today's complaints, Re-evaluation by your physician Discharge Instructions: - Potassium Content of Foods silvio - General Headache Without Cause silvio - Migraine Headache silvio - General Headache Without Cause, [id number] silvio - Urinary Tract Infection, Adult silvio - Urinary Tract Infection, Adult, [id number] silvio - Discharge Summary Sheet sb3 - Hypokalemia silvio Forms: - Medication Reconciliation Form silvio - Thank You Letter silvio - Antibiotic Education silvio - Prescription Opioid Use silvio Prescriptions: - Fioricet with Codeine 50-038-33-30 mg Oral capsule - take 1 capsule by ORAL route every 4 hours as needed not to exceed 6 capsules sb3 per 24hrs; 20 capsule; Refills: 0, Product Selection Permitted - Zofran 4 mg Oral Tablet - take 1 tablet by ORAL route every 12 hours As needed; 20 tablet; Refills: 0, [facility] Product Selection Permitted - promethazine 25 mg Oral Tablet - take 1 tablet by ORAL route every 6 hours As needed; 15 tablet; Refills: 0, [facility] Product Selection Permitted - Bactrim DS 800-160 mg Oral Tablet - take 1 tablet by ORAL route every 12 hours for 7 days; 14 tablet; Refills: 0, [facility] Product Selection Permitted NIH Stroke Scale - NIH Stroke Score Date: 03/25/2022 Time: 19:48 Total Score = 0 1a. Level of Consciousness (LOC) - 0(Alert) 1b. Level of Consciousness (LOC) (Month \T\ Age) - 0(Both) 1c. LOC Commands (Open \T\ Closes Eyes/Cupola Patcher Helper) - 0(Both) 2. Best Gaze (Lateral Gaze Paresis) - 0(Normal) 3. Visual Field Loss - 0(No visual loss) 4. Facial Palsy - 0(Normal) 5a. Left Arm: Motor (10-second hold) - 0(No drift) 5b. Right Arm: Motor (10-second hold) - 0(No drift) 6a. Left Leg: Motor (5-second hold - always test supine) - 0(No drift) 6b. Right Leg: Motor (5-second hold - always test supine) - 0(No drift) 7. Limb Ataxia (finger/nose \T\ heel/sage - test with eyes open) - 0(Absent) 8. Sensory Loss (pinprick arms/legs/face) - 0(Normal) 9. Best Language: Aphasia (description/naming/reading) - 0(No aphasia) 10. Dysarthria (speech clarity - read or repeat words) - 0(Normal) 11. Extinction and Inattention (visual/tactile/auditory/spatial/personal) - 0(No abnormality) Initials: [facility] Signatures: Dispatcher [employer] Ji Montague MD MD cha Slawson, Ashby RN RN as6 Prudence Julian RN RN kd3 Ady Concepcion
[2022-03-25] MEDS ORDERED: POTASSIUM 25 MEQ EFFERV TAB ONE (22:41)
[2022-03-25 22:46] LABS: Urine Blood 3+ (Negative); Urine Glucose Negative (Negative); Urine Protein 2+ (Negative); Urine Specific Gravity 1.025 (1.005-1.030)
[2022-03-25] MEDS ORDERED: CEFTRIAXONE 1000 MG/VIAL ONE (22:54)
[2022-03-25] MEDS ORDERED: SMZ./TMP. 800/160 MG TABLET ONE (23:06)
[2022-03-25 23:09] LABS: Urine Specific Gravity/Preg 1.025 (1.005-1.030)
[2022-03-25 23:17] VITALS: TEMP 98.6
[2022-03-25 23:19] VITALS: BP 103/71; O2SAT 95
== END 2022-03-25 23:10 | disposition home or self-care (01) ==
LOC: ER 18:39
DX: G43.009 Migraine without aura, not intractable, without status migrainosus (principal); E87.6 Hypokalemia; N39.0 Urinary tract infection, site not specified; I10 Essential (primary) hypertension; F31.9 Bipolar disorder, unspecified; Z88.5 Allergy status to narcotic agent; Z88.8 Allergy status to other drugs, medicaments and biological substances
CPT/HCPCS: 87088; 85025; 87086; 36415; 81025; 81003; 80053; 70450; J1170; J2405 ×2; 99284

== ENCOUNTER 2022-03-31 18:02 | Emergency (ER) | payer OTHER ==
--- NOTE | 2022-03-31 19:04 | RAD REPORT ---
EXAM DESCRIPTION: RAD - Wrist Right 3 View - 03/31/2022 6:57 pm CLINICAL HISTORY: Right wrist pain FINDINGS: No fracture or dislocation is seen. No bone or joint abnormality is visualized
--- NOTE | 2022-03-31 22:21 | ER ---
Nurse's Notes [facility] Name: Maria Del Carmen Rodriguez Age: 41 yrs Sex: Female : 1980 Arrival Date: 03/31/2022 Time: 18:05 Bed 30 Private MD: Diagnosis: Pain in right wrist Presentation: 03/31 18:17 Chief complaint: Patient states: R wrist pain x 1 year, worse since last night, hx of ph arthritis in other joints and chronic pain. Coronavirus screen: Vaccine status: Patient reports receiving the 2nd dose of the covid vaccine. Ebola Screen: No symptoms or risks identified at this time. Initial Sepsis Screen: Does the patient meet any 2 criteria? No. Patient's initial sepsis screen is negative. Does the patient have a suspected source of infection? No. Patient's initial sepsis screen is negative. Risk Assessment: Do you want to hurt yourself or someone else? Patient reports no desire to harm self or others. Onset of symptoms was March 31, 2022. 18:17 Method Of Arrival: Wheelchair ph 18:17 Acuity: JUS 4 ph Triage Assessment: 18:20 General: Appears in no apparent distress. Behavior is calm, cooperative, appropriate ph for age. Pain: Complains of pain in right wrist. Historical: - Allergies: 18:19 adult benadryl; ph 18:19 Avelox; ph 18:19 Benadryl; ph 18:19 darvocet; ph 18:19 Hydrocodone-Acetaminophen; ph 18:19 Imitrex; ph 18:19 Stadol; ph 18:19 Sumatriptan Succinate; ph 18:19 Tessalon Perles; ph 18:19 Trazodone; ph - PMHx: 18:19 Asthma; Bipolar disorder; Hypertension; ibs; insomnia; Migraines; Sleep Apnea; ph Tachycardia; - PSHx: 18:19 Appendectomy; GALLBLADDER; left leg surgery; tubal ligation; ph - Immunization history:: Adult Immunizations unknown. - Social history:: Smoking status: Patient denies any tobacco usage or history of. Screenin:34 Abuse screen: Denies threats or abuse. Denies injuries from another. Nutritional ld1 screening: No deficits noted. Tuberculosis screening: No symptoms or risk factors identified. Fall Risk None identified. Assessment: 21:34 Reassessment: See triage assessment. ld1 Vital Signs: 18:17 BP 124 / 59; Pulse 91; Resp 18; Temp 97.7; Pulse Ox 98% on R/A; Weight 112.94 kg; ph Height 5 ft. 2 in. (157.48 cm); 21:34 BP 128 / 60; Pulse 88; Resp 18; Pulse Ox 100% on R/A; Pain 3/10; ld1 18:17 Body Mass Index 45.54 (112.94 kg, 157.48 cm) ED Course: 18:05 Patient arrived in ED. ds1 18:19 Triage completed. ph 18:19 Arm band placed on Patient placed in waiting room, Patient notified of wait time. ph 18:22 X-ray ordered. ph 18:59 XRAY Wrist RIGHT 3 view In Process Unspecified. EDAL 19:23 Ji Garcia PA is PHCP. cp 19:23 Henry Sánchez MD is Attending Physician. cp 21:34 Conchis Rodas, COLBY is Primary Nurse. ld1 21:34 Patient has correct armband on for positive identification. Placed in gown. Bed in low ld1 position. Call light in reach. Side rails up X2. personnel monitor on. Pulse ox on. NIBP on. Door closed. Noise minimized. Warm blanket given. 21:34 No provider procedures requiring assistance completed. ld1 22:20 Tom Power MD is Referral Physician. cp 22:32 Patient did not have IV access during this emergency room visit. ld1 Administered Medications: 22:31 Drug: Ibuprofen 800 mg Route: PO; ld1 Outcome: 22:20 Discharge ordered by . cp 22:31 Discharged to home via wheelchair, with family. ld1 22:31 Condition: stable 22:31 Discharge instructions given to patient, family, Instructed on discharge instructions, follow up and referral plans. medication usage, Demonstrated understanding of instructions, follow-up care, medications, Prescriptions given X 1. 22:36 Patient left the ED. ld1 Signatures: Dispatcher [employer] [facility] [place] ds1 Yuki Amador RN RN ph Ji Garcia PA PA cp Conchis Rodas, RN RN ld1
--- NOTE | 2022-03-31 22:21 | EDPHYS ---
Physician Documentation [facility] Name: Maria Del Carmen Rodriguez Age: 41 yrs Sex: Female : 1980 Arrival Date: 03/31/2022 Time: 18:05 Bed 30 Private MD: YOAV Physician Henry Sánchez HPI: 03/31 22:00 This 41 yrs old Unknown Female presents to ER via Wheelchair with complaints of Wrist cp Pain. 22:00 The patient or guardian reports pain, swelling, tenderness. The complaints affect the cp right wrist diffusely. Context: resulted from an unknown cause. 22:00 Onset: The symptoms/episode began/occurred 1 year(s) ago, and became worse last night. cp Modifying factors: the symptoms are aggravated by movement. Associated signs and symptoms: The patient has no apparent associated signs or symptoms. 22:00 Patient reports worsening right wrist pain since last night. Denies injury. Presents cp wearing wrist brace and reports having nerve conduction test done in the past due to pain. Historical: - Allergies: 18:19 adult benadryl; ph 18:19 Avelox; ph 18:19 Benadryl; ph 18:19 darvocet; ph 18:19 Hydrocodone-Acetaminophen; ph 18:19 Imitrex; ph 18:19 Stadol; ph 18:19 Sumatriptan Succinate; ph 18:19 Tessalon Perles; ph 18:19 Trazodone; ph - PMHx: 18:19 Asthma; Bipolar disorder; Hypertension; ibs; insomnia; Migraines; Sleep Apnea; ph Tachycardia; - PSHx: 18:19 Appendectomy; GALLBLADDER; left leg surgery; tubal ligation; ph - Immunization history:: Adult Immunizations unknown. - Social history:: Smoking status: Patient denies any tobacco usage or history of. ROS: 22:05 MS/extremity: Positive for pain, swelling, tenderness, of the right wrist, Negative for cp injury or acute deformity, decreased range of motion, paresthesias. 22:05 Constitutional: Negative for body aches, chills, fever. cp 22:05 Neck: Negative for pain with movement, pain at rest. 22:05 Respiratory: Negative for cough, shortness of breath, wheezing. 22:05 Abdomen/GI: Negative for abdominal pain, nausea, vomiting, and diarrhea. 22:05 Back: Negative for pain at rest, pain with movement. 22:05 Skin: Negative for cellulitis, rash. 22:05 Neuro: Negative for altered mental status, headache, weakness. 22:05 All other systems are negative. Exam: 22:10 Constitutional: The patient appears in no acute distress, alert, awake, non-toxic, well cp developed, well nourished. 22:10 Musculoskeletal/extremity: Extremities: noted in the right wrist: pain, mild general cp swelling, tender to palpation along ulna side, ROM: limited passive range of motion due to pain, in the right wrist, Perfusion: the extremity is normally perfused throughout, the right hand and right wrist Sensation intact. 22:10 Skin: cellulitis, is not appreciated, no rash present. Vital Signs: 18:17 BP 124 / 59; Pulse 91; Resp 18; Temp 97.7; Pulse Ox 98% on R/A; Weight 112.94 kg; ph Height 5 ft. 2 in. (157.48 cm); 21:34 BP 128 / 60; Pulse 88; Resp 18; Pulse Ox 100% on R/A; Pain 3/10; ld1 18:17 Body Mass Index 45.54 (112.94 kg, 157.48 cm) ph MDM: 21:57 Patient medically screened. cp 22:00 Differential diagnosis: dislocation, closed fracture, tendonitis. cp 22:20 Data reviewed: vital signs, nurses notes, radiologic studies, plain films. cp 22:20 Test interpretation: by ED physician or midlevel provider: plain radiologic studies. cp Counseling: I had a detailed discussion with the patient and/or guardian regarding: the historical points, exam findings, and any diagnostic results supporting the discharge/admit diagnosis, radiology results, the need for outpatient follow up, for definitive care, a orthopedic surgeon, to return to the emergency department if symptoms worsen or persist or if there are any questions or concerns that arise at home. ED course: VSS. Xrays negative for fracture. Patient has wrist brace to continue to wear. Recommend rest, ice and NSAIDs for pain. Will discharge to home for continued monitoring. 03/31 18:21 Order name: XRAY Wrist RIGHT 3 view; Complete Time: 22:19 ph 03/31 22:19 Interpretation: Report reviewed. cp Administered Medications: 22:31 Drug: Ibuprofen 800 mg Route: PO; ld1 Disposition Summary: 03/31/22 22:20 Discharge Ordered Location: Home cp Problem: new cp Symptoms: have improved cp Condition: Stable cp Diagnosis - Pain in right wrist cp Followup: cp - With: Tom Power MD - When: 2 - 3 days - Reason: Worsening of condition Discharge Instructions: - Discharge Summary Sheet cp - Wrist Pain, Adult cp Forms: - Medication Reconciliation Form cp - Thank You Letter cp - Antibiotic Education cp - Prescription Opioid Use cp Prescriptions: - Diclofenac Sodium 75 mg Oral tablet,delayed release (DR/EC) - take 1 tablet by ORAL route 2 times per day; 20 tablet; Refills: 0, Product cp Selection Permitted Signatures: Dispatcher [employer] uYki Thomas, RN RN ph Ji Garcia PA PA Conchis Webb, RN RN ld1
[2022-03-31] MEDS ORDERED: IBUPROFEN 400 MG TAB ONE (22:35)
[2022-03-31 23:12] VITALS: TEMP 97.7
[2022-03-31 23:13] VITALS: BP 128/60; O2SAT 100
== END 2022-03-31 22:36 | disposition home or self-care (01) ==
LOC: ER 18:02
DX: M25.531 Pain in right wrist (principal); I10 Essential (primary) hypertension; F31.9 Bipolar disorder, unspecified; Z88.5 Allergy status to narcotic agent; Z88.8 Allergy status to other drugs, medicaments and biological substances
CPT/HCPCS: 99284

== ENCOUNTER 2022-04-05 18:11 | Emergency (ER) | payer OTHER ==
--- NOTE | 2022-04-05 20:50 | RAD REPORT ---
EXAM DESCRIPTION: RAD - Chest Pa And Lat (2 Views) - 04/05/2022 8:45 pm CLINICAL HISTORY: COUGH Chest pain. COMPARISON: Chest Pa And Lat (2 Views) dated 02/11/2022; Chest Pa And Lat (2 Views) dated 02/07/2022; Chest Single View dated 12/06/2021; Chest Pa And Lat (2 Views) dated 10/22/2021 FINDINGS: The lungs are clear. The heart is normal in size. No displaced fractures. IMPRESSION: No acute or concerning finding suspected.
--- NOTE | 2022-04-05 22:31 | EDPHYS ---
Physician Documentation [facility] Name: Maria Del Carmen Rodriguez Age: 41 yrs Sex: Female : 1980 Arrival Date: 04/05/2022 Time: 18:17 Bed 21 Private MD: Bc Courtney ED Physician Rah Flores HPI: 04/05 20:10 This 41 yrs old Female presents to ER via Ambulatory with complaints of Cough, cp Congestion. 20:10 The patient or guardian reports cough, that is intermittent, with productive sputum. cp Onset: The symptoms/episode began/occurred 3 month(s) ago. 20:10 Severity of symptoms: in the emergency department the symptoms are unchanged, despite cp home interventions. 20:10 Associated signs and symptoms: Pertinent positives: sore throat, Pertinent negatives: cp chest pain, diarrhea, fever, vomiting. 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 N/A - Tubal Ligation vc1 Historical: - Allergies: 19:42 adult benadryl; vc1 19:42 Avelox; vc1 19:42 Benadryl; vc1 19:42 darvocet; vc1 19:42 Darvocet-N 100; vc1 19:42 Hydrocodone-Acetaminophen; vc1 19:42 Imitrex; vc1 19:42 Stadol; vc1 19:42 Sumatriptan Succinate; vc1 19:42 Tessalon Perles; vc1 19:42 Trazodone; vc1 - PMHx: 19:42 Asthma; Bipolar disorder; Hypertension; ibs; insomnia; Migraines; Sleep Apnea; vc1 Tachycardia; - PSHx: 19:42 Appendectomy; GALLBLADDER; left leg surgery; tubal ligation; vc1 - Immunization history:: Adult Immunizations up to date, Client reports receiving the 2nd dose of the Covid vaccine. - Social history:: Smoking status: Patient denies any tobacco usage or history of. ROS: 20:15 Constitutional: Negative for body aches, fever, poor PO intake. cp 20:15 Eyes: Negative for injury, pain, redness, and discharge. cp 20:15 ENT: Positive for sore throat, Negative for drainage from ear(s), ear pain, difficulty swallowing, difficulty handling secretions. 20:15 Cardiovascular: Negative for chest pain, edema. 20:15 Respiratory: Positive for cough, Negative for wheezing. 20:15 Abdomen/GI: Negative for abdominal pain, vomiting, diarrhea, constipation. 20:15 Neuro: Negative for altered mental status, dizziness, headache, weakness. 20:15 All other systems are negative. Exam: 20:20 Constitutional: The patient appears in no acute distress, alert, awake, cp non-diaphoretic, non-toxic, well developed, well nourished. 20:20 Head/Face: Normocephalic, atraumatic. cp 20:20 Eyes: Periorbital structures: appear normal, Conjunctiva: normal, no exudate, no injection, Sclera: no appreciated abnormality, Lids and lashes: appear normal, bilaterally. 20:20 ENT: External ear(s): are unremarkable, Ear canal(s): are normal, clear, TM's: dullness, bilaterally, Nose: is normal, Mouth: Lips: moist, Oral mucosa: moist, Posterior pharynx: Airway: no evidence of obstruction, patent, Tonsils: with erythema, no enlargement, no exudate, Uvula: midline, swelling, is not appreciated, erythema, that is mild, exudate, is not appreciated. 20:20 Neck: ROM/movement: is normal, is supple, without pain, no range of motions limitations, no meningismus, Lymph nodes: no appreciated lymphadenopathy. 20:20 Chest/axilla: Inspection: normal. 20:20 Cardiovascular: Rate: normal, Rhythm: regular. 20:20 Respiratory: the patient does not display signs of respiratory distress, Respirations: normal, no use of accessory muscles, no retractions, labored breathing, is not present, Breath sounds: decreased breath sounds, are not appreciated, stridor, is not appreciated, + upper airway congestion. 20:20 Abdomen/GI: Exam negative for discomfort, distension, guarding, Inspection: abdomen appears normal. 20:20 Back: pain, is absent, ROM is normal. 20:20 Neuro: Orientation: to person, place \\T\\ time. Mentation: is normal. Vital Signs: 19:36 BP 128 / 78; Pulse 96; Resp 18; Temp 98.6; Pulse Ox 96% ; Weight 112.94 kg; Height 5 vc1 ft. 2 in. (157.48 cm); Pain 10/10; 19:36 Body Mass Index 45.54 (112.94 kg, 157.48 cm) vc1 MDM: 19:53 Patient medically screened. cp 21:00 Differential Diagnosis: Bronchitis Influenza Asthma Exacerbation Viral Syndrome cp Pneumonia. 22:30 Data reviewed: vital signs, nurses notes, lab test result(s), radiologic studies, plain cp films. 22:30 Test interpretation: by ED physician or midlevel provider: plain radiologic studies. cp Counseling: I had a detailed discussion with the patient and/or guardian regarding: the historical points, exam findings, and any diagnostic results supporting the discharge/admit diagnosis, lab results, radiology results, to return to the emergency department if symptoms worsen or persist or if there are any questions or concerns that arise at home. 04/05 20:01 Order name: Influenza Screen (a \\T\\ B); Complete Time: 22:18 04/05 22:18 Interpretation: Reviewed. 04/05 20:01 Order name: Strep; Complete Time: 22:18 04/05 22:18 Interpretation: Reviewed. 04/05 20:04 Order name: Influenza Screen (A [facility] 04/05 21:42 Order name: Throat Culture [facility] 04/05 20:01 Order name: XRAY Chest Pa And Lat (2 Views); Complete Time: 21:21 04/05 21:21 Interpretation: Report reviewed. 04/05 21:49 Order name: COVID-19 SARS RT PCR (Document "Date of Onset" if Symptomatic) tw5 Administered Medications: No medications were administered Disposition: 04/06 05:03 Co-signature as Attending Physician, Rah CASEY was immediately available on-site ms3 in the Emergency Department for consultation in the care of the patient.. Disposition Summary: 04/05/22 22:30 Discharge Ordered Location: Home cp Problem: chronic cp Symptoms: are unchanged cp Condition: Stable cp Diagnosis - Unspecified chronic bronchitis cp Followup: cp - With: Bc Courtney MD - When: 2 - 3 days - Reason: Recheck today's complaints Discharge Instructions: - Discharge Summary Sheet cp - Chronic Bronchitis, Adult cp Forms: - Medication Reconciliation Form cp - Thank You Letter cp - Antibiotic Education cp - Prescription Opioid Use cp Prescriptions: - Bromfed DM 2-30-10 mg/5 mL Oral syrup - take 10 milliliter by ORAL route every 6 hours; 200 milliliter; Refills: 0, cp Product Selection Permitted - albuterol sulfate 90 mcg/actuation Inhalation HFA aerosol inhaler - inhale 1 puff by INHALATION route every 4-6 hours; 1 Inhaler; Refills: 0, cp Product Selection Permitted - Zithromax Z-Mejia 250 mg Oral Tablet - take 1 tablet by ORAL route as directed for 5 days Day 1 - take two (2) tablets cp one time. Day 2, 3, 4 , 5 take one (1) tablet once daily.; 6 tablet; Refills: 0, Product Selection Permitted - Medrol (Mejia) 4 mg Oral Tablets, Dose Pack - take 1 tablet by ORAL route as directed - follow package instructions; 1 cp packet; Refills: 0, Product Selection Permitted Signatures: Dispatcher [employer] EDMS Ji Garcia PA PA cp Sims, Marcus, DO DO ms3 Trini Bourgeois, RN RN vc1
--- NOTE | 2022-04-05 22:31 | ER ---
Nurse's Notes [facility] Name: Maria Del Carmen Rodriguez Age: 41 yrs Sex: Female : 1980 Arrival Date: 04/05/2022 Time: 18:17 Bed 21 Private MD: Bc Courtney Diagnosis: Unspecified chronic bronchitis Presentation: 04/05 19:36 Chief complaint: Patient states: "I've had a cough since December but this week it has vc1 gotten worse. I feel like I am going to black out when I cough. I am really tired.". Coronavirus screen: Vaccine status: Patient reports receiving the 2nd dose of the covid vaccine. Booster, Moderna chills, congestion, cough unrelated to allergies, fatigue, headache, Client presents with at least one sign or symptom that may indicate coronavirus-19. Standard/surgical mask placed on the client. Provider contacted for isolation considerations. Ebola Screen: No symptoms or risks identified at this time. Initial Sepsis Screen: Does the patient meet any 2 criteria? HR > 90 bpm. No. Patient's initial sepsis screen is negative. Does the patient have a suspected source of infection? Yes: Productive cough/pneumonia. Risk Assessment: Do you want to hurt yourself or someone else? Patient reports no desire to harm self or others. Onset of symptoms is unknown. 19:36 Method Of Arrival: Ambulatory vc1 19:36 Acuity: JUS 3 vc1 Triage Assessment: 22:49 General: Appears in no apparent distress. Behavior is calm, cooperative. Respiratory: tw5 Airway is patent. 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 LMP N/A - Tubal Ligation vc1 Historical: - Allergies: 19:42 adult benadryl; vc1 19:42 Avelox; vc1 19:42 Benadryl; vc1 19:42 darvocet; vc1 19:42 Darvocet-N 100; vc1 19:42 Hydrocodone-Acetaminophen; vc1 19:42 Imitrex; vc1 19:42 Stadol; vc1 19:42 Sumatriptan Succinate; vc1 19:42 Tessalon Perles; vc1 19:42 Trazodone; vc1 - PMHx: 19:42 Asthma; Bipolar disorder; Hypertension; ibs; insomnia; Migraines; Sleep Apnea; vc1 Tachycardia; - PSHx: 19:42 Appendectomy; GALLBLADDER; left leg surgery; tubal ligation; vc1 - Immunization history:: Adult Immunizations up to date, Client reports receiving the 2nd dose of the Covid vaccine. - Social history:: Smoking status: Patient denies any tobacco usage or history of. Screenin:54 Abuse screen: Denies threats or abuse. Denies injuries from another. Nutritional tw5 screening: No deficits noted. Tuberculosis screening: No symptoms or risk factors identified. Fall Risk None identified. Assessment: 19:54 General: Reports "I have had a cough since December. Cough medication isn't helping. tw5 Sometimes I cough up green mucus.". Pain: Complains of pain in chest Pain currently is 5 out of 10 on a pain scale. Cardiovascular: Heart tones S1 S2 present Capillary refill < 3 seconds. Respiratory: Airway is patent Trachea midline Respiratory effort is even, unlabored, Respiratory pattern is regular, Breath sounds are clear bilaterally. Parent/caregiver reports the patient having pain with cough Pain is 5 out of 10 on a pain scale. Musculoskeletal: No deficits noted. 22:48 Reassessment: Patient states feeling better. tw5 Vital Signs: 19:36 BP 128 / 78; Pulse 96; Resp 18; Temp 98.6; Pulse Ox 96% ; Weight 112.94 kg; Height 5 vc1 ft. 2 in. (157.48 cm); Pain 10/10; 19:36 Body Mass Index 45.54 (112.94 kg, 157.48 cm) vc1 ED Course: 18:17 Patient arrived in ED. as 18:17 Bc Courtney MD is Private Physician. as 18:23 Ji Garcia PA is PHCP. cp 18:23 Placido Zarate MD is Attending Physician. cp 19:37 Rah Flores DO is Attending Physician. cp 19:42 Triage completed. vc1 19:42 Arm band placed on left wrist. vc1 19:44 Dianelys Kleni is Primary Nurse. tw5 19:54 Patient has correct armband on for positive identification. Call light in reach. Adult tw5 w/ patient. Door closed. Noise minimized. Verbal reassurance given. 20:45 XRAY Chest Pa And Lat (2 Views) In Process Unspecified. EDMS 20:52 Influenza Screen (A Sent. vc1 20:52 Strep Sent. vc1 22:29 Bc Courtney MD is Referral Physician. cp 22:46 COVID-19 SARS RT PCR (Document "Date of Onset" if Symptomatic) Sent. tw5 22:46 Throat Culture Sent. tw5 22:48 No provider procedures requiring assistance completed. Patient did not have IV access tw5 during this emergency room visit. Administered Medications: No medications were administered Medication: 19:54 VIS not applicable for this client. tw5 Outcome: 22:30 Discharge ordered by MD. cp 22:48 Discharged to home ambulatory. tw5 22:48 Condition: good 22:48 Discharge instructions given to patient, Instructed on discharge instructions, follow up and referral plans. medication usage, Demonstrated understanding of instructions, follow-up care, medications, Prescriptions given X 4. 22:50 Patient left the ED. tw5 Signatures: Dispatcher [employer] EDMS Chiquita Gamez Corey, PA PA cp Wood, Tiffany tw5 Trini Bourgeois RN RN vc1
[2022-04-06 15:08] VITALS: BP 128/78; TEMP 98.6; O2SAT 96
== END 2022-04-05 22:50 | disposition home or self-care (01) ==
LOC: ER 18:11
DX: J42 Unspecified chronic bronchitis (principal); Z20.822 Contact with and (suspected) exposure to COVID-19; I10 Essential (primary) hypertension; Z88.5 Allergy status to narcotic agent; Z88.6 Allergy status to analgesic agent; Z88.8 Allergy status to other drugs, medicaments and biological substances
CPT/HCPCS: 87070; 87081; 87804 ×2; 71046; 99283; U0003

== ENCOUNTER 2022-04-14 21:13 | Emergency (ER) | payer OTHER ==
[2022-04-14 23:27] LABS: Hematocrit 39.2 % (36.0-45.0); Lymphocytes % 24.9 % (15.3-44.8); MPV 7.3 fL (7.6-11.3); RBC Red Blood Cell Count 4.03 M/uL (3.86-4.86)
[2022-04-14 23:38] LABS: Potassium 3.7 mmol/L (3.5-5.1)
[2022-04-15] MEDS ORDERED: NA CHLORIDE 0.9% 1,000 ML ONE (00:04)
--- NOTE | 2022-04-15 00:57 | EDPHYS ---
Physician Documentation [facility] Name: Maria Del Carmen Rodriguez Age: 41 yrs Sex: Female : 1980 Arrival Date: 04/14/2022 Time: 21:16 Bed 7 Private MD: ED Physician Ji Lynn HPI: 04/14 22:35 This 41 yrs old Female presents to ER via Ambulatory with complaints of Blood Pressure cp Problem. 22:35 Low blood pressure today. Patient reports blood pressure reading today of systolic cp pressure in 80s and diastolic pressures in the 40s. Patient denies dizziness, lightheadness and/or chest pain. 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 lp1 Historical: - Allergies: 21:31 adult benadryl; lp1 21:31 Avelox; lp1 21:31 Benadryl; lp1 21:31 darvocet; lp1 21:31 Darvocet-N 100; lp1 21:31 Hydrocodone-Acetaminophen; lp1 21:31 Imitrex; lp1 21:31 Stadol; lp1 21:31 Sumatriptan Succinate; lp1 21:31 Tessalon Perles; lp1 21:31 Trazodone; lp1 - Home Meds: 21:31 Metoprolol Tartrate Oral [Active]; Abilify oral [Active]; gabapentin oral [Active]; lp1 amitriptyline Oral [Active]; Wellbutrin Oral [Active]; - PMHx: 21:31 Asthma; Bipolar disorder; Hypertension; ibs; insomnia; Migraines; Sleep Apnea; lp1 Tachycardia; Degenerative Disc Disease; - PSHx: 21:31 Appendectomy; GALLBLADDER; left leg surgery; tubal ligation; lp1 - Immunization history:: Adult Immunizations up to date, Client reports receiving the 2nd dose of the Covid vaccine. - Social history:: Smoking status: Patient denies any tobacco usage or history of. ROS: 22:40 Constitutional: Negative for body aches, chills, fever, poor PO intake. cp 22:40 Cardiovascular: Negative for chest pain, edema, palpitations. cp 22:40 Respiratory: Negative for cough, shortness of breath, wheezing. 22:40 Abdomen/GI: Negative for abdominal pain, vomiting, diarrhea, constipation. 22:40 : Negative for urinary symptoms, vaginal bleeding, vaginal discharge. 22:40 Neuro: Negative for altered mental status, dizziness, headache, syncope, near syncope, weakness. 22:40 All other systems are negative. cp Exam: 22:45 Constitutional: The patient appears in no acute distress, alert, awake, cp non-diaphoretic, non-toxic, well developed, well nourished. 22:45 Head/Face: Normocephalic, atraumatic. cp 22:45 Eyes: Periorbital structures: appear normal, Conjunctiva: normal, no exudate, no cp injection, Sclera: no appreciated abnormality, Lids and lashes: appear normal, bilaterally. 22:45 ENT: External ear(s): are unremarkable, Nose: is normal, Mouth: Lips: moist, Oral cp mucosa: pink and intact, moist, Posterior pharynx: Airway: no evidence of obstruction, patent. 22:45 Chest/axilla: Inspection: normal, Palpation: is normal, no crepitus, no tenderness. 22:45 Cardiovascular: Rate: normal, Rhythm: regular, Edema: is not appreciated, JVD: is not appreciated. 22:45 Respiratory: the patient does not display signs of respiratory distress, Respirations: normal, no use of accessory muscles, no retractions, labored breathing, is not present, Breath sounds: are clear throughout, no decreased breath sounds, no stridor, no wheezing. 22:45 Abdomen/GI: Inspection: abdomen appears normal, Palpation: abdomen is soft and non-tender, in all quadrants, rebound tenderness, is not appreciated, voluntary guarding, is not appreciated, involuntary guarding, is not appreciated. 22:45 Back: CVA tenderness, is absent. 22:45 Neuro: Orientation: to person, place \T\ time. Mentation: is normal, Motor: moves all fours, strength is normal, Sensation: is normal. 04/15 00:32 ECG was reviewed by the Attending Physician. cp Vital Signs: 04/14 21:35 BP 110 / 76 RA; Pulse 88; Resp 20; Temp 99.3(O); Pulse Ox 96% on R/A; Weight 109.77 kg lp1 (R); Height 5 ft. 2 in. (157.48 cm); Pain 6/10; 21:38 BP 113 / 79 LA; lp1 22:15 BP 97 / 67 Supine; Pulse 82; Resp 20; Pulse Ox 97% on R/A; kd3 22:16 BP 106 / 68 Sitting; Pulse 84; Resp 20; Pulse Ox 97% ; kd3 22:16 BP 107 / 68 Standing; Pulse 90; Resp 16; Pulse Ox 97% ; kd3 04/15 01:45 BP 119 / 78; Pulse 82; Resp 16; Pulse Ox 99% on R/A; kd3 04/14 21:35 Body Mass Index 44.26 (109.77 kg, 157.48 cm) lp1 MDM: 04/14 21:53 Patient medically screened. [facility] 04/15 00:55 Data reviewed: vital signs, nurses notes, lab test result(s), EKG, radiologic studies, cp plain films. 00:55 Differential Diagnosis sepsis, cardiac arrythmia, UTI, electrolyte abnormality. Test cp interpretation: by ED physician or midlevel provider: ECG, plain radiologic studies. Counseling: I had a detailed discussion with the patient and/or guardian regarding: the historical points, exam findings, and any diagnostic results supporting the discharge/admit diagnosis, lab results, radiology results, the need for outpatient follow up, a family practitioner, to return to the emergency department if symptoms worsen or persist or if there are any questions or concerns that arise at home. Response to treatment: the patient's symptoms have markedly improved after treatment, patient is well hydrated. VSS. Blood pressure monitored in ED and no recorded measurements of systolic pressures below 90. Will discharge to home for continued monitoring. 04/14 22:34 Order name: Basic Metabolic Panel; Complete Time: 00:05 04/15 00:05 Interpretation: Normal except: CL 108; GLUC 118; BUN 21; GFR 60. 04/14 22:34 Order name: CBC with Diff; Complete Time: 00:05 04/15 00:06 Interpretation: Normal except: WBC 12.0; MPV 7.3; EOSINOPHIL % 4.5. 04/14 22:34 Order name: Magnesium; Complete Time: 00:05 04/15 00:26 Interpretation: MG 2.0; Reviewed. 04/14 22:34 Order name: Urine Microscopic Only 04/15 01:29 Order name: Urine --[facility]cillary ([facility]) [facility] 04/15 01:30 Order name: Urine Dipstick-Ancillary; Complete Time: 01:31 EDMS 04/14 21:52 Order name: Orthostatics; Complete Time: 22:20 cp 04/14 22:34 Order name: XRAY Chest (1 view) 04/14 22:34 Order name: EKG; Complete Time: 22:34 cp 04/14 22:34 Order name: Cardiac monitoring; Complete Time: 23:20 cp 04/14 22:34 Order name: EKG - Nurse/Tech; Complete Time: 00:55 cp 04/15 01:56 Order name: Urine Culture [facility] 04/14 22:34 Order name: IV Saline Lock; Complete Time: 23:14 cp 04/14 22:34 Order name: Labs collected and sent; Complete Time: 23:14 cp 04/14 22:34 Order name: O2 Per Protocol; Complete Time: 23:20 cp 04/14 22:34 Order name: O2 Sat Monitoring; Complete Time: 23:21 cp 04/14 22:34 Order name: Urine Dipstick-Ancillary (obtain specimen); Complete Time: 01:29 cp 04/14 22:34 Order name: Urine Test (obtain specimen); Complete Time: 01:29 cp EC:32 Rate is 80 beats/min. Rhythm is regular. MI interval is normal. QRS interval is normal. cp QT interval is normal. T waves are Inverted in lead aVR. Interpreted by me. Reviewed by me. Administered Medications: 00:55 Drug: NS 0.9% 1000 ml Route: IV; Rate: 1 bolus; Site: right forearm; kd3 01:54 Follow up: Response: No adverse reaction; IV Status: Completed infusion kd3 01:53 Drug: Rocephin - (cefTRIAXone) 1 grams Route: IVPB; Infused Over: 30 mins; Site: left kd3 forearm; 01:54 Follow up: IV Status: Completed infusion kd3 Disposition Summary: 04/15/22 00:56 Discharge Ordered Location: Home cp Problem: new cp Symptoms: have improved cp Condition: Stable cp Diagnosis - Nonspecific low blood-pressure reading cp - UTI/ Urinary tract infection, site not specified cp Followup: cp - With: Private Physician - When: 1 - 2 days - Reason: Recheck today's complaints Discharge Instructions: - Discharge Summary Sheet cp - Hypotension cp - Urinary Tract Infection, Adult cp Forms: - Medication Reconciliation Form cp - Thank You Letter cp - Antibiotic Education cp - Prescription Opioid Use cp Prescriptions: - Bactrim DS 800-160 mg Oral Tablet - take 1 tablet by ORAL route every 12 hours for 7 days; 14 tablet; Refills: 0, cp Product Selection Permitted Signatures: Dispatcher [employer] Ji Montague MD MD cha Pena, Laura, RN RN lp1 Ji Garcia PA PA cp Doucette, Kyli RN RN kd3 Corrections: (The following items were deleted from the chart) 23:34 04/14 22:35 Low blood pressure today. cp cp
--- NOTE | 2022-04-15 00:57 | ER ---
Nurse's Notes [facility] Name: Maria Del Carmen Rodriguez Age: 41 yrs Sex: Female : 1980 Arrival Date: 04/14/2022 Time: 21:16 Bed 7 Private MD: Diagnosis: Nonspecific low blood-pressure reading;UTI/ Urinary tract infection, site not specified Presentation: 04/14 21:29 Chief complaint: Patient states: "I can't get my blood pressure up today"; Reports lp1 systolic in the 80's, diastolic in the 40's at home. Onset of symptoms was April 14, 2022. 21:29 Method Of Arrival: Ambulatory lp1 21:30 Coronavirus screen: At this time, the client does not indicate any symptoms associated lp1 with coronavirus-19. Ebola Screen: No symptoms or risks identified at this time. Risk Assessment: Do you want to hurt yourself or someone else? Patient reports no desire to harm self or others. 21:35 Initial Sepsis Screen: Does the patient meet any 2 criteria? No. Patient's initial lp1 sepsis screen is negative. Does the patient have a suspected source of infection? No. Patient's initial sepsis screen is negative. 21:35 Acuity: JUS 3 lp1 Triage Assessment: 22:17 General: Appears in no apparent distress. Behavior is calm, cooperative. Pain: Denies kd3 pain. 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 Historical: - Allergies: 21:31 adult benadryl; lp1 21:31 Avelox; lp1 21:31 Benadryl; lp1 21:31 darvocet; lp1 21:31 Darvocet-N 100; lp1 21:31 Hydrocodone-Acetaminophen; lp1 21:31 Imitrex; lp1 21:31 Stadol; lp1 21:31 Sumatriptan Succinate; lp1 21:31 Tessalon Perles; lp1 21:31 Trazodone; lp1 - Home Meds: 21:31 Metoprolol Tartrate Oral [Active]; Abilify oral [Active]; gabapentin oral [Active]; lp1 amitriptyline Oral [Active]; Wellbutrin Oral [Active]; - PMHx: 21:31 Asthma; Bipolar disorder; Hypertension; ibs; insomnia; Migraines; Sleep Apnea; lp1 Tachycardia; Degenerative Disc Disease; - PSHx: 21:31 Appendectomy; GALLBLADDER; left leg surgery; tubal ligation; lp1 - Immunization history:: Adult Immunizations up to date, Client reports receiving the 2nd dose of the Covid vaccine. - Social history:: Smoking status: Patient denies any tobacco usage or history of. Screenin:30 Abuse screen: Denies threats or abuse. Denies injuries from another. Nutritional lp1 screening: No deficits noted. Tuberculosis screening: No symptoms or risk factors identified. 22:17 Fall Risk None identified. kd3 Vital Signs: 21:35 BP 110 / 76 RA; Pulse 88; Resp 20; Temp 99.3(O); Pulse Ox 96% on R/A; Weight 109.77 kg lp1 (R); Height 5 ft. 2 in. (157.48 cm); Pain 6/10; 21:38 BP 113 / 79 LA; lp1 22:15 BP 97 / 67 Supine; Pulse 82; Resp 20; Pulse Ox 97% on R/A; kd3 22:16 BP 106 / 68 Sitting; Pulse 84; Resp 20; Pulse Ox 97% ; kd3 22:16 BP 107 / 68 Standing; Pulse 90; Resp 16; Pulse Ox 97% ; kd3 04/15 01:45 BP 119 / 78; Pulse 82; Resp 16; Pulse Ox 99% on R/A; kd3 04/14 21:35 Body Mass Index 44.26 (109.77 kg, 157.48 cm) lp1 ED Course: 04/14 21:16 Patient arrived in ED. ag3 21:29 Arm band placed on right wrist. lp1 21:36 Triage completed. lp1 21:50 Ji Garcia PA is PHCP. cp 21:51 Ji Lynn MD is Attending Physician. cp 22:05 Prudence Julian, COLBY is Primary Nurse. kd3 22:17 Patient has correct armband on for positive identification. Placed in gown. kd3 22:56 XRAY Chest (1 view) In Process Unspecified. EDMS 23:13 Inserted saline lock: 22 gauge in left wrist, using aseptic technique. Blood collected. zm 23:14 Basic Metabolic Panel Sent. zm 23:14 CBC with Diff Sent. zm 23:14 Magnesium Sent. zm 04/15 00:40 Inserted saline lock: 22 gauge in right forearm, using aseptic technique. kd3 01:57 No provider procedures requiring assistance completed. IV discontinued, intact, kd3 bleeding controlled, No redness/swelling at site. Pressure dressing applied. Administered Medications: 00:55 Drug: NS 0.9% 1000 ml Route: IV; Rate: 1 bolus; Site: right forearm; kd3 01:54 Follow up: Response: No adverse reaction; IV Status: Completed infusion kd3 01:53 Drug: Rocephin - (cefTRIAXone) 1 grams Route: IVPB; Infused Over: 30 mins; Site: left kd3 forearm; 01:54 Follow up: IV Status: Completed infusion kd3 Medication: 04/14 21:37 VIS not applicable for this client. lp1 Outcome: 04/15 00:56 Discharge ordered by . cp 01:57 Discharged to home kd3 01:57 Condition: stable 01:57 Discharge instructions given to patient. 01:57 Patient left the ED. kd3 Signatures: Dispatcher [employer] EDChasity Chew RN RN lp1 Ji Garcia PA PA Adilia Rod Prudence Tapia RN RN kd3 Selin Gamez Corrections: (The following items were deleted from the chart) 04/14 21:31 21:29 Chief complaint: Patient states: "I can't get my blood pressure up today"; lp1 Reports systolic in the 80's, diastolic in the 40's at home lp1 23:14 23:13 Inserted saline lock: 22 gauge in left wrist, using aseptic technique. [facility]
[2022-04-15 01:30] LABS: Urine Blood 1+ (Negative); Urine Glucose Negative (Negative); Urine Protein 1+ (Negative); Urine Specific Gravity 1.025 (1.005-1.030); Urine pH 6.5 (5.0-7.0)
[2022-04-15] MEDS ORDERED: CEFTRIAXONE 1000 MG/VIAL ONE (01:47)
[2022-04-15 01:52] LABS: Urine Trichomonas PRESENT (NONE SEEN)
[2022-04-15 01:53] LABS: Urine Bacteria >50 /HPF (<20); Urine Urothelial Cells <5 /HPF (NONE SEEN)
[2022-04-15] MEDS ORDERED: ONDANSETRON 4 MG/2 ML VIAL ONE (01:54)
[2022-04-15 02:02] VITALS: TEMP 99.3
[2022-04-15 02:07] VITALS: BP 119/78; O2SAT 99
[2022-04-15 03:04] LABS: Urine Specific Gravity/Preg 1.025 (1.005-1.030)
--- NOTE | 2022-04-15 11:24 | EKG ---
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
--- NOTE | 2022-04-15 13:52 | RAD REPORT ---
EXAM DESCRIPTION: Chest Single View RadLex: XR CHEST 1 VIEW CLINICAL HISTORY: Low blood pressure. COMPARISON: None. TECHNIQUE: Single view AP chest radiograph(s). FINDINGS: Slightly suboptimal exam due to overlying soft tissues. No focal infiltrate identified. No pleural effusion. No pneumothorax. Nonenlarged cardiomediastinal silhouette. No significant osseous abnormality. IMPRESSION: No acute cardiopulmonary abnormality identified by radiograph. Electronically signed by: Anjelica Blank MD 04/14/2022 11:56 PM CDT Due to temporary technical issues with the PACS/Fluency reporting system, reports are being signed by the in house radiologist without review as a courtesy to ensure prompt reporting. The interpreting r adiologist is fully responsible for the content of the report.
== END 2022-04-15 01:57 | disposition home or self-care (01) ==
LOC: ER 21:13
DX: R03.1 Nonspecific low blood-pressure reading (principal); N39.0 Urinary tract infection, site not specified; I10 Essential (primary) hypertension; F31.9 Bipolar disorder, unspecified; Z88.5 Allergy status to narcotic agent; Z88.6 Allergy status to analgesic agent; Z88.8 Allergy status to other drugs, medicaments and biological substances
CPT/HCPCS: 96361; 93005; 87088; 85025; 87086; 80048; 36415; 83735; 81025; 71045; 96374; 99284; J7030; J2405; 81003; 81015

== ENCOUNTER 2022-04-29 19:50 | Emergency (ER) | payer OTHER ==
--- NOTE | 2022-04-29 21:10 | RAD REPORT ---
EXAM DESCRIPTION: RAD - Chest Single View - 04/29/2022 8:59 pm CLINICAL HISTORY: PALPITATIONS COMPARISON: Portable 04/14/2022 TECHNIQUE: AP portable chest image was obtained 04/29/2022 8:59 pm . FINDINGS: Lungs are clear. Heart and vasculature are normal. No measurable pleural effusion and no p neumothorax. No acute bony abnormality seen. No acute aortic findings suspected. IMPRESSION: No acute cardiopulmonary process. No significant change from comparison study.
--- NOTE | 2022-04-29 21:14 | RAD REPORT ---
EXAM DESCRIPTION: CT - Head Brain Wo Cont - 04/29/2022 8:53 pm CLINICAL HISTORY: syncope COMPARISON: Head Brain Wo Cont dated 03/25/2022 TECHNIQUE: Axial 5 mm thick images of the head were obtained without IV contrast. All CT scans are performed using dose optimization technique as appropriate and may include automated exposure control or mA/KV adjustment according to patient size. FINDINGS: No intracranial hemorrhage, mass, edema or shift of mid-line structures. No acute infarcti on changes seen. No abnormal extra-axial fluid collections. Ventricles are normal. Mastoid air cells and visualized portions of the paranasal sinuses are clear. No acute bony findings. No significant change from comparison. IMPRESSION: Negative non-contrast CT head examination.
[2022-04-29] MEDS ORDERED: NA CHLORIDE 0.9% 1,000 ML ONE (22:32)
[2022-04-29 22:50] LABS: Absolute Lymphocytes (CBC) 2.3 K/uL (0.7-4.9); Hematocrit 42.1 % (36.0-45.0); Lymphocytes % 31.9 % (15.3-44.8); MPV 7.3 fL (7.6-11.3); RBC Red Blood Cell Count 4.22 M/uL (3.86-4.86)
[2022-04-29 23:07] LABS: Potassium 3.9 mmol/L (3.5-5.1); Troponin High Sensitivity 6.8 pg/mL (<58.9)
--- NOTE | 2022-04-30 00:35 | ER ---
Nurse's Notes [facility] Name: Maria Del Carmen Rodriguez Age: 41 yrs Sex: Female : 1980 Arrival Date: 04/29/2022 Time: 19:54 Bed 30 Private MD: Diagnosis: Syncope;Palpitations Presentation: 04/29 20:19 Chief complaint: Patient states: Feeling weak, N/V/D, syncopal episodes, UTI - on ld1 Bactrim. Coronavirus screen: At this time, the client does not indicate any symptoms associated with coronavirus-19. Ebola Screen: No symptoms or risks identified at this time. Initial Sepsis Screen: Does the patient meet any 2 criteria? No. Patient's initial sepsis screen is negative. Does the patient have a suspected source of infection? No. Patient's initial sepsis screen is negative. Risk Assessment: Do you want to hurt yourself or someone else? Patient reports no desire to harm self or others. Onset of symptoms was April 29, 2022. 20:19 Method Of Arrival: Wheelchair ld1 20:19 Acuity: JUS 3 ld1 Triage Assessment: 20:22 General: Appears in no apparent distress. comfortable, Behavior is cooperative, ld1 appropriate for age, anxious. Pain: Denies pain. EENT: No signs and/or symptoms were reported regarding the EENT system. Neuro: Level of Consciousness is awake, alert, obeys commands, Oriented to person, place, time, situation, Reports dizziness, weakness. Cardiovascular: Capillary refill < 3 seconds Patient's skin is warm and dry. Respiratory: Airway is patent Respiratory effort is even, unlabored. GI: Abdomen is round non-distended. : No signs and/or symptoms were reported regarding the genitourinary system. Derm: No signs and/or symptoms reported regarding the dermatologic system. Musculoskeletal: No signs and/or symptoms reported regarding the musculoskeletal system. 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 N/A - Irregular menses ld1 Historical: - Allergies: 20:22 adult benadryl; ld1 20:22 Avelox; ld1 20:22 Benadryl; ld1 20:22 darvocet; ld1 20:22 Darvocet-N 100; ld1 20:22 Hydrocodone-Acetaminophen; ld1 20:22 Imitrex; ld1 20:22 Stadol; ld1 20:22 Sumatriptan Succinate; ld1 20:22 Tessalon Perles; ld1 20:22 Trazodone; ld1 - PMHx: 20:22 Asthma; Degenerative disc disease; Hypertension; Bipolar disorder; insomnia; Migraines; ld1 Sleep Apnea; Tachycardia; ibs; - PSHx: 20:22 GALLBLADDER; Appendectomy; left leg surgery; tubal ligation; ld1 - Immunization history:: Adult Immunizations up to date, Client reports receiving the 2nd dose of the Covid vaccine. - Social history:: Smoking status: Patient denies any tobacco usage or history of. Patient/guardian denies using alcohol. Screenin:00 Abuse screen: Denies threats or abuse. Nutritional screening: No deficits noted. bb Tuberculosis screening: No symptoms or risk factors identified. Fall Risk None identified. Assessment: 21:00 General: Appears uncomfortable, obese, Behavior is calm, cooperative. Pain: Denies bb pain. Neuro: Level of Consciousness is awake, alert, obeys commands, Oriented to person, place, time, situation. Cardiovascular: Capillary refill < 3 seconds Patient's skin is warm and dry. Respiratory: Respiratory effort is even, unlabored, Respiratory pattern is regular. GI: No signs and/or symptoms were reported involving the gastrointestinal system. Derm: Skin is pink, warm \T\ dry. Musculoskeletal: Circulation, motion, and sensation intact. 23:11 Reassessment: Patient is alert, oriented x 3, equal unlabored respirations, skin bb warm/dry/pink. family at bedside awaiting diagnostic results. 04/30 00:43 Reassessment: Patient is alert, oriented x 3, equal unlabored respirations, skin bb warm/dry/pink. pt verbalized understanding of and agrees to plan of care discharge instructions given pt ambulated with steady gait to exit accompanied by spouse. 00:45 Cardiovascular: Rhythm is sinus rhythm. bb Vital Signs: 04/29 20:19 BP 97 / 80; Pulse 70; Resp 20; Temp 98.1(TE); Pulse Ox 94% on R/A; Weight 109.77 kg; ld1 Height 5 ft. 2 in. (157.48 cm); Pain 0/10; 23:54 BP 111 / 76; Pulse 77; Resp 20 S; Pulse Ox 96% on R/A; bb 04/30 00:05 BP 107 / 72 Supine; Pulse 76; wm 00:08 BP 112 / 75 Sitting; Pulse 75; wm 00:10 BP 129 / 94 Standing; Pulse 78; wm 00:13 BP 131 / 90 Standing; Pulse 75; wm 00:44 BP 124 / 83; Pulse 76; Resp 16 S; Pulse Ox 97% on R/A; bb 04/29 20:19 Body Mass Index 44.26 (109.77 kg, 157.48 cm) ld1 ED Course: 04/29 19:54 Patient arrived in ED. ag3 20:18 Pili Mcelroy, SUSAN is PHCP. aj3 20:18 Henry Sánchez MD is Attending Physician. aj3 20:22 Triage completed. ld1 20:22 Arm band placed on left wrist. ld1 20:55 CT Head Brain wo Cont In Process Unspecified. EDMS 21:00 Patient has correct armband on for positive identification. Bed in low position. Call bb light in reach. Adult w/ patient. 21:01 XRAY Chest (1 view) In Process Unspecified. EDMS 22:37 Missed attempt(s): 20 gauge in right forearm. Bleeding controlled, band aid applied, bb catheter tip intact. 22:40 Initial lab(s) drawn, by me, sent to lab. bb 23:10 Awilda Jain, RN is Primary Nurse. bb 23:26 Inserted saline lock: 22 gauge in left ,using aseptic technique. foot. bb 04/30 00:44 No provider procedures requiring assistance completed. IV discontinued, intact, bb bleeding controlled, No redness/swelling at site. Pressure dressing applied. Administered Medications: 04/29 23:26 Drug: NS 0.9% 1000 ml {Note: left foot.} Route: IV; Rate: 1 bolus; Site: Other; bb 04/30 00:43 Follow up: IV Status: Completed infusion; IV Intake: 950ml bb Intake: 00:43 IV: 950ml; Total: 950ml. bb Outcome: 00:34 Discharge ordered by . aj3 00:45 Discharged to home ambulatory, with family. bb 00:45 Condition: stable 00:45 Discharge instructions given to patient, family, Instructed on discharge instructions, follow up and referral plans. Demonstrated understanding of instructions, follow-up care. 00:45 Patient left the ED. bb Signatures: Dispatcher [employer] EDMS Awilda Jain RN RN bb Gomez, Alice ag3 Conchis Rodas RN RN ld1 Gretchen Cuevas Pili Mcelroy, DECORATING CONSULTANT DECORATING CONSULTANT aj3 Corrections: (The following items were deleted from the chart) 00:29 00:25 BP 107 / 72 Supine; Pulse 76bpm; Left Arm; wm wm 00:29 00:25 BP 112 / 75 Sitting; Pulse 75bpm; Left Arm; wm wm 00:30 00:25 BP 129 / 94 Standing Auto L Arm Large; wm wm 00:33 00:25 BP 112 / 75 Sitting Auto L Arm Large; Pulse 75bpm; Left Arm; wm wm 00:33 00:25 BP 107 / 72 Supine Auto L Arm Large; Pulse 76bpm; Left Arm; wm wm 00:33 00:25 BP 129 / 94 Standing Auto L Arm Large; Pulse 78bpm; wm wm 00:38 00:25 BP 131 / 90 Standing Auto L Arm Large; Pulse 75bpm; wm wm 00:38 00:25 BP 129 / 94 Supine Auto L Arm Large; Pulse 78bpm; wm wm 00:38 00:25 BP 112 / 75 Sitting Auto L Arm Large; Pulse 75bpm; wm wm 00:38 00:25 BP 107 / 72 Standing Auto L Arm Large; Pulse 76bpm; wm wm
--- NOTE | 2022-04-30 00:35 | EDPHYS ---
Physician Documentation [facility] Name: Maria Del Carmen Rodriguez Age: 41 yrs Sex: Female : 1980 Arrival Date: 04/29/2022 Time: 19:54 Bed 30 Private MD: YOAV Physician Henry Sánchez HPI: 04/29 20:44 This 41 yrs old Female presents to ER via Wheelchair with complaints of Syncope, Rapid aj3 Heart Rate. 20:44 The patient has experienced syncope, lost consciousness. Onset: The symptoms/episode aj3 began/occurred acutely, 1 day(s) ago. Duration: The patient has had multiple episodes, few seconds. Context: occurred at home, occurred while the patient was lying down. Associated injury: The patient did not suffer any apparent associated injury. Associated signs and symptoms: Pertinent positives: headache, lightheadedness, palpitations, Pertinent negatives: chest pain, nausea, numbness, seizure. The patient has experienced similar episodes in the past. Patient notes that she has been dealing with intermittent syncope for "a while" now due to her tachycardia history. She also notes that her BP has been fluctuating today. She took her Metoprolol and also took her husbands Coreg today. . 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 - Irregular menses ld1 Historical: - Allergies: 20:22 adult benadryl; ld1 20:22 Avelox; ld1 20:22 Benadryl; ld1 20:22 darvocet; ld1 20:22 Darvocet-N 100; ld1 20:22 Hydrocodone-Acetaminophen; ld1 20:22 Imitrex; ld1 20:22 Stadol; ld1 20:22 Sumatriptan Succinate; ld1 20:22 Tessalon Perles; ld1 20:22 Trazodone; ld1 - PMHx: 20:22 Asthma; Degenerative disc disease; Hypertension; Bipolar disorder; insomnia; Migraines; ld1 Sleep Apnea; Tachycardia; ibs; - PSHx: 20:22 GALLBLADDER; Appendectomy; left leg surgery; tubal ligation; ld1 - Immunization history:: Adult Immunizations up to date, Client reports receiving the 2nd dose of the Covid vaccine. - Social history:: Smoking status: Patient denies any tobacco usage or history of. Patient/guardian denies using alcohol. ROS: 20:44 Constitutional: Negative for fever, chills, and weight loss, Neck: Negative for injury, aj3 pain, and swelling, Respiratory: Negative for shortness of breath, cough, wheezing, and pleuritic chest pain, Abdomen/GI: Negative for abdominal pain, nausea, vomiting, diarrhea, and constipation, MS/Extremity: Negative for injury and deformity, Skin: Negative for injury, rash, and discoloration. 20:44 Cardiovascular: Positive for palpitations. 20:44 Neuro: Positive for dizziness, headache, syncope. Exam: 20:44 Constitutional: This is a well developed, well nourished patient who is awake, alert, aj3 and in no acute distress. 20:44 Eyes: Pupils equal round and reactive to light, extra-ocular motions intact. Lids and lashes normal. Conjunctiva and sclera are non-icteric and not injected. Cornea within normal limits. Periorbital areas with no swelling, redness, or edema. Neck: Trachea midline and no cervical lymphadenopathy. Supple, full range of motion without nuchal rigidity. Chest/axilla: Normal chest wall appearance and motion. Nontender with no deformity. No lesions are appreciated. 20:44 Cardiovascular: Regular rate and rhythm with a normal S1 and S2. No gallops, murmurs, or rubs. Normal PMI, no JVD. No pulse deficits. Respiratory: Lungs have equal breath sounds bilaterally, clear to auscultation and percussion. No rales, rhonchi or wheezes noted. No increased work of breathing, no retractions or nasal flaring. Abdomen/GI: Soft, non-tender, with normal bowel sounds. No distension or tympany. No guarding or rebound. No evidence of tenderness throughout. 20:44 Skin: Warm, dry with normal turgor. Normal color with no rashes, no lesions, and no evidence of cellulitis. MS/ Extremity: Pulses equal, no cyanosis. Neurovascular intact. Full, normal range of motion. 20:44 Neuro: Orientation: to person, place, time \\T\\ situation. Cranial nerves: CN II- XII are normal as tested. 23:30 ECG was reviewed by the Attending Physician. aj3 04/30 00:36 Neuro: Gait: is steady. aj3 Vital Signs: 04/29 20:19 BP 97 / 80; Pulse 70; Resp 20; Temp 98.1(TE); Pulse Ox 94% on R/A; Weight 109.77 kg; ld1 Height 5 ft. 2 in. (157.48 cm); Pain 0/10; 23:54 BP 111 / 76; Pulse 77; Resp 20 S; Pulse Ox 96% on R/A; bb 04/30 00:05 BP 107 / 72 Supine; Pulse 76; wm 00:08 BP 112 / 75 Sitting; Pulse 75; wm 00:10 BP 129 / 94 Standing; Pulse 78; wm 00:13 BP 131 / 90 Standing; Pulse 75; wm 00:44 BP 124 / 83; Pulse 76; Resp 16 S; Pulse Ox 97% on R/A; bb 04/29 20:19 Body Mass Index 44.26 (109.77 kg, 157.48 cm) ld1 MDM: 04/29 20:43 Patient medically screened. aj3 23:58 Data reviewed: vital signs, nurses notes, lab test result(s), radiologic studies, CT aj3 scan. Test interpretation: by ED physician or midlevel provider: ECG. Counseling: I had a detailed discussion with the patient and/or guardian regarding: the historical points, exam findings, and any diagnostic results supporting the discharge/admit diagnosis, lab results, radiology results, the need for outpatient follow up. ED course: ED work-up is reassuring. Patient has been able to ambulate with steady gait to the restroom. I discussed lab/imaging/EKG results and the importance of following up with PCP and specialist for her symptoms. Discharge instructions, supportive measures and ER return precautions discussed. 04/30 00:35 ECG was reviewed by the Attending Physician. ED course: Orthostatic vital signs were aj3 negative. I have low suspicion or concern for subsequent syncopal episode. Patient is to follow-up with her specialist.. 04/29 20:30 Order name: Basic Metabolic Panel; Complete Time: 23:28 aj3 04/29 20:30 Order name: CBC with Diff; Complete Time: 22:59 aj3 04/29 20:30 Order name: CT Head Brain wo Cont; Complete Time: 22:38 aj3 04/29 20:30 Order name: Troponin HS; Complete Time: 23:28 aj3 04/29 20:30 Order name: XRAY Chest (1 view); Complete Time: 22:38 3 04/29 20:30 Order name: EKG; Complete Time: 20:30 3 04/29 20:30 Order name: Cardiac monitoring; Complete Time: 23:27 [facility] 04/29 20:30 Order name: EKG - Nurse/Tech; Complete Time: 23:27 [facility] 04/29 20:30 Order name: IV Saline Lock; Complete Time: 23:26 [facility] 04/29 20:30 Order name: Labs collected and sent; Complete Time: 22:52 [facility] 04/29 20:30 Order name: O2 Per Protocol; Complete Time: 23:26 [facility] 04/29 20:30 Order name: O2 Sat Monitoring; Complete Time: 23:26 [facility] 04/29 20:30 Order name: Orthostatics; Complete Time: 00:43 aj3 EC/06 23:30 Rate is 69 beats/min. Rhythm is regular. QRS [place] is Normal. [place] interval is normal. QRS aj3 interval is normal. QT interval is normal. No Q waves. T waves are Normal. No ST changes noted. Clinical impression: Normal ECG. Interpreted by me. Reviewed by me. Administered Medications: 23:26 Drug: NS 0.9% 1000 ml {Note: left foot.} Route: IV; Rate: 1 bolus; Site: Other; sushil 04/30 00:43 Follow up: IV Status: Completed infusion; IV Intake: 950ml sushil Disposition: 02:09 Co-signature as Attending Physician, Henry Sánchez MD. 7 Disposition Summary: 04/30/22 00:34 Discharge Ordered Location: Home aj3 Problem: new aj3 Symptoms: have improved aj3 Condition: Stable aj3 Diagnosis - Syncope aj3 - Palpitations aj3 Followup: aj3 - With: Private Physician - When: 1 - 2 days - Reason: Recheck today's complaints, Re-evaluation by your physician Discharge Instructions: - Discharge Summary Sheet aj3 - Syncope, [id number] aj3 - Sinus Tachycardia aj3 Forms: - Work release form aj3 - Medication Reconciliation Form aj3 - Thank You Letter aj3 - Antibiotic Education aj3 - Prescription Opioid Use aj3 Signatures: Dispatcher [employer] Awilda Brown RN RN bb Holmes, Maurice, MD MD [facility] Conchis Rodas RN RN ld1 Pili Mcelroy, HELPDESK SPECIALIST HELPDESK SPECIALIST aj3
[2022-04-30 01:16] VITALS: TEMP 98.1
[2022-04-30 01:26] VITALS: BP 124/83; O2SAT 97
--- NOTE | 2022-04-30 09:50 | EKG ---
Test Date: 2022-04-29 Test Time: 23:08:29 [place] Comber: MEASUREMENT RESULTS: Intervals: Rate: 69 NE: 124 QRSD: 80 QT: 424 QTc: 454 [place]: P: 38 NE: 124 QRS: 78 T: 30 INTERPRETIVE STATEMENTS: Normal sinus rhythm Normal ECG Compared to ECG 04/15/2022 00:26:29 ST (T wave) deviation no longer present Electronically Signed On 04-30-22 09:49:39 CDT by Mikael May
== END 2022-04-30 00:45 | disposition home or self-care (01) ==
LOC: ER 19:50
DX: R55 Syncope and collapse (principal); R00.2 Palpitations; R51.9 Headache, unspecified; I10 Essential (primary) hypertension; F31.9 Bipolar disorder, unspecified; Z88.5 Allergy status to narcotic agent; Z88.6 Allergy status to analgesic agent; Z88.8 Allergy status to other drugs, medicaments and biological substances; Z91.048 Other nonmedicinal substance allergy status
CPT/HCPCS: 93005; 85025; 80048; 36415; 84484; 70450; 71045; 96360; 99284; J7030

== ENCOUNTER 2022-05-09 13:19 | Emergency (ER) | payer OTHER ==
[2022-05-09] MEDS ORDERED: KETOROLAC 30 MG/ML INJ ONE (13:59)
[2022-05-09] MEDS ORDERED: METOCLOPRAMIDE 10 MG/2mL INJ ONE (13:59)
[2022-05-09] MEDS ORDERED: BENZTROPINE 2 MG/2 ML VIAL ONE (13:59)
[2022-05-09] MEDS ORDERED: NA CHLORIDE 0.9% 1,000 ML ONE (13:59)
--- NOTE | 2022-05-09 15:36 | EDPHYS ---
Physician Documentation [facility] Name: Maria Del Carmen Rodriguez Age: 42 yrs Sex: Female : 1980 Arrival Date: 05/09/2022 Time: 13:21 Bed 14 Private MD: ED Physician Rah Flores HPI: 05/09 13:38 This 42 yrs old Female presents to ER via Ambulatory with complaints of Headache. jmm 13:38 The patient complains of pain to the forehead, left side of the back of head, left jmm occipital area, right side of the back of head and right occipital area. Onset: The symptoms/episode began/occurred suddenly, 1 day(s) ago. Associated signs and symptoms: Pertinent positives: Pertinent negatives: neck stiffness, paresthesias. Headache History: The patient has had previous headaches and this one is similar to previous episodes. The patient has experienced similar episodes in the past, multiple times. 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 - Social history:: Smoking status: Patient denies any tobacco usage or history of. ROS: 13:38 Constitutional: Negative for fever, chills, and weight loss, Cardiovascular: Negative jmm for chest pain, palpitations, and edema, Respiratory: Negative for shortness of breath, cough, wheezing, and pleuritic chest pain. 13:38 Neuro: Positive for headache. 13:38 All other systems are negative. Exam: 13:38 Constitutional: This is a well developed, well nourished patient who is awake, alert, jmm and in no acute distress. Head/Face: atraumatic. Eyes: EOMI, no conjunctival erythema appreciated ENT: Moist Mucus Membranes Neck: Trachea midline, Supple Chest/axilla: Normal chest wall appearance and motion. Cardiovascular: Regular rate and rhythm. No edema appreciated Respiratory: Normal respirations, no respiratory distress appreciated Abdomen/GI: Non distended, soft Back: Normal ROM Skin: General appearance color normal MS/ Extremity: Moves all extremities, no obvious deformities appreciated, no edema noted to the lower extremities Neuro: Awake and alert Psych: Behavior is normal, Mood is normal, Patient is cooperative and pleasant Vital Signs: 13:31 BP 106 / 64; Pulse 83; Resp 16; Temp 98.0; Pulse Ox 97% on R/A; Weight 109.77 kg; iw Height 5 ft. 2 in. (157.48 cm); Pain 10/10; 14:30 BP 105 / 79; Pulse 73; Resp 17; Pulse Ox 100% on R/A; tw2 15:30 BP 99 / 62; Pulse 70; Resp 17; Pulse Ox 100% on R/A; tw2 13:31 Body Mass Index 44.26 (109.77 kg, 157.48 cm) iw MDM: 13:38 Patient medically screened. [facility] 15:33 Data reviewed: vital signs, nurses notes. Counseling: I had a detailed discussion with jose the patient and/or guardian regarding: the historical points, exam findings, and any diagnostic results supporting the discharge/admit diagnosis, the need for outpatient follow up, to return to the emergency department if symptoms worsen or persist or if there are any questions or concerns that arise at home. ED course: Pain relieved in the ED. I do not suspect SAH, meningitis. Most likely migraine. Patient advised to follow up with pcp or neurology for further evaluation. Patient understood and agrees with the plan of care. . 05/09 13:38 Order name: Saline Lock; Complete Time: 14:08 [facility] Administered Medications: 14:10 Drug: Reglan (metoCLOPramide) 20 mg Route: IVP; Site: left upper arm; aa5 15:29 Follow up: Response: No adverse reaction; Pain is decreased tw2 14:10 Drug: Ketorolac 30 mg Route: IVP; Site: left upper arm; aa5 15:29 Follow up: Response: No adverse reaction tw2 14:11 Drug: NS 0.9% 1000 ml Route: IV; Rate: 1 bolus; Site: left upper arm; aa5 15:29 Follow up: Response: No adverse reaction; IV Status: Completed infusion; IV Intake: tw2 1000ml 14:32 Drug: COgentin (benztropine) 1 mg Route: IVP; Site: left upper arm; tw2 15:29 Follow up: Response: No adverse reaction tw2 Disposition: 19:54 Co-signature as Attending Physician, Rah CASEY was immediately available on-site ms3 in the Emergency Department for consultation in the care of the patient.. Disposition Summary: 05/09/22 15:36 Discharge Ordered Location: Home [facility] Condition: Stable jm Diagnosis - Headache jmm Followup: jmm - With: Naif Gamboa MD - When: 2 - 3 days - Reason: Recheck today's complaints, Continuance of care, Re-evaluation by your physician Discharge Instructions: - Discharge Summary Sheet jm - Migraine Headache [facility] Forms: - Medication Reconciliation Form [facility] - Thank You Letter jmm - Antibiotic Education jmm - Prescription Opioid Use [facility] Signatures: Serge Mcmanus PA PA jm Astrid Farr RN COLBY Kesha Barlow RN RN aa5 Jennifer Baca RN RN tw2 Rah Flores DO DO ms3
--- NOTE | 2022-05-09 15:36 | ER ---
Nurse's Notes [facility] Name: Maria Del Carmen Rodriguez Age: 42 yrs Sex: Female : 1980 Arrival Date: 05/09/2022 Time: 13:21 Bed 14 Private MD: Diagnosis: Headache Presentation: 05/09 13:31 Chief complaint: Patient states: has had migraines since yesterday , started in back to iw front , has been taking tramadol, not helping, vomited once, sees a neurologist tomorrow morning , Dr. Hercules. Coronavirus screen: At this time, the client does not indicate any symptoms associated with coronavirus-19. Ebola Screen: Patient negative for fever greater than or equal to 101.5 degrees Fahrenheit, and additional compatible Ebola Virus Disease symptoms Patient denies exposure to infectious person. Patient denies travel to an Ebola-affected area in the 21 days before illness onset. No symptoms or risks identified at this time. Initial Sepsis Screen: Does the patient meet any 2 criteria? No. Patient's initial sepsis screen is negative. Does the patient have a suspected source of infection? No. Patient's initial sepsis screen is negative. Risk Assessment: Do you want to hurt yourself or someone else? Patient reports no desire to harm self or others. Onset of symptoms was May 08, 2022. 13:31 Method Of Arrival: Ambulatory iw 13:31 Acuity: JUS 3 iw Triage Assessment: 14:37 Headache History: The patient has had previous headaches and this one is similar to tw2 previous episodes. 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 - Social history:: Smoking status: Patient denies any tobacco usage or history of. Screenin:13 Abuse screen: Denies threats or abuse. Nutritional screening: No deficits noted. aa5 Tuberculosis screening: No symptoms or risk factors identified. Fall Risk None identified. Assessment: 13:55 General: Appears uncomfortable, Behavior is calm, cooperative. Pain: Complains of pain aa5 in back of head Pain radiates to front of head Pain currently is 10 out of 10 on a pain scale. Quality of pain is described as aching, pressure, Pain began 1 day ago. Is continuous. Neuro: Level of Consciousness is awake, alert, obeys commands, Oriented to person, place, time, situation, Swine Extension Field Specialist are equal bilaterally Moves all extremities. Speech is normal, Facial symmetry appears normal. Cardiovascular: Heart tones S1 S2 present Rhythm is regular. Respiratory: Airway is patent Respiratory effort is even, unlabored, Respiratory pattern is regular, symmetrical. GI: Abdomen is obese, Bowel sounds present X 4 quads. Abd is soft and non tender X 4 quads. Reports nausea, vomiting. : No signs and/or symptoms were reported regarding the genitourinary system. EENT: No signs and/or symptoms were reported regarding the EENT system. Derm: Skin is pink, warm \\T\\ dry. Musculoskeletal: Range of motion: intact in all extremities. 15:30 Reassessment: Patient appears in no apparent distress at this time. Patient and/or tw2 family updated on plan of care and expected duration. Pain level reassessed. Patient is alert, oriented x 3, equal unlabored respirations, skin warm/dry/pink. provider notified pt states "feeling better" Patient states feeling better. Patient states symptoms have improved. 16:01 Reassessment: Patient appears in no apparent distress at this time. Patient and/or tw2 family updated on plan of care and expected duration. Pain level reassessed. Patient is alert, oriented x 3, equal unlabored respirations, skin warm/dry/pink. Patient states feeling better. Patient states symptoms have improved. Vital Signs: 13:31 BP 106 / 64; Pulse 83; Resp 16; Temp 98.0; Pulse Ox 97% on R/A; Weight 109.77 kg; iw Height 5 ft. 2 in. (157.48 cm); Pain 10/10; 14:30 BP 105 / 79; Pulse 73; Resp 17; Pulse Ox 100% on R/A; tw2 15:30 BP 99 / 62; Pulse 70; Resp 17; Pulse Ox 100% on R/A; tw2 13:31 Body Mass Index 44.26 (109.77 kg, 157.48 cm) iw ED Course: 13:21 Patient arrived in ED. mr 13:30 Serge Mcmanus PA is PHCP. jmm 13:30 Rah Flores DO is Attending Physician. jmm 13:32 Triage completed. iw 13:33 Arm band placed on. iw 13:55 Patient has correct armband on for positive identification. Bed in low position. Call aa5 light in reach. Side rails up X 1. Adult w/ patient. 14:05 Missed attempt(s): 22 gauge in right hand. Bleeding controlled, band aid applied, aa5 catheter tip intact. 14:08 Inserted saline lock: 22 gauge in left upper arm, using aseptic technique. aa5 14:30 Jennifer Baca, RN is Primary Nurse. tw2 15:35 Naif Gamboa MD is Referral Physician. [facility] 16:01 No provider procedures requiring assistance completed. IV discontinued, intact, tw2 bleeding controlled, No redness/swelling at site. Pressure dressing applied. Administered Medications: 14:10 Drug: Reglan (metoCLOPramide) 20 mg Route: IVP; Site: left upper arm; aa5 15:29 Follow up: Response: No adverse reaction; Pain is decreased tw2 14:10 Drug: Ketorolac 30 mg Route: IVP; Site: left upper arm; aa5 15:29 Follow up: Response: No adverse reaction tw2 14:11 Drug: NS 0.9% 1000 ml Route: IV; Rate: 1 bolus; Site: left upper arm; aa5 15:29 Follow up: Response: No adverse reaction; IV Status: Completed infusion; IV Intake: tw2 1000ml 14:32 Drug: COgentin (benztropine) 1 mg Route: IVP; Site: left upper arm; tw2 15:29 Follow up: Response: No adverse reaction tw2 Medication: 14:35 VIS not applicable for this client. tw2 Intake: 15:29 IV: 1000ml; Total: 1000ml. tw2 Outcome: 15:36 Discharge ordered by MD. garcia 16:01 Discharged to home ambulatory, with significant other. tw2 16:01 Condition: stable 16:01 Discharge instructions given to patient, significant other, Instructed on discharge instructions, follow up and referral plans. Demonstrated understanding of instructions, follow-up care. 16:01 Patient left the ED. tw2 Signatures: Serge Mcmanus PA PA jmm Rivera, Mary mr Astrid Farr, RN RN iw Kesha Barlow, RN RN aa5 Jennifer Baca RN RN tw2
[2022-05-09 16:13] VITALS: TEMP 98
[2022-05-09 16:17] VITALS: O2SAT 100
[2022-05-09 16:18] VITALS: BP 99/62
== END 2022-05-09 16:01 | disposition home or self-care (01) ==
LOC: ER 13:19
DX: R51.9 Headache, unspecified (principal); I10 Essential (primary) hypertension; Z88.5 Allergy status to narcotic agent; Z88.6 Allergy status to analgesic agent; Z88.8 Allergy status to other drugs, medicaments and biological substances
CPT/HCPCS: 96361; 96375; 96374; 99283; J2765; J0515; J7030

== ENCOUNTER 2022-06-11 11:16 | Emergency (ER) | payer OTHER ==
--- NOTE | 2022-06-11 12:29 | EDPHYS ---
Physician Documentation [facility] Name: Maria Del Carmen Rodriguez Age: 42 yrs Sex: Female : 1980 Arrival Date: 06/11/2022 Time: 11:18 Bed Waiting Private MD: ED Physician Rah Flores HPI: 06/11 12:28 This 42 yrs old Female presents to ER via Ambulatory with complaints of Shoulder Pain, ms3 Back Pain. 12:28 The patient or guardian complains of pain. left shoulder. Context: The problem was ms3 sustained at home, resulted from picking her mother up off of her porch . Onset: The symptoms/episode began/occurred 2 hour(s) ago. Modifying factors: the symptoms are alleviated by nothing. The symptoms are aggravated by movement. Associated signs and symptoms: The patient has no apparent associated signs or symptoms. Severity of symptoms: At their worst the symptoms were severe, in the emergency department the symptoms are unchanged. Treatment prior to arrival includes: over the counter medications, Tylenol. 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 - Hysterectomy hb Historical: - Allergies: 12:08 adult benadryl; hb 12:08 Avelox; hb 12:08 Benadryl; hb 12:08 darvocet; hb 12:08 Darvocet-N 100; hb 12:08 Hydrocodone-Acetaminophen; hb 12:08 Imitrex; hb 12:08 Stadol; hb 12:08 Sumatriptan Succinate; hb 12:08 Tessalon Perles; hb 12:08 Trazodone; hb - PMHx: 12:08 Asthma; Bipolar disorder; Degenerative disc disease; Hypertension; ibs; insomnia; hb Migraines; Sleep Apnea; Tachycardia; - PSHx: 12:08 Appendectomy; GALLBLADDER; left leg surgery; tubal ligation; hb - Immunization history:: Adult Immunizations up to date, Client reports receiving the 2nd dose of the Covid vaccine. - Social history:: Smoking status: Patient denies any tobacco usage or history of. ROS: 12:28 Constitutional: Negative for fever, and chills. Neck: Negative for injury, pain, and ms3 swelling, Cardiovascular: Negative for chest pain, and palpitations. Respiratory: Negative for shortness of breath, cough, wheezing, and pleuritic chest pain, Abdomen/GI: Negative for abdominal pain, nausea, vomiting, diarrhea, and constipation, Neuro: Negative for headache, weakness, numbness, tingling. 12:28 MS/extremity: Positive for tenderness. Exam: 12:28 Constitutional: This is a well developed, well nourished patient who is awake, alert, ms3 and in no acute distress. Head/Face: Normocephalic, atraumatic. Neck: Trachea midline, no cervical lymphadenopathy. Supple, full range of motion without nuchal rigidity, or vertebral point tenderness. No Meningismus. Chest/axilla: Normal chest wall appearance and motion. Nontender with no deformity. Cardiovascular: Regular rate and rhythm with a normal S1 and S2. No gallops, murmurs, or rubs. Normal PMI, no JVD. No pulse deficits. Respiratory: Lungs have equal breath sounds bilaterally, clear to auscultation and percussion. No rales, rhonchi or wheezes noted. No increased work of breathing, no retractions or nasal flaring. Abdomen/GI: Soft, non-tender, with normal bowel sounds. No distension or tympany. No guarding or rebound. No evidence of tenderness throughout. Skin: Warm, dry with normal turgor. Normal color with no rashes, no lesions, and no evidence of cellulitis. 12:28 Musculoskeletal/extremity: Extremities: noted in the left shoulder: tenderness, posterior left shoulder muscle spasm, ROM: no acute changes, Circulation is intact in all extremities. Sensation intact. Compartment Syndrome exam of affected extremity: is normal. Vital Signs: 12:07 BP 139 / 82; Pulse 82; Resp 16; Temp 98.1; Pulse Ox 100% on R/A; Weight 108.86 kg; hb Height 5 ft. 2 in. (157.48 cm); Pain 10/10; 12:07 Body Mass Index 43.90 (108.86 kg, 157.48 cm) hb MDM: 12:28 Patient medically screened. ms3 12:28 Differential diagnosis: muscle spasm vs strain. Data reviewed: vital signs, nurses ms3 notes, and as a result, I will discharge patient. Counseling: I had a detailed discussion with the patient and/or guardian regarding: the historical points, exam findings, and any diagnostic results supporting the discharge/admit diagnosis, the need for outpatient follow up, to return to the emergency department if symptoms worsen or persist or if there are any questions or concerns that arise at home. Administered Medications: No medications were administered Disposition Summary: 06/11/22 12:28 Discharge Ordered Location: Home ms3 Condition: Stable ms3 Diagnosis - Muscle spasm ms3 - Pain in left shoulder ms3 Followup: ms3 - With: Huan Neff DO - When: 2 - 3 days - Reason: Re-evaluation by your physician Discharge Instructions: - Discharge Summary Sheet ms3 - Musculoskeletal Pain ms3 - Shoulder Pain ms3 Forms: - Medication Reconciliation Form ms3 - Thank You Letter ms3 - Antibiotic Education ms3 - Prescription Opioid Use ms3 Prescriptions: - Cyclobenzaprine 5 mg Oral Tablet - take 1 tablet by ORAL route 3 times per day As needed; 15 tablet; Refills: 0, ms3 Product Selection Permitted Signatures: Renetta Harvey, RN RN Rah Randall DO DO ms3
--- NOTE | 2022-06-11 12:29 | ER ---
Nurse's Notes [facility] Name: Maria Del Carmen Rodriguez Age: 42 yrs Sex: Female : 1980 Arrival Date: 06/11/2022 Time: 11:18 Bed Waiting Private MD: Diagnosis: Muscle spasm;Pain in left shoulder Presentation: 06/11 12:07 Chief complaint: Left shoulder pain after picking up family member from floor this hb morning. Pain radiates to left upper and mid back. Coronavirus screen: At this time, the client does not indicate any symptoms associated with coronavirus-19. Ebola Screen: No symptoms or risks identified at this time. Risk Assessment: Do you want to hurt yourself or someone else? Patient reports no desire to harm self or others. Onset of symptoms was June 11, 2022. 12:07 Method Of Arrival: Ambulatory hb 12:07 Acuity: JUS 4 hb 13:10 Initial Sepsis Screen: Does the patient meet any 2 criteria? No. Patient's initial jl7 sepsis screen is negative. Does the patient have a suspected source of infection? No. Patient's initial sepsis screen is negative. Triage Assessment: 12:08 General: Appears in no apparent distress. uncomfortable, Behavior is calm, cooperative. hb Pain: Pain currently is 10 out of 10 on a pain scale. Neuro: Oriented to person, place, time, situation. Cardiovascular: Patient's skin is warm and dry. Respiratory: Respiratory effort is even, unlabored, Respiratory pattern is regular, symmetrical. Musculoskeletal: Reports severe left shoulder pain. 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 - Hysterectomy hb Historical: - Allergies: 12:08 adult benadryl; hb 12:08 Avelox; hb 12:08 Benadryl; hb 12:08 darvocet; hb 12:08 Darvocet-N 100; hb 12:08 Hydrocodone-Acetaminophen; hb 12:08 Imitrex; hb 12:08 Stadol; hb 12:08 Sumatriptan Succinate; hb 12:08 Tessalon Perles; hb 12:08 Trazodone; hb - PMHx: 12:08 Asthma; Bipolar disorder; Degenerative disc disease; Hypertension; ibs; insomnia; hb Migraines; Sleep Apnea; Tachycardia; - PSHx: 12:08 Appendectomy; GALLBLADDER; left leg surgery; tubal ligation; hb - Immunization history:: Adult Immunizations up to date, Client reports receiving the 2nd dose of the Covid vaccine. - Social history:: Smoking status: Patient denies any tobacco usage or history of. Screenin:09 Abuse screen: Denies threats or abuse. Denies injuries from another. Nutritional jl7 screening: No deficits noted. Tuberculosis screening: No symptoms or risk factors identified. Fall Risk None identified. Vital Signs: 12:07 BP 139 / 82; Pulse 82; Resp 16; Temp 98.1; Pulse Ox 100% on R/A; Weight 108.86 kg; hb Height 5 ft. 2 in. (157.48 cm); Pain 10/10; 12:07 Body Mass Index 43.90 (108.86 kg, 157.48 cm) hb ED Course: 11:18 Patient arrived in ED. mr 11:51 Rah Flores DO is Attending Physician. ms3 12:08 Triage completed. hb 12:08 Arm band placed on. hb 12:28 Huan Neff DO is Referral Physician. ms3 13:09 Patient has correct armband on for positive identification. jl7 13:09 No provider procedures requiring assistance completed. Patient did not have IV access jl7 during this emergency room visit. Administered Medications: No medications were administered Medication: 13:09 VIS not applicable for this client. jl7 Outcome: 12:28 Discharge ordered by . ms3 13:09 Discharged to home ambulatory. jl7 13:09 Condition: stable 13:09 Discharge instructions given to patient, Instructed on discharge instructions, follow up and referral plans. medication usage, Demonstrated understanding of instructions, follow-up care, medications, Prescriptions given X 1. 13:10 Patient left the ED. jl7 Signatures: Pebbles Dennis mr HarveyRenetta, RN RN Manuel Courtney RN RN jl7 Rah Flores DO DO ms3
[2022-06-11 13:31] VITALS: BP 139/82; TEMP 98.1; O2SAT 100
== END 2022-06-11 13:10 | disposition home or self-care (01) ==
LOC: ER 11:16
DX: M62.838 Other muscle spasm (principal); I10 Essential (primary) hypertension; Z88.5 Allergy status to narcotic agent; Z88.6 Allergy status to analgesic agent; Z88.8 Allergy status to other drugs, medicaments and biological substances

== ENCOUNTER 2022-07-07 12:42 | Emergency (ER) | payer OTHER ==
[2022-07-07 14:11] LABS: Absolute Lymphocytes (CBC) 1.3 K/uL (0.7-4.9); Hematocrit 39.5 % (36.0-45.0); Lymphocytes % 16.9 % (15.3-44.8); MCV 99.1 fL (80-100); MPV 8.3 fL (7.6-11.3); RBC Red Blood Cell Count 3.98 M/uL (3.86-4.86)
[2022-07-07] MEDS ORDERED: ONDANSETRON 4 MG/2 ML VIAL ONE (14:12)
[2022-07-07 14:14] LABS: Urine Blood Negative (Negative); Urine Glucose Negative (Negative); Urine Protein 1+ (Negative); Urine Specific Gravity >=1.030 (1.005-1.030)
[2022-07-07 14:33] LABS: Albumin 3.4 g/dL (3.4-5.0); Bilirubin Total 0.8 mg/dL (0.2-1.0); Protein, Total 7.7 g/dL (6.4-8.2)
[2022-07-07 14:36] LABS: Potassium 3.6 mmol/L (3.5-5.1)
--- NOTE | 2022-07-07 15:17 | RAD REPORT ---
EXAM DESCRIPTION: CTAbdomen Pelvis W Contrast - 07/07/2022 3:05 pm CLINICAL HISTORY: Abdominal pain. left lower abdominal pain COMPARISON: Abdomen Pelvis W Contrast dated 09/12/2021; Abdomen Pelvis W Contrast dated 0; Abdomen Pelvis W Contrast dated 05/22/2017 TECHNIQUE: Biphasic CT imaging of the abdomen and pelvis was performed with 100 ml non-ionic IV cont rast. All CT scans are performed using dose optimization technique as appropriate and may include automated exposure control or mA/KV adjustment according to patient size. FINDINGS: The lung bases are clear.Cholecystectomy clips. The liver, spleen, pancreas, adrenal glands and kidneys are within normal limits. No bowel obstruction, free air, free fluid or abscess. Mild inflammation is seen involving sigmoid co patricia left lower quadrant. This may represent diverticulitis or a mass. Appendectomy. No evidence of s ignificant lymphadenopathy. No suspicious bony findings. IMPRESSION: Mild inflammation surrounds a short segment of the sigmoid colon in the left lower quadr ant. Exact etiology for this finding is unclear but may be related to diverticulitis or less likely a n inflammatory mass. Followup colonoscopy after appropriate therapy would be recommended for direct v isualization in this region.
--- NOTE | 2022-07-07 15:34 | EDPHYS ---
Physician Documentation [facility] Name: Maria Del Carmen Rodriguez Age: 42 yrs Sex: Female : 1980 Arrival Date: 07/07/2022 Time: 12:50 Bed 18 Private MD: YOAV Physician Ji Lynn HPI: 07/07 13:07 This 42 yrs old Female presents to ER via Ambulatory with complaints of Abdominal Pain. jmm 13:07 The patient presents with abdominal pain. Onset: The symptoms/episode began/occurred jmm gradually. The symptoms do not radiate. Associated signs and symptoms: Pertinent positives: nausea. The symptoms are described as achy. Modifying factors: The symptoms are alleviated by nothing, the symptoms are aggravated by. The patient has not experienced similar symptoms in the past. This is a 42 year old female with a history of htn, bipolar that presents to the ED with complaints of left lower abdominal pain beginning approx 1 day ago with vomiting, nausea. Patient also complains of painful urination. . 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 kb3 Historical: - Allergies: 13:07 adult benadryl; kb3 13:07 Avelox; kb3 13:07 Benadryl; kb3 13:07 darvocet; kb3 13:07 Darvocet-N 100; kb3 13:07 Hydrocodone-Acetaminophen; kb3 13:07 Imitrex; kb3 13:07 Stadol; kb3 13:07 Sumatriptan Succinate; kb3 13:07 Tessalon Perles; kb3 13:07 Trazodone; kb3 - PMHx: 13:07 Asthma; Bipolar disorder; Degenerative disc disease; Hypertension; ibs; insomnia; kb3 Migraines; Sleep Apnea; Tachycardia; - PSHx: 13:07 Appendectomy; GALLBLADDER; left leg surgery; tubal ligation; kb3 - Immunization history:: Adult Immunizations up to date, Client reports receiving the 2nd dose of the Covid vaccine, Last tetanus immunization: up to date Pneumococcal vaccine is up to date. - Social history:: Smoking status: Patient denies any tobacco usage or history of. Patient uses alcohol, occasionally. Patient/guardian denies using street drugs. ROS: 13:07 Constitutional: Negative for fever, chills, and weight loss, Cardiovascular: Negative jmm for chest pain, palpitations, and edema, Respiratory: Negative for shortness of breath, cough, wheezing, and pleuritic chest pain. 13:07 Abdomen/GI: Positive for abdominal pain, nausea and vomiting. 13:07 : Positive for urinary symptoms. 13:07 All other systems are negative. Exam: 13:07 Constitutional: This is a well developed, well nourished patient who is awake, alert, jmm and in no acute distress. Head/Face: atraumatic. Eyes: EOMI, no conjunctival erythema appreciated ENT: Moist Mucus Membranes Neck: Trachea midline, Supple Chest/axilla: Normal chest wall appearance and motion. Cardiovascular: Regular rate and rhythm. No edema appreciated Respiratory: Normal respirations, no respiratory distress appreciated 13:07 Back: Normal ROM Skin: General appearance color normal MS/ Extremity: Moves all extremities, no obvious deformities appreciated, no edema noted to the lower extremities Neuro: Awake and alert Psych: Behavior is normal, Mood is normal, Patient is cooperative and pleasant 13:07 Abdomen/GI: Inspection: abdomen appears normal, Bowel sounds: normal, Palpation: soft, mild abdominal tenderness, in the left lower quadrant. Vital Signs: 13:04 Pulse 96; Resp 20; Temp 98.1; Pulse Ox 100% ; Weight 107.05 kg; Height 5 ft. 2 in. kb3 (157.48 cm); Pain 10/10; 13:11 BP 114 / 84; kb3 14:36 BP 121 / 73; Pulse 76; Resp 16; Pulse Ox 100% on R/A; bm7 16:09 BP 128 / 76; Pulse 80; Resp 16; Pulse Ox 99% on R/A; Pain 2/10; bm7 13:04 Body Mass Index 43.16 (107.05 kg, 157.48 cm) kb3 MDM: 13:07 Patient medically screened. [facility] 15:32 Data reviewed: vital signs, nurses notes. Counseling: I had a detailed discussion with kenya the patient and/or guardian regarding: the historical points, exam findings, and any diagnostic results supporting the discharge/admit diagnosis, lab results, radiology results, the need for outpatient follow up, to return to the emergency department if symptoms worsen or persist or if there are any questions or concerns that arise at home. 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 07/07 13:08 Order name: CBC with Diff; Complete Time: 14:25 [facility] 07/07 13:08 Order name: CMP; Complete Time: 14:38 [facility] 07/07 13:08 Order name: Lipase; Complete Time: 14:38 [facility] 07/07 13:08 Order name: CT Abd/Pelvis - IV Contrast Only; Complete Time: 15:21 [facility] 07/07 14:14 Order name: Urine Dipstick-Ancillary; Complete Time: 14:25 [facility] 07/07 13:08 Order name: IV Saline Lock; Complete Time: 14:02 [facility] 07/07 13:08 Order name: Labs collected and sent; Complete Time: 14:05 [facility] 07/07 13:08 Order name: Urine Dipstick-Ancillary (obtain specimen); Complete Time: 14:22 [facility] 07/07 13:08 Order name: Urine Test (obtain specimen); Complete Time: 14:22 [facility] Administered Medications: 14:06 Drug: Zofran (Ondansetron) 4 mg Route: IVP; Site: right upper arm; 7 16:09 Follow up: Response: Nausea is decreased 7 15:50 Drug: Rocephin (cefTRIAXone) 1 grams Route: IV; Rate: calculated rate; Site: left [facility] antecubital; 16:09 Follow up: IV Status: Completed infusion 7 15:50 Drug: Ketorolac 30 mg Route: IVP; Site: left antecubital; 7 16:08 Follow up: Response: Pain is decreased 7 16:08 Drug: metroNIDAZOLE 500 mg Route: PO; 7 16:09 Follow up: Response: No adverse reaction 7 Point of Care Testing: Urine : 14:36 hCG Reading: Negative; bm7 Disposition Summary: 07/07/22 15:33 Discharge Ordered Location: Home [facility] Condition: Stable [facility] Diagnosis - Left sided colitis [facility] Followup: [facility] - With: Private Physician - When: 2 - 3 days - Reason: Recheck today's complaints, Continuance of care, Re-evaluation by your physician Discharge Instructions: - Discharge Summary Sheet [facility] - Colitis [facility] Forms: - Medication Reconciliation Form [facility] - Thank You Letter [facility] - Antibiotic Education [facility] - Prescription Opioid Use [facility] Prescriptions: - cefdinir 300 mg Oral capsule - take 1 capsule by ORAL route every 12 hours for 10 days; 20 capsule; Refills: [facility] 0, Product Selection Permitted - Flagyl 500 mg Oral Tablet - take 1 tablet by ORAL route every 6 hours for 10 days; 40 tablet; Refills: 0, [facility] Product Selection Permitted - Ultram 50 mg Oral Tablet - take 1 tablet by ORAL route every 6 hours As needed; 12 tablet; Refills: 0, [facility] Product Selection Permitted Signatures: Dispatcher [employer] Serge Tellez PA PA jmm McCarthy, Brittany, RN RN bm7 Lucila Schroeder RN RN kb3
--- NOTE | 2022-07-07 15:34 | ER ---
Nurse's Notes [facility] Name: Maria Del Carmen Rodriguez Age: 42 yrs Sex: Female : 1980 Arrival Date: 07/07/2022 Time: 12:50 Bed 18 Private MD: Diagnosis: Left sided colitis Presentation: 07/07 13:04 Chief complaint: Patient states: Pt reports left-sided pelvic pain with dysuria, kb3 urinary hesitancy, urinary frequency and mild left CVA tenderness since Friday. Coronavirus screen: Vaccine status: Patient reports receiving the 2nd dose of the covid vaccine. Client denies travel out of the [place] in the last 14 days. At this time, the client does not indicate any symptoms associated with coronavirus-19. Ebola Screen: Patient negative for fever greater than or equal to 101.5 degrees Fahrenheit, and additional compatible Ebola Virus Disease symptoms Patient denies exposure to infectious person. Patient denies travel to an Ebola-affected area in the 21 days before illness onset. Initial Sepsis Screen: Does the patient meet any 2 criteria? No. Patient's initial sepsis screen is negative. Does the patient have a suspected source of infection? No. Patient's initial sepsis screen is negative. Risk Assessment: Do you want to hurt yourself or someone else? Patient reports no desire to harm self or others. Onset of symptoms was July 05, 2022. 13:04 Method Of Arrival: Ambulatory 3 13:04 Acuity: JUS 3 kb3 Triage Assessment: 13:07 General: Appears distressed, uncomfortable, Behavior is calm, cooperative. Pain: kb3 Complains of pain in left lower quadrant Pain does not radiate. Pain currently is 10 out of 10 on a pain scale. Quality of pain is described as sharp, Pain began Is continuous. GI: Reports diarrhea, nausea, vomiting. : Reports burning with urination, pain in left lower quadrant(s) urgency, urinary frequency. 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 kb3 Historical: - Allergies: 13:07 adult benadryl; kb3 13:07 Avelox; kb3 13:07 Benadryl; kb3 13:07 darvocet; kb3 13:07 Darvocet-N 100; kb3 13:07 Hydrocodone-Acetaminophen; kb3 13:07 Imitrex; kb3 13:07 Stadol; kb3 13:07 Sumatriptan Succinate; kb3 13:07 Tessalon Perles; kb3 13:07 Trazodone; kb3 - PMHx: 13:07 Asthma; Bipolar disorder; Degenerative disc disease; Hypertension; ibs; insomnia; kb3 Migraines; Sleep Apnea; Tachycardia; - PSHx: 13:07 Appendectomy; GALLBLADDER; left leg surgery; tubal ligation; kb3 - Immunization history:: Adult Immunizations up to date, Client reports receiving the 2nd dose of the Covid vaccine, Last tetanus immunization: up to date Pneumococcal vaccine is up to date. - Social history:: Smoking status: Patient denies any tobacco usage or history of. Patient uses alcohol, occasionally. Patient/guardian denies using street drugs. Screenin:36 Abuse screen: Denies threats or abuse. Nutritional screening: No deficits noted. bm7 Tuberculosis screening: No symptoms or risk factors identified. Fall Risk None identified. Assessment: 13:48 Reassessment: Patient and/or family updated on plan of care and expected duration. Pain bm7 level reassessed. Patient is alert, oriented x 3, equal unlabored respirations, skin warm/dry/pink. 14:36 General: Appears in no apparent distress. uncomfortable, Behavior is calm, cooperative, bm7 appropriate for age. Pain: Complains of pain in left lower quadrant. Neuro: No deficits noted. Cardiovascular: No deficits noted. Respiratory: No deficits noted. GI: Bowel sounds present X 4 quads. Abd is soft X 4 quads Abdomen is tender to palpation in left lower quadrant Reports nausea. : Reports inability to void, urinary frequency. EENT: No deficits noted. No signs and/or symptoms were reported regarding the EENT system. Derm: No deficits noted. No signs and/or symptoms reported regarding the dermatologic system. Musculoskeletal: No deficits noted. No signs and/or symptoms reported regarding the musculoskeletal system. Vital Signs: 13:04 Pulse 96; Resp 20; Temp 98.1; Pulse Ox 100% ; Weight 107.05 kg; Height 5 ft. 2 in. kb3 (157.48 cm); Pain 10/10; 13:11 BP 114 / 84; kb3 14:36 BP 121 / 73; Pulse 76; Resp 16; Pulse Ox 100% on R/A; bm7 16:09 BP 128 / 76; Pulse 80; Resp 16; Pulse Ox 99% on R/A; Pain 2/10; bm7 13:04 Body Mass Index 43.16 (107.05 kg, 157.48 cm) kb3 ED Course: 12:50 Patient arrived in ED. mr 13:06 Serge Mcmanus PA is PHCP. jmm 13:06 Ji Lynn MD is Attending Physician. m 13:07 Triage completed. kb3 13:10 Arm band placed on left wrist. Patient notified of wait time. kb3 13:48 Clarita Paniagua, RN is Primary Nurse. bm7 14:06 Patient has correct armband on for positive identification. Placed in gown. Bed in low bm7 position. Client placed on continuous cardiac and pulse oximetry monitoring. NIBP monitoring applied. Assisted to bathroom. 14:06 Initial lab(s) drawn, by me, sent to lab. Inserted saline lock: 22 gauge in right bm7 forearm, using aseptic technique. Blood collected. 14:36 Urine collected: clean catch specimen, cloudy. Patient maintains SpO2 saturation bm7 greater than 95% on room air. 15:06 CT Abd/Pelvis - IV Contrast Only In Process Unspecified. EDMS 16:09 No provider procedures requiring assistance completed. IV discontinued, intact, bm7 bleeding controlled, No redness/swelling at site. Pressure dressing applied. Administered Medications: 14:06 Drug: Zofran (Ondansetron) 4 mg Route: IVP; Site: right upper arm; bm7 16:09 Follow up: Response: Nausea is decreased bm7 15:50 Drug: Rocephin (cefTRIAXone) 1 grams Route: IV; Rate: calculated rate; Site: left bm7 antecubital; 16:09 Follow up: IV Status: Completed infusion bm7 15:50 Drug: Ketorolac 30 mg Route: IVP; Site: left antecubital; bm7 16:08 Follow up: Response: Pain is decreased bm7 16:08 Drug: metroNIDAZOLE 500 mg Route: PO; bm7 16:09 Follow up: Response: No adverse reaction bm7 Medication: 14:36 VIS not applicable for this client. bm7 Point of Care Testing: Urine : 14:36 hCG Reading: Negative; bm7 Outcome: 15:33 Discharge ordered by MD. garcia 16:09 Discharged to home ambulatory. bm7 16:09 Condition: improved 16:09 Discharge instructions given to patient, Instructed on discharge instructions, follow up and referral plans. medication usage, Demonstrated understanding of instructions, follow-up care, medications, Prescriptions given X 3. 16:10 Patient left the ED. bm7 Signatures: Dispatcher [employer] EDMS Serge Mcmanus PA PA jmm Rivera, Mary mr Clarita Paniagua, COLBY RN bm7 Lucila Schroeder, COLBY RN kb3
[2022-07-07] MEDS ORDERED: KETOROLAC 30 MG/ML INJ ONE (15:53)
[2022-07-07] MEDS ORDERED: CEFTRIAXONE 1000 MG/VIAL ONE (15:53)
[2022-07-07] MEDS ORDERED: metroNIDAZOLE 500 MG TABLET ONE (15:53)
[2022-07-07 16:52] VITALS: TEMP 98.1
[2022-07-07 17:01] VITALS: BP 128/76; O2SAT 99
== END 2022-07-07 16:10 | disposition home or self-care (01) ==
LOC: ER 12:42
DX: K51.50 Left sided colitis without complications (principal); I10 Essential (primary) hypertension; Z88.5 Allergy status to narcotic agent; Z88.6 Allergy status to analgesic agent; Z88.8 Allergy status to other drugs, medicaments and biological substances
CPT/HCPCS: 85025; 36415; 81003; 83690; 80053; 74177; Q9967; J2405; 99284

== ENCOUNTER 2022-08-19 12:52 | Emergency (ER) | payer OTHER ==
--- NOTE | 2022-08-19 13:16 | ER ---
Nurse's Notes [facility] Name: Maria Del Carmen Rodriguez Age: 42 yrs Sex: Female : 1980 Arrival Date: 08/19/2022 Time: 12:54 Bed Treatment Private MD: Diagnosis: Acute pharyngitis, unspecified Presentation: 08/19 13:03 Chief complaint: Patient states: Sore throat, difficulty swallowing, dizziness, fever jl7 TMAX 104, headache, and nausea. Symptoms began last night, brought in by EMS, IV to R hand IV Tylenol given. Coronavirus screen: Vaccine status: Patient reports receiving the 2nd dose of the covid vaccine. Ebola Screen: No symptoms or risks identified at this time. Initial Sepsis Screen: Does the patient meet any 2 criteria? No. Patient's initial sepsis screen is negative. Does the patient have a suspected source of infection? No. Patient's initial sepsis screen is negative. Risk Assessment: Do you want to hurt yourself or someone else? Patient reports no desire to harm self or others. Onset of symptoms was August 19, 2022. 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 - Social history:: Smoking status: Patient denies any tobacco usage or history of. Screenin:13 Abuse screen: Denies threats or abuse. Nutritional screening: No deficits noted. bm7 Tuberculosis screening: No symptoms or risk factors identified. Fall Risk None identified. Assessment: 13:13 Reassessment: No changes from previously documented assessment. bm7 13:14 Reassessment: REGISTERED MEDICAL TRANSCRIPTIONIST at bedside to assess. bm7 Vital Signs: 13:03 BP 107 / 72; Pulse 108; Resp 18; Temp 98.6(O); Pulse Ox 95% on R/A; Weight 103.42 kg; jl7 Height 5 ft. 2 in. (157.48 cm); 13:03 Body Mass Index 41.70 (103.42 kg, 157.48 cm) jl7 ED Course: 12:54 Patient arrived in ED. rg4 12:[address] FNP-C [facility]. snw 12:54 Rah Flores DO is Attending Physician. snw 13:05 Triage completed. jl7 13:06 Arm band placed on Patient placed in waiting room, Patient notified of wait time. jl7 13:13 Clarita Paniagua, RN is Primary Nurse. bm7 13:13 Patient has correct armband on for positive identification. Bed in low position. Call bm7 light in reach. Side rails up X 1. Client placed on continuous cardiac and pulse oximetry monitoring. NIBP monitoring applied. 13:13 No provider procedures requiring assistance completed. Patient maintains SpO2 bm7 saturation greater than 95% on room air. 13:26 IV discontinued, intact, bleeding controlled, No redness/swelling at site. Pressure bm7 dressing applied. Administered Medications: 13:25 Drug: Doxycycline 100 mg Route: PO; bm7 13:27 Follow up: Response: No adverse reaction bm7 13:25 Drug: predniSONE 40 mg Route: PO; bm7 13:27 Follow up: Response: No adverse reaction bm7 13:25 Drug: Pepcid (famotidine) 20 mg Route: PO; bm7 13:27 Follow up: Response: No adverse reaction bm7 Medication: 13:13 VIS not applicable for this client. bm7 Outcome: 13:15 Discharge ordered by . snw 13:26 Discharged to home ambulatory. bm7 13:26 Condition: good 13:26 Discharge instructions given to patient, Instructed on discharge instructions, follow up and referral plans. medication usage, Demonstrated understanding of instructions, follow-up care, medications, Prescriptions given X 3. 13:27 Patient left the ED. bm7 Signatures: Deena Lane, SKYLAR-C SAND TECHNOLOGIST-Csnw Jocelyne Wilkerson rg4 Manuel Courtney, RN RN jl7 Clarita Paniagua, RN RN bm7
--- NOTE | 2022-08-19 13:16 | EDPHYS ---
Physician Documentation [facility] Name: Maria Del Carmen Rodriguez Age: 42 yrs Sex: Female : 1980 Arrival Date: 08/19/2022 Time: 12:54 Bed Treatment Private MD: ED Physician Rah Flores HPI: 08/19 14:03 This 42 yrs old Female presents to ER via EMS with complaints of Flu Symptoms. snw 13:58 The patient presents with sore throat. The patient describes throat pain as constant, snw raw, scratchy. Onset: The symptoms/episode began/occurred gradually, 3 day(s) ago, and became worse today, and became persistent. Modifying factors: The symptoms are alleviated by nothing, Patient's oral intake status: good. Associated signs and symptoms: Pertinent positives: fever, flu-like symptoms, myalgias. The patient has not experienced similar symptoms in the past. It is unknown whether or not the patient has recently seen a physician. 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 - Social history:: Smoking status: Patient denies any tobacco usage or history of. ROS: 13:58 Eyes: Negative for injury, pain, redness, and discharge, Neck: Negative for injury, snw pain, and swelling, Cardiovascular: Negative for chest pain and edema, positive for sore throat Respiratory: Negative for shortness of breath, cough, wheezing, and pleuritic chest pain, Abdomen/GI: Negative for abdominal pain, nausea, vomiting, diarrhea, and constipation, Back: Negative for injury and pain, : Negative for injury, bleeding, discharge, and swelling, MS/Extremity: Negative for injury and deformity, Skin: Negative for injury, rash, and discoloration, Neuro: Negative for headache, weakness, numbness, tingling, and seizure, Psych: Negative for depression, anxiety, suicide ideation, homicidal ideation, and hallucinations. 13:58 Constitutional: Positive for fever, malaise, hirsutic . 13:58 ENT: Positive for sore throat. Exam: 14:02 Constitutional: This is a well developed, hirsuit, well nourished patient who is snw awake, alert, and in no acute distress. Head/Face: Normocephalic, atraumatic. Eyes: Pupils equal round and reactive to light, extra-ocular motions intact. Lids and lashes normal. Conjunctiva and sclera are non-icteric and not injected. Cornea within normal limits. Periorbital areas with no swelling, redness, or edema. Neck: Trachea midline, no thyromegaly or masses palpated, and no cervical lymphadenopathy. Supple, full range of motion without nuchal rigidity, or vertebral point tenderness. No Meningismus. Chest/axilla: Normal chest wall appearance and motion. Nontender with no deformity. No lesions are appreciated. Cardiovascular: Tachycardic rate and rhythm with a normal S1 and S2. No gallops, murmurs, or rubs. Normal PMI, no JVD. No pulse deficits. Respiratory: Lungs have equal breath sounds bilaterally, clear to auscultation and percussion. No rales, rhonchi or wheezes noted. No increased work of breathing, no retractions or nasal flaring. Abdomen/GI: Soft, non-tender, with normal bowel sounds. No distension or tympany. No guarding or rebound. No evidence of tenderness throughout. Back: No spinal tenderness. No costovertebral tenderness. Full range of motion. Skin: Warm, dry with normal turgor. Normal color with no rashes, no lesions, and no evidence of cellulitis. MS/ Extremity: Pulses equal, no cyanosis. Neurovascular intact. Full, normal range of motion. Neuro: Awake and alert, GCS 15, oriented to person, place, time, and situation. Cranial nerves II-XII grossly intact. Motor strength 5/5 in all extremities. Sensory grossly intact. Cerebellar exam normal. Normal gait. Psych: Awake, alert, with orientation to person, place and time. Behavior, mood, and affect are within normal limits. 14:02 ENT: External ear(s): are unremarkable, Ear canal(s): are normal, TM's: are normal, Mouth: is normal, Posterior pharynx: Tonsils: bilaterally enlarged, with erythema. Vital Signs: 13:03 BP 107 / 72; Pulse 108; Resp 18; Temp 98.6(O); Pulse Ox 95% on R/A; Weight 103.42 kg; jl7 Height 5 ft. 2 in. (157.48 cm); 13:03 Body Mass Index 41.70 (103.42 kg, 157.48 cm) jl7 MDM: 13:07 Patient medically screened. snw 14:00 Data reviewed: vital signs, nurses notes. Data interpreted: Pulse oximetry: on room air snw is 95 %. Interpretation: acceptable. Counseling: I had a detailed discussion with the patient and/or guardian regarding: the historical points, exam findings, and any diagnostic results supporting the discharge/admit diagnosis, the need for outpatient follow up, to return to the emergency department if symptoms worsen or persist or if there are any questions or concerns that arise at home. Special discussion: Based on the history and exam findings, there is no indication for further emergent testing or inpatient evaluation. I discussed with the patient/guardian the need to see the primary care provider for further evaluation of the symptoms. Administered Medications: 13:25 Drug: Doxycycline 100 mg Route: PO; bm7 13:27 Follow up: Response: No adverse reaction bm7 13:25 Drug: predniSONE 40 mg Route: PO; bm7 13:27 Follow up: Response: No adverse reaction bm7 13:25 Drug: Pepcid (famotidine) 20 mg Route: PO; bm7 13:27 Follow up: Response: No adverse reaction bm7 Disposition: 08/20 08:32 Co-signature as Attending Physician, Rah CASEY was immediately available on-site ms3 in the Emergency Department for consultation in the care of the patient. . Disposition Summary: 08/19/22 13:15 Discharge Ordered Location: Home snw Condition: Stable snw Diagnosis - Acute pharyngitis, unspecified snw Followup: snw - With: Emergency Department - When: As needed - Reason: Worsening of condition Followup: snw - With: Private Physician - When: 1 - 2 days - Reason: Recheck today's complaints, Continuance of care, Re-evaluation by your physician Discharge Instructions: - Discharge Summary Sheet snw - Pharyngitis snw - Sore Throat snw - Upper Respiratory Infection, Adult snw Forms: - Medication Reconciliation Form snw - Thank You Letter snw - Antibiotic Education snw - Prescription Opioid Use snw Prescriptions: - Doxycycline Hyclate 100 mg Oral Tablet - take 1 tablet by ORAL route every 12 hours; 20 tablet; Refills: 0, Product snw Selection Permitted - Prednisone 20 mg Oral Tablet - take 2 tablets by ORAL route once daily for 5 days; 10 tablet; Refills: 0, snw Product Selection Permitted - Pepcid 20 mg Oral Tablet - take 1 tablet by ORAL route once daily; 20 tablet; Refills: 0, Product snw Selection Permitted Signatures: Deena Lane FNP-C LEATHER COVERER-[facility] Manuel Courtney, RN RN jl7 Rah Flores DO DO ms3 Clarita Paniagua, RN RN bm7
[2022-08-19] MEDS ORDERED: predniSONE 10 MG TAB ONE (13:21)
[2022-08-19] MEDS ORDERED: FAMOTIDINE 20 MG TAB ONE (13:21)
[2022-08-19] MEDS ORDERED: DOXYCYCLINE 100 MG CAP PO ONE (13:21)
[2022-08-21 19:38] VITALS: BP 107/72; TEMP 98.6; O2SAT 95
== END 2022-08-19 13:27 | disposition home or self-care (01) ==
LOC: ER 12:52
DX: J02.9 Acute pharyngitis, unspecified (principal); R50.9 Fever, unspecified; Z88.1 Allergy status to other antibiotic agents; Z88.5 Allergy status to narcotic agent; Z88.6 Allergy status to analgesic agent; Z88.8 Allergy status to other drugs, medicaments and biological substances
CPT/HCPCS: 99284; J7512

== ENCOUNTER 2023-04-26 22:10 | Emergency (ER) | payer OTHER ==
[2023-04-27] MEDS ORDERED: METHYLPREDNISOLONE 125 MG INJ ONE (01:28)
[2023-04-27] MEDS ORDERED: KETOROLAC 30 MG/ML INJ ONE (01:29)
[2023-04-27] MEDS ORDERED: CODEINE 30MG/APAP 300MG TAB ONE (01:29)
--- NOTE | 2023-04-27 02:50 | EDPHYS ---
Physician Documentation [facility] Name: Maria Del Carmen Rodriguez Age: 42 yrs Sex: Female : 1980 Arrival Date: 04/26/2023 Time: 22:10 Bed 16 Private MD: ED Physician Placido Zarate HPI: 04/28 00:58 This 42 yrs old Female presents to ER via Ambulatory with complaints of Back Pain. kdr 00:58 Patient states that they have a history of degenerative disc disease and her pain is kdr been particularly severe recently. Patient states that they have a an appointment with her neurosurgeon on Friday but could not wait to that visit to try to address the current pain level. Patient is nontoxic-appearing on initial presentation.. Onset: The symptoms/episode began/occurred at an unknown time. Severity of symptoms: At their worst the symptoms were mild moderate just prior to arrival, in the emergency department the symptoms are unchanged. The patient has experienced similar episodes in the past, a few times. The patient has not recently seen a physician. 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/2023 ha1 Historical: - Allergies: 22:44 adult benadryl; ha1 22:44 Avelox; ha1 22:44 Benadryl; ha1 22:44 darvocet; ha1 22:44 Darvocet-N 100; ha1 22:44 Hydrocodone-Acetaminophen; ha1 22:44 Imitrex; ha1 22:44 Rocephin; ha1 22:44 Stadol; ha1 22:44 Sumatriptan Succinate; ha1 22:44 Tessalon Perles; ha1 22:44 Trazodone; ha1 - PMHx: 22:44 Asthma; Bipolar disorder; Degenerative disc disease; Hypertension; ibs; insomnia; ha1 Migraines; Sleep Apnea; Tachycardia; degenerative disc desease; - PSHx: 22:44 Appendectomy; GALLBLADDER; left leg surgery; tubal ligation; ha1 - Immunization history:: Adult Immunizations up to date. - Social history:: Smoking status: Patient denies any tobacco usage or history of. ROS: 04/28 00:58 Constitutional: Negative for fever, chills, and weight loss, Eyes: Negative for injury, kdr pain, redness, and discharge, ENT: Negative for injury, pain, and discharge, Neck: Negative for injury, pain, and swelling, Cardiovascular: Negative for chest pain, palpitations, and edema, Respiratory: Negative for shortness of breath, cough, wheezing, and pleuritic chest pain, Abdomen/GI: Negative for abdominal pain, nausea, vomiting, diarrhea, and constipation, : Negative for injury, bleeding, discharge, and swelling, MS/Extremity: Negative for injury and deformity, Skin: Negative for injury, rash, and discoloration, Neuro: Negative for headache, weakness, numbness, tingling, and seizure activity. Psych: Negative for depression, anxiety, suicide ideation, homicidal ideation, and hallucinations, Allergy/Immunology: Negative for hives, rash, and allergies, Endocrine: Negative for neck swelling, polydipsia, polyuria, polyphagia, and marked weight changes, Hematologic/Lymphatic: Negative for swollen nodes, abnormal bleeding, and unusual bruising. Back: Positive for pain at rest, pain with movement. Exam: 00:58 Constitutional: This is a well developed, well nourished patient who is awake, alert, kdr and in no acute distress. Head/Face: Normocephalic, atraumatic. Eyes: Pupils equal round and reactive to light, extra-ocular motions intact. Lids and lashes normal. Conjunctiva and sclera are non-icteric and not injected. Cornea within normal limits. Periorbital areas with no swelling, redness, or edema. Neck: Trachea midline, no thyromegaly or masses palpated, and no cervical lymphadenopathy. Supple, full range of motion without nuchal rigidity, or vertebral point tenderness. No Meningismus. Chest/axilla: Normal chest wall appearance and motion. Nontender with no deformity. No lesions are appreciated. Cardiovascular: Regular rate and rhythm with a normal S1 and S2. No gallops, murmurs, or rubs. Normal PMI, no JVD. No pulse deficits. Respiratory: Lungs have equal breath sounds bilaterally, clear to auscultation and percussion. No rales, rhonchi or wheezes noted. No increased work of breathing, no retractions or nasal flaring. Abdomen/GI: Soft, non-tender, with normal bowel sounds. No distension or tympany. No guarding or rebound. No evidence of tenderness throughout. Skin: Warm, dry with normal turgor. Normal color with no rashes, no lesions, and no evidence of cellulitis. MS/ Extremity: Pulses equal, no cyanosis. Neurovascular intact. Full, normal range of motion. Neuro: Awake and alert, GCS 15, oriented to person, place, time, and situation. Cranial nerves II-XII grossly intact. Motor strength 5/5 in all extremities. Sensory grossly intact. Cerebellar exam normal. Normal gait. Psych: Awake, alert, with orientation to person, place and time. Behavior, mood, and affect are within normal limits. 00:58 Back: pain, that is mild, that is moderate, of the lumbar area. Vital Signs: 04/26 22:40 BP 143 / 96; Pulse 84; Resp 16 S; Temp 97.6; Pulse Ox 99% on R/A; Weight 99.34 kg; ha1 Height 5 ft. 2 in. ; Pain 9/10; 04/27 00:51 BP 104 / 63; Pulse 73; Resp 16 S; Pulse Ox 98% on R/A; ha1 01:50 BP 129 / 75; Pulse 77; Resp 18 S; Pulse Ox 100% on R/A; ha1 02:50 BP 127 / 72; Pulse 76; Resp 16 S; Pulse Ox 99% ; ha1 04/26 22:40 Body Mass Index 40.06 (99.34 kg, 157.48 cm) ha1 04/26 22:40 Pain Scale: Adult ha1 MDM: 02:49 Patient medically screened. kdr 04/28 00:58 Data reviewed: vital signs, nurses notes, radiologic studies. kdr Administered Medications: 04/27 01:15 Drug: Acetaminophen-Codeine PO (300 mg-30 mg) 2 tabs Route: PO; ha1 01:50 Follow up: Response: No adverse reaction; Pain is decreased; RASS: Alert and Calm (0) ha1 01:18 Drug: MethylPREDNISolone Sodium Succinate IM 125 mg Route: IM; Site: right deltoid; ha1 01:50 Follow up: Response: No adverse reaction ha1 01:21 Drug: Ketorolac IM 15 mg Route: IM; Site: right deltoid; ha1 01:50 Follow up: Response: No adverse reaction; Pain is decreased ha1 Disposition Summary: 04/27/23 02:49 Discharge Ordered Location: Home kdr Problem: an acute exacerbation kdr Symptoms: have improved kdr Condition: Stable kdr Diagnosis - Low back pain kdr Followup: kdr - With: Private Physician - When: 2 - 3 days - Reason: If symptoms return, Further diagnostic work-up, Recheck today's complaints, Continuance of care, Re-evaluation by your physician Discharge Instructions: - Discharge Summary Sheet kdr - Acute Back Pain, Adult kdr - Musculoskeletal Pain kdr Forms: - Medication Reconciliation Form kdr - Thank You Letter kdr Prescriptions: - methocarbamol 500 mg Oral tablet - take 2 tablet by ORAL route 4 times per day As needed; 40 tablet; Refills: 0, kdr Product Selection Permitted - Ibuprofen 800 mg Oral Tablet - take 1 tablet by ORAL route every 12 hours As needed take with food; 20 tablet; kdr Refills: 0, Product Selection Permitted - Medrol (Mejia) 4 mg Oral Tablets, Dose Pack - take 1 tablet by ORAL route as directed - follow package instructions; 1 kdr packet; Refills: 0, Product Selection Permitted Signatures: Placido Zarate MD MD kdr Mariaelena Her RN RN ha1
--- NOTE | 2023-04-27 02:50 | ER ---
Nurse's Notes [facility] Name: Maria Del Carmen Rodriguez Age: 42 yrs Sex: Female : 1980 Arrival Date: 04/26/2023 Time: 22:10 Bed 16 Private MD: Diagnosis: Low back pain Presentation: 04/26 22:40 Chief complaint: Patient states: I have a history of degenerative disc disease and I ha1 have a really bad pain on my back. I have an appointment with my neuro surgeon on Friday, but I just could not wait. Coronavirus screen: Vaccine status: Patient reports receiving the 2nd dose of the covid vaccine. Moderna. Ebola Screen: No symptoms or risks identified at this time. Initial Sepsis Screen: Does the patient meet any 2 criteria? No. Patient's initial sepsis screen is negative. Does the patient have a suspected source of infection? No. Patient's initial sepsis screen is negative. Risk Assessment: Do you want to hurt yourself or someone else? Patient reports no desire to harm self or others. Onset of symptoms was April 26, 2023. 22:40 Method Of Arrival: Ambulatory ha1 22:40 Acuity: JUS 3 ha1 Triage Assessment: 22:44 General: Appears uncomfortable, Behavior is calm, cooperative. Pain: Complains of pain ha1 in back. Neuro: Level of Consciousness is awake, alert, obeys commands, Oriented to person, place, time, situation. Cardiovascular: Capillary refill < 3 seconds Patient's skin is warm and dry. Respiratory: Airway is patent Respiratory effort is even, unlabored, Respiratory pattern is regular, symmetrical. GI: No signs and/or symptoms were reported involving the gastrointestinal system. : No signs and/or symptoms were reported regarding the genitourinary system. Musculoskeletal: Circulation, motion, and sensation intact. Range of motion: intact in all extremities, Reports pain in back. [facility] APPRAISER: 22:44 LMP 03/22/2023 ha1 Historical: - Allergies: 22:44 adult benadryl; ha1 22:44 Avelox; ha1 22:44 Benadryl; ha1 22:44 darvocet; ha1 22:44 Darvocet-N 100; ha1 22:44 Hydrocodone-Acetaminophen; ha1 22:44 Imitrex; ha1 22:44 Rocephin; ha1 22:44 Stadol; ha1 22:44 Sumatriptan Succinate; ha1 22:44 Tessalon Perles; ha1 22:44 Trazodone; ha1 - PMHx: 22:44 Asthma; Bipolar disorder; Degenerative disc disease; Hypertension; ibs; insomnia; ha1 Migraines; Sleep Apnea; Tachycardia; degenerative disc desease; - PSHx: 22:44 Appendectomy; GALLBLADDER; left leg surgery; tubal ligation; ha1 - Immunization history:: Adult Immunizations up to date. - Social history:: Smoking status: Patient denies any tobacco usage or history of. Screenin/04 00:40 [facility] ED Fall Risk Assessment (Adult) History of falling in the last 3 months, ha1 including since admission No falls in past 3 months (0 pts) Confusion or Disorientation No (0 pts) Intoxicated or Sedated No (0 pts) Impaired Gait No (0 pts) Mobility Assist Device Used No (0 pt) Altered Elimination No (0 pt) Score/Fall Risk Level 0 - 2 = Low Risk Oriented to surroundings, Maintained a safe environment, Educated pt \T\ family on fall prevention, incl call for assistance when getting out of bed. Abuse screen: Denies threats or abuse. Denies injuries from another. Nutritional screening: No deficits noted. Tuberculosis screening: No symptoms or risk factors identified. Assessment: 00:09 Reassessment: No changes from previously documented assessment. Pain: Complains of pain mw in lumbar area Pain currently is 10 out of 10 on a pain scale. Neuro: Reports Denies weakness numbness headache. Neuro: No deficits noted. Cardiovascular: No deficits noted. Respiratory: No deficits noted. GI: No deficits noted. : No deficits noted. EENT: No deficits noted. Derm: No deficits noted. Musculoskeletal: No deficits noted. 00:30 Reassessment: see triage assessment. ha1 00:56 Reassessment: Patient and/or family updated on plan of care and expected duration. Pain ha1 level reassessed. Patient is alert, oriented x 3, equal unlabored respirations, skin warm/dry/pink. pain 10/10. 00:56 Neuro: Level of Consciousness is awake, alert, obeys commands, Oriented to person, ha1 place, time, situation. 01:50 Reassessment: Patient and/or family updated on plan of care and expected duration. Pain ha1 level reassessed. Patient is alert, oriented x 3, equal unlabored respirations, skin warm/dry/pink. 02:50 Reassessment: Patient and/or family updated on plan of care and expected duration. Pain ha1 level reassessed. Patient is alert, oriented x 3, equal unlabored respirations, skin warm/dry/pink. Patient states feeling better. Patient states symptoms have improved. Vital Signs: 04/26 22:40 BP 143 / 96; Pulse 84; Resp 16 S; Temp 97.6; Pulse Ox 99% on R/A; Weight 99.34 kg; ha1 Height 5 ft. 2 in. ; Pain 08/03; 04/27 00:51 BP 104 / 63; Pulse 73; Resp 16 S; Pulse Ox 98% on R/A; ha1 01:50 BP 129 / 75; Pulse 77; Resp 18 S; Pulse Ox 100% on R/A; ha1 02:50 BP 127 / 72; Pulse 76; Resp 16 S; Pulse Ox 99% ; ha1 04/26 22:40 Body Mass Index 40.06 (99.34 kg, 157.48 cm) ha1 04/26 22:40 Pain Scale: Adult ha1 ED Course: 04/26 22:13 Patient arrived in ED. ja2 22:16 Placido Zarate MD is Attending Physician. kdr 22:39 Arm band placed on. ha1 22:44 Triage completed. ha1 04/27 00:00 Report received from eric [facility] worker general. ha1 00:12 No apparent distress. Awaiting ED provider evaluation. mw 00:12 Patient has correct armband on for positive identification. Side rails up X2. Door mw closed. Noise minimized. Lights dimmed. 00:57 Mariaelena Her, COLBY is Primary Nurse. ha1 03:13 No provider procedures requiring assistance completed. Patient did not have IV access ha1 during this emergency room visit. Administered Medications: 01:15 Drug: Acetaminophen-Codeine PO (300 mg-30 mg) 2 tabs Route: PO; ha1 01:50 Follow up: Response: No adverse reaction; Pain is decreased; RASS: Alert and Calm (0) ha1 01:18 Drug: MethylPREDNISolone Sodium Succinate IM 125 mg Route: IM; Site: right deltoid; ha1 01:50 Follow up: Response: No adverse reaction ha1 01:21 Drug: Ketorolac IM 15 mg Route: IM; Site: right deltoid; ha1 01:50 Follow up: Response: No adverse reaction; Pain is decreased ha1 Medication: 00:12 VIS not applicable for this client. Outcome: 02:49 Discharge ordered by . radha 03:13 Discharged to home ambulatory, with family. ha1 03:13 Condition: stable 03:13 Discharge instructions given to patient, Instructed on discharge instructions, follow up and referral plans. medication usage, Demonstrated understanding of instructions, follow-up care, medications, Prescriptions given X 3. 03:14 Patient left the ED. ha1 Signatures: Lily Barron RN RN Placido Zarate MD MD kdr Alexander, Jessica ja2 Ayala, Heidy, RN RN ha1
[2023-04-27 03:20] VITALS: TEMP 97.6
[2023-04-27 03:26] VITALS: BP 127/72; O2SAT 99
== END 2023-04-27 03:14 | disposition home or self-care (01) ==
LOC: ER 22:10
DX: M54.50 Low back pain, unspecified (principal); I10 Essential (primary) hypertension; Z88.1 Allergy status to other antibiotic agents; Z88.5 Allergy status to narcotic agent; Z88.6 Allergy status to analgesic agent; Z88.8 Allergy status to other drugs, medicaments and biological substances
CPT/HCPCS: 96372; 99284; J2930

== ENCOUNTER 2023-05-04 20:17 | Inpatient (IN) | payer OTHER ==
--- NOTE | 2023-05-04 21:12 | RAD REPORT ---
EXAM DESCRIPTION: Mary Single View05/04/2023 9:06 pm CLINICAL HISTORY: Chest pain COMPARISON: 2021 FINDINGS: The lungs appear clear of acute infiltrate. The heart is normal size IMPRESSION: No acute abnormalities displayed
[2023-05-04 21:25] LABS: Absolute Lymphocytes (CBC) 2.1 K/uL (0.7-4.9); Hematocrit 48.6 % (36.0-45.0); Lymphocytes % 20.2 % (15.3-44.8); MCV 98.8 fL (80-100); MPV 8.1 fL (7.6-11.3); RBC Red Blood Cell Count 4.91 M/uL (3.86-4.86)
[2023-05-04] MEDS ORDERED: METOPROLOL TAR 50 MG TAB ONE (21:30)
[2023-05-04 21:44] LABS: Potassium 3.8 mEq/L (3.5-5.1); Thyroid Stimulating Hormone 1.69 uIU/mL (0.358-3.740); Troponin High Sensitivity 39.4 pg/mL (<58.9)
[2023-05-04] MEDS ORDERED: NA CHLORIDE 0.9% 1,000 ML ONE (21:47)
--- NOTE | 2023-05-04 23:38 | ER ---
Nurse's Notes [facility] Name: Maria Del Carmen Rodriguez Age: 42 yrs Sex: Female : 1980 Arrival Date: 05/04/2023 Time: 20:17 Bed 6 Private MD: Diagnosis: Dizziness and giddiness;Dehydration;Tachycardia, unspecified;Palpitations Presentation: 05/04 20:25 Chief complaint: Patient states: my heart has been racing all day. every time i stand lg3 up i feel like im going to faint and my blood pressure has been high. Coronavirus screen: Client denies travel out of the [place] in the last 14 days. At this time, the client does not indicate any symptoms associated with coronavirus-19. Ebola Screen: No symptoms or risks identified at this time. Initial Sepsis Screen: Does the patient meet any 2 criteria? No. Patient's initial sepsis screen is negative. Does the patient have a suspected source of infection? No. Patient's initial sepsis screen is negative. Risk Assessment: Do you want to hurt yourself or someone else? Patient reports no desire to harm self or others. Onset of symptoms. 20:25 Method Of Arrival: Ambulatory lg3 20:25 Acuity: JUS 3 lg3 Triage Assessment: 20:26 General: Appears in no apparent distress. comfortable, Behavior is calm, cooperative. lg3 Pain: Complains of pain in chest. EENT: No deficits noted. No signs and/or symptoms were reported regarding the EENT system. Neuro: No deficits noted. Wynn Agitation-Sedation Scale (RASS): 0 - Alert and Calm Level of Consciousness is awake, alert, obeys commands. Cardiovascular: No deficits noted. Reports chest pain, palpitations. Respiratory: No deficits noted. Airway is patent Respiratory effort is even, unlabored, Respiratory pattern is regular, symmetrical. GI: No deficits noted. No signs and/or symptoms were reported involving the gastrointestinal system. : No deficits noted. No signs and/or symptoms were reported regarding the genitourinary system. Derm: No deficits noted. No signs and/or symptoms reported regarding the dermatologic system. Skin is intact, is healthy with good turgor, Skin is dry, Skin is normal, Skin temperature is warm. Musculoskeletal: No deficits noted. No signs and/or symptoms reported regarding the musculoskeletal system. Circulation, motion, and sensation intact. Range of motion: intact in all extremities. 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:26 LMP 05/04/2023 lg3 Historical: - Allergies: 20:26 adult benadryl; lg3 20:26 Avelox; lg3 20:26 Benadryl; lg3 20:26 darvocet; lg3 20:26 Darvocet-N 100; lg3 20:26 Hydrocodone-Acetaminophen; lg3 20:26 Imitrex; lg3 20:26 Rocephin; lg3 20:26 Stadol; lg3 20:26 Sumatriptan Succinate; lg3 20:26 Tessalon Perles; lg3 20:26 Trazodone; lg3 - PMHx: 20:26 Asthma; Bipolar disorder; degenerative disc desease; Degenerative disc disease; lg3 Hypertension; ibs; insomnia; Migraines; Sleep Apnea; Tachycardia; - PSHx: 20:26 Appendectomy; GALLBLADDER; left leg surgery; tubal ligation; lg3 - Immunization history:: Adult Immunizations up to date, Client reports receiving the 2nd dose of the Covid vaccine, Flu vaccine is not up to date. - Social history:: Smoking status: Patient denies any tobacco usage or history of. Patient uses alcohol, occasionally. Screenin:38 [facility] ED Fall Risk Assessment (Adult) History of falling in the last 3 months, rv including since admission No falls in past 3 months (0 pts) Confusion or Disorientation No (0 pts) Intoxicated or Sedated No (0 pts) Impaired Gait No (0 pts) Mobility Assist Device Used No (0 pt) Altered Elimination No (0 pt) Score/Fall Risk Level 0 - 2 = Low Risk Oriented to surroundings, Maintained a safe environment, Educated pt \T\ family on fall prevention, incl call for assistance when getting out of bed, Assessed \T\ reinforced patient's understanding of fall precautions, Provided non-skid footwear, Hourly rounding (assess needs \T\ fall precautionary measures) done, Used ambulatory aids as needed (educated on \T\ assisted with), Used gait belt as appropriate. Abuse screen: Denies threats or abuse. Denies injuries from another. Nutritional screening: No deficits noted. Tuberculosis screening: No symptoms or risk factors identified. Assessment: 22:00 Reassessment: Patient appears in no apparent distress at this time. Patient and/or jb4 family updated on plan of care and expected duration. Pain level reassessed. Patient is alert, oriented x 3, equal unlabored respirations, skin warm/dry/pink. 23:00 Reassessment: Pt assisted to the wheel chair and back to bed. When placing pt back on jb4 heart monitor, HR was noted at 150-180 and then returned to the 80's-90's once resting in bed. Pt reported feeling faint and her heart racing. Provider notified, no new orders at this time. 23:29 Reassessment: Pt ambulated from her room to the main entrance and back. Pt reports some jb4 dizziness. Heart rate was noted a its highest at 108. provider aware. Pt assisted back to bed, heart rate maintained at 104. 05/05 07:35 Reassessment: Patient appears in no apparent distress at this time. No changes from ko1 previously documented assessment. Patient and/or family updated on plan of care and expected duration. Pain level reassessed. Patient is alert, oriented x 3, equal unlabored respirations, skin warm/dry/pink. Vital Signs: 05/04 20:25 BP 136 / 97; Pulse 84; Resp 18 S; Temp 99.5(O); Pulse Ox 98% on R/A; Weight 99.34 kg lg3 (R); Height 5 ft. 2 in. (R); 21:20 BP 118 / 78 LA Supine (auto/reg); Pulse 98; Resp 22; Pulse Ox 94% on R/A; jw7 21:22 BP 111 / 84 LA Sitting (man/reg); Pulse 105; Resp 15; Pulse Ox 95% on R/A; jw7 21:24 BP 116 / 82 LA Standing (man/reg); Pulse 112; Resp 30; Pulse Ox 97% on R/A; jw7 22:13 BP 116 / 89; Pulse 100; Resp 17; Pulse Ox 100% on R/A; jb4 23:14 BP 140 / 92; Pulse 92; Resp 16; Pulse Ox 100% on R/A; jb4 05/05 07:35 BP 118 / 71; Pulse 94; Resp 16; Pulse Ox 98% ; ko1 05/04 20:25 Body Mass Index 40.06 (99.34 kg, 157.48 cm) lg3 ED Course: 05/04 20:22 Patient arrived in ED. es 20:25 Tiffanie Davis FNP-C [facility]. kb 20:25 Kyree Gonzalez MD is Attending Physician. kb 20:26 Triage completed. lg3 20:26 Arm band placed on right wrist. lg3 20:30 Ceferino Hurst, RN is Primary Nurse. rv 20:38 Patient has correct armband on for positive identification. Bed in low position. Call rv light in reach. Side rails up X 1. Adult w/ patient. Client placed on continuous cardiac and pulse oximetry monitoring. NIBP monitoring applied. cardiac monitor on. 20:38 Inserted saline lock: 22 gauge in right antecubital area, using aseptic technique. rv Blood collected. 20:38 No provider procedures requiring assistance completed. rv 21:08 XRAY Chest (1 view) In Process Unspecified. EDMS 23:37 Glen Daley MD is Hospitalizing Provider. kb 05/05 01:08 Patient admitted, IV remains in place. rv Administered Medications: 05/04 21:39 Drug: Metoprolol PO 50 mg Route: PO; rv 05/05 01:08 Follow up: Response: Cardiac rhythm changed rv 05/04 21:43 Drug: NS 0.9% IV 1000 ml Route: IV; Rate: 1000 ml; Site: right antecubital; jb4 05/05 01:09 Follow up: IV Status: Completed infusion; IV Intake: 1000ml rv Medication: 05/04 20:39 VIS not applicable for this client. rv Intake: 05/05 01:09 IV: 1000ml; Total: 1000ml. rv Outcome: 05/04 23:37 Decision to Hospitalize by Provider. kb 05/05 01:08 Admitted to ER Hold. Please see [facility] for further documentation. rv Condition: good Instructed on the need for admit. 07:40 Patient left the ED. ko1 Signatures: Dispatcher [employer] EDSC Tiffanie Davis FNP-C FNP-Montserrat Mccrary James, RN RN jb4 Ceferino Hurst, RN RN rv Radha Walker, RN RN lg3 Chaparrita Mann7 Lou Triana RN RN ko1
--- NOTE | 2023-05-04 23:38 | EDPHYS ---
Physician Documentation [facility] Name: Maria Del Carmen Rodriguez Age: 42 yrs Sex: Female : 1980 Arrival Date: 05/04/2023 Time: 20:17 Bed 6 Private MD: ED Physician Kyree Gonzalez HPI: 05/05 00:41 This 42 yrs old Female presents to ER via Ambulatory with complaints of Palpitations, kb High Blood Pressure, Feel faint. 00:41 The patient presents with a history of heart racing. Context: The symptoms occur with kb light activity. Onset: The symptoms/episode began/occurred this morning. Duration: The patient or guardian reports multiple episodes, that are intermittent. Modifying factors: The symptoms are aggravated by light activity, The symptoms are alleviated by. Associated signs and symptoms: Pertinent positives: chest pain, near-syncope. Severity of symptoms: At their worst the symptoms were moderate in the emergency department the symptoms are unchanged. The patient has not experienced similar symptoms in the past. The patient has not recently seen a physician. Patient states she has had palpitations, chest pain, dizziness and near syncope all day today. Reports she used to be on metoprolol but has been out for several months. Reports her blood pressure has been high as well.. 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:26 LMP 05/04/2023 lg3 Historical: - Allergies: 20:26 adult benadryl; lg3 20:26 Avelox; lg3 20:26 Benadryl; lg3 20:26 darvocet; lg3 20:26 Darvocet-N 100; lg3 20:26 Hydrocodone-Acetaminophen; lg3 20:26 Imitrex; lg3 20:26 Rocephin; lg3 20:26 Stadol; lg3 20:26 Sumatriptan Succinate; lg3 20:26 Tessalon Perles; lg3 20:26 Trazodone; lg3 - PMHx: 20:26 Asthma; Bipolar disorder; degenerative disc desease; Degenerative disc disease; lg3 Hypertension; ibs; insomnia; Migraines; Sleep Apnea; Tachycardia; - PSHx: 20:26 Appendectomy; GALLBLADDER; left leg surgery; tubal ligation; lg3 - Immunization history:: Adult Immunizations up to date, Client reports receiving the 2nd dose of the Covid vaccine, Flu vaccine is not up to date. - Social history:: Smoking status: Patient denies any tobacco usage or history of. Patient uses alcohol, occasionally. ROS: 23:01 Constitutional: Negative for fever, chills, and weight loss. kb 05/05 00:41 Cardiovascular: Positive for chest pain, palpitations. kb Neuro: Positive for dizziness, near syncope. All other systems are negative. Exam: 00:43 Constitutional: This is a well developed, well nourished patient who is awake, alert, kb and in no acute distress. Head/Face: Normocephalic, atraumatic. ENT: Moist Mucous membranes Cardiovascular: Regular rate and rhythm with a normal S1 and S2. No gallops, murmurs, or rubs. No pulse deficits. Respiratory: Respirations even and unlabored. No increased work of breathing. Talking in full sentences Abdomen/GI: Soft, non-tender. No distention Skin: Warm, dry with normal turgor. Normal color. MS/ Extremity: Pulses equal, no cyanosis. Neurovascular intact. Full, normal range of motion. Neuro: Awake and alert, GCS 15, oriented to person, place, time, and situation. Moves all extremities. Normal gait. Vital Signs: 05/04 20:25 BP 136 / 97; Pulse 84; Resp 18 S; Temp 99.5(O); Pulse Ox 98% on R/A; Weight 99.34 kg lg3 (R); Height 5 ft. 2 in. (R); 21:20 BP 118 / 78 LA Supine (auto/reg); Pulse 98; Resp 22; Pulse Ox 94% on R/A; jw7 21:22 BP 111 / 84 LA Sitting (man/reg); Pulse 105; Resp 15; Pulse Ox 95% on R/A; jw7 21:24 BP 116 / 82 LA Standing (man/reg); Pulse 112; Resp 30; Pulse Ox 97% on R/A; jw7 22:13 BP 116 / 89; Pulse 100; Resp 17; Pulse Ox 100% on R/A; jb4 23:14 BP 140 / 92; Pulse 92; Resp 16; Pulse Ox 100% on R/A; jb4 05/05 07:35 BP 118 / 71; Pulse 94; Resp 16; Pulse Ox 98% ; ko1 05/04 20:25 Body Mass Index 40.06 (99.34 kg, 157.48 cm) lg3 MDM: 05/04 20:25 Patient medically screened. kb 05/05 00:41 Data reviewed: vital signs, nurses notes. kb 00:43 Consideration of Admission/Observation Patient was admitted/placed on observation. kb Management of patient was discussed with the following: Hospitalist: Corwin DAVIS accepts pt for admission under Dr Daley. Care significantly affected by the following chronic conditions: Hypertension. Counseling: I had a detailed discussion with the patient and/or guardian regarding: the historical points, exam findings, and any diagnostic results supporting the discharge/admit diagnosis, lab results, radiology results, the need for further work-up and treatment in the hospital. ED course: Patient ambulated to the restroom and felt dizzy and shaky. Upon placement back on manager strategic marketing heart rate was 150-180. After rest heart rate came down into the 80s. Liter of fluids was completed and patient ambulated again. Heart rate increased to 105, patient reported lightheadedness and had to take breaks. Will admit. 05/04 20:29 Order name: Basic Metabolic Panel; Complete Time: 21:48 kb 05/04 20:29 Order name: CBC with Diff; Complete Time: 21:27 kb 05/04 20:29 Order name: D-Dimer; Complete Time: 21:30 kb 05/04 20:29 Order name: Magnesium; Complete Time: 21:48 kb 05/04 20:29 Order name: NT PRO-BNP; Complete Time: 21:48 kb 05/04 20:29 Order name: Troponin HS; Complete Time: 21:48 kb 05/04 20:29 Order name: TSH; Complete Time: 21:48 kb 05/04 21:53 Order name: Urine Drug Screen; Complete Time: 00:02 la1 05/04 22:41 Order name: Troponin High Sensitivity; Complete Time: 00:03 jb4 05/05 04:36 Order name: Basic Metabolic Panel EDMS 05/05 04:36 Order name: Troponin High Sensitivity EDMS 05/05 04:36 Order name: Magnesium EDMS 05/04 20:29 Order name: XRAY Chest (1 view); Complete Time: 21:19 kb 05/04 20:29 Order name: EKG; Complete Time: 20:29 kb 05/04 20:29 Order name: Cardiac monitoring; Complete Time: 20:30 kb 05/04 20:29 Order name: EKG - Nurse/Tech; Complete Time: 20:30 kb 05/04 20:29 Order name: IV Saline Lock; Complete Time: 20:30 kb 05/04 20:29 Order name: Labs collected and sent; Complete Time: 20:30 kb 05/04 20:29 Order name: O2 Per Protocol; Complete Time: 20:30 kb 05/04 20:29 Order name: O2 Sat Monitoring; Complete Time: 20:31 kb 05/04 21:01 Order name: Orthostatics; Complete Time: 21:28 kb Administered Medications: 05/04 21:39 Drug: Metoprolol PO 50 mg Route: PO; rv 05/05 01:08 Follow up: Response: Cardiac rhythm changed rv 05/04 21:43 Drug: NS 0.9% IV 1000 ml Route: IV; Rate: 1000 ml; Site: right antecubital; jb4 05/05 01:09 Follow up: IV Status: Completed infusion; IV Intake: 1000ml rv Disposition Summary: 05/04/23 23:37 Hospitalization Ordered Hospitalization Status: Observation kb Provider: Glen Daley Condition: Stable kb Problem: new kb Symptoms: are unchanged kb Bed/Room Type: Standard kb Location: Telemetry/MedSurg (observation)(05/05/23 07:01) ja1 Room Assignment: [facility](05/05/23 07:01) ja1 Diagnosis - Dizziness and giddiness kb - Dehydration kb - Tachycardia, unspecified kb - Palpitations kb Forms: - Medication Reconciliation Form kb - SBAR form kb Signatures: Dispatcher [employer] EDTiffanie Lovett, CHANGE MANAGEMENT MANAGER-C CHANGE MANAGEMENT MANAGER-Ckb Neha Wilkerson, RN RN Matt Davis, RN RN jb4 Erik Sanchez RN RN ja1 Ceferino Hurst, RN Radha Swan RN RN lg3 Corrections: (The following items were deleted from the chart) 00:30 05/04 23:37 Telemetry/MedSurg (observation) [facility] 05/05 00:30 05/04 23:37 kb 05/05 00:41 00:41 Neuro: Positive for dizziness, kb 07: 00:30 [facility] ER HOLD cg ja1 07:01 00:30 ERHOLD- cg ja1
[2023-05-05 00:01] LABS: Barbiturates NEGATIVE (NEGATIVE); Benzodiazepines NEGATIVE (NEGATIVE); Cocaine NEGATIVE (NEGATIVE); METHAMPHETAM NEGATIVE (NEGATIVE); Methadone NEGATIVE (NEGATIVE); Opiates NEGATIVE (NEGATIVE); Phencyclidine NEGATIVE (NEGATIVE); THC Cannibis NEGATIVE (NEGATIVE)
--- NOTE | 2023-05-05 00:21 | P.HP ---
Certification for Inpatient Patient admitted to: Observation With expected LOS: <2 Midnights Patient will require the following post-hospital care: None Practitioner: I am a practitioner with admitting privileges, knowledge of patient current condition, hospital course, and medical plan of care. Services: Services provided to patient in accordance with Admission requirements found in Title 42 Section 412.3 of the Code of Federal Regulations Patient History Date of Service: 05/05/23 Reason for admission: Palpitations, dizziness History of Present Illness: 42-year-old female with history of asthma, hypertension, BPD, ROSANGELA, PCOS, anxiety/depression, PTSD presents emergency department chief complaint of weakness, palpitations, dizziness/lightheadedness. She reports that she has a history of high heart rate/palpitations she previously took metoprolol 50 mg twice daily for she has been out of this medication for approximate 3 months after taking it for a duration of 3-3 and half years. She has had outpatient valuation from cardiology including a cardiac catheterization performed in 2017 Holter monitor and echocardiogram performed last year which she reports revealed "intermittent tachycardia". The past couple days she has been having episodes of weakness, tachycardia/palpitations pretty frequently during her stay in the emergency department she had similar between 5 and 10 episodes of suspected SVT lasting for approximately 30 seconds to 1 minutes which are symptomatic, she also difficulty with ambulation gets dizzy/lightheaded when she stands up or when she walks. She was given 50 mg of p.o. Lopressor in ED, she is still symptomatic and having runs of what appeared to be SVT, we were unable to capture any of these events on EKG thus far. She will be admitted under observation. Allergies butorphanol [From Stadol] Allergy (Unverified 12/31/21 13:32) Unknown moxifloxacin [From Avelox] Allergy (Unverified 12/31/21 13:32) Unknown sumatriptan [From Imitrex] Allergy (Unverified 12/31/21 13:32) Unknown benzonatate [From Tessalon Perles] Adverse Reaction (Mild, Verified 12/31/21 13:32) Rash diphenhydramine HCl [From Benadryl] Adverse Reaction (Mild, Verified 12/31/21 13:32) rash vomiting moxifloxacin HCl [From Avelox] Adverse Reaction (Mild, Verified 12/31/21 13:32) rash vomiting sumatriptan succinate [From Imitrex] Adverse Reaction (Mild, Verified 12/31/21 13:32) rash vomiting acetaminophen [From Darvocet-N 100] Adverse Reaction (Verified 12/31/21 13:32) rash vomiting propoxyphene napsylate [From Darvocet-N 100] Adverse Reaction (Verified 12/31/21 13:32) rash vomiting adult benadry Allergy (Uncoded 12/31/21 13:32) Unknown da Allergy (Uncoded 12/31/21 13:32) Unknown Tessalon P Allergy (Uncoded 12/31/21 13:32) Unknown Home Medications: Naproxen [Naprosyn] 1 tab PO DAILY 08/05/16 Aspirin [Aspirin EC 81 MG] 81 mg PO DAILY #30 tablet. 12/07/21 Atorvastatin Calcium [Lipitor] 40 mg PO BEDTIME #30 tab 12/07/21 - Past Medical/Surgical History Diabetic: Yes -: dm -: sleep apnea -: bipolar -: POS -: Arthritis -: Knea and leg SX -: Sarah -: Appy -: ex-lap -: tubal ligation -: cyst removal Psychosocial/ Personal History: Patient lives at home with family - Family History Father -: Heart disease, Hypertension, Diabetes Mother -: Heart disease, Hypertension, Diabetes - Social History Alcohol use: No CD- Drugs: No Caffeine use: No Place of Residence: Home Review of Systems 10-point ROS is otherwise unremarkable Cardiovascular: Palpitations, Light Headedness Physical Examination - Physical Exam General: Alert, In no apparent distress, Oriented x3 HEENT: Atraumatic, PERRLA, Mucous membr. moist/pink, EOMI, Sclerae nonicteric Neck: Supple, 2+ carotid pulse no bruit, No LAD, Without JVD or thyroid abnormality Respiratory: Clear to auscultation bilaterally, Normal air movement Cardiovascular: No edema, Regular rate/rhythm, Normal S1 S2 Capillary refill: <2 Seconds Gastrointestinal: Normal bowel sounds, No tenderness Musculoskeletal: No tenderness Integumentary: No rashes Neurological: Normal speech, Normal strength at 5/5 x4 extr, Normal tone, Normal affect - Studies Laboratory Data (last 24 hrs) 05/04/23 20:40: WBC 10.20, Hgb 16.4 H, Hct 48.6 H, Plt Count 309 05/04/23 20:40: Sodium 139, Potassium 3.8, BUN 17, Creatinine 1.02, Glucose 116 H, Magnesium 2.0 Assessment and Plan - Plan Assessment: Palpitations-symptomatic paroxysmal SVT/atrial tachycardia Asthma Hypertension BPD/anxiety/depression/PTSD PCOS Plan: Palpitations-symptomatic paroxysmal SVT/atrial tachycardia Restart/continue metoprolol 50 mg p.o. twice daily. We will monitor on telemetry during hospitalization, patient reports wearing a Holter monitor and having echocardiogram approximate 1 year ago which she reports revealed "intermittent tachycardia". She also had heart catheterization 2016 which was reportedly normal. Appreciate further per from cardiology. Asthma No active exacerbation, nebulizer treatments as needed Hypertension Restart metoprolol, continue other home medications. BPD/anxiety/depression/PTSD PCOS Continue home meds. DVT PPX: Lovenox Code status: Full Discharge Plan: Home Plan to discharge in: 24 Hours - Advance Directives Does patient have a Living Will: No Does patient have a Durable POA for Healthcare: No - Code Status/Comfort Care Code Status Assessed: Yes (Full code) Critical Care: No Time Spent Managing Pts Care (In Minutes): 55
[2023-05-05] MEDS ORDERED: ONDANSETRON 4 MG/2 ML VIAL IV PRN (00:49)
[2023-05-05] MEDS: NA CHLORIDE 0.9% 1,000 ML IV SCH ×3 (01:00→18:08)
[2023-05-05 01:01] VITALS: BMI 40.0
[2023-05-05] MEDS ORDERED: PROMETH/COD 6.25/10MG SYRUP 5ML PO ONE (01:01)
[2023-05-05] MEDS ORDERED: BENZONATATE 100 MG CAP PO ONE (01:06)
[2023-05-05] MEDS ORDERED: PROMETH/COD 6.25/10MG SYRUP 5ML ONE (01:11)
[2023-05-05] MEDS ORDERED: NA CHLORIDE 0.9% 1,000 ML ONE (01:17)
[2023-05-05 04:36] LABS: Magnesium 1.9 mg/dL (1.6-2.4); Potassium 3.8 mEq/L (3.5-5.1); Troponin High Sensitivity 32.5 pg/mL (<58.9)
[2023-05-05] MEDS: METOPROLOL TAR 50 MG TAB PO SCH ×2 (08:26→21:00)
[2023-05-05] MEDS: ENOXAPARIN 40 MG/0.4 ML SQ SCH (08:26)
--- NOTE | 2023-05-05 12:02 | EKG ---
Test Date: 2023-05-04 Test Time: 20:35:39 Rn Ante Partum: IRENE MEASUREMENT RESULTS: Intervals: Rate: 117 RI: 138 QRSD: 76 QT: 316 QTc: 440 [place]: P: 60 RI: 138 QRS: 64 T: 53 INTERPRETIVE STATEMENTS: Sinus tachycardia Biatrial enlargement Nonspecific ST abnormality Abnormal ECG Compared to ECG 04/29/2022 23:08:29 Atrial abnormality now present ST (T wave) deviation now present Sinus rhythm no longer present Electronically Signed On 05-05-23 12:00:26 CDT by Mikael May
[2023-05-05] MEDS ORDERED: ACETAMINOPHEN 325 MG TABLET PO ONE (12:12)
[2023-05-05] MEDS ORDERED: IBUPROFEN 400 MG TAB PO ONE (12:30)
[2023-05-05] MEDS: ACETAMINOPHEN 325 MG TABLET PO PRN (22:42)
[2023-05-06 04:16] LABS: Potassium 3.8 mEq/L (3.5-5.1)
[2023-05-06] MEDS: NA CHLORIDE 0.9% 1,000 ML IV SCH (04:58)
--- NOTE | 2023-05-06 05:49 | P.PN ---
Date of Service: 05/05/23 Subjective Patient is clinically doing better. Symptoms are improved. Await work-up to be completed and anticipate discharge in the morning. Physical Examination -Vitals Reviewed -Physical Exam General: Alert, In no apparent distress, Oriented x3 Respiratory: Clear to auscultation bilaterally, Normal air movement Cardiovascular: No edema, Regular rate/rhythm, Normal S1 S2 Gastrointestinal: Normal bowel sounds, No tenderness Musculoskeletal: No tenderness Neurological: No focal deficits Assessment and Plan -Assessment Assessment: Palpitations-symptomatic paroxysmal SVT/atrial tachycardia Asthma Hypertension BPD/anxiety/depression/PTSD PCOS - Plan Plan: Palpitations-symptomatic paroxysmal SVT/atrial tachycardia Restart/continue metoprolol 50 mg p.o. twice daily. We will monitor on telemetry during hospitalization, patient reports wearing a Holter monitor and having echocardiogram approximate 1 year ago which she reports revealed "intermittent tachycardia". She also had heart catheterization 2016 which was reportedly normal. Appreciate further per from cardiology. Asthma No active exacerbation, nebulizer treatments as needed Hypertension Restart metoprolol, continue other home medications. BPD/anxiety/depression/PTSD PCOS Continue home meds. DVT PPX: Lovenox Code status: Full Discharge Plan: Home Plan to discharge in: 24 Hours - Advance Directives Does patient have a Living Will: No Does patient have a Durable POA for Healthcare: No - Code Status/Comfort Care Code Status Assessed: Yes (Full code) Critical Care: No Time Spent Managing Pts Care (In Minutes): 55
--- NOTE | 2023-05-06 07:44 | RAD REPORT ---
EXAM DESCRIPTION: - CP - 05/05/2023 11:50 pm CLINICAL HISTORY: Syncope COMPARISON: No comparisons TECHNIQUE: Real-time sonographic evaluation of both carotid systems was performed. Doppler interroga tion was performed with waveform tracing bilaterally. FINDINGS: Normal high resistance waveforms are noted in both external carotid arteries. The common c arotid arteries and internal carotid arteries show normal low resistance waveforms. No significant plaque formation is seen. Peak systolic and end diastolic velocity values and the ICA/ CCA ratios are in the non-hemodynamically significant range. Antegrade flow seen in both vertebral arteries. IMPRESSION: No significant atherosclerotic changes noted. No evidence of a hemodynamically significant stenosis.
[2023-05-06] MEDS: ENOXAPARIN 40 MG/0.4 ML SQ SCH (08:34)
[2023-05-06] MEDS: METOPROLOL TAR 50 MG TAB PO SCH (08:44)
[2023-05-06] MEDS ORDERED: dexAMETHasone 4 MG/ML VIAL IV ONE (17:52)
[2023-05-06] MEDS ORDERED: ALBUTEROL 2.5 MG/3 ML NEB SOL NEB ONE (17:52)
[2023-05-06] MEDS ORDERED: DIGOXIN 0.25 MG/ML AMP IV ONE (18:09)
[2023-05-06] MEDS ORDERED: atenoloL 25 MG TAB PO ONE (18:09)
--- NOTE | 2023-05-06 18:15 | P.PN ---
Date of Service: 05/06/23 Subjective Patient to be discharged. However patient went into atrial fibrillation with rapid ventricular response around the timing of the discharge. Heart rate went into the 150s to 160s. We have gone ahead and given her IV digoxin and IV beta- narciso therapy. Go ahead and continue to monitor her cardiac status closely. Echocardiogram pending. Cardiology will be notified. Physical Examination -Vitals Reviewed -Physical Exam General: Alert, In no apparent distress, Oriented x3 Respiratory: Clear to auscultation bilaterally, Normal air movement Cardiovascular: Irregular rate and rhythm Gastrointestinal: Normal bowel sounds, No tenderness Musculoskeletal: No tenderness Neurological: No focal deficits Assessment and Plan -Assessment Assessment: Atrial fibrillation with rapid ventricular response Asthma Hypertension BPD/anxiety/depression/PTSD PCOS - Plan Plan: 1. Continue with medication for rate control 2. Echocardiogram 3. Notify cardiology 4. Prednisone and inhaler therapy 5. GI and DVT prophylaxis
[2023-05-06] MEDS ORDERED: atenoloL 25 MG TAB ONE (18:26)
[2023-05-06] MEDS: ACETAMINOPHEN 325 MG TABLET PO PRN (18:53)
[2023-05-06] MEDS: DIGOXIN 0.25 MG/ML AMP IV SCH (23:28)
[2023-05-07] MEDS: DIGOXIN 0.25 MG/ML AMP IV SCH (05:00)
[2023-05-07 06:24] LABS: Absolute Lymphocytes (CBC) 1.1 K/uL (0.7-4.9); Hematocrit 37.8 % (36.0-45.0); Lymphocytes % 17.8 % (15.3-44.8); RBC Red Blood Cell Count 3.86 M/uL (3.86-4.86)
[2023-05-07 07:07] LABS: Albumin 3.1 g/dL (3.4-5.0); Bilirubin Total 0.3 mg/dL (0.2-1.0); Magnesium 2.3 mg/dL (1.6-2.4); Potassium 3.8 mEq/L (3.5-5.1); Protein, Total 6.9 g/dL (6.4-8.2); Thyroid Stimulating Hormone 0.382 uIU/mL (0.358-3.740)
--- NOTE | 2023-05-07 07:27 | RAD REPORT ---
EXAM DESCRIPTION: Mary Single View05/07/2023 5:25 am CLINICAL HISTORY: Chest pain COMPARISON: May 04, 2023 FINDINGS: The upper lobe vessels are prominent probably signifying pulmonary venous hypertension The lungs appear clear of acute infiltrate. The heart is normal size
--- NOTE | 2023-05-07 08:49 | ECHO ---
HEIGHT: 5 ft 2 in WEIGHT: 219 lb 0 oz DATE OF STUDY: 05/06/[address]: Glen Daley MD 2-DIMENSIONAL: YES M.MODE: YES DOPPLER: YES COLOR FLOW: YES TDS: NO PORTABLE: YES DEFINITY: NO BUBBLE STUDY: NO DIAGNOSIS: SYNCOPE CARDIAC HISTORY: CATHERIZATION: NO SURGERY: NO PROSTHETIC VALVE: NO PACEMAKER: NO MEASUREMENTS (cm) DIASTOLIC (NORMALS) SYSTOLIC (NORMALS) IVSd 1.1 (0.6-1.2) LA Diam 2.9 (1.9-4.0) LVEF 55% LVIDd 3.8 (3.5-5.7) LVIDs 2.8 (2.0-3.5) %FS 28% LVPWd 1.2 (0.6-1.2) Ao Diam 2.3 (2.0-3.7) 2 DIMENSIONAL ASSESSMENT: RIGHT ATRIUM: NORMAL LEFT ATRIUM: NORMAL RIGHT VENTRICLE: NORMAL LEFT VENTRICLE: NORMAL TRICUSPID VALVE: NORMAL MITRAL VALVE: NORMAL PULMONIC VALVE: NORMAL AORTIC VALVE: NORMAL PERICARDIAL EFFUSION: NONE AORTIC ROOT: NORMAL LEFT VENTRICULAR WALL MOTION: NORMAL DOPPLER/COLOR FLOW: NORMAL COMMENTS: NORMAL 2D ECHOCARDIOGRAM WITH DOPPLER. TECHNOLOGIST: ROLANDO CHRISTINE
[2023-05-07] MEDS: predniSONE 20 MG TAB PO SCH ×2 (08:59→09:00)
[2023-05-07] MEDS: ENOXAPARIN 40 MG/0.4 ML SQ SCH (08:59)
[2023-05-07] MEDS ORDERED: HYDROCORTISONE SUC 100 MG INJ IV ONE (10:35)
[2023-05-07 12:41] VITALS: BP 103/58; TEMP 97
--- NOTE | 2023-05-07 13:02 | CON ---
Date of Consultation: 05/05/2023 Reason For Consultation: Palpitation. History Of Present Illness: Ms. Rodriguez is 42. Has had a history of palpitations in the past. She t akes metoprolol 50 b.i.d., aspirin. She has dyslipidemia. She takes Lipitor. Comes in with palpita tion, has been going on and off for a couple of days. She does not know what she had, but has been t old in the past she had paroxysmal atrial tachycardia, this is AFib, flutter or SVT. She is still nunez ving some symptoms right now. Monitor showing occasional PVC. Past Medical History: Includes hypertension, migraine, and bipolar disorder. Allergies: SHE HAD MULTIPLE MEDICAL ALLERGIES. REFER TO THE PRIMARY CARE H AND P PLEASE. Medications: At home include aspirin, Lipitor, and metoprolol 50 b.i.d. Review of Systems: Negative. Social History: Negative. Family History: Negative. Physical Examination: Vital Signs: Stable, afebrile, sinus rhythm. HEENT: Negative. Neck: Supple with no bruit. Chest: Clear. Cardiac: Normal. Abdomen: Benign. Extremities: Revealed no clubbing, cyanosis, or edema. Diagnostic Data: Normal. Impression And Plan: Palpitations. Ms. Rodriguez needs an outpatient event monitor, echocardiogram. I ncrease beta-narciso p.r.n. We will see what the event monitor shows as an outpatient and make a dec ision regarding a possible ablation depending on what she has . REBECCA/MATEUSZL Voice ID: [id number] Report ID: [id number]
[2023-05-07 14:14] VITALS: O2SAT 97
--- NOTE | 2023-05-09 14:19 | EKG ---
Test Date: 2023-05-06 Test Time: 18:15:00 Parking Lot Chauffeur: CANDY MEASUREMENT RESULTS: Intervals: Rate: 127 NC: QRSD: 70 QT: 236 QTc: 342 [place]: P: 39 NC: QRS: 89 T: -38 INTERPRETIVE STATEMENTS: sinus rhythm with SVT Marked ST abnormality, possible inferolateral subendocardial injury Abnormal ECG Compared to ECG 05/04/2023 20:35:39 Sinus tachycardia no longer present Atrial abnormality no longer present ST (T wave) deviation still present Electronically Signed On 05-09-23 14:17:32 CDT by Alfredo Murdock
== END 2023-05-07 15:55 | disposition home or self-care (01) | DRG 310 ==
LOC: ER 20:17 → ERHOLD 05-05 00:06 → 2ND 05-05 08:06 → OBSVTOIN 05-06 18:12 → INTOOBSV 05-06 18:12
PROVIDERS: ADMIT Hospitalist; ATTEND Hospitalist
DX: I47.1 Supraventricular tachycardia (principal); I48.91 Unspecified atrial fibrillation; I49.3 Ventricular premature depolarization; F31.9 Bipolar disorder, unspecified; I10 Essential (primary) hypertension; E86.0 Dehydration; E28.2 Polycystic ovarian syndrome; E11.9 Type 2 diabetes mellitus without complications; E78.5 Hyperlipidemia, unspecified; F41.9 Anxiety disorder, unspecified; M19.90 Unspecified osteoarthritis, unspecified site; F43.10 Post-traumatic stress disorder, unspecified; J45.909 Unspecified asthma, uncomplicated; Z88.8 Allergy status to other drugs, medicaments and biological substances; Z88.5 Allergy status to narcotic agent; Z98.51 Tubal ligation status; Z90.49 Acquired absence of other specified parts of digestive tract; Z79.82 Long term (current) use of aspirin; Z79.899 Other long term (current) drug therapy
CPT/HCPCS: 36415; 71045; 80048; 80053; 80307; 82533; 82607; 83540; 83735; 83880; 84439; 84443; 84484; 85025; 85379; 93005; 93306; 93880; 96360; 96361; 99285; G0378; J1100; J1160; J1650; J1720; J7030; J7512

== ENCOUNTER 2023-05-19 16:17 | Emergency (ER) | payer OTHER ==
[2023-05-19] MEDS ORDERED: MORPHINE 4 MG/ML SYR ONE (17:03)
[2023-05-19] MEDS ORDERED: KETOROLAC 30 MG/ML INJ ONE (17:03)
[2023-05-19 17:10] LABS: Absolute Lymphocytes (CBC) 1.8 K/uL (0.7-4.9); Hematocrit 39.5 % (36.0-45.0); Lymphocytes % 23.5 % (15.3-44.8); MCV 98.1 fL (80-100); MPV 7.7 fL (7.6-11.3); RBC Red Blood Cell Count 4.02 M/uL (3.86-4.86)
[2023-05-19 17:17] LABS: Protime INR 1.04
[2023-05-19 17:24] LABS: Potassium 3.5 mEq/L (3.5-5.1)
--- NOTE | 2023-05-19 17:45 | RAD REPORT ---
EXAM DESCRIPTION: RAD - Knee Left 3 View - 05/19/2023 5:13 pm CLINICAL HISTORY: Left knee pain FINDINGS: No fracture or dislocation is seen. No evidence of loosening left knee prosthesis
--- NOTE | 2023-05-19 18:11 | ER ---
Nurse's Notes [facility] Name: Maria Del Carmen Rodriguez Age: 43 yrs Sex: Female : 1980 Arrival Date: 05/19/2023 Time: 16:17 Bed 11 Private MD: Diagnosis: Pain in left knee Presentation: 05/19 16:42 Chief complaint: Patient states: Left knee pain/swelling since Friday, getting worse. ss Coronavirus screen: Vaccine status: Patient reports receiving the 2nd dose of the covid vaccine. Ebola Screen: Patient denies travel to an Ebola-affected area in the 21 days before illness onset. Initial Sepsis Screen: Does the patient meet any 2 criteria? No. Patient's initial sepsis screen is negative. Does the patient have a suspected source of infection? No. Patient's initial sepsis screen is negative. Risk Assessment: Do you want to hurt yourself or someone else? Patient reports no desire to harm self or others. Onset of symptoms was May 16, 2023. 16:42 Method Of Arrival: Ambulatory 16:42 Acuity: JUS 3 ss Triage Assessment: 17:29 General: Appears in no apparent distress. comfortable, Behavior is calm, cooperative. cm10 Pain: Complains of pain in left leg. Historical: - Allergies: 16:44 adult benadryl; ss 16:44 Avelox; ss 16:44 Benadryl; ss 16:44 darvocet; ss 16:44 Darvocet-N 100; ss 16:44 Hydrocodone-Acetaminophen; ss 16:44 Imitrex; ss 16:44 Rocephin; ss 16:44 Stadol; ss 16:44 Tessalon Perles; ss 16:44 Trazodone; ss 16:44 Sumatriptan Succinate; ss - PMHx: 16:44 Asthma; Bipolar disorder; degenerative disc desease; Degenerative disc disease; ss Hypertension; ibs; insomnia; Migraines; Sleep Apnea; Tachycardia; Atrial fibrillation; - PSHx: 16:44 Appendectomy; tubal ligation; Cholecystectomy; Left knee replacement; ss - Immunization history:: Client reports receiving the 2nd dose of the Covid vaccine. - Social history:: Smoking status: Patient denies any tobacco usage or history of. - Family history:: not pertinent. - Hospitalizations: : No recent hospitalization is reported. Screenin:30 [facility] ED Fall Risk Assessment (Adult) History of falling in the last 3 months, cm10 including since admission No falls in past 3 months (0 pts) Confusion or Disorientation No (0 pts) Intoxicated or Sedated No (0 pts) Impaired Gait Yes (1 pt) Mobility Assist Device Used Yes (1 pt) Altered Elimination No (0 pt) Score/Fall Risk Level 3 or more points = High Risk Oriented to surroundings, Maintained a safe environment, Educated pt \T\ family on fall prevention, incl call for assistance when getting out of bed. Abuse screen: Denies threats or abuse. Denies injuries from another. Nutritional screening: No deficits noted. Tuberculosis screening: No symptoms or risk factors identified. Assessment: 17:30 Pain: Complains of pain in left leg and left knee. Neuro: No deficits noted. Level of cm10 Consciousness is awake, alert, Oriented to person, place, time, situation. Respiratory: No deficits noted. Airway is patent Respiratory effort is even, unlabored, Respiratory pattern is regular, symmetrical. Vital Signs: 16:42 BP 124 / 80; Pulse 92; Resp 18; Temp 98.4; Weight 97.98 kg; Height 5 ft. 2 in. ; Pain ss 9/10; 17:53 Pain 5/10; cm10 17:53 Pain 5/10; cm10 18:29 BP 108 / 74; Pulse 86; Resp 16; Pulse Ox 99% on R/A; Pain 5/10; cm10 16:42 Body Mass Index 39.51 (97.98 kg, 157.48 cm) ss 16:42 Pain Scale: Adult ss 17:53 Pain Scale: Adult cm10 17:53 Pain Scale: Adult cm10 18:29 Pain Scale: Adult cm10 ED Course: 16:20 Patient arrived in ED. mr 16:31 Don Blum MD is Attending Physician. rn 16:43 Triage completed. ss 16:46 Arm band placed on left wrist. ss 16:52 Kriss Gamez, COLBY is Primary Nurse. cm10 17:03 Protime (+inr) Sent. cm10 17:03 Ptt, Activated Sent. cm10 17:03 Basic Metabolic Panel Sent. cm10 17:03 CBC with Diff Sent. cm10 17:04 Initial lab(s) drawn, by md, sent to lab. Inserted saline lock: 22 gauge in right cm10 forearm, using aseptic technique. Blood collected. 17:15 XRAY Knee LEFT 3 view In Process Unspecified. EDMS 17:31 Patient has correct armband on for positive identification. Bed in low position. Call cm10 light in reach. Side rails up X2. Pulse ox on. NIBP on. Door closed. Lights dimmed. 17:54 US at bedside. cm10 18:22 Extremity Venous Uni Ltd US In Process Unspecified. EDMS 18:39 No provider procedures requiring assistance completed. IV discontinued, intact, cm10 bleeding controlled, No redness/swelling at site. Pressure dressing applied. 18:39 Knee immobilizer applied on left knee. cm10 Administered Medications: 17:12 Drug: morphine IVP or IV 4 mg Route: IVP; Infused Over: 4 mins; Site: right forearm; cm10 17:53 Follow up: Pain 5/10 Adult; Response: No adverse reaction; Pain is decreased cm10 17:14 CANCELLED (Duplicate Order): Ketorolac IVP 15 mg IVP once cm10 17:14 Drug: Ketorolac IVP 30 mg Route: IVP; Site: right forearm; cm10 17:53 Follow up: Pain 5/10 Adult; Response: No adverse reaction; Pain is decreased cm10 Medication: 18:40 VIS not applicable for this client. cm10 Outcome: 18:11 Discharge ordered by . rn 18:39 Discharged to home ambulatory, with family. cm10 18:39 Condition: good 18:39 Discharge instructions given to patient, Instructed on discharge instructions, follow up and referral plans. medication usage, Demonstrated understanding of instructions, follow-up care, medications, Prescriptions given X 1. 18:40 Patient left the ED. cm10 Signatures: Dispatcher [employer] YOAVUT DennisPebbles Roman, MD MD rn Blanchard, Shelby, RN RN ss Martinez, Clarissa, RN RN cm10 Corrections: (The following items were deleted from the chart) 16:46 16:44 PSHx: GALLBLADDER; ss ss 16:46 16:44 PSHx: left leg surgery; ss ss 17:30 17:29 Pain: Complains of pain in left leg cm10 cm10
--- NOTE | 2023-05-19 18:11 | EDPHYS ---
Physician Documentation [facility] Name: Maria Del Carmen Rodriguez Age: 43 yrs Sex: Female : 1980 Arrival Date: 05/19/2023 Time: 16:17 Bed 11 Private MD: ED Physician Don Blum HPI: 05/19 16:47 This 43 yrs old Female presents to ER via Ambulatory with complaints of Knee Pain, rn Other, Leg Swelling. 16:47 The patient presents with pain, that is acute. The complaints affect the left knee. rn Onset: The symptoms/episode began/occurred 4 day(s) ago. Modifying factors: The symptoms are alleviated by nothing. the symptoms are aggravated by movement, weight bearing, bending knee. Associated signs and symptoms: Pertinent negatives fever, rash, warmth, weakness. Severity of symptoms: At their worst the symptoms were moderate, in the emergency department the symptoms are unchanged. The patient has experienced similar episodes in the past. Pt reports knee replacement several years ago, since then has been having left knee problems, has pain often. 4 days ago began with left knee pain, no swelling, no fever, no weakness, no warmth. Reports thinks began after standing up from seated position. Hurts to put weight on it and bend it. No direct trauma. Reports has episodes of pain this severe about 2-3 times/year since surgery. . Historical: - Allergies: 16:44 adult benadryl; ss 16:44 Avelox; ss 16:44 Benadryl; ss 16:44 darvocet; ss 16:44 Darvocet-N 100; ss 16:44 Hydrocodone-Acetaminophen; ss 16:44 Imitrex; ss 16:44 Rocephin; ss 16:44 Stadol; ss 16:44 Tessalon Perles; ss 16:44 Trazodone; ss 16:44 Sumatriptan Succinate; ss - PMHx: 16:44 Asthma; Bipolar disorder; degenerative disc desease; Degenerative disc disease; ss Hypertension; ibs; insomnia; Migraines; Sleep Apnea; Tachycardia; Atrial fibrillation; - PSHx: 16:44 Appendectomy; tubal ligation; Cholecystectomy; Left knee replacement; ss - Immunization history:: Client reports receiving the 2nd dose of the Covid vaccine. - Social history:: Smoking status: Patient denies any tobacco usage or history of. - Family history:: not pertinent. - Hospitalizations: : No recent hospitalization is reported. ROS: 16:47 Constitutional: Negative for fever, chills, and weight loss, Cardiovascular: Negative rn for chest pain, palpitations, and edema, Respiratory: Negative for shortness of breath, cough, wheezing, and pleuritic chest pain, Abdomen/GI: Negative for abdominal pain, nausea, vomiting, diarrhea, and constipation, MS/Extremity: + left knee pain Skin: Negative for injury, rash, and discoloration, Neuro: Negative for headache, weakness, numbness, tingling, and seizure. Exam: 16:47 Constitutional: This is a well developed, well nourished patient who is awake, alert, rn and in no acute distress. Cardiovascular: Regular rate and rhythm. No pulse deficits. Skin: Warm, dry MS/ Extremity: Pulses equal, no cyanosis. Neurovascular intact. Painful ROM left knee. No warmth. No rash. No open wounds. Neuro: Awake and alert, GCS 15 Vital Signs: 16:42 BP 124 / 80; Pulse 92; Resp 18; Temp 98.4; Weight 97.98 kg; Height 5 ft. 2 in. ; Pain ss 9/10; 17:53 Pain 5/10; cm10 17:53 Pain 5/10; cm10 18:29 BP 108 / 74; Pulse 86; Resp 16; Pulse Ox 99% on R/A; Pain 5/10; cm10 16:42 Body Mass Index 39.51 (97.98 kg, 157.48 cm) ss 16:42 Pain Scale: Adult ss 17:53 Pain Scale: Adult cm10 17:53 Pain Scale: Adult cm10 18:29 Pain Scale: Adult cm10 MDM: 16:31 Patient medically screened. rn 18:10 Differential diagnosis: tendonitis, sprain, strain, effusion. Data reviewed: vital rn signs, nurses notes, lab test result(s), radiologic studies, plain films, ultrasound, and as a result, I will discharge patient. Counseling: I had a detailed discussion with the patient and/or guardian regarding: the historical points, exam findings, and any diagnostic results supporting the discharge/admit diagnosis, lab results, radiology results, the need for outpatient follow up, to return to the emergency department if symptoms worsen or persist or if there are any questions or concerns that arise at home. Response to treatment: the patient's symptoms have markedly improved after treatment, and as a result, I will discharge patient. Special discussion: I discussed with the patient/guardian in detail that at this point there is no indication for admission to the hospital. It is understood, however, that if the symptoms persist or worsen the patient needs to return immediately for re-evaluation. Based on the history and exam findings, there is no indication for further emergent testing or inpatient evaluation. I discussed with the patient/guardian the need to see the orthopedic surgeon for further evaluation of the symptoms. 05/19 16:43 Order name: CBC with Diff; Complete Time: 17: rn 05/19 16:43 Order name: Basic Metabolic Panel; Complete Time: 17: rn 05/19 16:43 Order name: Protime (+inr); Complete Time: 17: rn 05/19 16:43 Order name: Ptt, Activated; Complete Time: 17: rn 05/19 16:43 Order name: XRAY Knee LEFT 3 view; Complete Time: 18:08 rn 05/19 16:43 Order name: Extremity Venous Uni Ltd rn 05/19 16:43 Order name: IV Start; Complete Time: 17:04 rn 05/19 18:12 Order name: Knee Immobilizer; Complete Time: 18:37 rn Administered Medications: 17:12 Drug: morphine IVP or IV 4 mg Route: IVP; Infused Over: 4 mins; Site: right forearm; cm10 17:53 Follow up: Pain 5/10 Adult; Response: No adverse reaction; Pain is decreased cm10 17:14 CANCELLED (Duplicate Order): Ketorolac IVP 15 mg IVP once cm10 17:14 Drug: Ketorolac IVP 30 mg Route: IVP; Site: right forearm; cm10 17:53 Follow up: Pain 5/10 Adult; Response: No adverse reaction; Pain is decreased cm10 Disposition Summary: 05/19/23 18:11 Discharge Ordered Location: Home rn Problem: chronic rn Symptoms: have improved rn Condition: Stable rn Diagnosis - Pain in left knee rn Followup: rn - With: Private Physician - When: As needed - Reason: Recheck today's complaints, Re-evaluation by your physician Discharge Instructions: - Discharge Summary Sheet rn - Joint Pain rn - How to Use a Knee Brace rn - Musculoskeletal Pain rn Forms: - Medication Reconciliation Form rn - Thank You Letter rn - Antibiotic director learning services - Prescription Opioid Use rn - [email or web address] rn Prescriptions: - Tramadol 50 mg Oral Tablet - take 1 tablet by ORAL route every 8 hours as needed; 12 tablet; Refills: 0, rn Product Selection Permitted Signatures: Dispatcher [employer] EDDon Maza MD MD rn Blanchard, Shelby, RN RN ss Martinez, Clarissa, RN RN cm10 Corrections: (The following items were deleted from the chart) 16:46 16:44 PSHx: GALLBLADDER; ss ss 16:46 16:44 PSHx: left leg surgery; ss 17:14 16:43 Ketorolac IVP 15 mg IVP once ordered. dangelo cm10
--- NOTE | 2023-05-19 18:34 | RAD REPORT ---
[facility] DES[facility]: [facility]05/19/2023 6:20 pm CLINICAL HISTORY: left leg pain COMPARISON: 2019 FINDINGS: Left common femoral, superficial femoral, greater saphenous, popliteal and posterior tibi al veins are compressible and demonstrate augmentation. Doppler demonstrates good flow. Grayscale, color and spectral analysis performed on all vessels IMPRESSION: No evidence of deep venous thrombosis involving the left lower extremity.
[2023-05-19 18:57] VITALS: TEMP 98.4
[2023-05-19 19:00] VITALS: BP 108/74; O2SAT 99
== END 2023-05-19 18:40 | disposition home or self-care (01) ==
LOC: ER 16:17
DX: M25.562 Pain in left knee (principal); Z96.652 Presence of left artificial knee joint; Z88.5 Allergy status to narcotic agent; Z88.8 Allergy status to other drugs, medicaments and biological substances
CPT/HCPCS: 36415; 80048; 85025; 85610; 85730; 93971

== ENCOUNTER 2023-08-05 20:52 | Emergency (ER) | payer OTHER ==
--- NOTE | 2023-08-05 22:19 | RAD REPORT ---
EXAM DESCRIPTION: RAD - Chest Pa And Lat (2 Views) - 08/05/2023 9:58 pm CLINICAL HISTORY: SOB COMPARISON: Chest Single View dated 05/07/2023; Chest Single View dated 05/04/2023; Chest Single View dated 04/29/2022; Chest Single View dated 04/14/2022 TECHNIQUE: PA and lateral views of the chest were obtained. FINDINGS: The lungs are clear. Heart size is normal and central vasculature is within normal limits. No pleural effusion or pneumothorax seen. No acute bony finding noted. IMPRESSION: No acute cardiopulmonary process.
[2023-08-05] MEDS ORDERED: NA CHLORIDE 0.9% 1,000 ML ONE (23:47)
[2023-08-06 00:43] LABS: Absolute Lymphocytes (CBC) 2.7 K/uL (0.7-4.9); Hematocrit 39.7 % (36.0-45.0); Lymphocytes % 36.8 % (15.3-44.8); MCV 98.7 fL (80-100); MPV 8.1 fL (7.6-11.3); Platelets 265 thou/uL (152-406); RBC Red Blood Cell Count 4.02 M/uL (3.86-4.86)
--- NOTE | 2023-08-06 01:00 | EDPHYS ---
Physician Documentation [facility] Name: Maria Del Carmen Rodriguez Age: 43 yrs Sex: Female : 1980 Arrival Date: 08/05/2023 Time: 20:52 Bed 20 Private MD: ED Physician John Pastrana HPI: 08/05 22:55 This 43 yrs old Female presents to ER via Ambulatory with complaints of Cough, Pain snw When Breathing. 22:55 The patient or guardian reports cough, difficulty breathing. Severity of symptoms: At snw their worst the symptoms were moderate. Associated signs and symptoms: Pertinent positives: fatigue and malaise. The patient has not experienced similar symptoms in the past. The patient has been recently seen by a physician: the patient's primary care provider, yesterday. Historical: - Allergies: 21:12 adult benadryl; as6 21:12 Avelox; as6 21:12 Benadryl; as6 21:12 darvocet; as6 21:12 Darvocet-N 100; as6 21:12 Hydrocodone-Acetaminophen; as6 21:12 Imitrex; as6 21:12 Rocephin; as6 21:12 Stadol; as6 21:12 Sumatriptan Succinate; as6 21:12 Tessalon Perles; as6 21:12 Trazodone; as6 - Home Meds: 08/06 00:53 Atenolol Oral [Active]; aspirin 81 mg Oral tablet,chewable [Active]; Hydrocortisone jb4 Oral [Active]; - PMHx: 08/05 21:12 Asthma; Atrial fibrillation; Bipolar disorder; degenerative disc desease; Degenerative as6 disc disease; Hypertension; ibs; insomnia; Migraines; Sleep Apnea; Tachycardia; - PSHx: 21:12 Appendectomy; Cholecystectomy; Left knee replacement; tubal ligation; as6 - Immunization history:: Client reports receiving the 2nd dose of the Covid vaccine, moderna. - Social history:: Smoking status: Patient denies any tobacco usage or history of. ROS: 22:54 Eyes: Negative for injury, pain, redness, and discharge, ENT: Negative for injury, snw pain, and discharge, Neck: Negative for injury, pain, and swelling, Cardiovascular: Negative for chest pain, palpitations, and edema. 22:54 Abdomen/GI: Negative for abdominal pain, nausea, vomiting, diarrhea, and constipation, Back: Negative for injury and pain, : Negative for injury, bleeding, discharge, and swelling, MS/Extremity: Negative for injury and deformity, Skin: Negative for injury, rash, and discoloration, Neuro: Negative for headache, weakness, numbness, tingling, and seizure, Psych: Negative for depression, anxiety, suicide ideation, homicidal ideation, and hallucinations. 22:54 Constitutional: Positive for body aches, malaise. 22:54 Respiratory: Positive for cough, shortness of breath. Exam: 22:54 Constitutional: This is a well developed, well nourished patient who is awake, alert, snw and in no acute distress. 22:54 ENT: Nares patent. No nasal discharge, no septal abnormalities noted. Tympanic membranes are normal and external auditory canals are clear. Oropharynx with no redness, swelling, or masses, exudates, or evidence of obstruction, uvula midline. Mucous membranes moist. Neck: Trachea midline, no thyromegaly or masses palpated, and no cervical lymphadenopathy. Supple, full range of motion without nuchal rigidity, or vertebral point tenderness. No Meningismus. Chest/axilla: Normal chest wall appearance and motion. Nontender with no deformity. No lesions are appreciated. Cardiovascular: Regular rate and rhythm with a normal S1 and S2. No gallops, murmurs, or rubs. Normal PMI, no JVD. No pulse deficits. Respiratory: Lungs have equal breath sounds bilaterally, clear to auscultation and percussion. No rales, rhonchi or wheezes noted. No increased work of breathing, no retractions or nasal flaring. Abdomen/GI: Soft, non-tender, with normal bowel sounds. No distension or tympany. No guarding or rebound. No evidence of tenderness throughout. Back: No spinal tenderness. No costovertebral tenderness. Full range of motion. Skin: Warm, dry with normal turgor. Normal color with no rashes, no lesions, and no evidence of cellulitis. MS/ Extremity: Pulses equal, no cyanosis. Neurovascular intact. Full, normal range of motion. Neuro: Awake and alert, GCS 15, oriented to person, place, time, and situation. Cranial nerves II-XII grossly intact. Motor strength 5/5 in all extremities. Sensory grossly intact. Cerebellar exam normal. Normal gait. Psych: Awake, alert, with orientation to person, place and time. Behavior, mood, and affect are within normal limits. 22:54 Head/face: Noted is hirsuit. Vital Signs: 21:10 BP 111 / 71; Pulse 87; Resp 18 S; Temp 98.2(TE); Pulse Ox 99% on R/A; Weight 99.34 kg; as6 Height 5 ft. 2 in. (R); Pain 07/03; 08/06 00:32 BP 116 / 72; Pulse 84; Resp 23; Pulse Ox 100% on R/A; jb4 01:26 BP 114 / 76; Pulse 82; Resp 18; Pulse Ox 98% on R/A; jb4 08/05 21:10 Body Mass Index 40.06 (99.34 kg, 157.48 cm) as6 08/05 21:10 Pain Scale: Adult as6 MDM: 08/05 22:22 Patient medically screened. snw 22:53 Differential Diagnosis: Bronchitis Influenza Upper Respiratory Infection Sinusitis snw Pharyngitis Asthma Exacerbation. Data reviewed: vital signs, nurses notes. Special discussion: pt has wellness exam yesterday with her PCP, bloodwork obtained.. 08/05 21:21 Order name: COVID-19 SARS RT PCR; Complete Time: 00:44 snw 08/06 00:15 Order name: D-Dimer; Complete Time: 00:51 jb4 08/06 00:23 Order name: CBC with Diff; Complete Time: 00:44 snw 08/06 00:23 Order name: CMP; Complete Time: 01:07 snw 08/05 21:21 Order name: Chest Pa And Lat (2 Views) XRAY; Complete Time: 22:22 snw 08/05 21:21 Order name: EKG; Complete Time: 21:22 snw 08/05 21:21 Order name: EKG - Nurse/Tech; Complete Time: 00:03 snw 08/05 21:57 Order name: Misc. Order: Home meds?; Complete Time: 01:25 snw EC:56 Rate is 70 beats/min. Rhythm is regular. QRS [place] is Normal. QRS interval is normal. T snw waves are Inverted in leads III, aVR. Clinical impression: NSR w/ Non-specific ST/T Changes. Administered Medications: 08/06 01:25 Not Given (Physician Discretion): NS 0.9% IV 1000 ml IV at 1 bolus Per protocol; 1000 jb4 mL bolus Disposition: 03:48 Co-signature as Attending Physician, John Pastrana MD I agree with the assessment sp4 and plan of care. I reviewed the patient's care provided by the Advanced Practice Provider and agree with the diagnosis and treatment plan. Disposition Summary: 08/06/23 01:00 Discharge Ordered Location: Home snw Condition: Stable snw Diagnosis - Cough variant asthma snw - Cough snw Followup: snw - With: Emergency Department - When: As needed - Reason: Worsening of condition Followup: snw - With: Private Physician - When: 2 - 3 days - Reason: Recheck today's complaints, Continuance of care, Re-evaluation by your physician Discharge Instructions: - Discharge Summary Sheet snw - Chronic Bronchitis, Adult snw - Food Choices for Gastroesophageal Reflux Disease, Adult snw - Gastroesophageal Reflux Disease, Adult snw Forms: - Medication Reconciliation Form snw - Thank You Letter snw - Antibiotic Education snw - Prescription Opioid Use snw - Patient Portal Instructions snw - Leadership Thank You Letter snw Prescriptions: - albuterol sulfate 90 mcg/actuation Inhalation HFA Aerosol Inhaler - inhale 2 puff by INHALATION route every 4 hours until breathing returns to snw target peak flow/parameters; 1 unit; Refills: 0, Product Selection Permitted - Pepcid 20 mg Oral Tablet - take 1 tablet by ORAL route once daily; 20 tablet; Refills: 0, Product snw Selection Permitted Signatures: Dispatcher [employer] EDDeena Nichole, SKYLAR-C SHANK MAKER-Csnw Matt Napier, RN RN jb4 Zen Maynard, COLBY BOWMAN as6 John Pastrana MD MD sp4
--- NOTE | 2023-08-06 01:00 | ER ---
Nurse's Notes [facility] Name: Maria Del Carmen Rodriguez Age: 43 yrs Sex: Female : 1980 Arrival Date: 08/05/2023 Time: 20:52 Bed 20 Private MD: Diagnosis: Cough variant asthma;Cough Presentation: 08/05 21:10 Chief complaint: Patient states: cough "it feels like I can't take a deep breath" that as6 started this evening. Coronavirus screen: At this time, the client does not indicate any symptoms associated with coronavirus-19. Ebola Screen: No symptoms or risks identified at this time. Initial Sepsis Screen: Does the patient meet any 2 criteria? No. Patient's initial sepsis screen is negative. Does the patient have a suspected source of infection? No. Patient's initial sepsis screen is negative. Risk Assessment: Do you want to hurt yourself or someone else? Patient reports no desire to harm self or others. Onset of symptoms was August 05, 2023. 21:10 Acuity: JUS 3 as6 21:10 Method Of Arrival: Ambulatory as6 Historical: - Allergies: 21:12 adult benadryl; as6 21:12 Avelox; as6 21:12 Benadryl; as6 21:12 darvocet; as6 21:12 Darvocet-N 100; as6 21:12 Hydrocodone-Acetaminophen; as6 21:12 Imitrex; as6 21:12 Rocephin; as6 21:12 Stadol; as6 21:12 Sumatriptan Succinate; as6 21:12 Tessalon Perles; as6 21:12 Trazodone; as6 - Home Meds: 08/06 00:53 Atenolol Oral [Active]; aspirin 81 mg Oral tablet,chewable [Active]; Hydrocortisone jb4 Oral [Active]; - PMHx: 08/05 21:12 Asthma; Atrial fibrillation; Bipolar disorder; degenerative disc desease; Degenerative as6 disc disease; Hypertension; ibs; insomnia; Migraines; Sleep Apnea; Tachycardia; - PSHx: 21:12 Appendectomy; Cholecystectomy; Left knee replacement; tubal ligation; as6 - Immunization history:: Client reports receiving the 2nd dose of the Covid vaccine, moderna. - Social history:: Smoking status: Patient denies any tobacco usage or history of. Screenin/13 01:26 [facility] ED Fall Risk Assessment (Adult) History of falling in the last 3 months, jb4 including since admission No falls in past 3 months (0 pts) Confusion or Disorientation No (0 pts) Score/Fall Risk Level 0 - 2 = Low Risk Oriented to surroundings, Maintained a safe environment. Abuse screen: Denies threats or abuse. Nutritional screening: No deficits noted. Tuberculosis screening: No symptoms or risk factors identified. Assessment: 08/05 23:00 General: Appears in no apparent distress. comfortable, Behavior is calm, cooperative, jb4 appropriate for age. Pain: Denies pain. Neuro: Level of Consciousness is awake, alert, obeys commands, Oriented to person, place, time, situation. Cardiovascular: Patient's skin is warm and dry. Respiratory: Airway is patent Respiratory effort is even, unlabored, Respiratory pattern is regular. GI: No signs and/or symptoms were reported involving the gastrointestinal system. : No signs and/or symptoms were reported regarding the genitourinary system. EENT: No signs and/or symptoms were reported regarding the EENT system. Derm: Skin is intact, Skin is pink, warm \\T\\ dry. Musculoskeletal: Circulation, motion, and sensation intact. Range of motion: intact in all extremities. 08/06 00:06 Reassessment: Patient appears in no apparent distress at this time. Patient and/or jb4 family updated on plan of care and expected duration. Pain level reassessed. Patient is alert, oriented x 3, equal unlabored respirations, skin warm/dry/pink. 01:26 Reassessment: Patient appears in no apparent distress at this time. Patient and/or jb4 family updated on plan of care and expected duration. Pain level reassessed. Patient is alert, oriented x 3, equal unlabored respirations, skin warm/dry/pink. Vital Signs: 08/05 21:10 BP 111 / 71; Pulse 87; Resp 18 S; Temp 98.2(TE); Pulse Ox 99% on R/A; Weight 99.34 kg; as6 Height 5 ft. 2 in. (R); Pain 8/10; 08/06 00:32 BP 116 / 72; Pulse 84; Resp 23; Pulse Ox 100% on R/A; jb4 01:26 BP 114 / 76; Pulse 82; Resp 18; Pulse Ox 98% on R/A; jb4 08/05 21:10 Body Mass Index 40.06 (99.34 kg, 157.48 cm) as6 08/05 21:10 Pain Scale: Adult as6 ED Course: 08/05 20:53 Patient arrived in ED. rg4 21:[address] [facility]C [facility] snw 21:08 John Pastrana MD is Attending Physician. snw 21:12 Triage completed. as6 21:13 Arm band placed on. as6 21:58 Chest Pa And Lat (2 Views) XRAY In Process Unspecified. EDMS 23:25 COVID-19 SARS RT PCR Sent. jb4 08/06 00:31 Matt Napier, RN is Primary Nurse. jb4 01:26 Patient has correct armband on for positive identification. Bed in low position. Call jb4 light in reach. Side rails up X 1. 01:26 No provider procedures requiring assistance completed. Patient did not have IV access jb4 during this emergency room visit. Administered Medications: 01:25 Not Given (Physician Discretion): NS 0.9% IV 1000 ml IV at 1 bolus Per protocol; 1000 jb4 mL bolus Outcome: 01:00 Discharge ordered by . snw 01:26 Discharged to home ambulatory, with family. jb4 01:26 Condition: stable 01:26 Discharge instructions given to patient, Instructed on discharge instructions, follow up and referral plans. medication usage, Demonstrated understanding of instructions, follow-up care, medications, Prescriptions given X 2. 01:28 Patient left the ED. jb4 Signatures: Dispatcher [employer] EDMA Deena Lane FNP-C FNP-Jocleyne Sousa rg4 Matt Napier, RN RN jb4 Zen Maynard, COLBY RN as6
[2023-08-06 01:05] LABS: Albumin 3.5 g/dL (3.4-5.0); Bilirubin Total 0.3 mg/dL (0.2-1.0); Potassium 3.7 mEq/L (3.5-5.1); Protein, Total 7.4 g/dL (6.4-8.2)
[2023-08-06 01:33] VITALS: TEMP 98.2
[2023-08-06 01:35] VITALS: BP 114/76; O2SAT 98
--- NOTE | 2023-08-06 14:53 | EKG ---
Test Date: 2023-08-05 Test Time: 22:56:54 Dip Tube Assembler Machine: CARMEN MEASUREMENT RESULTS: Intervals: Rate: 70 OK: 128 QRSD: 82 QT: 414 QTc: 447 [place]: P: 45 OK: 128 QRS: 68 T: 27 INTERPRETIVE STATEMENTS: Normal sinus rhythm Normal ECG Compared to ECG 05/06/2023 18:15:00 ST (T wave) deviation no longer present Electronically Signed On 08-06-23 14:53:00 CDT by Alfredo Murdock
== END 2023-08-06 01:28 | disposition home or self-care (01) ==
LOC: ER 20:52
DX: J45.991 Cough variant asthma (principal); Z20.822 Contact with and (suspected) exposure to COVID-19; Z88.3 Allergy status to other anti-infective agents; Z88.5 Allergy status to narcotic agent; Z88.6 Allergy status to analgesic agent; Z88.8 Allergy status to other drugs, medicaments and biological substances; Z91.048 Other nonmedicinal substance allergy status
CPT/HCPCS: 93005; 85025; 36415; 85379; 80053; 87635; 71046; J7030; 99283

== ENCOUNTER 2023-08-28 15:10 | Emergency (ER) | payer OTHER ==
[2023-08-28] MEDS ORDERED: MORPHINE 4 MG/ML SYR ONE (16:04)
[2023-08-28] MEDS ORDERED: NA CHLORIDE 0.9% 1,000 ML ONE (16:05)
[2023-08-28] MEDS ORDERED: ONDANSETRON 4 MG/2 ML VIAL ONE (16:05)
[2023-08-28 16:17] LABS: Absolute Lymphocytes (CBC) 2.2 K/uL (0.7-4.9); Hematocrit 40.5 % (36.0-45.0); Lymphocytes % 37.9 % (15.3-44.8); MPV 8.1 fL (7.6-11.3); Platelets 253 thou/uL (152-406); RBC Red Blood Cell Count 4.13 M/uL (3.86-4.86)
[2023-08-28 16:37] LABS: Specific Gravity 1.017 (1.005-1.030); Urine Bacteria <20 /HPF (<20); Urine Bilirubin NEGATIVE (Negative); Urine Blood 1+ (Negative); Urine Clarity Extremely Turbid (Clear); Urine Color Light-Yellow (Yellow); Urine Glucose NEGATIVE (Negative); Urine Mucus Slight /HPF (None Seen); Urine Protein NEGATIVE (Negative); Urine RBC <5 /HPF (None Seen); Urine Urobilinogen Normal (Normal)
[2023-08-28 16:44] LABS: Albumin 3.4 g/dL (3.4-5.0); Bilirubin Total 0.6 mg/dL (0.2-1.0); Protein, Total 7.6 g/dL (6.4-8.2)
[2023-08-28 16:48] LABS: Potassium 3.9 mEq/L (3.5-5.1)
--- NOTE | 2023-08-28 17:18 | RAD REPORT ---
EXAM DESCRIPTION: CTAbdomen Pelvis W Contrast - 08/28/2023 5:09 pm CLINICAL HISTORY: Abdominal pain. ABD PAIN COMPARISON: Abdomen Pelvis W Contrast dated 08/24/2023; Abdomen Pelvis W Contrast dated 07/07/2022 ; Abdomen Pelvis W Contrast dated 09/12/2021; Abdomen Pelvis W Contrast dated 05/12/2020 TECHNIQUE: Biphasic CT imaging of the abdomen and pelvis was performed with 100 ml non-ionic IV cont rast. All CT scans are performed using dose optimization technique as appropriate and may include automated exposure control or mA/KV adjustment according to patient size. FINDINGS: The lung bases are clear. Mild fatty liver. Cholecystectomy. The spleen, pancreas, adrenal glands and kidneys are within normal limits. No bowel obstruction, free air, free fluid or abscess. Mild diverticulosis coli. The appendix is not identified as a discrete structure, however, no secondary findings of appendicitis are identified. No evidence of significant lymphadenopathy. No suspicious bony findings. IMPRESSION: No acute intra-abdominal or pelvic finding.
--- NOTE | 2023-08-28 17:29 | ER ---
Nurse's Notes [facility] Name: Maria Del Carmen Rodriguez Age: 43 yrs Sex: Female : 1980 Arrival Date: 08/28/2023 Time: 15:10 Bed 11 Private MD: Diagnosis: Upper abdominal pain, unspecified Presentation: 08/28 15:22 Chief complaint: Patient states: Abd pain since 08/24/2023. Unable to eat anything ld1 without upper stomach hurting. Coronavirus screen: At this time, the client does not indicate any symptoms associated with coronavirus-19. Ebola Screen: No symptoms or risks identified at this time. Initial Sepsis Screen: Does the patient meet any 2 criteria? No. Patient's initial sepsis screen is negative. Does the patient have a suspected source of infection? No. Patient's initial sepsis screen is negative. Risk Assessment: Do you want to hurt yourself or someone else? Patient reports no desire to harm self or others. Onset of symptoms was August 28, 2023 at 15:22. 15:22 Method Of Arrival: Ambulatory ld1 15:22 Acuity: JUS 3 ld1 Triage Assessment: 15:22 General: Appears in no apparent distress. uncomfortable, Behavior is calm, cooperative, ld1 appropriate for age. Pain: Complains of pain in epigastric area Pain does not radiate. Pain currently is 10 out of 10 on a pain scale. Quality of pain is described as sharp, shooting, stabbing, throbbing, Pain began 2-3 days ago. Is continuous. EENT: No signs and/or symptoms were reported regarding the EENT system. Neuro: Level of Consciousness is awake, alert, obeys commands, Oriented to person, place, time, situation. Cardiovascular: Capillary refill < 3 seconds Patient's skin is warm and dry. Respiratory: Airway is patent Respiratory effort is even, unlabored. GI: Abdomen is round non-distended, Reports upper abdominal pain, nausea. : No signs and/or symptoms were reported regarding the genitourinary system. Derm: No signs and/or symptoms reported regarding the dermatologic system. Musculoskeletal: No signs and/or symptoms reported regarding the musculoskeletal system. Historical: - Allergies: 15:22 adult benadryl; ld1 15:22 Avelox; ld1 15:22 Benadryl; ld1 15:22 darvocet; ld1 15:22 Darvocet-N 100; ld1 15:22 Hydrocodone-Acetaminophen; ld1 15:22 Imitrex; ld1 15:22 Rocephin; ld1 15:22 Stadol; ld1 15:22 Sumatriptan Succinate; ld1 15:22 Tessalon Perles; ld1 15:22 Trazodone; ld1 - Home Meds: 15:22 aspirin 81 mg Oral tablet [Active]; ld1 - PMHx: 15:22 Asthma; Atrial fibrillation; Bipolar disorder; degenerative disc desease; Degenerative ld1 disc disease; Hypertension; ibs; Migraines; Sleep Apnea; insomnia; Tachycardia; - PSHx: 15:22 Appendectomy; Cholecystectomy; Left knee replacement; tubal ligation; ld1 - Immunization history:: Adult Immunizations up to date. - Social history:: Smoking status: Patient denies any tobacco usage or history of. Patient/guardian denies using alcohol. Screenin:11 [facility] ED Fall Risk Assessment (Adult) History of falling in the last 3 months, cm10 including since admission No falls in past 3 months (0 pts) Confusion or Disorientation No (0 pts) Intoxicated or Sedated No (0 pts) Impaired Gait No (0 pts) Mobility Assist Device Used No (0 pt) Altered Elimination No (0 pt) Score/Fall Risk Level 0 - 2 = Low Risk Oriented to surroundings, Maintained a safe environment, Hourly rounding (assess needs \T\ fall precautionary measures) done. Abuse screen: Denies threats or abuse. Denies injuries from another. Nutritional screening: No deficits noted. Tuberculosis screening: No symptoms or risk factors identified. Assessment: 17:05 Reassessment: Patient appears in no apparent distress at this time. Patient and/or cm10 family updated on plan of care and expected duration. Pain level reassessed. Patient is alert, oriented x 3, equal unlabored respirations, skin warm/dry/pink. Vital Signs: 15:22 BP 130 / 81; Pulse 82; Resp 18; Temp 98.1(O); Pulse Ox 96% on R/A; Weight 97.98 kg; ld1 Height 5 ft. 2 in. ; Pain 10/10; 17:42 BP 103 / 72; Pulse 83; Resp 16 S; Pulse Ox 100% on R/A; cm10 15:22 Body Mass Index 39.51 (97.98 kg, 157.48 cm) ld1 15:22 Pain Scale: Adult ld1 ED Course: 15:21 Patient arrived in ED. ld1 15:22 Katlin Cortez FNP is [facility]. jh7 15:22 Ji Lynn MD is Attending Physician. jh7 15:22 Triage completed. ld1 15:22 Arm band placed on right wrist. ld1 16:10 Kriss Gamez, RN is Primary Nurse. cm10 16:10 CBC with Diff Sent. cm10 16:10 CMP Sent. cm10 16:10 Lipase Sent. cm10 16:10 Urinalysis w/ reflexes Sent. cm10 16:10 Initial lab(s) drawn, by me, sent to lab. Urine collected: clean catch specimen, clear. cm10 Inserted saline lock: 20 gauge in right forearm, using aseptic technique. Blood collected. 16:11 Patient has correct armband on for positive identification. Bed in low position. Call cm10 light in reach. Side rails up X2. Provided Education on: ER process and procedures. . Pulse ox on. NIBP on. 16:11 No provider procedures requiring assistance completed. cm10 17:11 CT Abd/Pelvis - IV Contrast Only In Process Unspecified. EDMS 17:27 Yaya Sorto MD is Referral Physician. jh7 17:43 IV discontinued, intact, bleeding controlled, No redness/swelling at site. Pressure cm10 dressing applied. Administered Medications: 16:10 Drug: NS 0.9% IV 1000 ml IV at 1 bolus Per protocol; 1000 mL bolus Route: IV; Rate: 1 cm10 bolus; Site: right forearm; 17:04 Follow up: Response: No adverse reaction; IV Status: Completed infusion; IV Intake: cm10 1000ml 16:10 Drug: Ondansetron IVP 4 mg IVP once; over 2 minutes Route: IVP; Site: right forearm; cm10 17:04 Follow up: Response: No adverse reaction cm10 16:10 Drug: morphine IVP or IV 4 mg IVP once over 4 mins Route: IVP; Infused Over: 4 mins; cm10 Site: right forearm; 17:04 Follow up: Response: No adverse reaction cm10 Medication: 16:11 VIS not applicable for this client. cm10 Intake: 17:04 IV: 1000ml; Total: 1000ml. cm10 Outcome: 17:28 Discharge ordered by . tam 17:43 Discharged to home ambulatory, with family, cm10 17:43 Condition: good 17:43 Discharge instructions given to patient, Instructed on discharge instructions, follow up and referral plans. medication usage, Demonstrated understanding of instructions, follow-up care, medications, Prescriptions given X 2, 17:43 Patient left the ED. cm10 Signatures: Dispatcher [employer] EDMS Conchis Flores, RN RN ld1 Katlin Cortez, BEST WORKER BEST WORKER Kriss León, RN RN cm10
--- NOTE | 2023-08-28 17:29 | EDPHYS ---
Physician Documentation [facility] Name: Maria Del Carmen Rodriguez Age: 43 yrs Sex: Female : 1980 Arrival Date: 08/28/2023 Time: 15:10 Bed 11 Private MD: Ji Gomez HPI: 08/28 15:22 This 43 yrs old Female presents to ER via Ambulatory with complaints of Abdominal Pain. 7 15:22 The patient presents with abdominal pain in the epigastric area. Onset: The 7 symptoms/episode began/occurred 4 day(s) ago. The symptoms do not radiate. Associated signs and symptoms: Pertinent positives: nausea, Pertinent negatives: diarrhea, fever, vomiting. 43-year-old female presents with epigastric pain since August 24. Reports that she was seen here in the ER, discharged with prescriptions for Bentyl and Phenergan, and states that they are not helping. Reports that she has a TeleDoc visit with Dr. Diego on the but that her pain has worsened and changed since then.. Historical: - Allergies: 15:22 adult benadryl; ld1 15:22 Avelox; ld1 15:22 Benadryl; ld1 15:22 darvocet; ld1 15:22 Darvocet-N 100; ld1 15:22 Hydrocodone-Acetaminophen; ld1 15:22 Imitrex; ld1 15:22 Rocephin; ld1 15:22 Stadol; ld1 15:22 Sumatriptan Succinate; ld1 15:22 Tessalon Perles; ld1 15:22 Trazodone; ld1 - Home Meds: 15:22 aspirin 81 mg Oral tablet [Active]; ld1 - PMHx: 15:22 Asthma; Atrial fibrillation; Bipolar disorder; degenerative disc desease; Degenerative ld1 disc disease; Hypertension; ibs; Migraines; Sleep Apnea; insomnia; Tachycardia; - PSHx: 15:22 Appendectomy; Cholecystectomy; Left knee replacement; tubal ligation; ld1 - Immunization history:: Adult Immunizations up to date. - Social history:: Smoking status: Patient denies any tobacco usage or history of. Patient/guardian denies using alcohol. ROS: 15:22 Constitutional: Negative for fever, chills, and weight loss, Eyes: Negative for injury, jh7 pain, redness, and discharge, Neck: Negative for injury, pain, and swelling, Cardiovascular: Negative for chest pain, palpitations, and edema, Respiratory: Negative for shortness of breath, cough, wheezing, and pleuritic chest pain, Back: Negative for injury and pain, MS/Extremity: Negative for injury and deformity, Skin: Negative for injury, rash, and discoloration, Neuro: Negative for headache, weakness, numbness, tingling, and seizure, 15:22 Abdomen/GI: Positive for abdominal pain, nausea, Negative for vomiting, diarrhea, 15:22 All other systems are negative, Exam: 15:22 Constitutional: This is a well developed, well nourished patient who is awake, alert, jh7 and in no acute distress. Eyes: Pupils equal round and reactive to light, extra-ocular motions intact. Lids and lashes normal. Conjunctiva and sclera are non-icteric and not injected. Cornea within normal limits. Periorbital areas with no swelling, redness, or edema. Neck: Trachea midline, no thyromegaly or masses palpated, and no cervical lymphadenopathy. Supple, full range of motion without nuchal rigidity, or vertebral point tenderness. No Meningismus. Cardiovascular: Regular rate and rhythm with a normal S1 and S2. No gallops, murmurs, or rubs. Normal PMI, no JVD. No pulse deficits. Respiratory: Lungs have equal breath sounds bilaterally, clear to auscultation and percussion. No rales, rhonchi or wheezes noted. No increased work of breathing, no retractions or nasal flaring. Back: No spinal tenderness. No costovertebral tenderness. Full range of motion. Skin: Warm, dry with normal turgor. Normal color with no rashes, no lesions, and no evidence of cellulitis. MS/ Extremity: Pulses equal, no cyanosis. Neurovascular intact. Full, normal range of motion. Neuro: Awake and alert, GCS 15, oriented to person, place, time, and situation. Motor strength 5/5 in all extremities. Sensory grossly intact. Normal gait. 15:22 Abdomen/GI: Inspection: abdomen appears normal, Bowel sounds: normal, Palpation: mild abdominal tenderness, in the epigastric area, Vital Signs: 15:22 BP 130 / 81; Pulse 82; Resp 18; Temp 98.1(O); Pulse Ox 96% on R/A; Weight 97.98 kg; ld1 Height 5 ft. 2 in. ; Pain 10/10; 17:42 BP 103 / 72; Pulse 83; Resp 16 S; Pulse Ox 100% on R/A; cm10 15:22 Body Mass Index 39.51 (97.98 kg, 157.48 cm) ld1 15:22 Pain Scale: Adult ld1 MDM: 15:22 Patient medically screened. [facility] 15:22 Special discussion: Explained to the patient that she had a CT scan done 4 days ago 7 with no acute findings. Informed her that if her pain has significantly changed and gotten much worse that we do not want to miss anything, but if her pain has not changed it would not be indicated to repeat a CT scan. Informed her of the risks of unnecessary CT scan/radiation exposure. She stated that she understood but would like another CT scan due to significant change in symptoms.. 17:30 Differential diagnosis: cholecystitis, gastritis, gastroesophageal reflux disease, 7 non-specific abd pain. Data reviewed: vital signs, nurses notes, lab test result(s), radiologic studies, CT scan. I considered the following discharge prescriptions or medication management in the emergency department Medications were administered in the Emergency Department. See MAR. Historians other than the Patient: Daughter/Son: daughter. Care significantly affected by the following chronic conditions: Hypertension. Counseling: I had a detailed discussion with the patient and/or guardian regarding the historical points, exam findings, and any diagnostic results supporting the discharge/admit diagnosis, the need for outpatient follow up, a safe technician, to return to the emergency department if symptoms worsen or persist or if there are any questions or concerns that arise at home. Response to treatment: the patient's symptoms have markedly improved after treatment. 08/28 15:31 Order name: CBC with Diff; Complete Time: 16:29 [facility] 08/28 15:31 Order name: CMP; Complete Time: 17:24 [facility] 08/28 15:31 Order name: Lipase; Complete Time: 17:24 [facility] 08/28 15:31 Order name: Urinalysis w/ reflexes; Complete Time: 17:24 [facility] 08/28 16:43 Order name: Urine Culture EDMS 08/28 15:31 Order name: CT Abd/Pelvis - IV Contrast Only; Complete Time: 17:24 [facility] 08/28 15:31 Order name: IV Saline Lock; Complete Time: 16:10 [facility] 08/28 15:31 Order name: Labs collected and sent; Complete Time: 16:10 [facility] Administered Medications: 16:10 Drug: NS 0.9% IV 1000 ml IV at 1 bolus Per protocol; 1000 mL bolus Route: IV; Rate: 1 cm10 bolus; Site: right forearm; 17:04 Follow up: Response: No adverse reaction; IV Status: Completed infusion; IV Intake: cm10 1000ml 16:10 Drug: Ondansetron IVP 4 mg IVP once; over 2 minutes Route: IVP; Site: right forearm; cm10 17:04 Follow up: Response: No adverse reaction cm10 16:10 Drug: morphine IVP or IV 4 mg IVP once over 4 mins Route: IVP; Infused Over: 4 mins; cm10 Site: right forearm; 17:04 Follow up: Response: No adverse reaction cm10 Disposition Summary: 08/28/23 17:28 Discharge Ordered Notes: Location: Home [facility] Problem: new [facility] Symptoms: have improved [facility] Condition: Stable [facility] Diagnosis - Upper abdominal pain, unspecified [facility] Followup: [facility] - With: Yaya Sorto MD - When: 1 week - Reason: Further diagnostic work-up Discharge Instructions: - Discharge Summary Sheet [facility] - Abdominal Pain, Adult [facility] Forms: - Medication Reconciliation Form [facility] - Thank You Letter [facility] - Patient Portal Instructions [facility] - Leadership Thank You Letter [facility] Prescriptions: - Zofran 4 mg Oral Tablet - take 1 tablet ORAL route every 12 hours As needed; 20 tablet; Refills: 0, [facility] Product Selection Permitted - Levsin 0.125 mg Oral Tablet - take 1 tablet ORAL route every 8 hours; 30 tablet; Refills: 0, Product [facility] Selection Permitted Signatures: Dispatcher [employer] Conchis Jenkins RN RN ld1 Katlin Cortez FNP SPECIAL NEEDS CHILD CAREGIVER [facility] Kriss Gamez RN RN cm10
[2023-08-28 20:05] VITALS: TEMP 98.1
[2023-08-28 20:11] VITALS: BP 103/72; O2SAT 100
== END 2023-08-28 17:43 | disposition home or self-care (01) ==
LOC: ER 15:10
DX: R10.13 Epigastric pain (principal); I10 Essential (primary) hypertension; I48.91 Unspecified atrial fibrillation; Z79.82 Long term (current) use of aspirin; Z88.3 Allergy status to other anti-infective agents; Z88.5 Allergy status to narcotic agent; Z88.8 Allergy status to other drugs, medicaments and biological substances
CPT/HCPCS: 96361; 87088; 85025; 81001; 87086; 36415; 83690; 80053; 74177; 96375; 96374; 99284; Q9967; J2405; J7030

== ENCOUNTER 2023-10-31 21:14 | Emergency (ER) | payer OTHER, SELFPAY ==
--- NOTE | 2023-10-31 22:17 | ER ---
Nurse's Notes [facility] Name: Maria Del Carmen Rodriguez Age: 43 yrs Sex: Female : 1980 Arrival Date: 10/31/2023 Time: 21:14 Bed 14 Private MD: Diagnosis: Low back pain;Other injury of muscle, fascia and tendon of lower back Presentation: 10/31 21:28 Chief complaint: Patient states: From the middle of my spine to my tailbone hurts. I kd3 have DDD and bulging in my lower back. I don't have insurance so i cant take a prescription home. I have tried heat pads and OTC pain meds. I have been helping to lift my mother. Coronavirus screen: Vaccine status: Patient reports receiving the 2nd dose of the covid vaccine. Ebola Screen: No symptoms or risks identified at this time. Initial Sepsis Screen: Does the patient meet any 2 criteria? No. Patient's initial sepsis screen is negative. Does the patient have a suspected source of infection? No. Patient's initial sepsis screen is negative. Risk Assessment: Do you want to hurt yourself or someone else? Patient reports no desire to harm self or others. Onset of symptoms was October 31, 2023. 21:28 Method Of Arrival: Ambulatory kd3 21:28 Acuity: JUS 4 kd3 Triage Assessment: 21:30 General: Appears uncomfortable, Behavior is calm, cooperative. Pain: Complains of pain kd3 in lumbar area and sacrum. Musculoskeletal: Circulation, motion, and sensation intact. Historical: - Allergies: 21:30 adult benadryl; kd3 21:30 Benadryl; kd3 21:30 Avelox; kd3 21:30 darvocet; kd3 21:30 Darvocet-N 100; kd3 21:30 Hydrocodone-Acetaminophen; kd3 21:30 Imitrex; kd3 21:30 Rocephin; kd3 21:30 Stadol; kd3 21:30 Sumatriptan Succinate; kd3 21:30 Tessalon Perles; kd3 21:30 Trazodone; kd3 - PMHx: 21:30 Asthma; Asthma; Atrial fibrillation; Atrial fibrillation; Bipolar disorder; Bipolar kd3 disorder; degenerative disc desease; degenerative disc desease; Degenerative disc disease; Degenerative disc disease; Hypertension; Hypertension; ibs; ibs; insomnia; insomnia; Migraines; Migraines; Sleep Apnea; Tachycardia; - PSHx: 21:30 Appendectomy; Cholecystectomy; Left knee replacement; tubal ligation; kd3 - Immunization history:: Adult Immunizations up to date. - Social history:: Smoking status: Patient denies any tobacco usage or history of. - Family history:: not pertinent. Screenin:[facility] ED Fall Risk Assessment (Adult) History of falling in the last 3 months, km8 including since admission No falls in past 3 months (0 pts) Confusion or Disorientation No (0 pts) Intoxicated or Sedated No (0 pts) Impaired Gait No (0 pts) Mobility Assist Device Used No (0 pt) Altered Elimination No (0 pt) Score/Fall Risk Level 0 - 2 = Low Risk Oriented to surroundings, Maintained a safe environment, Educated pt \T\ family on fall prevention, incl call for assistance when getting out of bed, Assessed \T\ reinforced patient's understanding of fall precautions. Abuse screen: Denies threats or abuse. Denies injuries from another. Nutritional screening: No deficits noted. Tuberculosis screening: No symptoms or risk factors identified. Assessment: 21:36 General: Appears in no apparent distress. comfortable, Behavior is calm, cooperative, km8 appropriate for age. Pain: Complains of pain in low back area Pain radiates to left hip and right hip Pain currently is 9 out of 10 on a pain scale. Quality of pain is described as aching. Neuro: [place]ynn Agitation-Sedation Scale (RASS): 0 - Alert and Calm Level of Consciousness is awake, alert, obeys commands, Oriented to person, place, time, situation. Cardiovascular: Capillary refill < 3 seconds Patient's skin is warm and dry. Respiratory: Airway is patent Respiratory effort is even, unlabored, Respiratory pattern is regular, symmetrical. GI: No signs and/or symptoms were reported involving the gastrointestinal system. : No signs and/or symptoms were reported regarding the genitourinary system. Denies burning with urination. EENT: No signs and/or symptoms were reported regarding the EENT system. Derm: Skin is intact, is healthy with good turgor, Skin is dry, Skin is pink, warm \T\ dry. normal, Skin temperature is warm. Musculoskeletal: Circulation, motion, and sensation intact. Range of motion: intact in all extremities, Reports weakness in right leg and left leg. 22:33 Reassessment: Patient appears in no apparent distress at this time. No changes from km8 previously documented assessment. Patient and/or family updated on plan of care and expected duration. Pain level reassessed. Patient is alert, oriented x 3, equal unlabored respirations, skin warm/dry/pink. 23:00 Reassessment: Patient appears in no apparent distress at this time. No changes from km8 previously documented assessment. Patient is alert, oriented x 3, equal unlabored respirations, skin warm/dry/pink. Patient states feeling better. Vital Signs: 21:28 BP 132 / 76; Pulse 84; Resp 18; Temp 98.3(O); Pulse Ox 96% ; Height 5 ft. 2 in. ; kd3 21:33 Weight 102 kg; kd3 21:36 BP 130 / 72; Pulse 84; Resp 16; Pulse Ox 97% on R/A; km8 22:00 BP 124 / 75; Pulse 81; Resp 16; Pulse Ox 99% on R/A; km8 22:30 BP 125 / 82; Pulse 78; Resp 16; Pulse Ox 96% on R/A; km8 [place] Coma Score: 21:36 Eye Response: spontaneous(4). Motor Response: obeys commands(6). Verbal Response: km8 oriented(5). Total: 15. ED Course: 21:18 Patient arrived in ED. gm2 21:20 Ji Lynn MD is Attending Physician. [facility] 21:30 Triage completed. kd3 21:30 Arm band placed on right wrist. kd3 21:35 Hollie Nascimento, COLBY is Primary Nurse. km8 21:36 Patient has correct armband on for positive identification. Bed in low position. Call km8 light in reach. Side rails up X 1. Pulse ox on. NIBP on. Door closed. Noise minimized. 21:36 No provider procedures requiring assistance completed. Patient maintains SpO2 km8 saturation greater than 95% on room air. 22:16 Willian Fischer MD is Referral Physician. [facility] 23:14 Provided Education on: d/c teaching. 8 23:14 Patient did not have IV access during this emergency room visit. km8 Administered Medications: 22:27 Drug: Ketorolac IM 60 mg IM once Route: IM; Site: right ventrogluteal; km8 23:13 Follow up: Response: No adverse reaction km8 22:27 Drug: Acetaminophen-Codeine PO (300 mg-30 mg) 2 tabs PO once; RASS on ADMIN: Combtv4, km8 Very Agttd3, Agttd2, Rstlss1, AlertClm0, Drwsy-1, Lt Sdtn-2, Mod Sdtn-3, Dp Sdtn-4, UnArsble-5 Route: PO; 23:13 Follow up: Response: No adverse reaction km8 22:27 Drug: Dexamethasone IM 10 mg IM once Route: IM; Site: right ventrogluteal; km8 23:13 Follow up: Response: No adverse reaction km8 22:27 Drug: Diazepam PO 10 mg PO once Route: PO; km8 23:12 Follow up: Response: No adverse reaction km8 Medication: 21:36 VIS not applicable for this client. km8 Outcome: 22:17 Discharge ordered by MD. anguiano 23:14 Discharged to home ambulatory, with significant other, km8 23:14 Condition: good 23:14 Discharge instructions given to patient, significant other, Instructed on discharge instructions, follow up and referral plans. medication usage, Demonstrated understanding of instructions, follow-up care, medications, Prescriptions given X 4, 23:15 Patient left the ED. km8 Signatures: Ji Lynn MD MD cha Doucette, Kyli, RN RN kd3 Latoya Edwards gm2 Hollie Nascimento RN RN km8 Corrections: (The following items were deleted from the chart) 21:37 21:35 General: Appears in no apparent distress. uncomfortable, Behavior is calm, km8 cooperative, appropriate for age, km8
--- NOTE | 2023-10-31 22:17 | EDPHYS ---
Physician Documentation [facility] Name: Maria Del Carmen Rodriguez Age: 43 yrs Sex: Female : 1980 Arrival Date: 10/31/2023 Time: 21:14 Bed 14 Private MD: Ji Gomez HPI: 10/31 22:10 This 43 yrs old Female presents to ER via Ambulatory with complaints of Back silvio Pain. 22:10 The patient presents with pain that is acute, and decreased range of motion. The silvio symptoms are located in the low back, lumbar area, left low back and right low back. Onset: The symptoms/episode began/occurred 3 day(s) ago. The pain does not radiate. Associated signs and symptoms: The patient has no apparent associated signs or symptoms. The problem was sustained when lifting patient. Modifying factors: The patient symptoms are alleviated by remaining still, the patient symptoms are aggravated by any movement, bending. Severity of symptoms: At their worst the symptoms were moderate, in the emergency department the symptoms are unchanged. The patient has experienced similar episodes in the past, multiple times. Historical: - Allergies: 21:30 adult benadryl; kd3 21:30 Benadryl; kd3 21:30 Avelox; kd3 21:30 darvocet; kd3 21:30 Darvocet-N 100; kd3 21:30 Hydrocodone-Acetaminophen; kd3 21:30 Imitrex; kd3 21:30 Rocephin; kd3 21:30 Stadol; kd3 21:30 Sumatriptan Succinate; kd3 21:30 Tessalon Perles; kd3 21:30 Trazodone; kd3 - PMHx: 21:30 Asthma; Asthma; Atrial fibrillation; Atrial fibrillation; Bipolar disorder; Bipolar kd3 disorder; degenerative disc desease; degenerative disc desease; Degenerative disc disease; Degenerative disc disease; Hypertension; Hypertension; ibs; ibs; insomnia; insomnia; Migraines; Migraines; Sleep Apnea; Tachycardia; - PSHx: 21:30 Appendectomy; Cholecystectomy; Left knee replacement; tubal ligation; kd3 - Immunization history:: Adult Immunizations up to date. - Social history:: Smoking status: Patient denies any tobacco usage or history of. - Family history:: not pertinent. ROS: 22:10 Constitutional: Negative for fever, chills, and weight loss, Eyes: Negative for injury, silvio pain, redness, and discharge, ENT: Negative for injury, pain, and discharge, Neck: Negative for injury, pain, and swelling, Cardiovascular: Negative for chest pain, palpitations, and edema, Respiratory: Negative for shortness of breath, cough, wheezing, and pleuritic chest pain, Abdomen/GI: Negative for abdominal pain, nausea, vomiting, diarrhea, and constipation, : Negative for injury, bleeding, discharge, and swelling, MS/Extremity: Negative for injury and deformity, Skin: Negative for injury, rash, and discoloration, Neuro: Negative for headache, weakness, numbness, tingling, and seizure, Psych: Negative for depression, anxiety, suicide ideation, homicidal ideation, and hallucinations, Allergy/Immunology: Negative for hives, rash, and allergies, Endocrine: Negative for neck swelling, polydipsia, polyuria, polyphagia, and marked weight changes, Hematologic/Lymphatic: Negative for swollen nodes, abnormal bleeding, and unusual bruising, 22:10 Back: Positive for decreased range of motion, radiated pain, of the lumbar area, Exam: 22:10 Constitutional: This is a well developed, well nourished patient who is awake, alert, silvio and in no acute distress. Head/Face: Normocephalic, atraumatic. Eyes: Pupils equal round and reactive to light, extra-ocular motions intact. Lids and lashes normal. Conjunctiva and sclera are non-icteric and not injected. Cornea within normal limits. Periorbital areas with no swelling, redness, or edema. ENT: Nares patent. No nasal discharge, no septal abnormalities noted. Tympanic membranes are normal and external auditory canals are clear. Oropharynx with no redness, swelling, or masses, exudates, or evidence of obstruction, uvula midline. Mucous membranes moist. Neck: Trachea midline, no thyromegaly or masses palpated, and no cervical lymphadenopathy. Supple, full range of motion without nuchal rigidity, or vertebral point tenderness. No Meningismus. Chest/axilla: Normal chest wall appearance and motion. Nontender with no deformity. No lesions are appreciated. Cardiovascular: Regular rate and rhythm with a normal S1 and S2. No gallops, murmurs, or rubs. Normal PMI, no JVD. No pulse deficits. Respiratory: Lungs have equal breath sounds bilaterally, clear to auscultation and percussion. No rales, rhonchi or wheezes noted. No increased work of breathing, no retractions or nasal flaring. Abdomen/GI: Soft, non-tender, with normal bowel sounds. No distension or tympany. No guarding or rebound. No evidence of tenderness throughout. Skin: Warm, dry with normal turgor. Normal color with no rashes, no lesions, and no evidence of cellulitis. MS/ Extremity: Pulses equal, no cyanosis. Neurovascular intact. Full, normal range of motion. Neuro: Awake and alert, GCS 15, oriented to person, place, time, and situation. Cranial nerves II-XII grossly intact. Motor strength 5/5 in all extremities. Sensory grossly intact. Cerebellar exam normal. Normal gait. Psych: Awake, alert, with orientation to person, place and time. Behavior, mood, and affect are within normal limits. 22:10 Back: pain, that is moderate, ROM is painful, normal spinal alignment noted, CVA tenderness, is absent, muscle spasm, is appreciated in the left low back, left mid back, right mid back and right low back, Vital Signs: 21:28 BP 132 / 76; Pulse 84; Resp 18; Temp 98.3(O); Pulse Ox 96% ; Height 5 ft. 2 in. ; kd3 21:33 Weight 102 kg; kd3 21:36 BP 130 / 72; Pulse 84; Resp 16; Pulse Ox 97% on R/A; km8 22:00 BP 124 / 75; Pulse 81; Resp 16; Pulse Ox 99% on R/A; km8 22:30 BP 125 / 82; Pulse 78; Resp 16; Pulse Ox 96% on R/A; km8 Dee Coma Score: 21:36 Eye Response: spontaneous(4). Motor Response: obeys commands(6). Verbal Response: km8 oriented(5). Total: 15. MDM: 21:20 Patient medically screened. silvio 22:13 Differential diagnosis: chronic back pain, Fatigue Obesity Osteoporosis ruptured disc, silvio Scoliosis sprain, Ureterolithiasis. Data reviewed: vital signs, nurses notes. Consideration of Admission/Observation Escalation of care including admission/observation considered. I considered the following discharge prescriptions or medication management in the emergency department Medications were administered in the Emergency Department. See MAR. Test considered but Not performed: Labs: no labs, ua /upt only. Historians other than the Patient: Spouse/Significant Other: well informed. Care significantly affected by the following chronic conditions: Obesity, asthma, a fib, bipolar. Counseling: I had a detailed discussion with the patient and/or guardian regarding the historical points, exam findings, and any diagnostic results supporting the discharge/admit diagnosis, the need for outpatient follow up, for definitive care, a family practitioner, a orthopedic surgeon. 10/31 22:10 Order name: Urinalysis w/ reflexes silvio 10/31 22:10 Order name: PREGU silvio 10/31 22:22 Order name: Misc. Order: if ua/upt neg dc; Complete Time: 23:12 silvio Administered Medications: 22:27 Drug: Ketorolac IM 60 mg IM once Route: IM; Site: right ventrogluteal; km8 23:13 Follow up: Response: No adverse reaction 8 22:27 Drug: Acetaminophen-Codeine PO (300 mg-30 mg) 2 tabs PO once; RASS on ADMIN: Combtv4, km8 Very Agttd3, Agttd2, Rstlss1, AlertClm0, Drwsy-1, Lt Sdtn-2, Mod Sdtn-3, Dp Sdtn-4, UnArsble-5 Route: PO; 23:13 Follow up: Response: No adverse reaction 8 22:27 Drug: Dexamethasone IM 10 mg IM once Route: IM; Site: right ventrogluteal; km8 23:13 Follow up: Response: No adverse reaction 8 22:27 Drug: Diazepam PO 10 mg PO once Route: PO; km8 23:12 Follow up: Response: No adverse reaction km8 Disposition Summary: 10/31/23 22:17 Discharge Ordered Notes: Location: Home silvio Problem: new silvio Symptoms: have improved silvio Condition: Stable silvio Diagnosis - Low back pain silvio - Other injury of muscle, fascia and tendon of lower back silvio Followup: silvio - With: Private Physician - When: 2 - 3 days - Reason: Recheck today's complaints, Re-evaluation by your physician Followup: silvio - With: Willian Fischer MD - When: 2 - 3 days - Reason: Recheck today's complaints, Re-evaluation by your physician Discharge Instructions: - Discharge Summary Sheet silvio - Acute Back Pain, Adult silvio - Chronic Back Pain silvio - Musculoskeletal Pain silvio - Back Injury Prevention, [id number] silvio - Chronic Back Pain, [id number] [facility] Forms: - Medication Reconciliation Form [facility] - Thank You Letter silvio - Antibiotic Education [facility] - Prescription Opioid Use silvio - Patient Portal Instructions [facility] - Leadership Thank You Letter [facility] Prescriptions: - acetaminophen-codeine 300-30 mg Oral tablet - take 2 tablet ORAL route every 6 hours as needed for pain; 18 tablet; Refills: silvio 0, Product Selection Permitted - dexamethasone 2 mg Oral tablet - take 1 tablet ORAL route every 12 hours; 10 tablet; Refills: 0, Product [facility] Selection Permitted - diclofenac sodium 25 mg Oral tablet, delayed release (enteric coated) - take 1 tablet ORAL route every 12 hours; 14 tablet; Refills: 0, Product [facility] Selection Permitted - Cyclobenzaprine 5 mg Oral Tablet - take 1 tablet ORAL route 3 times per day As needed; 15 tablet; Refills: 0, [facility] Product Selection Permitted Signatures: Dispatcher [employer] Ji Montague MD MD cha Doucette, Kyli, RN RN kd3 Hollie Nascimento RN RN km8
[2023-10-31 22:26] LABS: Specific Gravity 1.023 (1.005-1.030)
[2023-10-31 22:32] LABS: Specific Gravity 1.023 (1.005-1.030); Urine Bacteria <20 /HPF (<20); Urine Bilirubin NEGATIVE (Negative); Urine Blood Negative (Negative); Urine Clarity Turbid (Clear); Urine Color Light-Yellow (Yellow); Urine Glucose NEGATIVE (Negative); Urine Mucus Slight /HPF (None Seen); Urine Protein TRACE (Negative); Urine RBC <5 /HPF (None Seen); Urine Urobilinogen Normal (Normal)
[2023-10-31] MEDS ORDERED: dexAMETHasone 10 MG/ML VIAL ONE (22:32)
[2023-10-31] MEDS ORDERED: DIAZEPAM 5 MG TABLET ONE (22:32)
[2023-10-31] MEDS ORDERED: CODEINE 30MG/APAP 300MG TAB ONE (22:33)
[2023-10-31] MEDS ORDERED: KETOROLAC 30 MG/ML INJ ONE (22:33)
[2023-10-31 23:20] VITALS: TEMP 98.3
[2023-10-31 23:24] VITALS: BP 125/82; O2SAT 96
== END 2023-10-31 23:15 | disposition home or self-care (01) ==
LOC: ER 21:14
DX: S39.092A Other injury of muscle, fascia and tendon of lower back, initial encounter (principal)
CPT/HCPCS: 81001; 81025; 96372; 99285; J1100

== ENCOUNTER → 2024-01-12 | Emergency (ER) | payer SELFPAY ==
[~2024-01-12] MED LIST: NITROFURAN MACRO 100 MG CAP PO ONE
[2024-01-13 00:24] LABS: Specific Gravity 1.017 (1.005-1.030)
[2024-01-13 00:33] LABS: Barbiturates NEGATIVE (NEGATIVE); Benzodiazepines NEGATIVE (NEGATIVE); Cocaine NEGATIVE (NEGATIVE); METHAMPHETAM NEGATIVE (NEGATIVE); Methadone NEGATIVE (NEGATIVE); Opiates NEGATIVE (NEGATIVE); Phencyclidine NEGATIVE (NEGATIVE); THC Cannibis NEGATIVE (NEGATIVE)
[2024-01-13 00:51] LABS: Specific Gravity 1.017 (1.005-1.030); Urine Bacteria 20-50 /HPF (<20); Urine Bilirubin NEGATIVE (Negative); Urine Blood Negative (Negative); Urine Clarity Turbid (Clear); Urine Color Light-Yellow (Yellow); Urine Glucose NEGATIVE (Negative); Urine Mucus Slight /HPF (None Seen); Urine Protein NEGATIVE (Negative); Urine RBC <5 /HPF (None Seen); Urine Urobilinogen Normal (Normal); Urine pH 6.5 (5.0-7.0)
[2024-01-13 02:01] LABS: Absolute Lymphocytes (CBC) 2.9 K/uL (0.7-4.9); Hematocrit 38.7 % (36.0-45.0); Lymphocytes % 35.7 % (15.3-44.8); MCV 98.1 fL (80-100); Platelets 293 thou/uL (152-406); RBC Red Blood Cell Count 3.95 M/uL (3.86-4.86)
[2024-01-13 02:16] LABS: Albumin 3.2 g/dL (3.4-5.0); Bilirubin Direct 0.1 mg/dL (0-0.2); Bilirubin Indirect, Calculated 0.2 mg/dL (0.2-0.8); Bilirubin Total 0.3 mg/dL (0.2-1.0); Magnesium 2.2 mg/dL (1.6-2.4); Potassium 3.5 mEq/L (3.5-5.1); Protein, Total 7.2 g/dL (6.4-8.2); Troponin High Sensitivity 3.8 pg/mL (<58.9)
--- NOTE | 2024-01-13 02:21 | ER ---
Nurse's Notes [facility] Name: Maria Del Carmen Rodriguez Age: 43 yrs Sex: Female : 1980 Arrival Date: 01/12/2024 Time: 22:50 Bed 13 Private MD: Diagnosis: UTI/ Urinary tract infection, site not specified Presentation: 01/12 23:15 Chief complaint: Patient states: I have been feeling lightheaded and dizzy where at vc1 times it feels like I am going to black out. I am also having some heart palpitations. I am really thirst and have been going to the bathroom alot. Coronavirus screen: Vaccine status: Patient reports receiving the 2nd dose of the covid vaccine. plus booster Client indicates they have traveled out of the [place] in the last 14 days. At this time, the client does not indicate any symptoms associated with coronavirus-19. Ebola Screen: Patient negative for fever greater than or equal to 101.5 degrees Fahrenheit, and additional compatible Ebola Virus Disease symptoms Patient denies exposure to infectious person. Patient denies travel to an Ebola-affected area in the 21 days before illness onset. No symptoms or risks identified at this time. Initial Sepsis Screen: Does the patient meet any 2 criteria? No. Patient's initial sepsis screen is negative. Does the patient have a suspected source of infection? No. Patient's initial sepsis screen is negative. Risk Assessment: Do you want to hurt yourself or someone else? Patient reports no desire to harm self or others. Onset of symptoms was January 12, 2024 at 14:00. Care prior to arrival: None. Activity prior to arrival: None. Mechanism of Injury: No Mechanism of Injury. Transition of care: patient was not received from another setting of care. 23:15 Method Of Arrival: Ambulatory vc1 23:15 Acuity: JUS 3 vc1 Triage Assessment: 23:20 General: Appears in no apparent distress. comfortable, obese, Behavior is calm, vc1 cooperative, appropriate for age. General: reports excessive thirst. Pain: Denies pain. EENT: No deficits noted. No signs and/or symptoms were reported regarding the EENT system. Neuro: Level of Consciousness is awake, alert, obeys commands, Oriented to person, place, time, situation, Appropriate for age Reports dizziness. Cardiovascular: No deficits noted. Respiratory: Airway is patent Respiratory effort is even, unlabored, Respiratory pattern is regular, symmetrical. GI: No deficits noted. No signs and/or symptoms were reported involving the gastrointestinal system. : Reports urinary frequency. Derm: No deficits noted. No signs and/or symptoms reported regarding the dermatologic system. Musculoskeletal: No deficits noted. No signs and/or symptoms reported regarding the musculoskeletal system. 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, unknown vc1 Historical: - Allergies: 23:18 adult benadryl; vc1 23:18 Avelox; vc1 23:18 Benadryl; vc1 23:18 darvocet; vc1 23:18 Darvocet-N 100; vc1 23:18 Hydrocodone-Acetaminophen; vc1 23:18 Imitrex; vc1 23:18 Rocephin; vc1 23:18 Stadol; vc1 23:18 Sumatriptan Succinate; vc1 23:18 Tessalon Perles; vc1 23:18 Trazodone; vc1 - PMHx: 23:18 Asthma; Atrial fibrillation; Bipolar disorder; degenerative disc desease; Degenerative vc1 disc disease; Hypertension; ibs; insomnia; Migraines; Sleep Apnea; Tachycardia; - PSHx: 23:18 Appendectomy; Cholecystectomy; Left knee replacement; tubal ligation; vc1 - Immunization history:: Client reports receiving the 2nd dose of the Covid vaccine, Flu vaccine is not up to date. - Social history:: Smoking status: Patient denies any tobacco usage or history of. Screenin:19 [facility] ED Fall Risk Assessment (Adult) History of falling in the last 3 months, vc1 including since admission No falls in past 3 months (0 pts) Confusion or Disorientation No (0 pts) Intoxicated or Sedated No (0 pts) Impaired Gait No (0 pts) Mobility Assist Device Used No (0 pt) Altered Elimination No (0 pt) Score/Fall Risk Level 0 - 2 = Low Risk Oriented to surroundings, Maintained a safe environment, Educated pt \T\ family on fall prevention, incl call for assistance when getting out of bed. Abuse screen: Denies threats or abuse. Nutritional screening: No deficits noted. Tuberculosis screening: No symptoms or risk factors identified. Vital Signs: 23:08 BP 110 / 57; Pulse 81; Resp 18; Temp 98.2; Pulse Ox 100% on R/A; Weight 104.33 kg; oe Height 5 ft. 2 in. ; 01/13 00:00 BP 113 / 71; Pulse 77; Resp 16; Pulse Ox 100% on R/A; Pain 0/10; pf1 00:30 BP 110 / 73 Supine; Pulse 83; Resp 16; Pulse Ox 100% on R/A; Pain 0/10; pf1 00:31 BP 107 / 69 Sitting; Pulse 86; Resp 18; Pulse Ox 99% on R/A; pf1 00:32 BP 117 / 80; Pulse 89; Resp 16; Pulse Ox 99% on R/A; pf1 01:00 BP 102 / 68; Pulse 81; Resp 20; Pulse Ox 99% on R/A; Pain 0/10; pf1 02:00 BP 112 / 72; Pulse 79; Resp 16; Pulse Ox 100% on R/A; Pain 0/10; pf1 01/12 23:08 Body Mass Index 42.07 (104.33 kg, 157.48 cm) oe 01/13 00:00 Pain Scale: Adult pf1 00:30 Pain Scale: Adult pf1 01:00 Pain Scale: Adult pf1 02:00 Pain Scale: Adult pf1 ED Course: 01/12 22:51 Patient arrived in ED. jj6 22:51 Maria Luisa Harrington PA-C is PHCP. sb4 22:51 John Pastrana MD is Attending Physician. sb4 23:18 Triage completed. vc1 23:19 Arm band placed on left wrist. vc1 23:30 Patient has correct armband on for positive identification. Bed in low position. Call pf1 light in reach. 23:32 Chest Single View XRAY In Process Unspecified. EDMS 23:51 UDS Sent. pf1 23:51 Urinalysis w/ reflexes Sent. pf1 01/13 00:00 CT Head Brain wo Cont In Process Unspecified. EDMS 00:35 No provider procedures requiring assistance completed. Inserted saline lock: 22 gauge pf1 in right hand, using aseptic technique. Blood collected. 00:38 Basic Metabolic Panel Sent. pf1 00:38 CBC with Diff Sent. pf1 00:38 Hepatic Function Sent. pf1 00:38 Magnesium Sent. pf1 00:38 Protime (+inr) Sent. pf1 00:38 Ptt, Activated Sent. pf1 00:38 Troponin High Sensitivity Sent. pf1 00:38 Urinalysis w/ reflexes Sent. pf1 01:28 Emperatriz Diggs, COLBY is Primary Nurse. pf1 02:20 Huan Neff DO is Referral Physician. sb4 02:25 Urine Culture Sent. pf1 02:32 Provided Education on: prescription. pf1 02:32 IV discontinued, intact, bleeding controlled, No redness/swelling at site. Pressure pf1 dressing applied. Administered Medications: 02:25 CANCELLED (Patient Refused): ns 0.9% 1000 ml IV at 1 bolus Per protocol; 1000 mL bolus pf1 02:25 Drug: Macrobid PO 100 mg PO once; administer with food Route: PO; pf1 02:31 Follow up: Response: No adverse reaction pf1 Medication: 02:32 VIS not applicable for this client. pf1 Outcome: 02:20 Discharge ordered by MD. sb4 02:32 Discharged to home ambulatory, with family, pf1 02:32 Condition: improved 02:32 Discharge instructions given to patient, family, Instructed on discharge instructions, follow up and referral plans. Demonstrated understanding of instructions, follow-up care, medications, Prescriptions given X 1, 02:44 Patient left the ED. pf1 Signatures: Dispatcher [employer] EDAR José Miguel Fong Jennifer [id number] Trini Bourgeois, RN RN vc1 Maria Luisa Harrington, PAKennyC PA-C sb4 Emperatriz Diggs, RN RN pf1 Corrections: (The following items were deleted from the chart) 02:38 02:37 IV discontinued, intact, bleeding controlled, No redness/swelling at site. pf1 Pressure dressing applied, pf1
--- NOTE | 2024-01-13 02:21 | EDPHYS ---
Physician Documentation [facility] Name: Maria Del Carmen Rodriguez Age: 43 yrs Sex: Female : 1980 Arrival Date: 01/12/2024 Time: 22:50 Bed 13 Private MD: ED Physician John Pastrana HPI: 01/12 23:18 This 43 yrs old Female presents to ER via Ambulatory with complaints of Dizziness, Near sb4 Syncope. 01/13 02:22 Patient states that this afternoon she started feeling dizzy, like she might pass out. sb4 She also endorses frequent urination and thirst. She denies any history of type 2 diabetes. She is not currently on any daily medications. She does have a history of atrial fibrillation but had an ablation. She denies any chest pain, palpitations, shortness of breath, nausea, vomiting, diarrhea. 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/12 23:21 LMP 12/13/2023, unknown vc1 Historical: - Allergies: 23:18 adult benadryl; vc1 23:18 Avelox; vc1 23:18 Benadryl; vc1 23:18 darvocet; vc1 23:18 Darvocet-N 100; vc1 23:18 Hydrocodone-Acetaminophen; vc1 23:18 Imitrex; vc1 23:18 Rocephin; vc1 23:18 Stadol; vc1 23:18 Sumatriptan Succinate; vc1 23:18 Tessalon Perles; vc1 23:18 Trazodone; vc1 - PMHx: 23:18 Asthma; Atrial fibrillation; Bipolar disorder; degenerative disc desease; Degenerative vc1 disc disease; Hypertension; ibs; insomnia; Migraines; Sleep Apnea; Tachycardia; - PSHx: 23:18 Appendectomy; Cholecystectomy; Left knee replacement; tubal ligation; vc1 - Immunization history:: Client reports receiving the 2nd dose of the Covid vaccine, Flu vaccine is not up to date. - Social history:: Smoking status: Patient denies any tobacco usage or history of. ROS: 01/13 02:22 Constitutional: Negative for fever, chills, and weight loss, sb4 : Positive for burning with urination, Neuro: Positive for dizziness, Endocrine: Positive for polydipsia, All other systems are negative, Exam: 02:22 Constitutional: This is a well developed, well nourished patient who is awake, alert, sb4 and in no acute distress. Head/Face: Normocephalic, atraumatic. Eyes: Extra-ocular motions intact. Periorbital areas with no swelling, redness, or edema. ENT: Mucous membranes moist. Cardiovascular: Regular rate and rhythm with a normal S1 and S2. Respiratory: Lungs have equal breath sounds bilaterally, clear to auscultation and percussion. No rales, rhonchi or wheezes noted. No increased work of breathing, no retractions or nasal flaring. Abdomen/GI: Soft, non-tender, no distension. Skin: Warm, dry with normal turgor. Normal color with no rashes, no lesions, and no evidence of cellulitis. MS/ Extremity: Pulses equal, no cyanosis. Neurovascular intact. Full, normal range of motion. Neuro: Awake and alert, GCS 15, oriented to person, place, time, and situation. Motor strength 5/5 in all extremities. Sensory grossly intact. Vital Signs: 01/12 23:08 BP 110 / 57; Pulse 81; Resp 18; Temp 98.2; Pulse Ox 100% on R/A; Weight 104.33 kg; oe Height 5 ft. 2 in. ; 01/13 00:00 BP 113 / 71; Pulse 77; Resp 16; Pulse Ox 100% on R/A; Pain 0/10; pf1 00:30 BP 110 / 73 Supine; Pulse 83; Resp 16; Pulse Ox 100% on R/A; Pain 0/10; pf1 00:31 BP 107 / 69 Sitting; Pulse 86; Resp 18; Pulse Ox 99% on R/A; pf1 00:32 BP 117 / 80; Pulse 89; Resp 16; Pulse Ox 99% on R/A; pf1 01:00 BP 102 / 68; Pulse 81; Resp 20; Pulse Ox 99% on R/A; Pain 0/10; pf1 02:00 BP 112 / 72; Pulse 79; Resp 16; Pulse Ox 100% on R/A; Pain 0/10; pf1 01/12 23:08 Body Mass Index 42.07 (104.33 kg, 157.48 cm) oe 01/13 00:00 Pain Scale: Adult pf1 00:30 Pain Scale: Adult pf1 01:00 Pain Scale: Adult pf1 02:00 Pain Scale: Adult pf1 MDM: 01/12 23:01 Patient medically screened. 01/13 02:22 Differential diagnosis: cardiac arrhythmia, hypovolemia, vertigo, new onset diabetes. 4 Data reviewed: vital signs, nurses notes, lab test result(s), EKG, radiologic studies, and as a result, I will discharge patient. Counseling: I had a detailed discussion with the patient and/or guardian regarding the historical points, exam findings, and any diagnostic results supporting the discharge/admit diagnosis, lab results, radiology results, the need for outpatient follow up, for definitive care, to return to the emergency department if symptoms worsen or persist or if there are any questions or concerns that arise at home. 01/12 23:17 Order name: Basic Metabolic Panel; Complete Time: 02:17 [facility] 01/12 23:17 Order name: CBC with Diff; Complete Time: 02:08 [facility] 01/12 23:17 Order name: Hepatic Function; Complete Time: 02:17 [facility] 01/12 23:17 Order name: Magnesium; Complete Time: 02:17 [facility] 01/12 23:17 Order name: Test, Urine; Complete Time: 00:25 4 01/12 23:17 Order name: Protime (+inr); Complete Time: 02:04 [facility] 01/12 23:17 Order name: Ptt, Activated; Complete Time: 02:04 [facility] 01/12 23:17 Order name: Troponin High Sensitivity; Complete Time: 02:17 [facility] 01/12 23:17 Order name: UDS; Complete Time: 00:36 [facility] 01/12 23:17 Order name: Urinalysis w/ reflexes; Complete Time: 00:52 4 01/13 01:46 Order name: Urine Culture [facility] 01/12 23:17 Order name: CT Head Brain wo Cont 4 01/12 23:17 Order name: Chest Single View XRAY [facility] 01/12 23:17 Order name: EKG; Complete Time: 23:18 [facility] 01/12 23:17 Order name: Cardiac monitoring; Complete Time: 00:25 [facility] 01/12 23:17 Order name: EKG - Nurse/Tech; Complete Time: 23:52 [facility] 01/12 23:17 Order name: IV Saline Lock; Complete Time: 00:35 sb4 01/12 23:17 Order name: Labs collected and sent; Complete Time: 00:38 sb4 01/12 23:17 Order name: NPO; Complete Time: 23:19 sb4 01/12 23:17 Order name: O2 Per Protocol; Complete Time: 00:25 sb4 01/12 23:17 Order name: O2 Sat Monitoring; Complete Time: 00:25 sb4 01/12 23:17 Order name: Orthostatics; Complete Time: 01:28 sb4 EC:02 Rate is 74 beats/min. Rhythm is regular, Normal Sinus Rhythm. [place] interval is normal at sb4 136 msec. QRS interval is normal at 88 msec. QT interval is normal at 406 msec. No Q waves. T waves are Normal. No ST changes noted. Clinical impression: Normal ECG. Interpreted by me. Reviewed by me. Administered Medications: 02:25 CANCELLED (Patient Refused): ns 0.9% 1000 ml IV at 1 bolus Per protocol; 1000 mL bolus pf1 02:25 Drug: Macrobid PO 100 mg PO once; administer with food Route: PO; pf1 02:31 Follow up: Response: No adverse reaction pf1 Disposition: 01:55 Co-signature as Attending Physician, John Pastrana MD I agree with the assessment sp4 and plan of care. I reviewed the patient's care provided by Advanced Practice Provider \T\ agree w/ the diagnosis \T\ care plan. I personally saw the pt \T\ performed a substantive portion of the visit, incldng all aspects of the (History/Exam/Medical Decision Making). Disposition Summary: 01/13/24 02:20 Discharge Ordered Notes: Location: Home sb4 Problem: new sb4 Symptoms: have improved sb4 Condition: Stable sb4 Diagnosis - UTI/ Urinary tract infection, site not specified sb4 Followup: sb4 - With: Huan Neff, DO - When: As needed - Reason: Recheck today's complaints, Re-evaluation by your physician Discharge Instructions: - Discharge Summary Sheet sb4 - Urinary Tract Infection, Adult sb4 - Prediabetes sb4 Forms: - Thank You Letter sb4 - Patient Portal Instructions sb4 - Leadership Thank You Letter sb4 Prescriptions: - Macrobid 100 mg Oral Capsule - take 1 capsule ORAL route every 12 hours for 7 days; 14 capsule; Refills: 0, sb4 Product Selection Permitted Signatures: Dispatcher [employer] EDMS Trini Bourgeois RN RN vc1 Maria Luisa Harrington PA-C PA-C sb4 Emperatriz Diggs RN RN pf1 John Pastrana MD MD sp4 Corrections: (The following items were deleted from the chart) 02:25 02:17 NS 0.9% IV 1000 ml IV at 1 bolus Per protocol; 1000 mL bolus ordered. sb4 pf1
[2024-01-13 03:20] VITALS: BP 112/72; TEMP 98.2; O2SAT 100
--- NOTE | 2024-01-13 15:13 | RAD REPORT ---
EXAM DESCRIPTION: Chest Single View CLINICAL HISTORY: 43-year-old female with chest pain and shortness of breath. TECHNIQUE: Single view, AP portable chest was obtained. COMPARISON: None. FINDINGS: Unremarkable cardiac and mediastinal silhouette. Heart size is normal. Low lung volumes grossly clear without focal opacity, pneumothorax or pleural effusions. The visual ized bones are within normal limits. IMPRESSION: No acute cardiopulmonary abnormalities. Electronically signed by: Brenda Bradley MD 01/13/2024 12:08 AM CARPET LAYER HELPER Due to temporary technical issues with the PACS/Fluency reporting system, reports are being signed by the in house radiologists without review as a courtesy to insure prompt reporting. The interpreting radiologist is fully responsible for the content of the report.
--- NOTE | 2024-01-13 18:05 | RAD REPORT ---
EXAM DESCRIPTION: CT Head Without Intravenous Contrast CLINICAL HISTORY: Syncope; Dizziness TECHNIQUE: Axial computed tomography images of the head/brain without intravenous contrast. Sagitt al and coronal reformatted images were created and reviewed. This CT exam was performed using one o r more of the following dose reduction techniques: automated exposure control, adjustment of the mA and/or kV according to patient size, and/or use of iterative reconstruction technique. COMPARISON: CT Head dated 04/29/2022 FINDINGS: Brain: Unremarkable. No hemorrhage. No significant white matter disease. No edema. Ventricles: Unremarkable. No ventriculomegaly. Bones/joints: Unremarkable. No acute fracture. Soft tissues: Unremarkable. Sinuses: Unremarkable as visualized. No acute sinusitis. Mastoid air cells: Unremarkable as visualized. No mastoid effusion. IMPRESSION: No acute intracranial or extra-axial abnormality. Electronically signed by: Keara Mitchell MD 01/13/2024 12:39 AM CARGO VESSEL STEWARDESS Due to temporary technical issues with the PACS/Fluency reporting system, reports are being signed by the in house radiologists without review as a courtesy to insure prompt reporting. The interpreting radiologist is fully responsible for the content of the report.
== END ==
LOC: ER 22:50
DX: N39.0 Urinary tract infection, site not specified (principal); J45.909 Unspecified asthma, uncomplicated; I48.91 Unspecified atrial fibrillation; I10 Essential (primary) hypertension; G47.30 Sleep apnea, unspecified; G47.00 Insomnia, unspecified; K58.9 Irritable bowel syndrome, unspecified; Z88.5 Allergy status to narcotic agent; Z88.8 Allergy status to other drugs, medicaments and biological substances
CPT/HCPCS: 70450; 71045; 80307; 81025

== ENCOUNTER 2024-02-19 12:09 | Emergency (ER) | payer OTHER ==
[2024-02-19] MEDS ORDERED: NA CHLORIDE 0.9% 1,000 ML ONE (13:22)
[2024-02-19 13:33] LABS: Absolute Basophils 0.1 K/uL (0-0.5); Absolute Eosinophils 0.2 K/uL (0-0.5); Absolute Lymphocytes (CBC) 2.6 K/uL (0.7-4.9); Absolute Monocytes 0.7 K/uL (0.1-1.3); Eosinophils % 3.2 % (0-4.4); Hematocrit 40.3 % (36.0-45.0); Hemoglobin 13.4 g/dL (12.0-15.0); Lymphocytes % 33.8 % (15.3-44.8); MCHC 33.3 g/dL (32.0-36.0); MCV 99.1 fL (80-100); MPV 7.6 fL (7.6-11.3); Monocytes % 9.3 % (3.3-12.3); Neutrophils % 52.7 % (41.7-73.7); Platelets 318 thou/uL (152-406); RBC Red Blood Cell Count 4.06 M/uL (3.86-4.86); Red Cell Distribution Width 13.4 % (12.1-15.2)
[2024-02-19 13:36] LABS: PT Prothrombin Time 11.6 SECONDS (9.5-12.5); Protime INR 1.06
[2024-02-19 13:39] LABS: Specific Gravity < 1.005 (1.005-1.030); Sqamous Epithelial <5 /HPF (None Seen); Urine Bacteria <20 /HPF (<20); Urine Bilirubin NEGATIVE (Negative); Urine Blood Negative (Negative); Urine Clarity Turbid (Clear); Urine Color Colorless (Yellow); Urine Culture Reflex Order NOT NEEDED; Urine Glucose NEGATIVE (Negative); Urine Ketones NEGATIVE (Negative); Urine Microscopic Reflex YN ORDER UMIC; Urine Nitrite NEGATIVE (Negative); Urine Protein NEGATIVE (Negative); Urine RBC <5 /HPF (None Seen); Urine Urobilinogen Normal (Normal); Urine WBC <5 /HPF (<5)
--- NOTE | 2024-02-19 13:40 | RAD REPORT ---
EXAM DESCRIPTION: [facility] Single View02/19/2024 1:18 pm CLINICAL HISTORY: COUGH COMPARISON: Chest Single View dated 01/12/2024; Chest Single View dated 08/24/2023; Chest Pa And Lat ( 2 Views) dated 08/05/2023; Chest Single View dated 05/07/2023 TECHNIQUE: Portable AP view of the chest. FINDINGS: The lungs are clear. No pneumothorax or effusion. The cardiomediastinal contours are unre markable. IMPRESSION: No acute cardiopulmonary process.
--- NOTE | 2024-02-19 13:49 | RAD REPORT ---
EXAM DESCRIPTION: CT - Head Brain Wo Cont - 02/19/2024 1:04 pm CLINICAL HISTORY: HEADACHE COMPARISON: Head Brain Wo Cont dated 01/13/2024; Head Brain Wo Cont dated 04/29/2022 TECHNIQUE: Noncontrast head CT images were obtained without IV contrast. Multiplanar reformats were generated and reviewed. All CT scans are performed using dose optimization technique as appropriate and may include automated exposure control or mA/KV adjustment according to patient size. FINDINGS: No intracranial hemorrhage, mass, or edema. Midline structures are unremarkable. Normal ventricular caliber for age. Sheikh-white matter differentiation is preserved, without evidence of acute infarct. No abnormal extra- axial fluid collections. Mastoid air cells are well aerated. Mucous retention cysts in the left maxillary sinus. . No acute bony findings. IMPRESSION: No evidence of an acute intracranial process.
[2024-02-19 13:54] LABS: Albumin 3.4 g/dL (3.4-5.0); Albumin/Globulin Ratio 0.9 (1.1-1.8); Anion Gap 8.5 mEq/L (5.0-15.0); Bilirubin Direct 0.2 mg/dL (0-0.2); Bilirubin Indirect, Calculated 0.5 mg/dL (0.2-0.8); Bilirubin Total 0.7 mg/dL (0.2-1.0); Globulin 3.9 g/dL (2.3-3.5); Magnesium 2.2 mg/dL (1.6-2.4); Potassium 3.5 mEq/L (3.5-5.1); Protein, Total 7.3 g/dL (6.4-8.2); Troponin High Sensitivity 3.1 pg/mL (<58.9)
[2024-02-19] MEDS ORDERED: ASPIRIN 81 MG CHEWABLE TABLET ONE (15:30)
[2024-02-19] MEDS ORDERED: MECLIZINE HCL 12.5 MG TAB ONE (15:30)
--- NOTE | 2024-02-19 16:52 | EDPHYS ---
Physician Documentation [facility] Name: Maria Del Carmen Rodriguez Age: 43 yrs Sex: Female : 1980 Arrival Date: 02/19/2024 Time: 12:09 Bed 5 Private MD: Arline Pruitt ED Physician Ji Lynn HPI: 02/18 15:01 This 43 yrs old Female presents to ER via Ambulatory with complaints of silvio Dizziness, fatigue. 15:01 The patient presents with dizziness. Onset: The symptoms/episode began/occurred just silvio prior to arrival, today. Context: occurred at home, occurred while the patient was sitting, WATCHING TV. Modifying factors: The symptoms are alleviated by nothing, the symptoms are aggravated by nothing, movement of head. Associated signs and symptoms: The patient has no apparent associated signs or symptoms. Patient's baseline: Neuro: alert and fully oriented. The patient has experienced similar episodes in the past, a few times. 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 01/20/2024, unknown ko1 Historical: - Allergies: 12:41 adult benadryl; ko1 12:41 Avelox; ko1 12:41 Benadryl; ko1 12:41 darvocet; ko1 12:41 Darvocet-N 100; ko1 12:41 Hydrocodone-Acetaminophen; ko1 12:41 Imitrex; ko1 12:41 Rocephin; ko1 12:41 Stadol; ko1 12:41 Tessalon Perles; ko1 12:41 Sumatriptan Succinate; ko1 12:41 Trazodone; ko1 - PMHx: 12:41 Asthma; Atrial fibrillation; Bipolar disorder; degenerative disc desease; Degenerative ko1 disc disease; ibs; Hypertension; insomnia; Migraines; Sleep Apnea; Tachycardia; - PSHx: 12:41 Appendectomy; Cholecystectomy; Left knee replacement; tubal ligation; ko1 - Immunization history:: Adult Immunizations unknown. - Social history:: Smoking status: Patient denies any tobacco usage or history of. Patient/guardian denies using alcohol, street drugs. ROS: 15:03 Constitutional: Negative for fever, chills, and weight loss, Eyes: Negative for injury, silvio pain, redness, and discharge, ENT: Negative for injury, pain, and discharge, Neck: Negative for injury, pain, and swelling, Cardiovascular: Negative for chest pain, palpitations, and edema, Respiratory: Negative for shortness of breath, cough, wheezing, and pleuritic chest pain, Abdomen/GI: Negative for abdominal pain, nausea, vomiting, diarrhea, and constipation, Back: Negative for injury and pain, : Negative for injury, bleeding, discharge, and swelling, MS/Extremity: Negative for injury and deformity, Skin: Negative for injury, rash, and discoloration, Psych: Negative for depression, anxiety, suicide ideation, homicidal ideation, and hallucinations, Allergy/Immunology: Negative for hives, rash, and allergies, Endocrine: Negative for neck swelling, polydipsia, polyuria, polyphagia, and marked weight changes, Hematologic/Lymphatic: Negative for swollen nodes, abnormal bleeding, and unusual bruising, 15:03 Neuro: Positive for dizziness, Exam: 15:03 Constitutional: This is a well developed, well nourished patient who is awake, alert, silvio and in no acute distress. Head/Face: Normocephalic, atraumatic. Eyes: Pupils equal round and reactive to light, extra-ocular motions intact. Lids and lashes normal. Conjunctiva and sclera are non-icteric and not injected. Cornea within normal limits. Periorbital areas with no swelling, redness, or edema. ENT: Nares patent. No nasal discharge, no septal abnormalities noted. Tympanic membranes are normal and external auditory canals are clear. Oropharynx with no redness, swelling, or masses, exudates, or evidence of obstruction, uvula midline. Mucous membranes moist. Neck: Trachea midline, no thyromegaly or masses palpated, and no cervical lymphadenopathy. Supple, full range of motion without nuchal rigidity, or vertebral point tenderness. No Meningismus. Chest/axilla: Normal chest wall appearance and motion. Nontender with no deformity. No lesions are appreciated. Cardiovascular: Regular rate and rhythm with a normal S1 and S2. No gallops, murmurs, or rubs. Normal PMI, no JVD. No pulse deficits. Respiratory: Lungs have equal breath sounds bilaterally, clear to auscultation and percussion. No rales, rhonchi or wheezes noted. No increased work of breathing, no retractions or nasal flaring. Abdomen/GI: Soft, non-tender, with normal bowel sounds. No distension or tympany. No guarding or rebound. No evidence of tenderness throughout. Back: No spinal tenderness. No costovertebral tenderness. Full range of motion. Skin: Warm, dry with normal turgor. Normal color with no rashes, no lesions, and no evidence of cellulitis. MS/ Extremity: Pulses equal, no cyanosis. Neurovascular intact. Full, normal range of motion. Neuro: Awake and alert, GCS 15, oriented to person, place, time, and situation. Cranial nerves II-XII grossly intact. Motor strength 5/5 in all extremities. Sensory grossly intact. Cerebellar exam normal. Normal gait. Psych: Awake, alert, with orientation to person, place and time. Behavior, mood, and affect are within normal limits. 15:03 ECG was reviewed by the Attending Physician. Vital Signs: 12:39 BP 114 / 57; Pulse 84; Resp 16; Temp 98; Pulse Ox 96% on R/A; ko1 13:30 BP 111 / 78; Pulse 74; Resp 18; Pulse Ox 100% ; cp4 15:30 BP 112 / 77; Pulse 75; Resp 18; Pulse Ox 100% ; cp4 17:30 BP 108 / 66; Pulse 75; Resp 18; Pulse Ox 100% ; cp4 MDM: 12:49 Patient medically screened. silvio 15:56 Differential Diagnosis sepsis. Differential diagnosis: cardiac arrhythmia, generalized silvio weakness, hypovolemia, idiopathic dizziness, near-syncope, TIA. Data reviewed: vital signs, nurses notes, lab test result(s), EKG, radiologic studies, CT scan, plain films. Consideration of Admission/Observation Escalation of care including admission/observation considered. I considered the following discharge prescriptions or medication management in the emergency department Medications were administered in the Emergency Department. See MAR. Independent interpretation of the following test(s) in the Emergency Department EKG: See my EKG interpretation above CT Scan: My interpretation is CT HEAD. Test considered but Not performed:. 02/18 12:50 Order name: Basic Metabolic Panel; Complete Time: 14:[address] [facility] 02/18 12:50 Order name: CBC with Diff; Complete Time: 14:[address] [facility] 02/18 12:50 Order name: LFT's; Complete Time: 14:[address] [facility] 02/18 12:50 Order name: Magnesium; Complete Time: 14:36 02/18 12:50 Order name: NT PRO-BNP; Complete Time: 14:36 02/18 12:50 Order name: PT-INR; Complete Time: 14:36 02/18 12:50 Order name: Troponin HS; Complete Time: 14:36 02/18 12:50 Order name: Lipase; Complete Time: 14:36 02/18 12:50 Order name: Urinalysis w/ reflexes; Complete Time: 14:36 02/18 15:05 Order name: Troponin HS: 310 PM; Complete Time: 17:29 02/18 12:50 Order name: XRAY Chest (1 view); Complete Time: 14:36 02/18 12:50 Order name: CT Head Brain wo Cont; Complete Time: 14:36 02/18 12:50 Order name: EKG; Complete Time: 12:51 02/18 15:05 Order name: EKG; Complete Time: 15:06 02/18 12:50 Order name: Cardiac monitoring; Complete Time: 13:04 02/18 12:50 Order name: EKG - Nurse/Tech; Complete Time: 13:18 02/18 12:50 Order name: IV Saline Lock; Complete Time: 13:24 02/18 12:50 Order name: Labs collected and sent; Complete Time: 13:24 02/18 12:50 Order name: O2 Per Protocol; Complete Time: 13:05 02/18 12:50 Order name: O2 Sat Monitoring; Complete Time: 13:05 02/18 15:05 Order name: EKG - Nurse/Tech; Complete Time: 15:52 02/18 15:41 Order name: Misc. Order: recollect green top; Complete Time: 16:50 sb4 EC:03 Rate is 75 beats/min. Rhythm is regular. QRS [place] is Normal. [place] interval is normal. QRS silvio interval is normal. QT interval is normal. No Q waves. T waves are Normal. No ST changes noted. Clinical impression: Normal ECG and No evidence of ischemia. Interpreted by me. Reviewed by me. Administered Medications: 13:24 Drug: NS 0.9% IV 1000 ml IV at 1 bolus Per protocol; 1000 mL bolus Route: IV; Rate: 1 cp4 bolus; Site: right hand; 15:33 Drug: Meclizine PO 25 mg PO once Route: PO; cp4 17:03 Follow up: Response: No adverse reaction cp4 15:33 Drug: Aspirin PO Chewable Tablet 162 mg PO once Route: PO; cp4 17:02 Follow up: Response: No adverse reaction cp4 Disposition Summary: 02/19/24 16:50 Discharge Ordered Notes: Location: Home silvio Problem: new silvio Symptoms: have improved silvio Condition: Stable silvio Diagnosis - Dizziness and giddiness silvio Followup: silvio - With: Arline Pruitt - When: 2 - 3 days - Reason: Recheck today's complaints, Continuance of care, Re-evaluation by your physician Discharge Instructions: - Discharge Summary Sheet silvio - Benign Positional Vertigo silvio - Dizziness silvio - Vertigo, [id number] [facility] - Aspirin and Your Heart [facility] Forms: - Medication Reconciliation Form [facility] - Thank You Letter [facility] - Antibiotic Education silvio - Prescription Opioid Use silvio - Patient Portal Instructions [facility] - Leadership Thank You Letter [facility] Prescriptions: - ondansetron 4 mg Oral Tablet,disintegrating - take 1 tablet ORAL route every 6-8 hours for 5 days; 20 tablet; Refills: 0, [facility] Product Selection Permitted - Meclizine 25 mg Oral Tablet - take 1 tablet ORAL route every 8 hours As needed; 30 tablet; Refills: 0, [facility] Product Selection Permitted Signatures: Dispatcher [employer] Ji Montague MD MD cha Oliver, Kathy, RN RN Maria Luisa Mei PAKavya PA-C sb4 Josie Peña cp4
--- NOTE | 2024-02-19 16:52 | ER ---
Nurse's Notes [facility] Name: Maria Del Carmen Rodriguez Age: 43 yrs Sex: Female : 1980 Arrival Date: 02/19/2024 Time: 12:09 Bed 5 Private MD: Arline Pruitt Diagnosis: Dizziness and giddiness Presentation: 02/18 12:39 Chief complaint: Patient states: light headed and tired since yesterday, had a recent ko1 UTI and finished abx this morning. Coronavirus screen: At this time, the client does not indicate any symptoms associated with coronavirus-19. Ebola Screen: No symptoms or risks identified at this time. Initial Sepsis Screen: Does the patient meet any 2 criteria? No. Patient's initial sepsis screen is negative. Does the patient have a suspected source of infection? No. Patient's initial sepsis screen is negative. Risk Assessment: Do you want to hurt yourself or someone else? Patient reports no desire to harm self or others. Onset of symptoms was February 18, 2024. 12:39 Method Of Arrival: Ambulatory ko1 12:39 Acuity: JUS 3 ko1 Triage Assessment: 12:41 General: Appears in no apparent distress. comfortable, Behavior is calm, cooperative, ko1 appropriate for age. Pain: Complains of pain in right scapular area. 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:41 LMP 01/20/2024, unknown ko1 Historical: - Allergies: 12:41 adult benadryl; ko1 12:41 Avelox; ko1 12:41 Benadryl; ko1 12:41 darvocet; ko1 12:41 Darvocet-N 100; ko1 12:41 Hydrocodone-Acetaminophen; ko1 12:41 Imitrex; ko1 12:41 Rocephin; ko1 12:41 Stadol; ko1 12:41 Tessalon Perles; ko1 12:41 Sumatriptan Succinate; ko1 12:41 Trazodone; ko1 - PMHx: 12:41 Asthma; Atrial fibrillation; Bipolar disorder; degenerative disc desease; Degenerative ko1 disc disease; ibs; Hypertension; insomnia; Migraines; Sleep Apnea; Tachycardia; - PSHx: 12:41 Appendectomy; Cholecystectomy; Left knee replacement; tubal ligation; ko1 - Immunization history:: Adult Immunizations unknown. - Social history:: Smoking status: Patient denies any tobacco usage or history of. Patient/guardian denies using alcohol, street drugs. Screenin:56 [facility] ED Fall Risk Assessment (Adult) History of falling in the last 3 months, cp4 including since admission No falls in past 3 months (0 pts) Confusion or Disorientation No (0 pts) Intoxicated or Sedated No (0 pts) Impaired Gait No (0 pts) Mobility Assist Device Used No (0 pt) Altered Elimination No (0 pt) Score/Fall Risk Level 0 - 2 = Low Risk Oriented to surroundings, Maintained a safe environment, Assessed \T\ reinforced patient's understanding of fall precautions, Hourly rounding (assess needs \T\ fall precautionary measures) done. Abuse screen: Denies threats or abuse. Nutritional screening: No deficits noted. Tuberculosis screening: No symptoms or risk factors identified. Assessment: 17:00 Reassessment: Discharge pending, awaiting results from repeat troponin. cp4 17:56 General: Appears in no apparent distress. Behavior is calm, cooperative, appropriate cp4 for age. Pain: Denies pain. Neuro: No deficits noted. Reports dizziness. Cardiovascular: No deficits noted. Reports fatigue, Denies chest pain. Vital Signs: 12:39 BP 114 / 57; Pulse 84; Resp 16; Temp 98; Pulse Ox 96% on R/A; ko1 13:30 BP 111 / 78; Pulse 74; Resp 18; Pulse Ox 100% ; cp4 15:30 BP 112 / 77; Pulse 75; Resp 18; Pulse Ox 100% ; cp4 17:30 BP 108 / 66; Pulse 75; Resp 18; Pulse Ox 100% ; cp4 ED Course: 12:12 Patient arrived in ED. mr 12:12 Arline Pruitt is Private Physician. mr 12:41 Triage completed. ko1 12:41 Arm band placed on right wrist. Patient placed in an exam room, on a stretcher, on ko1 pulse oximetry, Patient notified of wait time. 12:49 Ji Lynn MD is Attending Physician. [facility] 13:01 Josie Peña is Primary Nurse. cp4 13:05 CT Head Brain wo Cont In Process Unspecified. EDMS 13:19 XRAY Chest (1 view) In Process Unspecified. EDMS 13:24 Basic Metabolic Panel Sent. cp4 13:24 CBC with Diff Sent. cp4 13:24 LFT's Sent. cp4 13:24 Magnesium Sent. cp4 13:24 NT PRO-BNP Sent. cp4 13:24 PT-INR Sent. cp4 13:24 Troponin HS Sent. cp4 13:24 Urinalysis w/ reflexes Sent. cp4 13:24 Lipase Sent. cp4 13:27 Inserted saline lock: 24 gauge in right hand, using aseptic technique. Blood collected. ds4 15:33 Troponin HS: 310 PM Sent. cp4 15:33 Lab(s) recollected, by me, sent to lab. EKG done, by ED staff, reviewed by Ji Lynn MD. 15:53 Client placed on continuous cardiac and pulse oximetry monitoring. NIBP monitoring cp4 applied. potline monitor on. Warm blanket given. 16:50 Arline Pruitt is Referral Physician. [facility] 17:56 Placed in gown. Bed in low position. Call light in reach. Side rails up X 1. Provided cp4 Education on: vertigo. 17:56 No provider procedures requiring assistance completed. intact, bleeding controlled, No cp4 redness/swelling at site. Pressure dressing applied. Administered Medications: 13:24 Drug: NS 0.9% IV 1000 ml IV at 1 bolus Per protocol; 1000 mL bolus Route: IV; Rate: 1 cp4 bolus; Site: right hand; 15:33 Drug: Meclizine PO 25 mg PO once Route: PO; cp4 17:03 Follow up: Response: No adverse reaction cp4 15:33 Drug: Aspirin PO Chewable Tablet 162 mg PO once Route: PO; cp4 17:02 Follow up: Response: No adverse reaction cp4 Medication: 17:56 VIS not applicable for this client. cp4 Outcome: 16:50 Discharge ordered by . [facility] 17:56 Discharged to home ambulatory, cp4 17:56 Condition: stable 17:56 Discharge instructions given to patient, Instructed on discharge instructions, follow up and referral plans. medication usage, Demonstrated understanding of instructions, follow-up care, medications, Prescriptions given X 2, 17:58 Patient left the ED. cp4 Signatures: Dispatcher [employer] EDMS Ji Lynn MD MD cha Rivera, Mary, Reg Jae Cecilio Jones ds4 Lou Triana RN RN Ernie Christensenina cp4
[2024-02-19 18:51] VITALS: BP 108/66; TEMP 98; O2SAT 100
--- NOTE | 2024-02-20 11:53 | EKG ---
Test Date: 2024-02-19 Test Time: 14:49:00 Truck Caterer: JOCE MEASUREMENT RESULTS: Intervals: Rate: 69 WY: 122 QRSD: 84 QT: 436 QTc: 467 [place]: P: 40 W[place]: 122 QRS: 65 T: 30 INTERPRETIVE STATEMENTS: Normal sinus rhythm ST abnormality, possible digitalis effect Abnormal ECG Compared to ECG 02/19/2024 12:13:18 No significant changes Electronically Signed On 02-20-24 11:49:21 CDT by Alfredo Murdock
--- NOTE | 2024-02-20 11:54 | EKG ---
Test Date: 2024-02-19 Test Time: 12:13:18 Leadership Program Associate: RONDA MEASUREMENT RESULTS: Intervals: Rate: 75 [place]: 130 QRSD: 74 QT: 416 QTc: 464 [place]: P: 35 [place]: 130 QRS: 66 T: 58 INTERPRETIVE STATEMENTS: Normal sinus rhythm Nonspecific ST abnormality Abnormal ECG Compared to ECG 01/12/2024 23:49:18 ST (T wave) deviation now present Electronically Signed On 02-20-24 11:49:35 CDT by Alfredo Murdock
== END 2024-02-19 17:58 | disposition home or self-care (01) ==
LOC: ER 12:09
DX: R42 Dizziness and giddiness (principal); R53.83 Other fatigue; I10 Essential (primary) hypertension; Z88.1 Allergy status to other antibiotic agents; Z88.5 Allergy status to narcotic agent; Z88.6 Allergy status to analgesic agent; Z88.8 Allergy status to other drugs, medicaments and biological substances
CPT/HCPCS: 93005 ×2; 85025; 81001; 80048; 36415; 83735; 85610; 80076; 84484 ×2; 83690; 83880; 70450; 71045; 99285; J8597; J7030

== ENCOUNTER 2024-04-23 20:16 | Emergency (ER) | payer OTHER ==
--- NOTE | 2024-04-23 22:08 | RAD REPORT ---
EXAM DESCRIPTION: US - Extrem Venous W Compress Delfino - 04/23/2024 9:06 pm CLINICAL HISTORY: Bilateral swelling, left more than right COMPARISON: None. TECHNIQUE: Real-time sonographic evaluation of the bilateral lower extremity deep venous systems was performed. FINDINGS: Normal compressibility, flow augmentation, phasic flow and spontaneous flow is identified in both the left and right lower extremity deep venous systems. No intraluminal filling defects seen. IMPRESSION: No DVT in either lower extremity.
[2024-04-23 22:32] LABS: Absolute Basophils 0.1 K/uL (0-0.5); Absolute Eosinophils 0.3 K/uL (0-0.5); Absolute Lymphocytes (CBC) 2.8 K/uL (0.7-4.9); Absolute Monocytes 0.9 K/uL (0.1-1.3); Absolute Neutrophil 3.4 K/uL (1.8-8.0); Basophils % 0.8 % (0-1.3); Eosinophils % 4.1 % (0-4.4); Hematocrit 38.7 % (36.0-45.0); Hemoglobin 13.1 g/dL (12.0-15.0); MCH 33.3 pg (27.0-35.0); MCHC 33.8 g/dL (32.0-36.0); MCV 98.6 fL (80-100); MPV 8.5 fL (7.6-11.3); Monocytes % 12.3 % (3.3-12.3); Neutrophils % 45.8 % (41.7-73.7); Platelets 264 thou/uL (152-406); RBC Red Blood Cell Count 3.92 M/uL (3.86-4.86); Red Cell Distribution Width 13.3 % (12.1-15.2)
[2024-04-23 22:38] LABS: ALT/SGPT 24 U/L (13-56); AST/SGOT 11 U/L (15-37); Albumin 3.4 g/dL (3.4-5.0); Albumin/Globulin Ratio 0.9 (1.1-1.8); Alkaline Phosphatase 96 U/L (45-117); Anion Gap 7.6 mEq/L (5.0-15.0); BUN Blood Urea Nitrogen 12 mg/dL (7-18); Bicarbonate 25 mEq/L (21-32); Bilirubin Total 0.3 mg/dL (0.2-1.0); Globulin 3.7 g/dL (2.3-3.5); Glomerular Filtration Rate 81 ml/min (=/>90); Glucose Level 113 mg/dL (74-106); Potassium 3.6 mEq/L (3.5-5.1); Protein, Total 7.1 g/dL (6.4-8.2); Sodium Level 136 mEq/L (136-145)
[2024-04-23 22:40] LABS: Bilirubin Direct < 0.2 mg/dL (0-0.2); Bilirubin Indirect, Calculated 0.1 mg/dL (0.2-0.8)
--- NOTE | 2024-04-23 23:19 | ER ---
Nurse's Notes [facility] Name: Maria Del Carmen Rodriguez Age: 43 yrs Sex: Female : 1980 Arrival Date: 04/23/2024 Time: 20:16 Bed DX3 Private MD: Diagnosis: Localized edema;Acute bilateral lower extremity swelling , Poor mobility Presentation: 04/23 20:23 Chief complaint: Patient states: LLE swelling and pain x4 days. Coronavirus screen: At as6 this time, the client does not indicate any symptoms associated with coronavirus-19. Ebola Screen: No symptoms or risks identified at this time. Initial Sepsis Screen: Does the patient meet any 2 criteria? No. Patient's initial sepsis screen is negative. Does the patient have a suspected source of infection? No. Patient's initial sepsis screen is negative. Risk Assessment: Do you want to hurt yourself or someone else? Patient reports no desire to harm self or others. Onset of symptoms was April 19, 2024. 20:23 Method Of Arrival: Wheelchair as6 20:23 Acuity: JUS 3 as6 Triage Assessment: 20:27 General: Appears in no apparent distress. Behavior is calm, cooperative. Pain: as6 Complains of pain in left leg. Historical: - Allergies: 20:26 adult benadryl; as6 20:26 Avelox; as6 20:26 Benadryl; as6 20:26 darvocet; as6 20:26 Darvocet-N 100; as6 20:26 Hydrocodone-Acetaminophen; as6 20:26 Imitrex; as6 20:26 Rocephin; as6 20:26 Stadol; as6 20:26 Sumatriptan Succinate; as6 20:26 Tessalon Perles; as6 20:26 Trazodone; as6 - PMHx: 20:26 Asthma; Atrial fibrillation; Bipolar disorder; degenerative disc desease; Degenerative as6 disc disease; Hypertension; ibs; insomnia; Migraines; Sleep Apnea; Tachycardia; - PSHx: 20:26 Appendectomy; Cholecystectomy; Left knee replacement; tubal ligation; as6 - Immunization history:: Adult Immunizations up to date. - Infectious Disease History:: Denies. - Social history:: Smoking status: Patient denies any tobacco usage or history of. - Family history:: not pertinent. Screenin:24 [facility] ED Fall Risk Assessment (Adult) History of falling in the last 3 months, as6 including since admission No falls in past 3 months (0 pts) Confusion or Disorientation No (0 pts) Intoxicated or Sedated No (0 pts) Impaired Gait Yes (1 pt) Mobility Assist Device Used Yes (1 pt) Altered Elimination No (0 pt) Score/Fall Risk Level 0 - 2 = Low Risk Oriented to surroundings, Maintained a safe environment, Educated pt \T\ family on fall prevention, incl call for assistance when getting out of bed, Assessed \T\ reinforced patient's understanding of fall precautions. Abuse screen: Denies threats or abuse. Denies injuries from another. Nutritional screening: No deficits noted. Tuberculosis screening: No symptoms or risk factors identified. Assessment: 23:25 Reassessment: Patient appears in no apparent distress at this time. Patient and/or as6 family updated on plan of care and expected duration. Pain level reassessed. Patient is alert, oriented x 3, equal unlabored respirations, skin warm/dry/pink. Vital Signs: 20:23 BP 119 / 56; Pulse 76; Resp 18 S; Temp 97.6(TE); Pulse Ox 99% on R/A; Weight 104.33 kg as6 (R); Height 5 ft. 2 in. (R); Pain 9/10; 23:23 BP 106 / 66; Pulse 76; Resp 18; Pulse Ox 97% ; as6 20:23 Body Mass Index 42.07 (104.33 kg, 157.48 cm) as6 20:23 Pain Scale: Adult as6 [place] Coma Score: 04/24 04:41 Eye Response: spontaneous(4). Motor Response: obeys commands(6). Verbal Response: sp4 oriented(5). Total: 15. ED Course: 04/23 20:19 Patient arrived in ED. jj6 20:23 John Pastrana MD is Attending Physician. sp4 20:26 Triage completed. as6 20:27 Arm band placed on. as6 21:07 Extrem Venous W Compression Delfino US In Process Unspecified. EDMS 22:00 Missed attempt(s): 24 gauge in right hand. bc6 22:10 Missed attempt(s): 24 gauge in right hand. bc6 22:16 Basic Metabolic Panel Sent. bc6 22:16 CBC with Diff Sent. bc6 22:16 LFT's Sent. bc6 22:17 Initial lab(s) drawn, by me, sent to lab. bc6 23:24 Bed in low position. Call light in reach. Provided Education on: follow up. as6 23:24 No provider procedures requiring assistance completed. Patient did not have IV access as6 during this emergency room visit. Administered Medications: No medications were administered Medication: 23:24 VIS not applicable for this client. as6 Outcome: 23:18 Discharge ordered by . sp4 23:24 Discharged to home via wheelchair, as6 23:24 Condition: stable 23:24 Discharge instructions given to patient, Instructed on discharge instructions, follow up and referral plans. Demonstrated understanding of instructions, follow-up care, 23:25 Patient left the ED. as6 Signatures: Dispatcher [employer] EDMS Katlin Chris6 Zen Maynard RN RN as6 Lanette Hamilton 6 John Pastrana MD MD sp4
--- NOTE | 2024-04-23 23:19 | EDPHYS ---
Physician Documentation [facility] Name: Maria Del Carmen Rodriguez Age: 43 yrs Sex: Female : 1980 Arrival Date: 04/23/2024 Time: 20:16 Bed DX3 Private MD: ED Physician John Pastrana HPI: 04/23 20:23 This 43 yrs old Female presents to ER via Unassigned with complaints of Leg sp4 Pain, Leg Swelling. 04/24 04:41 Patient presents with complaint of bilateral lower extremity swelling. Concern for sp4 DVTs.. Historical: - Allergies: 04/23 20:26 adult benadryl; as6 20:26 Avelox; as6 20:26 Benadryl; as6 20:26 darvocet; as6 20:26 Darvocet-N 100; as6 20:26 Hydrocodone-Acetaminophen; as6 20:26 Imitrex; as6 20:26 Rocephin; as6 20:26 Stadol; as6 20:26 Sumatriptan Succinate; as6 20:26 Tessalon Perles; as6 20:26 Trazodone; as6 - PMHx: 20:26 Asthma; Atrial fibrillation; Bipolar disorder; degenerative disc desease; Degenerative as6 disc disease; Hypertension; ibs; insomnia; Migraines; Sleep Apnea; Tachycardia; - PSHx: 20:26 Appendectomy; Cholecystectomy; Left knee replacement; tubal ligation; as6 - Immunization history:: Adult Immunizations up to date. - Infectious Disease History:: Denies. - Social history:: Smoking status: Patient denies any tobacco usage or history of. - Family history:: not pertinent. ROS: 04/24 04:41 Constitutional: Negative for fever, chills, and weight loss, positive bilateral lower sp4 extremity swelling. All other systems are negative, Exam: 04:41 Constitutional: This is a well developed, well nourished patient who is awake, alert, sp4 and in no acute distress. Head/Face: Normocephalic, atraumatic. Eyes: Pupils equal round and reactive to light, extra-ocular motions intact. Lids and lashes normal. Conjunctiva and sclera are not injected. Cornea within normal limits. Periorbital areas with no swelling, redness, or edema. ENT: Nares patent. No nasal discharge, no septal abnormalities noted. Tympanic membranes are normal and external auditory canals are clear. Oropharynx with no redness, swelling, or masses, exudates, or evidence of obstruction, uvula midline. Mucous membranes moist. Neck: Trachea midline, no thyromegaly or masses palpated, and no cervical lymphadenopathy. Supple, full range of motion without nuchal rigidity, or vertebral point tenderness. Chest/axilla: Normal chest wall appearance and motion. Nontender with no deformity. No lesions are appreciated. Cardiovascular: Regular rate and rhythm with a normal S1 and S2. No gallops, murmurs, or rubs. Normal PMI, no JVD. No pulse deficits. Respiratory: Lungs have equal breath sounds bilaterally, clear to auscultation and percussion. No rales, rhonchi or wheezes noted. No increased work of breathing, no retractions or nasal flaring. Abdomen/GI: Soft, with normal bowel sounds. No distension or tympany. No guarding or rebound. No evidence of tenderness throughout. Back: No spinal tenderness. No costovertebral tenderness. Skin: Warm, dry with normal turgor. Normal color with no rashes, no lesions, and no evidence of cellulitis. MS/ Extremity: Pulses equal, no cyanosis. Neurovascular intact. Full, normal range of motion. There is mild bilateral edema. Neuro: Awake and alert, GCS 15, oriented to person, place, time, and situation. Cranial nerves II-XII grossly intact. Motor strength 5/5 in all extremities. Sensory grossly intact. Psych: Awake, alert, with orientation to person, place and time. Behavior, mood, and affect are within normal limits Vital Signs: 04/23 20:23 BP 119 / 56; Pulse 76; Resp 18 S; Temp 97.6(TE); Pulse Ox 99% on R/A; Weight 104.33 kg as6 (R); Height 5 ft. 2 in. (R); Pain 9/10; 23:23 BP 106 / 66; Pulse 76; Resp 18; Pulse Ox 97% ; as6 20:23 Body Mass Index 42.07 (104.33 kg, 157.48 cm) as6 20:23 Pain Scale: Adult as6 [place] Coma Score: 04/24 04:41 Eye Response: spontaneous(4). Motor Response: obeys commands(6). Verbal Response: sp4 oriented(5). Total: 15. MDM: 04/23 20:24 Patient medically screened. sp4 04/24 04:41 Differential diagnosis: dislocation, contusion, abrasion, tendonitis, Edema, DVT. Data sp4 reviewed: vital signs, nurses notes, lab test result(s), radiologic studies, ultrasound. 04:43 ED course: EXAM DESCRIPTION: US - Extrem Venous W Compress Delfino - 04/23/2024 9:06 pm sp4 CLINICAL HISTORY: Bilateral swelling, left more than right COMPARISON: None. TECHNIQUE: Real-time sonographic evaluation of the bilateral lower extremity deep venous systems was performed. FINDINGS: Normal compressibility, flow augmentation, phasic flow and spontaneous flow is identified in both the left and right lower extremity deep venous systems. No intraluminal filling defects seen. IMPRESSION: No DVT in either lower extremity. . 04:43 Consideration of Admission/Observation Escalation of care including sp4 admission/observation considered. ED course: Workup today is negative for bilateral DVT negative for renal failure. Patient stable for discharge home. Advised compression stockings.. 04/23 20:31 Order name: Basic Metabolic Panel; Complete Time: 23:12 sp4 04/23 20:31 Order name: CBC with Diff; Complete Time: 23:12 sp4 04/23 20:31 Order name: LFT's; Complete Time: 23:12 sp4 04/23 20:31 Order name: Extrem Venous W Compression Delfino US; Complete Time: 22:19 sp4 04/23 20:31 Order name: IV Saline Lock; Complete Time: 23:13 sp4 04/23 20:31 Order name: Labs collected and sent; Complete Time: 22:16 sp4 Administered Medications: No medications were administered Disposition Summary: 04/23/24 23:18 Discharge Ordered Notes: Location: Home sp4 Problem: new sp4 Symptoms: have improved sp4 Condition: Stable sp4 Diagnosis - Localized edema sp4 - Acute bilateral lower extremity swelling , Poor mobility sp4 Followup: sp4 - With: Private Physician - When: 7 - 10 days - Reason: Recheck today's complaints Discharge Instructions: - Discharge Summary Sheet sp4 - Edema, [id number] sp4 Forms: - Patient Portal Instructions sp4 Signatures: Dispatcher [employer] EDMS Zen Maynard RN RN as6 John Pastrana MD MD sp4 Corrections: (The following items were deleted from the chart) 04/23 20: 20:31 BASIC METABOLIC PANEL+C.LAB.BRZ ordered. EDMS EDMS 20: CBC+H.LAB.BRZ ordered. EDMS EDMS : 20:31 HEPATIC FUNCTION+C.LAB.BRZ ordered. EDMS EDMS : 20:32 Extrem Venous W Compression Delfino+US.RAD.BRZ ordered. EDMS EDMS
[2024-04-23 23:37] VITALS: BP 106/66; TEMP 97.6; O2SAT 97
== END 2024-04-23 23:25 | disposition home or self-care (01) ==
LOC: ER 20:16
DX: R60.0 Localized edema (principal); Z74.09 Other reduced mobility
CPT/HCPCS: 36415; 80048; 80076; 85025; 93970; 99283

== ENCOUNTER 2024-07-21 09:24 | Emergency (ER) | payer OTHER ==
[2024-07-21 10:02] LABS: SARS-CoV-2 Antigen CONTROL BLUE LINE VIS/BG OK; SARS-CoV-2 Antigen Rapid Res Negative (Negative)
--- NOTE | 2024-07-21 10:46 | RAD REPORT ---
EXAM DESCRIPTION: Mary Single View07/21/2024 10:27 am CLINICAL HISTORY: Cough COMPARISON: January 2024 FINDINGS: The lungs appear clear of acute infiltrate. The heart is normal size IMPRESSION: No acute abnormalities displayed
--- NOTE | 2024-07-21 11:07 | ER ---
Nurse's Notes [facility] Name: Maria Del Carmen Rodriguez Age: 44 yrs Sex: Female : 1980 Arrival Date: 07/21/2024 Time: 09:24 Bed 9 Private MD: Diagnosis: Mild intermittent asthma;Acute upper respiratory infection, unspecified Presentation: 07/21 09:34 Chief complaint: Patient states: Friday evening had a bad asthma attack, now having flu iw symptoms, feels tired , weak coughing, sniffles, nausea this morning, felt like she had fever yesterday. Coronavirus screen: Client presents with at least one sign or symptom that may indicate coronavirus-19. Ebola Screen: No symptoms or risks identified at this time. Initial Sepsis Screen: Does the patient meet any 2 criteria? No. Patient's initial sepsis screen is negative. Does the patient have a suspected source of infection? No. Patient's initial sepsis screen is negative. Risk Assessment: Do you want to hurt yourself or someone else?. Onset of symptoms was July 19, 2024. 09:34 Method Of Arrival: Ambulatory iw 09:34 Acuity: JUS 3 iw Historical: - Allergies: 09:35 adult benadryl; iw 09:35 Avelox; iw 09:35 Benadryl; iw 09:35 Darvocet-N 100; iw 09:35 Hydrocodone-Acetaminophen; iw 09:35 Imitrex; iw 09:35 Rocephin; iw 09:35 Stadol; iw 09:35 Sumatriptan Succinate; iw 09:35 Tessalon Perles; iw 09:35 Trazodone; iw - PMHx: 09:35 Asthma; Atrial fibrillation; Bipolar disorder; degenerative disc desease; Degenerative iw disc disease; Hypertension; ibs; insomnia; Migraines; Sleep Apnea; Tachycardia; - PSHx: 09:35 Appendectomy; Cholecystectomy; Left knee replacement; tubal ligation; iw - Immunization history:: Adult Immunizations up to date. - Infectious Disease History:: Denies. - Social history:: Smoking status: Patient denies any tobacco usage or history of. - Family history:: not pertinent. - Hospitalizations: : No recent hospitalization is reported. Screenin:21 [facility] ED Fall Risk Assessment (Adult) History of falling in the last 3 months, iw including since admission No falls in past 3 months (0 pts) Confusion or Disorientation No (0 pts) Intoxicated or Sedated No (0 pts) Impaired Gait No (0 pts) Mobility Assist Device Used No (0 pt) Altered Elimination No (0 pt) Score/Fall Risk Level 0 - 2 = Low Risk. Abuse screen: Denies threats or abuse. Nutritional screening: No deficits noted. Tuberculosis screening: No symptoms or risk factors identified. Assessment: 10:03 General: Appears in no apparent distress. Behavior is calm, cooperative. Pain: Denies iw pain. Neuro: Level of Consciousness is awake, alert, obeys commands, Oriented to person, place, time, situation, Moves all extremities. Full function. Cardiovascular: Patient's skin is warm and dry. Respiratory: Airway is patent Respiratory effort is even, unlabored. GI: Abdomen is. Derm: Skin is intact, is healthy with good turgor. Musculoskeletal: Range of motion: intact in all extremities. Vital Signs: 09:34 BP 123 / 77; Pulse 73; Resp 16; Temp 98.1; Pulse Ox 95% on R/A; Weight 104.33 kg; iw Height 5 ft. 2 in. ; 09:34 Body Mass Index 42.07 (104.33 kg, 157.48 cm) iw ED Course: 09:28 Patient arrived in ED. ra3 09:35 Triage completed. iw 09:36 Arm band placed on. iw 09:45 Don Blum MD is Attending Physician. rn 10:00 Astrid Farr RN is Primary Nurse. iw 10:29 CXR XRAY In Process Unspecified. EDMS 11:21 No provider procedures requiring assistance completed. Patient did not have IV access iw during this emergency room visit. 11:22 Patient has correct armband on for positive identification. Provided Education on: . iw Administered Medications: No medications were administered Medication: 10:03 VIS not applicable for this client. iw Outcome: 11:06 Discharge ordered by . rn 11:22 Discharged to home ambulatory, with family, iw 11:22 Condition: good 11:22 Discharge instructions given to patient, family, Instructed on discharge instructions, follow up and referral plans. Demonstrated understanding of instructions, follow-up care, 11:22 Patient left the ED. iw Signatures: Dispatcher [employer] EDMS Yordan, AstridCOLBY cueva RN, Roman, MD MD rn Alva, Ruby ra3
--- NOTE | 2024-07-21 11:07 | EDPHYS ---
Physician Documentation [facility] Name: Maria Del Carmen Rodriguez Age: 44 yrs Sex: Female : 1980 Arrival Date: 07/21/2024 Time: 09:24 Bed 9 Private MD: ED Physician Don Blum HPI: 07/21 10:24 This 44 yrs old Female presents to ER via Ambulatory with complaints of cough, fever. rn 10:24 Onset: The symptoms/episode began/occurred 3 day(s) ago. Severity of symptoms: At their rn worst the symptoms were mild, in the emergency department the symptoms are unchanged. Modifying factors: The symptoms are alleviated by nothing, the symptoms are aggravated by nothing. Associated signs and symptoms: Pertinent positives: fever, rhinorrhea, sore throat, Pertinent negatives: diarrhea. The patient has experienced similar episodes in the past. Patient reports 2 to 3 days of feeling sick, subjective fever and chills, runny nose, cough, malaise and fatigue. No abdominal pain. No shortness of breath.. Historical: - Allergies: 09:35 adult benadryl; iw 09:35 Avelox; iw 09:35 Benadryl; iw 09:35 Darvocet-N 100; iw 09:35 Hydrocodone-Acetaminophen; iw 09:35 Imitrex; iw 09:35 Rocephin; iw 09:35 Stadol; iw 09:35 Sumatriptan Succinate; iw 09:35 Tessalon Perles; iw 09:35 Trazodone; iw - PMHx: 09:35 Asthma; Atrial fibrillation; Bipolar disorder; degenerative disc desease; Degenerative iw disc disease; Hypertension; ibs; insomnia; Migraines; Sleep Apnea; Tachycardia; - PSHx: 09:35 Appendectomy; Cholecystectomy; Left knee replacement; tubal ligation; iw - Immunization history:: Adult Immunizations up to date. - Infectious Disease History:: Denies. - Social history:: Smoking status: Patient denies any tobacco usage or history of. - Family history:: not pertinent. - Hospitalizations: : No recent hospitalization is reported. ROS: 10:24 Constitutional: Positive for subjective fever and chills Eyes: Negative for injury, rn pain, redness, and discharge, ENT: Positive for nasal congestion and sore throat Cardiovascular: Negative for chest pain, palpitations, and edema, Respiratory: Positive for cough Abdomen/GI: Positive for nausea, negative for abdominal pain and diarrhea MS/Extremity: Negative for injury and deformity, Skin: Negative for injury, rash, and discoloration, Neuro: Positive for generalized weakness and malaise Exam: 10:24 Constitutional: This is a well developed, well nourished patient who is awake, alert, rn and in no acute distress. ENT: Moist mucous membranes, no stridor Neck: No lymphadenopathy. No meningismus. Cardiovascular: Regular rate and rhythm. No pulse deficits. Respiratory: No increased work of breathing, no retractions or nasal flaring. Abdomen/GI: Soft, nontender MS/ Extremity: Pulses equal, no cyanosis. Neuro: Awake and alert, GCS 15 Vital Signs: 09:34 BP 123 / 77; Pulse 73; Resp 16; Temp 98.1; Pulse Ox 95% on R/A; Weight 104.33 kg; iw Height 5 ft. 2 in. ; 09:34 Body Mass Index 42.07 (104.33 kg, 157.48 cm) iw MDM: 09:45 Patient medically screened. rn 10:26 Differential Diagnosis: Influenza Upper Respiratory Infection Sinusitis Pharyngitis rn Viral Syndrome Pneumonia. Data reviewed: vital signs, nurses notes, lab test result(s). 11:06 Independent interpretation of the following test(s) in the Emergency Department X-Ray: rn My interpretation is Chest x-ray images negative for pneumonia or pneumothorax per my interpretation. Care significantly affected by the following chronic conditions: Asthma. Counseling: I had a detailed discussion with the patient and/or guardian regarding the historical points, exam findings, and any diagnostic results supporting the discharge/admit diagnosis, lab results, radiology results, the need for outpatient follow up, to return to the emergency department if symptoms worsen or persist or if there are any questions or concerns that arise at home. Special discussion: I discussed with the patient/guardian in detail that at this point there is no indication for admission to the hospital. It is understood, however, that if the symptoms persist or worsen the patient needs to return immediately for re-evaluation. 07/21 09:37 Order name: SARS RAPID; Complete Time: 10:04 iw 07/21 09:37 Order name: Flu; Complete Time: 11:01 iw 07/21 09:41 Order name: CXR XRAY iw Administered Medications: No medications were administered Disposition Summary: 07/21/24 11:06 Discharge Ordered Notes: Location: Home rn Problem: new rn Symptoms: have improved rn Condition: Stable rn Diagnosis - Mild intermittent asthma rn - Acute upper respiratory infection, unspecified rn Followup: rn - With: Private Physician - When: As needed - Reason: Recheck today's complaints, Re-evaluation by your physician Discharge Instructions: - Discharge Summary Sheet rn - Asthma, Adult rn - Viral Respiratory Infection rn Forms: - Medication Reconciliation Form rn - Antibiotic axle turner - Prescription Opioid Use rn - Patient Portal Instructions rn - Leadership Thank You Letter rn Prescriptions: - Prednisone 20 mg Oral Tablet - take 3 tablets ORAL route once daily for 5 days; 15 tablet; Refills: 0, Product rn Selection Permitted - Zithromax Z-Mejia 250 mg Oral Tablet - take 1 tablet ORAL route as directed for 5 days Day 1 - take two (2) tablets rn one time. Day 2, 3, 4 , 5 take one (1) tablet once daily.; 6 tablet; Refills: 0, Product Selection Permitted Signatures: Dispatcher [employer] Astrid Hurst, RN RN iw Don Blum MD MD rn
[2024-07-21 11:29] VITALS: BP 123/77; TEMP 98.1; O2SAT 95
== END 2024-07-21 11:22 | disposition home or self-care (01) ==
LOC: ER 09:24
DX: J06.9 Acute upper respiratory infection, unspecified (principal); J45.20 Mild intermittent asthma, uncomplicated; Z11.52 Encounter for screening for COVID-19
CPT/HCPCS: 36415; 71045; 87804; 87811